=== PATIENT | male | born 1930 | race Hispanic/Latino ===

== ENCOUNTER 2017-12-25 04:22 | Inpatient (IN) | payer MEDICARE, BC ==
[2017-12-25] MEDS ORDERED: Nitroglycerin 50mg in D5W 50 MG/250 ML BOTTLE IV ONE (04:48)
[2017-12-25] MEDS ORDERED: Aspirin 325 mg EC Tablets PO STA (04:52)
[2017-12-25] MEDS ORDERED: Nitroglycerin 50mg in D5W 50 MG/250 ML BOTTLE IV STA (04:52)
--- NOTE | 2017-12-25 04:54 | C.PDOC ---
History Of Present Illness 87 y/o male with PMHx significant for COPD, CAD s/p CABG and stents, presents to the ED for evaluation of persistent chest pain. Patient complains of substernal chest pain that began at 2pm while at rest. Patient has taken at least 10 nitroglycerin at home, which relieves pain briefly for 20-30 min. Pain was initially rated 10/10 but is now 3/10. Of note, patient is on home oxygen. He denies SOB, palpitations, dizziness, nausea, vomiting, or diaphoresis. Time Seen by Provider: 12/25/17 04:33 Chief Complaint (Nursing): Chest Pain History Per: Patient History/Exam Limitations: no limitations Onset/Duration Of Symptoms: Hrs Current Symptoms Are (Timing): Still Present Nitro Therapy Administered: Per Own Supply (x10), Partial Relief Past Medical History Reviewed: Historical Data, Nursing Documentation, Vital Signs Vital Signs: Last Vital Signs Temp Pulse 64 12/25/17 05:57 Resp 14 12/25/17 05:57 BP 138/72 12/25/17 05:57 Pulse Ox 100 12/25/17 05:57 - Medical History PMH: Atrial Fibrillation, CAD, COPD, HTN, Peripheral Edema Denies: Chronic Kidney Disease Surgical History: CABG, Coronary Stent Other Surgeries: Vascular bypass to right leg Family History: States: No Known Family Hx - Social History Hx Alcohol Use: No Hx Substance Use: No - Immunization History Hx Tetanus Toxoid Vaccination: No Hx Influenza Vaccination: No Hx Pneumococcal Vaccination: No Review Of Systems Except As Marked, All Systems Reviewed And Found Negative. Constitutional: Negative for: Sweats Cardiovascular: Positive for: Chest Pain. Negative for: Palpitations Respiratory: Negative for: Shortness of Breath Gastrointestinal: Negative for: Nausea, Vomiting Neurological: Negative for: Dizziness Physical Exam - Physical Exam Appears: Non-toxic, No Acute Distress, Other (Speaking in full sentences, with good humor) Skin: Normal Color, Warm, Dry, No Diaphoretic Head: Atraumatic, Normacephalic Eye(s): bilateral: Normal Inspection, PERRL, EOMI Nose: Normal Oral Mucosa: Moist Neck: Normal ROM, Supple Chest: Symmetrical, Other (Median sternotomy scar, well healed) Cardiovascular: Rhythm Regular, No Friction Rub, No Murmur, No JVD, No Other ( Thrill) Respiratory: Decreased Breath Sounds, No Rales, No Rhonchi, No Wheezing Gastrointestinal/Abdominal: Soft, No Tenderness, No Guarding, No Rebound, Other (Obese habitus) Extremity: Normal ROM, No Deformity, Swelling (Chronic stasis edema to bilateral lower extremities, non-pitting), Other (Erythematous macular exanthum to right lower extremity, suggestive of cellulitis) Pulses: Left Dorsalis Pedis: Normal, Right Dorsalis Pedis: Normal Neurological/Psych: Oriented x3, Normal Speech, Normal Cranial Nerves (2-12 intact), Normal Motor, Normal Sensation, No Other (focal deficits) ED Course And Treatment - Laboratory Results Result Diagrams: 12/25/17 05:07 12/25/17 05:07 ECG: Interpreted By Me, Viewed By Me ECG Rhythm: Sinus Rhythm (at 76 bpm with L BBB, with no acute ST changes) Interpretation Of ECG: No prior EKG for comparison O2 Sat by Pulse Oximetry: 99 (RA) Pulse Ox Interpretation: Normal - Radiology CXR: Interpreted by Me, Viewed By Me CXR Interpretation: Yes: Cardiomegaly, Other (Median sternotomy wires) Medical Decision Making Medical Decision Making: Impression: Crescendo angina Time: 4:52 Initial Plan: * Nitro IV drip * Aspirin 325 mg PO * EKG * Chest x-ray * Routine labs * 3L O2 via nasal cannula * Likely admission for unstable angina Labs reviewed: Troponin 0.198, BNP 1999 5:[address] Stringer, hospitalist on-call, who accepts patient for admission Disposition Discussed With : Freedom Stringer Doctor Will See Patient In The: Hospital Counseled Patient/Family Regarding: Studies Performed, Diagnosis - Disposition Disposition: HOSPITALIZED Disposition Time: 05:45 Condition: IMPROVED Forms: [employer] (French) - POA Core Measure Indicators: Chest Pain - Clinical Impression Clinical Impression: Crescendo angina - Scribe Statement The provider has reviewed the documentation as recorded by the Scribe (Tati Eric) Provider Attestation: All medical record entries made by the Scribe were at my direction and personally dictated by me. I have reviewed the chart and agree that the record accurately reflects my personal performance of the history, physical exam, medical decision making, and the department course for this patient. I have also personally directed, reviewed, and agree with the discharge instructions and disposition.
[2017-12-25] MEDS ORDERED: Aspirin 325 mg EC Tablets PO ONE (05:02)
[2017-12-25 05:10] LABS: BASO # 0.1 K/uL (0.0-0.2); BASO % 0.5 % (0.0-2.0); EOS # 0.2 K/uL (0.0-0.7); EOS % 1.7 % (0.0-4.0); HEMOGLOBIN 12.4 g/dL (12.0-18.0); LYMPH # 1.9 K/uL (1.0-4.3); LYMPH % 17.1 % (20.0-40.0); MEAN CELL VOLUME 93.3 fL (80.0-94.0); MEAN CORPUSCULAR HEMOGLOBIN 30.9 pg (27.0-31.0); MEAN CORPUSCULAR HGB CONC 33.1 g/dL (33.0-37.0); MEAN PLATELET VOLUME 9.2 fL (7.2-11.7); MONO # 1.1 K/uL (0.0-0.8); MONO % 9.5 % (0.0-10.0); NEUT % 71.2 % (50.0-75.0); RED CELL DISTRIBUTION WIDTH 14.7 % (11.5-14.5); WHITE BLOOD COUNT 11.2 K/uL (4.8-10.8)
[2017-12-25 05:23] LABS: ALB/GLOB RATIO 1.3 (1.0-2.1); ALBUMIN 4.2 g/dL (3.5-5.0); CALCIUM 9.4 mg/dl (8.6-10.4)
[2017-12-25 05:46] LABS: TROPONIN I 0.197 ng/mL (0.00-0.120)
[2017-12-25] MEDS ORDERED: Nitroglycerin 2% Ointment Foilpak UD TOP STA (05:48)
[2017-12-25] MEDS ORDERED: Nitroglycerin 2% Ointment Foilpak UD TOP ONE ×3 (06:02→21:32)
[2017-12-25] MEDS ORDERED: Dextrose 50% SYRINGE Inj (50 ml) IV PRN (07:51)
[2017-12-25] MEDS ORDERED: Glucagon Recombinant 1 mg Inj IM PRN (07:51)
[2017-12-25] MEDS: Budesonide 0.5 mg/2 ml Inhal Susp UD INH SCH (08:05)
--- NOTE | 2017-12-25 08:33 | RAD ---
PROCEDURE: CHEST RADIOGRAPH, 1 VIEW HISTORY: chest pain COMPARISON: None available. FINDINGS: LUNGS: Clear. PLEURA: No pneumothorax or pleural fluid seen. CARDIOVASCULAR: Left subclavian access AICD/ pacemaker. Prior sternotomy with sternal wires and surgical clips. Atherosclerotic aortic calcifications. Cardiomediastinal silhouette enlarged. OSSEOUS STRUCTURES: Degenerative changes. VISUALIZED UPPER ABDOMEN: Normal. OTHER FINDINGS: None. IMPRESSION: No active disease.
[2017-12-25] MEDS ORDERED: Heparin25000 units/250ml 1/2NS 25,000 UNITS/250 ML BAG IV PRN (09:08)
--- NOTE | 2017-12-25 09:55 | CP.PCM.HP ---
<Bonita LeeMarshall - Last Filed: 12/25/17 16:25> History of Present Illness - History of Present Illness History of Present Illness: CC: Chest pain HPI: 87 year old male with past medical history of CAD with stents and CABG in 2001, DM, enlarged prostate, and kidney stones presents to the ED with 1 day of chest pain. Patient describes pain as "a deep pain" which began yesterday at 2 pm. The patient stated he experience pain bilaterally across his chest, in his left shoulder and arm and with moderate shortness of breath associated with the pain. The pain was decreased by sitting up. Patient states he was sitting down when pain originally started and denies doing any activities of exertion in quite some time due to general deconditioning. Originally the pain was a 10/10 however after taking nitroglycerin tablets the pain reduced to a 3/10 until it eventually completely dissipated. According to patient, this was the first time he had ever taken nitroglycerin and over the course of the day took about 10 tablets. The patient also took aspirin as well as an OTC pain killer that he did not know the name of which his son provided him. The patient states he had very similar yet more severe symptoms on December 14 this month. At that time he did not come to the hospital. He stated he knew he was having a heart attack and wanted "to let this one take me." However, after that pain subsided he stated he realized he still had his son to live for. Patient states that is why he presented to the hospital today during this bout of chest pain. Patient states he took all of his medications today EXCEPT for metformin. He states he is very regimented with his medications, taking all as prescribed daily. Patient denies any fevers, chills, headache, dizziness, vision changes, sore throat, palpitations, abdominal pain, nausea, vomiting, constipation, diarrhea, dysuria, leg pain/swelling, weight changes. PMD: Dr. Santamaria (urologist), insurance plan specialist- Dr. Ramirez, Side Seam Machine Operator- Dr. Zaldivar PMHx: HTN, COPD, CAD- stent (unknown number and date) CABG ( unknown vessel number, 2001) pacemaker/defibrillator (2001 interrogated [id number] as per patient ), DM, Prostate enlargement, Kidney stones (1951) Allergies: denies Surgical History: CABG 2001, stents unknown date, Prostate surgery- 2010, pacemaker/defibrillator- 2001 (patient states he is on his third one) Family history: father and mother both of "heart issues" in their 50's, grandfather of throat cancer, has 1 son who is alive and well, denies history of strokes Social History: >60 pack year history smoking quit in 2004 but "smokes 2 puffs of 's cigarettes every 6 months to remember", quit drinking alcohol in , denies recreational drug use. Retired, currently lives with his son. Home medications: Lipitor 10mg PO daily, ASA 81 mg PO daily, Eliquis 2.5 mg PO daily, Cozaar 50mg PO BID, glimepiride 1mg PO daily, Budesonide .5gm MC BID, Norvasc 10mg PO daily, Torsemide 20mg PO daily, Metoprolol 100mg PO daily, Metolazone 2.5 mg PO QOD6, Metformin 500mg PO daily, Clonidine .1mg PO BID, Arformoterol 15mcg IH daily. Present on Admission - Present on Admission Any Indicators Present on Admission: No History of DVT/PE: No History of Uncontrolled Diabetes: No Urinary Catheter: No Decubitus Ulcer Present: No Review of Systems - Constitutional Constitutional: absent: Chills, Fever - EENT Eyes: absent: Blurred Vision, Change in Vision Nose/Mouth/Throat: absent: Nasal Congestion, Sore Throat - Cardiovascular Cardiovascular: Chest Pain, Chest Pain at Rest, Dyspnea, Edema. absent: Irregular Heart Rhythm, Palpitations, Syncope - Respiratory Respiratory: Dyspnea, Dyspnea on Exertion. absent: Cough - Gastrointestinal Gastrointestinal: absent: Abdominal Pain, Constipation, Diarrhea, Nausea, Vomiting - Genitourinary Genitourinary: Nocturia, Urinary Hesitance. absent: Dysuria, Hematuria - Musculoskeletal Musculoskeletal: Radiating Pain into Limb (chest pain radiating into left arm ) . absent: Numbness, Tingling - Integumentary Integumentary: Erythema, Swelling Additional comments: right leg erythema and edema - Neurological Neurological: absent: Syncope Past Patient History - Past Social History Smoking Status: Unknown If Ever Smoked - CARDIAC Hx Atrial Fibrillation: Yes Hx Hypertension: Yes Hx Peripheral Edema: Yes - PULMONARY Hx Chronic Obstructive Pulmonary Disease (COPD): Yes - NEUROLOGICAL Hx Neurological Disorder: No - HEENT Hx HEENT Problems: No - RENAL Hx Chronic Kidney Disease: No - ENDOCRINE/METABOLIC Hx Diabetes Mellitus Type 2: Yes - HEMATOLOGICAL/ONCOLOGICAL Hx Blood Disorders: No - INTEGUMENTARY Hx Dermatological Problems: No - MUSCULOSKELETAL/RHEUMATOLOGICAL Hx Musculoskeletal Disorders: No - PSYCHIATRIC Hx Substance Use: No - SURGICAL HISTORY Hx Coronary Artery Bypass Graft: Yes Hx Coronary Stent: Yes - ANESTHESIA Hx Anesthesia: Yes Hx Anesthesia Reactions: No Meds Allergies/Adverse Reactions: Allergies Allergy/AdvReac Type Severity Reaction Status Date / Time No Known Allergies Allergy Verified 12/25/17 04:27 Physical Exam - Constitutional Appears: Non-toxic, No Acute Distress - Head Exam Head Exam: ATRAUMATIC, NORMAL INSPECTION, NORMOCEPHALIC - Eye Exam Eye Exam: EOMI, Normal appearance Pupil Exam: NORMAL ACCOMODATION, PERRL - ENT Exam ENT Exam: Mucous Membranes Moist - Neck Exam Neck exam: Positive for: Normal Inspection. Negative for: Lymphadenopathy, Tenderness - Respiratory Exam Respiratory Exam: Rales, Rhonchi. absent: Respiratory Distress - Cardiovascular Exam Cardiovascular Exam: REGULAR RHYTHM, RRR, +S1, +S2 - GI/Abdominal Exam GI & Abdominal Exam: Normal Bowel Sounds, Soft. absent: Distended, Guarding, Tenderness - Extremities Exam Extremities exam: Positive for: pedal edema. Negative for: tenderness Additional comments: right LE edematous and erythematous - Back Exam Back exam: NORMAL INSPECTION - Neurological Exam Neurological exam: Alert, Oriented x3 - Psychiatric Exam Psychiatric exam: Normal Affect, Normal Mood - Skin Skin Exam: Warm Additional comments: Right lower extremity erythematous and edematous, no tenderness to touch Results - Vital Signs Recent Vital Signs: Last Vital Signs Temp 97.4 F L 12/25/17 07:32 Pulse 70 12/25/17 07:32 Resp 20 12/25/17 07:32 BP 150/72 12/25/17 08:14 Pulse Ox 99 12/25/17 07:32 - Labs Result Diagrams: 12/25/17 05:07 12/25/17 05:07 Labs: Laboratory Results - last 24 hr 12/25/17 12/25/17 12/25/17 04:27 05:07 05:07 WBC 11.2 H RBC 4.00 L Hgb 12.4 Hct 37.3 MCV 93.3 MCH 30.9 MCHC 33.1 RDW 14.7 H Plt Count 217 MPV 9.2 Neut % (Auto) 71.2 Lymph % (Auto) 17.1 L [place] % (Auto) 9.5 Eos % (Auto) 1.7 Baso % (Auto) 0.5 Neut # (Auto) 8.0 H Lymph # (Auto) 1.9 [place] # (Auto) 1.1 H Eos # (Auto) 0.2 Baso # (Auto) 0.1 Sodium 140 Potassium 3.7 Chloride 100 Carbon Dioxide 23 Anion Gap 22 H BUN 85 H Creatinine 2.4 H Est GFR ( Amer) 31 Est GFR (Non-Af Amer) 26 POC Glucose (mg/dL) 160 H Random Glucose 164 H Calcium 9.4 Total Bilirubin 0.5 AST 27 ALT 26 Alkaline Phosphatase 60 Troponin I 0.1970 H* NT-Pro-B Natriuret Pep 2000 H Total Protein 7.4 Albumin 4.2 Globulin 3.3 Albumin/Globulin Ratio 1.3 Assessment & Plan - Assessment and Plan (Free Text) Assessment: Unstable angina patient on nitro drip in ED which decreased his pain ASA 325mg given in ED also given nitropaste in ED which will be continued Heparin drip started continue ASA 81mg daily Cardiology consulted, Dr. Garay, help appreciated Troponin I: .1970 f/u Troponin I: .4470 f/u JASPAL x 2 SOB due to patient's renal function VQ scan ordered to r/o PE: low probability ventilation perfusion scan for PE Nasal Cannula as needed continue to monitor acute on Chronic CHF proBNP: 1999 patient has pacemaker with defibrillator Lasix 40mg iv one dose given continue home medications: Metaolazone 2.5mg po q0d6 Torsemide held as per nephro due to Lasix f/u Chest CT RLE Edema dopplers: Right- no evidence of deep or superficial vein thrombosis of the right lower extremity. Normal valve function noted Left- no evidence of deep or superficial vein thrombosis of the right lower extremity. valvular incompetence of the left greater saphenous vein CKD of unknown chronicity BUN: 85 Cr: 2.4 Nephrology consulted, Dr. Grossman, help appreciated f/u recommendations as per nephro CAD Atorvastatin NF, start Crestor 20mg po HS hold Losartan 50mg po BID due to kidney function changed home Toprol XL to Lopressor 25mg po BID continue ASA 81mg po daily HTN continue home medication: Norvasc 10mg po daily Clonidine .1mg po BID changed Toprol XL to Lopressor 25mg po BID f/u lipid panel DM hold home medications accuchecks q6h insulin sliding scale-low f/u HgA1C COPD home meds NF start Budesonide .5mg inh q12h Prophylaxis Patient on heparin drip, scds contraindicated due to RLE edema/erythema <Aryan Moses H - Last Filed: 12/25/17 17:12> Results - Vital Signs Recent Vital Signs: Last Vital Signs Temp 97.9 F 12/25/17 15:13 Pulse 73 12/25/17 15:13 Resp 20 12/25/17 15:13 BP 128/63 12/25/17 15:13 Pulse Ox 95 12/25/17 15:13 - Labs Result Diagrams: 12/25/17 05:07 12/25/17 05:07 Labs: Laboratory Results - last 24 hr 12/25/17 12/25/17 12/25/17 04:27 05:07 05:07 WBC 11.2 H RBC 4.00 L Hgb 12.4 Hct 37.3 MCV 93.3 MCH 30.9 MCHC 33.1 RDW 14.7 H Plt Count 217 MPV 9.2 Neut % (Auto) 71.2 Lymph % (Auto) 17.1 L [place] % (Auto) 9.5 Eos % (Auto) 1.7 Baso % (Auto) 0.5 Neut # (Auto) 8.0 H Lymph # (Auto) 1.9 [place] # (Auto) 1.1 H Eos # (Auto) 0.2 Baso # (Auto) 0.1 Sodium 140 Potassium 3.7 Chloride 100 Carbon Dioxide 23 Anion Gap 22 H BUN 85 H Creatinine 2.4 H Est GFR ( Amer) 31 Est GFR (Non-Af Amer) 26 POC Glucose (mg/dL) 160 H Random Glucose 164 H Calcium 9.4 Total Bilirubin 0.5 AST 27 ALT 26 Alkaline Phosphatase 60 Total Creatine Kinase CK-MB (Mass) Troponin I 0.1970 H* NT-Pro-B Natriuret Pep 2000 H Total Protein 7.4 Albumin 4.2 Globulin 3.3 Albumin/Globulin Ratio 1.3 12/25/17 12/25/17 12/25/17 09:44 11:00 16:09 WBC RBC Hgb Hct MCV MCH MCHC RDW Plt Count MPV Neut % (Auto) Lymph % (Auto) [place] % (Auto) Eos % (Auto) Baso % (Auto) Neut # (Auto) Lymph # (Auto) [place] # (Auto) Eos # (Auto) Baso # (Auto) Sodium Potassium Chloride Carbon Dioxide Anion Gap BUN Creatinine Est GFR ( Amer) Est GFR (Non-Af Amer) POC Glucose (mg/dL) 141 H 185 H Random Glucose Calcium Total Bilirubin AST ALT Alkaline Phosphatase Total Creatine Kinase 80 CK-MB (Mass) 4.51 H Troponin I 0.4470 H* NT-Pro-B Natriuret Pep Total Protein Albumin Globulin Albumin/Globulin Ratio Attending/Attestation - Attestation I have personally seen and examined this patient.: Yes I have fully participated in the care of the patient.: Yes I have reviewed all pertinent clinical information: Yes Notes (Text): 12/25/17 16:58 Medical attending: Patient was seen and examined by me as well. Agree with the above note by the resident We saw the patient on 5T early in the morning. He was no longer having chest pain when we saw him. He was not in acute distress at this time. As mentioned above in the resident note, the patient thinks he had a heart attack earlier in the month with severe pain - however he did not want to go to the hospital since he was depressed and wanted to peacefully at that time. However later in the month he felt better and felt that he had a reason to live again so when the chest pain occured this night he immediately took nitroglycerin as well as ASA and came to the hospital. He had a borderline elevated troponin, the EKG shows a LBBB. As mentioned above, there is an extensive history of heart disease that has required him to be on CHF medication, atrial fibrillation, he has a ICD/pacer, and a history of stenting as well as CABG surgery. He was already on Xarelto, however given his renal function and the possible need of procedure, cardiology advised heparin ggt instead. He does on exam have a right lower extremity that is swollen and edema - it is the side he had vein removal for CABG surgery. Because of this we ordered a V/Q scan and it was low probability for PE. A chest CT was also done since we were worried about pleural effusion and this was negative. He is pending an echo at this moment. He will need to be on topical nitropaste, Lopressor, cozzarr, as well as crestor and on the heparin ggt. Additional cardiac enzymes will be ordered as well. He does have CKD, and there is an evaluation by nephrology as well. Because of his CKD as well as possible procedures requiring contrast - we are holding off on glipizde and metformin. For now insulin will be used to control his blood sugars. thank you Aryan Moses
--- NOTE | 2017-12-25 09:55 | NM ---
COMPARISON: December 25, 2017. TECHNIQUE: 10.6 mCi technetium 99-m Xe-133 Gas. 4.1 mCI technetium 99-m MAA administered intravenously. FINDINGS: VENTILATION COMPONENT: Normal. PERFUSION COMPONENT: Heterogeneous distribution of radionuclide. No geographic, segmental, lobar abnormalities apparent on the present examination. Incidental finding(s): Photon deficient regions corresponding to the pacemaker battery pack. IMPRESSION: Low probability ventilation perfusion scan for pulmonary embolism.
[2017-12-25 10:18] LABS: CK-MB 4.51 ng/mL (0.0-3.38); TROPONIN I 0.447 ng/mL (0.00-0.120)
[2017-12-25] MEDS: (Novolin R) Insulin Human Regular 100 units/ml vial SC SCH ×3 (11:34→21:55)
--- NOTE | 2017-12-25 13:25 | CT ---
PROCEDURE: CT Chest without contrast HISTORY: SOB COMPARISON: None. TECHNIQUE: Contiguous axial images were obtained through the chest without intravenous contrast enhancement. Sagittal and coronal reconstructions were performed. Radiation dose (DLP): 897.5 MGy-cm. This CT exam was performed using one or more of the following dose reduction techniques: Automated exposure control, adjustment of the mA and/or kV according to patient size, and/or use of iterative reconstruction technique. FINDINGS: LUNGS: Bibasilar atelectasis /scarring. Clear lungs. Visualized airway clear. MEDIASTINUM: Unremarkable thoracic aorta. No aneurysm. Heavy calcific atherosclerosis. Cardiomegaly. Implanted cardiac device. Prior sternotomy with sternal wires and surgical clips in place. Main pulmonary artery unremarkable. No vascular congestion. No lymphadenopathy. PLEURA: No pleural fluid. No pneumothorax. BONES: No fracture. No destructive lesion. UPPER ABDOMEN: Calcified cholelithiasis without gallbladder wall thickening/ edema. Left adrenal 1.7 cm x 1.7 adenoma. 1.8 x 0.6 cm right adrenal adenoma. OTHER FINDINGS: Enlarged heterogeneous thyroid. IMPRESSION: Enlarged heterogeneous thyroid. Dedicated thyroid ultrasound can be obtained for further evaluation. No focal consolidation or pleural effusion. Incidental cholelithiasis without CT evidence for acute cholecystitis. Additional findings as above.
--- NOTE | 2017-12-25 13:59 | VASCLAB ---
PROCEDURE: Lower Extremity Venous Duplex Exam. HISTORY: erythematous, swollen right lower extremity, sob PRIORS: None. TECHNIQUE: Bilateral common femoral, femoral, popliteal and posterior tibial, peroneal and great saphenous veins were evaluated. Flow was assessed with color Doppler, compressibility, assessment of phasic flow and augmentation response. Report prepared by Dhaval Mandujano, DARYL, RVT FINDINGS: RIGHT: 1. Common Femoral Vein: 1.1. Compressibility - Fully compressible: Thrombus - None : Flow - Phasic: Augmentation -Normal: Reflux - None. 2. Femoral Vein: 2.1. Compressibility - Fully compressible: Thrombus - None : Flow - Phasic: Augmentation -Normal: Reflux - None. 3. Popliteal Vein: 3.1. Compressibility - Fully compressible: Thrombus - None : Flow - Phasic: Augmentation -Normal: Reflux - None. 4. Posterior Tibial Vein: 4.1. Compressibility - Fully compressible: Thrombus - None: Flow - Phasic: Augmentation -Normal: Reflux - None. 5. Peroneal Vein: 5.1. Compressibility - Fully compressible: Thrombus - None: Flow - Phasic: Augmentation -Normal: Reflux - None. 6. Great Saphenous Vein: 6.1. Compressibility - Fully compressible: Thrombus - None: Flow - Phasic: Augmentation - Normal: Reflux - None. LEFT: 1. Common Femoral Vein: 1.1. Compressibility - Fully compressible: Thrombus - None: Flow - Phasic: Augmentation -Normal: Reflux - None. 2. Femoral Vein: 2.1. Compressibility - Fully compressible: Thrombus - None: Flow - Phasic: Augmentation -Normal: Reflux - None. 3. Popliteal Vein: 3.1. Compressibility - Fully compressible: Thrombus - None : Flow - Phasic: Augmentation -Normal: Reflux - Severe. 4. Posterior Tibial Vein: 4.1. Compressibility - Fully compressible: Thrombus - None: Flow - Phasic: Augmentation -Normal: Reflux - None. 5. Peroneal Vein: 5.1. Compressibility - Fully compressible: Thrombus - None: Flow - Phasic: Augmentation -Normal: Reflux - None. 6. Great Saphenous Vein: 6.1. Compressibility - Fully compressible: Thrombus - None: Flow - Phasic: Augmentation - Normal: Reflux - None. OTHER FINDINGS: Right: None significant. Left: None significant. IMPRESSION: Right: No evidence of deep or superficial vein thrombosis of the right lower extremity. Normal valve function noted of the right side. Left: No evidence of deep or superficial vein thrombosis of the left lower extremity. Valvular incompetence of the left greater saphenous vein.
--- NOTE | 2017-12-25 15:59 | US ---
PROCEDURE: Ultrasound of the Kidneys HISTORY: tami COMPARISON: None available. TECHNIQUE: Sonogram of the kidneys. FINDINGS: RIGHT KIDNEY: Measures: 9.9 cm. Unremarkable in echogenicity. Cortical thinning noted. No shadowing renal stone, cyst, or hydronephrosis is identified. LEFT KIDNEY: Measures: 12.1 cm. Unremarkable in echogenicity. Cortical thinning noted. No shadowing renal stone, cyst, or hydronephrosis is identified. OTHER FINDINGS: Visualized portions of the aorta are normal in caliber. Visualized portions of the urinary bladder are unremarkable IMPRESSION: Bilateral renal cortical thinning which can be seen in medical renal disease. Asymmetric kidneys, left kidney larger than the right.
--- NOTE | 2017-12-25 16:11 | CP.PCM.CON ---
History of Present Illness - History of Present Illness History of Present Illness: 87 yo male with history of CABG, AICD, COPD, presents with chest pain. Patient is on home oxygen. Needs help with transferring, bathing. Lives with son. Being seen by cardiology for acute coronary syndrome. Renal consult for elevated creatinine. Has a remote history of kidney stones. History of BPH, frequent urination. No family history of renal disease. Denies NSAID use. No recent contrast procedure. Normal u/o. Review of Systems - Constitutional Constitutional: absent: Chills, Fever - EENT Eyes: absent: Blind Spots, Blurred Vision Nose/Mouth/Throat: absent: Nasal Congestion, Nasal Discharge - Cardiovascular Cardiovascular: Chest Pain. absent: Pedal Edema - Respiratory Respiratory: absent: Cough, Dyspnea - Gastrointestinal Gastrointestinal: absent: Abdominal Pain, Belching - Genitourinary Genitourinary: Change in Urinary Stream, Voiding Freq/Small Amts - Musculoskeletal Musculoskeletal: Abnormal Gait, Muscle Weakness Past Patient History - Past Social History Smoking Status: Unknown If Ever Smoked - CARDIAC Hx Atrial Fibrillation: Yes Hx Hypertension: Yes Hx Peripheral Edema: Yes - PULMONARY Hx Chronic Obstructive Pulmonary Disease (COPD): Yes - NEUROLOGICAL Hx Neurological Disorder: No - HEENT Hx HEENT Problems: No - RENAL Hx Chronic Kidney Disease: No - ENDOCRINE/METABOLIC Hx Diabetes Mellitus Type 2: Yes - HEMATOLOGICAL/ONCOLOGICAL Hx Blood Disorders: No - INTEGUMENTARY Hx Dermatological Problems: No - MUSCULOSKELETAL/RHEUMATOLOGICAL Hx Musculoskeletal Disorders: No - PSYCHIATRIC Hx Substance Use: No - SURGICAL HISTORY Hx Coronary Artery Bypass Graft: Yes Hx Coronary Stent: Yes - ANESTHESIA Hx Anesthesia: Yes Hx Anesthesia Reactions: No Meds Allergies/Adverse Reactions: Allergies Allergy/AdvReac Type Severity Reaction Status Date / Time No Known Allergies Allergy Verified 12/25/17 04:27 - Medications Medications: Current Medications Amlodipine Besylate (Norvasc) 10 mg PO DAILY [facility] Last Admin: 12/25/17 11:27 Dose: Not Given Aspirin (Aspirin Chewable) 81 mg PO DAILY [facility] Last Admin: 12/25/17 11:06 Dose: 81 mg Budesonide (Pulmicort Respules) 0.5 mg INH RQ12 [facility] Last Admin: 12/25/17 08:05 Dose: Not Given Clonidine HCl (Catapres) 0.1 mg PO BID [facility] Last Admin: 12/25/17 11:27 Dose: Not Given Dextrose (Dextrose 50% Inj) 0 ml IV STAT PRN; Protocol PRN Reason: Hypoglycemia Protocol Dextrose (Glutose 15) 15 gm PO ONCE PRN; Protocol PRN Reason: Hypoglycemia Protocol Glucagon (Glucagen Diagnostic Kit) 1 mg IM STAT PRN; Protocol PRN Reason: Hypoglycemia Protocol Nitroglycerin/Dextrose (Nitroglycerin 50 Mg/250 Ml D5w) 50 mg in 250 mls @ 1.5 mls/hr IV .Q24H STA PRN Reason: 5 MCG/MIN Stop: 12/26/17 04:51 Last Admin: 12/25/17 04:51 Dose: 1.5 mls/hr Dextrose (Dextrose 5% In Water 1000 Ml) 1,000 mls @ 0 mls/hr IV .Q0M PRN; Protocol; Per Protocol PRN Reason: Hypoglycemia Protocol Heparin Sodium/Sodium Chloride (Heparin 93892 Units/250ml 1/2 Normal Saline) 25 ,000 units in 250 mls @ 11.594 mls/hr IV .[id number] PRN; Protocol; 12 UNITS/KG/HR PRN Reason: PROTOCOL Insulin Human Regular (Novolin R) 0 unit SC ACHS FUAD PRN Reason: Protocol Last Admin: 12/25/17 11:34 Dose: Not Given Metolazone (Zaroxolyn) 2.5 mg PO QOD6 [facility] Metoprolol Tartrate (Lopressor) 25 mg PO BID [facility] Last Admin: 12/25/17 11:26 Dose: 25 mg Rosuvastatin Calcium (Crestor) 10 mg PO HS [facility] Physical Exam - Constitutional Appears: No Acute Distress, Chronically Ill - Head Exam Head Exam: ATRAUMATIC, NORMAL INSPECTION - Eye Exam Eye Exam: EOMI, Normal appearance - ENT Exam ENT Exam: Mucous Membranes Moist - Neck Exam Neck exam: Positive for: Full Rom. Negative for: Lymphadenopathy - Respiratory Exam Respiratory Exam: Decreased Breath Sounds, Rales - Cardiovascular Exam Cardiovascular Exam: Irregular Rhythm Additional comments: pacemaker/AICD - Extremities Exam Extremities exam: Negative for: pedal edema Results - Vital Signs Recent Vital Signs: Last Vital Signs Temp 97.9 F 12/25/17 15:13 Pulse 73 12/25/17 15:13 Resp 20 12/25/17 15:13 BP 128/63 12/25/17 15:13 Pulse Ox 95 12/25/17 15:13 - Labs Result Diagrams: 12/25/17 05:07 12/25/17 05:07 Labs: Laboratory Results - last 24 hr 12/25/17 12/25/17 12/25/17 04:27 05:07 05:07 WBC 11.2 H RBC 4.00 L Hgb 12.4 Hct 37.3 MCV 93.3 MCH 30.9 MCHC 33.1 RDW 14.7 H Plt Count 217 MPV 9.2 Neut % (Auto) 71.2 Lymph % (Auto) 17.1 L [place] % (Auto) 9.5 Eos % (Auto) 1.7 Baso % (Auto) 0.5 Neut # (Auto) 8.0 H Lymph # (Auto) 1.9 [place] # (Auto) 1.1 H Eos # (Auto) 0.2 Baso # (Auto) 0.1 Sodium 140 Potassium 3.7 Chloride 100 Carbon Dioxide 23 Anion Gap 22 H BUN 85 H Creatinine 2.4 H Est GFR ( Amer) 31 Est GFR (Non-Af Amer) 26 POC Glucose (mg/dL) 160 H Random Glucose 164 H Calcium 9.4 Total Bilirubin 0.5 AST 27 ALT 26 Alkaline Phosphatase 60 Total Creatine Kinase CK-MB (Mass) Troponin I 0.1970 H* NT-Pro-B Natriuret Pep 2000 H Total Protein 7.4 Albumin 4.2 Globulin 3.3 Albumin/Globulin Ratio 1.3 12/25/17 12/25/17 09:44 11:00 WBC RBC Hgb Hct MCV MCH MCHC RDW Plt Count MPV Neut % (Auto) Lymph % (Auto) [place] % (Auto) Eos % (Auto) Baso % (Auto) Neut # (Auto) Lymph # (Auto) [place] # (Auto) Eos # (Auto) Baso # (Auto) Sodium Potassium Chloride Carbon Dioxide Anion Gap BUN Creatinine Est GFR ( Amer) Est GFR (Non-Af Amer) POC Glucose (mg/dL) 141 H Random Glucose Calcium Total Bilirubin AST ALT Alkaline Phosphatase Total Creatine Kinase 80 CK-MB (Mass) 4.51 H Troponin I 0.4470 H* NT-Pro-B Natriuret Pep Total Protein Albumin Globulin Albumin/Globulin Ratio Assessment & Plan - Assessment and Plan (Free Text) Assessment: ckd of unknown chronicity US ordered, as well as urine analysis check spep losamyen put on hold at present torsemide d/riya, as on furosemide cardiology w/u pending will follow
[2017-12-25 17:42] LABS: CK-MB 6.27 ng/mL (0.0-3.38); TROPONIN I 0.949 ng/mL (0.00-0.120)
[2017-12-25 17:47] LABS: PROTHROMBIN TIME 11.5 SECONDS (9.7-12.2)
[2017-12-25] MEDS ORDERED: metOLazone 2.5 MG TAB PO SCH (18:00)
[2017-12-25 20:43] LABS: URINE BILIRUBIN NEGATIVE (NEGATIVE); URINE BLOOD NEGATIVE (NEGATIVE); URINE CLARITY Clear (Clear); URINE COLOR Straw (YELLOW); URINE GLUCOSE (UA) NORMAL (Normal); URINE LEUKOCYTE ESTERASE NEG Leu/uL (Negative); URINE PROTEIN NEGATIVE (NEGATIVE); URINE UROBILINOGEN NORMAL mg/dL (0.2-1.0)
--- NOTE | 2017-12-25 21:54 | CP.PCM.CON ---
History of Present Illness - History of Present Illness History of Present Illness: 87 M with extensive cardiac history admitted for chest pain Troponin leak Will follow Check ECHO Past Patient History - Past Social History Smoking Status: Unknown If Ever Smoked - CARDIAC Hx Atrial Fibrillation: Yes Hx Hypertension: Yes Hx Peripheral Edema: Yes - PULMONARY Hx Chronic Obstructive Pulmonary Disease (COPD): Yes - NEUROLOGICAL Hx Neurological Disorder: No - HEENT Hx HEENT Problems: No - RENAL Hx Chronic Kidney Disease: No - ENDOCRINE/METABOLIC Hx Diabetes Mellitus Type 2: Yes - HEMATOLOGICAL/ONCOLOGICAL Hx Blood Disorders: No - INTEGUMENTARY Hx Dermatological Problems: No - MUSCULOSKELETAL/RHEUMATOLOGICAL Hx Musculoskeletal Disorders: No - PSYCHIATRIC Hx Substance Use: No - SURGICAL HISTORY Hx Coronary Artery Bypass Graft: Yes Hx Coronary Stent: Yes - ANESTHESIA Hx Anesthesia: Yes Hx Anesthesia Reactions: No Meds Allergies/Adverse Reactions: Allergies Allergy/AdvReac Type Severity Reaction Status Date / Time No Known Allergies Allergy Verified 12/25/17 04:27 - Medications Medications: Current Medications Amlodipine Besylate (Norvasc) 10 mg PO DAILY [facility] Last Admin: 12/25/17 11:27 Dose: Not Given Aspirin (Aspirin Chewable) 81 mg PO DAILY [facility] Last Admin: 12/25/17 11:06 Dose: 81 mg Budesonide (Pulmicort Respules) 0.5 mg INH RQ12 [facility] Last Admin: 12/25/17 08:05 Dose: Not Given Clonidine HCl (Catapres) 0.1 mg PO BID [facility] Last Admin: 12/25/17 11:27 Dose: Not Given Dextrose (Dextrose 50% Inj) 0 ml IV STAT PRN; Protocol PRN Reason: Hypoglycemia Protocol Dextrose (Glutose 15) 15 gm PO ONCE PRN; Protocol PRN Reason: Hypoglycemia Protocol Glucagon (Glucagen Diagnostic Kit) 1 mg IM STAT PRN; Protocol PRN Reason: Hypoglycemia Protocol Nitroglycerin/Dextrose (Nitroglycerin 50 Mg/250 Ml D5w) 50 mg in 250 mls @ 1.5 mls/hr IV .Q24H STA PRN Reason: 5 MCG/MIN Stop: 12/26/17 04:51 Last Admin: 12/25/17 04:51 Dose: 1.5 mls/hr Dextrose (Dextrose 5% In Water 1000 Ml) 1,000 mls @ 0 mls/hr IV .Q0M PRN; Protocol; Per Protocol PRN Reason: Hypoglycemia Protocol Heparin Sodium/Sodium Chloride (Heparin 27731 Units/250ml 1/2 Normal Saline) 25 ,000 units in 250 mls @ 11.594 mls/hr IV .[id number] PRN; Protocol; 12 UNITS/KG/HR PRN Reason: PROTOCOL Last Admin: 12/25/17 17:32 Dose: 12 units/kg/hr, 11.594 mls/hr Insulin Human Regular (Novolin R) 0 unit SC ACHS FUAD PRN Reason: Protocol Last Admin: 12/25/17 17:25 Dose: 1 unit Metolazone (Zaroxolyn) 2.5 mg PO QOD6 [facility] Last Admin: 12/25/17 20:26 Dose: 2.5 mg Metoprolol Tartrate (Lopressor) 25 mg PO BID [facility] Last Admin: 12/25/17 18:42 Dose: 25 mg Rosuvastatin Calcium (Crestor) 10 mg PO HS [facility] Results - Vital Signs Recent Vital Signs: Last Vital Signs Temp 97.9 F 12/25/17 15:13 Pulse 73 12/25/17 15:13 Resp 20 12/25/17 15:13 BP 110/62 12/25/17 20:26 Pulse Ox 95 12/25/17 15:13 - Labs Result Diagrams: 12/25/17 05:07 12/25/17 05:07 Labs: Laboratory Results - last 24 hr 12/25/17 12/25/17 12/25/17 04:27 05:07 05:07 WBC 11.2 H RBC 4.00 L Hgb 12.4 Hct 37.3 MCV 93.3 MCH 30.9 MCHC 33.1 RDW 14.7 H Plt Count 217 MPV 9.2 Neut % (Auto) 71.2 Lymph % (Auto) 17.1 L [place] % (Auto) 9.5 Eos % (Auto) 1.7 Baso % (Auto) 0.5 Neut # (Auto) 8.0 H Lymph # (Auto) 1.9 [place] # (Auto) 1.1 H Eos # (Auto) 0.2 Baso # (Auto) 0.1 PT INR APTT Sodium 140 Potassium 3.7 Chloride 100 Carbon Dioxide 23 Anion Gap 22 H BUN 85 H Creatinine 2.4 H Est GFR ( Amer) 31 Est GFR (Non-Af Amer) 26 POC Glucose (mg/dL) 160 H Random Glucose 164 H Calcium 9.4 Total Bilirubin 0.5 AST 27 ALT 26 Alkaline Phosphatase 60 Total Creatine Kinase CK-MB (Mass) Troponin I 0.1970 H* NT-Pro-B Natriuret Pep 2000 H Total Protein 7.4 Albumin 4.2 Globulin 3.3 Albumin/Globulin Ratio 1.3 Urine Color Urine Clarity Urine pH Ur Specific [place] Urine Protein Urine Glucose (UA) Urine Ketones Urine Blood Urine Nitrate Urine Bilirubin Urine Urobilinogen Ur Leukocyte Esterase Hyaline Casts Ur Random Sodium 12/25/17 12/25/17 12/25/17 09:44 11:00 16:09 WBC RBC Hgb Hct MCV MCH MCHC RDW Plt Count MPV Neut % (Auto) Lymph % (Auto) [place] % (Auto) Eos % (Auto) Baso % (Auto) Neut # (Auto) Lymph # (Auto) [place] # (Auto) Eos # (Auto) Baso # (Auto) PT INR APTT Sodium Potassium Chloride Carbon Dioxide Anion Gap BUN Creatinine Est GFR ( Amer) Est GFR (Non-Af Amer) POC Glucose (mg/dL) 141 H 185 H Random Glucose Calcium Total Bilirubin AST ALT Alkaline Phosphatase Total Creatine Kinase 80 CK-MB (Mass) 4.51 H Troponin I 0.4470 H* NT-Pro-B Natriuret Pep Total Protein Albumin Globulin Albumin/Globulin Ratio Urine Color Urine Clarity Urine pH Ur Specific [place] Urine Protein Urine Glucose (UA) Urine Ketones Urine Blood Urine Nitrate Urine Bilirubin Urine Urobilinogen Ur Leukocyte Esterase Hyaline Casts Ur Random Sodium 12/25/17 12/25/17 12/25/17 16:52 17:30 20:21 WBC RBC Hgb Hct MCV MCH MCHC RDW Plt Count MPV Neut % (Auto) Lymph % (Auto) [place] % (Auto) Eos % (Auto) Baso % (Auto) Neut # (Auto) Lymph # (Auto) [place] # (Auto) Eos # (Auto) Baso # (Auto) PT 11.5 INR 1.0 APTT 29 Sodium Potassium Chloride Carbon Dioxide Anion Gap BUN Creatinine Est GFR ( Amer) Est GFR (Non-Af Amer) POC Glucose (mg/dL) Random Glucose Calcium Total Bilirubin AST ALT Alkaline Phosphatase Total Creatine Kinase 94 CK-MB (Mass) 6.27 H Troponin I 0.9490 H* NT-Pro-B Natriuret Pep Total Protein Albumin Globulin Albumin/Globulin Ratio Urine Color Urine Clarity Urine pH Ur Specific [place] Urine Protein Urine Glucose (UA) Urine Ketones Urine Blood Urine Nitrate Urine Bilirubin Urine Urobilinogen Ur Leukocyte Esterase Hyaline Casts Ur Random Sodium 93 12/25/17 12/25/17 20:22 21:07 WBC RBC Hgb Hct MCV MCH MCHC RDW Plt Count MPV Neut % (Auto) Lymph % (Auto) [place] % (Auto) Eos % (Auto) Baso % (Auto) Neut # (Auto) Lymph # (Auto) [place] # (Auto) Eos # (Auto) Baso # (Auto) PT INR APTT Sodium Potassium Chloride Carbon Dioxide Anion Gap BUN Creatinine Est GFR ( Amer) Est GFR (Non-Af Amer) POC Glucose (mg/dL) 178 H Random Glucose Calcium Total Bilirubin AST ALT Alkaline Phosphatase Total Creatine Kinase CK-MB (Mass) Troponin I NT-Pro-B Natriuret Pep Total Protein Albumin Globulin Albumin/Globulin Ratio Urine Color Straw Urine Clarity Clear Urine pH 5.0 Ur Specific [place] 1.009 Urine Protein Negative Urine Glucose (UA) Normal Urine Ketones Negative Urine Blood Negative Urine Nitrate Negative Urine Bilirubin Negative Urine Urobilinogen Normal Ur Leukocyte Esterase Neg Hyaline Casts 6-10 H Ur Random Sodium
[2017-12-26 04:32] LABS: BASO # 0.2 K/uL (0.0-0.2); BASO % 2.1 % (0.0-2.0); EOS # 0.2 K/uL (0.0-0.7); EOS % 2.5 % (0.0-4.0); HEMOGLOBIN 11.4 g/dL (12.0-18.0); LYMPH # 1.4 K/uL (1.0-4.3); LYMPH % 14.3 % (20.0-40.0); MEAN CELL VOLUME 92.5 fL (80.0-94.0); MEAN CORPUSCULAR HGB CONC 33.5 g/dL (33.0-37.0); MEAN PLATELET VOLUME 8.9 fL (7.2-11.7); MONO # 0.8 K/uL (0.0-0.8); MONO % 8.2 % (0.0-10.0); NEUT % 72.9 % (50.0-75.0); RBC 3.68 Mil/uL (4.40-5.90); RED CELL DISTRIBUTION WIDTH 14.7 % (11.5-14.5); WHITE BLOOD COUNT 9.6 K/uL (4.8-10.8)
[2017-12-26 05:14] LABS: CK-MB 3.72 ng/mL (0.0-3.38); TROPONIN I 1.27 ng/mL (0.00-0.120)
[2017-12-26 05:15] LABS: ALB/GLOB RATIO 1.3 (1.0-2.1); ALBUMIN 3.6 g/dL (3.5-5.0); CALCIUM 8.7 mg/dl (8.6-10.4)
[2017-12-26] MEDS: (Novolin R) Insulin Human Regular 100 units/ml vial SC SCH ×2 (07:53→12:36)
[2017-12-26] MEDS: Potassium Chloride 20 mEq ER Tab PO SCH ×2 (08:23→09:44)
[2017-12-26] MEDS ORDERED: Heparin25000 units/250ml 1/2NS 25,000 UNITS/250 ML BAG IV PRN (08:51)
[2017-12-26] MEDS: Heparin25000 units/250ml 1/2NS 25,000 UNITS/250 ML BAG IV PRN ×2 (09:33→17:57)
--- NOTE | 2017-12-26 10:02 | CP.PCM.PN ---
Subjective - Date & Time of Evaluation Date of Evaluation: 12/26/17 Time of Evaluation: 07:00 - Subjective Subjective: PGY1- Progress note for Dr. Rodriguez Patient seen and examined at bedside and in no acute distress. Patient says he is not having chest pain currently. Patient is on nasal canulla for breathing, but does not feel short of breath at rest. Patient denies any headache, abdominal pain, nausea, vomiting, constipation, or diarrhea. At about 10:30am patient started having severe 10/10 chest pain radiating to both shoulders. He was short of breath. Nitro paste was placed which helped relieve the pain some. Dr. 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 Objective - Vital Signs/Intake and Output Vital Signs (last 24 hours): Temp Pulse Resp BP Pulse Ox 98.1 F 70 20 115/66 97 12/26/17 07:00 12/26/17 07:00 12/26/17 07:00 12/26/17 09:29 12/26/17 07:00 Intake and Output: 12/26/17 12/26/17 06:59 18:59 Intake Total 507.5 Balance 507.5 - Medications Medications: Current Medications Amlodipine Besylate (Norvasc) 10 mg PO DAILY [facility] Last Admin: 12/25/17 11:27 Dose: Not Given Aspirin (Aspirin Chewable) 81 mg PO DAILY [facility] Last Admin: 12/26/17 09:28 Dose: 81 mg Budesonide (Pulmicort Respules) 0.5 mg INH RQ12 [facility] Last Admin: 12/25/17 08:05 Dose: Not Given Clonidine HCl (Catapres) 0.1 mg PO BID [facility] Last Admin: 12/25/17 11:27 Dose: Not Given Dextrose (Dextrose 50% Inj) 0 ml IV STAT PRN; Protocol PRN Reason: Hypoglycemia Protocol Dextrose (Glutose 15) 15 gm PO ONCE PRN; Protocol PRN Reason: Hypoglycemia Protocol Glucagon (Glucagen Diagnostic Kit) 1 mg IM STAT PRN; Protocol PRN Reason: Hypoglycemia Protocol Dextrose (Dextrose 5% In Water 1000 Ml) 1,000 mls @ 0 mls/hr IV .Q0M PRN; Protocol; Per Protocol PRN Reason: Hypoglycemia Protocol Heparin Sodium/Sodium Chloride (Heparin 13660 Units/250ml 1/2 Normal Saline) 25 ,000 units in 250 mls @ 9.016 mls/hr IV .Q24H PRN; Protocol; 10.45 UNITS/KG/HR PRN Reason: ADJUST RATE PER PROTOCOL Last Admin: 12/26/17 09:33 Dose: 10.45 units/kg/hr, 9.016 mls/hr Insulin Human Regular (Novolin R) 0 unit SC ACHS FUAD PRN Reason: Protocol Last Admin: 12/26/17 07:53 Dose: Not Given Metolazone (Zaroxolyn) 2.5 mg PO QOD6 [facility] Last Admin: 12/25/17 20:26 Dose: 2.5 mg Metoprolol Tartrate (Lopressor) 25 mg PO BID [facility] Last Admin: 12/26/17 09:29 Dose: 25 mg Potassium Chloride (K-Dur 20 Meq Er Tab) 40 meq PO Q3H [facility] Stop: 12/26/17 10:31 Last Admin: 12/26/17 09:44 Dose: 40 meq Rosuvastatin Calcium (Crestor) 10 mg PO HS [facility] Last Admin: 12/25/17 21:55 Dose: 10 mg - Labs Labs: 12/26/17 04:27 12/26/17 04:27 PT 11.5 SECONDS (9.7-12.2) 12/25/17 17:30 INR 1.0 12/25/17 17:30 APTT 108 SECONDS (21-34) H* D 12/26/17 06:00 - Additional Findings Additional findings: - Constitutional Appears: Non-toxic, No Acute Distress - Head Exam Head Exam: ATRAUMATIC, NORMAL INSPECTION, NORMOCEPHALIC - Eye Exam Eye Exam: EOMI, Normal appearance Pupil Exam: NORMAL ACCOMODATION, PERRL - ENT Exam ENT Exam: Mucous Membranes Moist - Neck Exam Neck exam: Positive for: Normal Inspection. Negative for: Lymphadenopathy, Tenderness - Respiratory Exam Respiratory Exam: Rales, Rhonchi. absent: Respiratory Distress - Cardiovascular Exam Cardiovascular Exam: REGULAR RHYTHM, RRR, +S1, +S2 - GI/Abdominal Exam GI & Abdominal Exam: Normal Bowel Sounds, Soft. absent: Distended, Guarding, Tenderness - Extremities Exam Extremities exam: Negative for: tenderness, pedal edema. Additional comments: right LE edematous and erythematous - Back Exam Back exam: NORMAL INSPECTION - Neurological Exam Neurological exam: Alert, Oriented x3 - Psychiatric Exam Psychiatric exam: Normal Affect, Normal Mood - Skin Skin Exam: Warm. Absent: edema Additional comments: Right lower extremity erythematous, no tenderness to touch Assessment and Plan - Assessment and Plan (Free Text) Assessment: Unstable angina Patient transferred to ICU patient on nitro drip in ED which decreased his pain ASA 325mg given in ED also given nitropaste in ED which will be continued Heparin drip started continue ASA 81mg daily nitropaste continued Cardiology consulted, Dr. Garay, help appreciated Troponins: .1970, .4470, .9490, 1.2700 patient to be transferred to [place] for cardiac cath SOB due to patient's renal function VQ scan ordered to r/o PE: low probability ventilation perfusion scan for PE Nasal Cannula as needed continue to monitor acute on Chronic CHF proBNP: 1999 patient has pacemaker with defibrillator Lasix 40mg iv one dose given continue home medications: Metaolazone 2.5mg po q0d6 Torsemide held as per nephro due to Lasix Chest CT: enlarged heterogeneous thyroid. Dedicated thyroid ultrasound can be obtained for further evaluation. No focal consolidation or pleural effusion. Incidental cholelithiasis without CT evidence for acute cholecystitis. RLE Edema dopplers: Right- no evidence of deep or superficial vein thrombosis of the right lower extremity. Normal valve function noted Left- no evidence of deep or superficial vein thrombosis of the right lower extremity. valvular incompetence of the left greater saphenous vein CKD of unknown chronicity Creatinine trending down: 2.0, BUN: 83 on 12/25: BUN: 85 Cr: 2.4 hold nephrotoxic drugs -Losartan Nephrology consulted, Dr. Grossman, help appreciated renal u/s: b/l renal cortical thinning which can be seen in medical renal disease. Assymetric kidneys, left kidney larger than right. urine sodium: 93 Hypokalemia 2.8 KDUR 40meq x2 doses given CAD Atorvastatin NF, start Crestor 20mg po HS hold Losartan 50mg po BID due to kidney function changed home Toprol XL to Lopressor 25mg po BID continue ASA 81mg po daily HTN continue home medication: Norvasc 10mg po daily Clonidine .1mg po BID changed Toprol XL to Lopressor 25mg po BID lipid panel: triglycerides: 184, cholesterol: 133, LDL: 77, HDL: 31 TSH and free T4 WNL DM hold home medications accuchecks q6h insulin sliding scale-low HgA1C: 7.2 COPD home meds NF start Budesonide .5mg inh q12h Prophylaxis Patient on heparin drip, scds contraindicated due to RLE edema/erythema DISPO: Patient to be transferred to [place] under the service of Dr. Edvin Cuba for cardiac cath. Discussed with Dr. Rodriguez.
[2017-12-26] MEDS ORDERED: Nitroglycerin 2% Ointment Foilpak UD TOP STA (10:45)
[2017-12-26] MEDS: Budesonide 0.5 mg/2 ml Inhal Susp UD INH SCH ×2 (10:48→20:07)
--- NOTE | 2017-12-26 11:05 | CP.PCM.PN ---
Subjective - Date & Time of Evaluation Date of Evaluation: 12/26/17 Time of Evaluation: 11:03 - Subjective Subjective: seen and examined c/o chest pain midsternal and left side no sob/palpitations/dizziness/headache/fevers chills n/v/d/dysuria hematuria labs and imaging noted Objective - Vital Signs/Intake and Output Vital Signs (last 24 hours): Temp Pulse Resp BP Pulse Ox 97.5 F L 79 20 175/81 H 99 12/26/17 10:55 12/26/17 10:55 12/26/17 07:00 12/26/17 10:55 12/26/17 10:55 Intake and Output: 12/26/17 12/26/17 06:59 18:59 Intake Total 507.5 Balance 507.5 - Medications Medications: Current Medications Amlodipine Besylate (Norvasc) 10 mg PO DAILY [facility] Last Admin: 12/25/17 11:27 Dose: Not Given Aspirin (Aspirin Chewable) 81 mg PO DAILY [facility] Last Admin: 12/26/17 09:28 Dose: 81 mg Budesonide (Pulmicort Respules) 0.5 mg INH RQ12 [facility] Last Admin: 12/26/17 10:48 Dose: Not Given Clonidine HCl (Catapres) 0.1 mg PO BID [facility] Last Admin: 12/25/17 11:27 Dose: Not Given Dextrose (Dextrose 50% Inj) 0 ml IV STAT PRN; Protocol PRN Reason: Hypoglycemia Protocol Dextrose (Glutose 15) 15 gm PO ONCE PRN; Protocol PRN Reason: Hypoglycemia Protocol Glucagon (Glucagen Diagnostic Kit) 1 mg IM STAT PRN; Protocol PRN Reason: Hypoglycemia Protocol Dextrose (Dextrose 5% In Water 1000 Ml) 1,000 mls @ 0 mls/hr IV .Q0M PRN; Protocol; Per Protocol PRN Reason: Hypoglycemia Protocol Heparin Sodium/Sodium Chloride (Heparin 24377 Units/250ml 1/2 Normal Saline) 25 ,000 units in 250 mls @ 9.016 mls/hr IV .Q24H PRN; Protocol; 10.45 UNITS/KG/HR PRN Reason: ADJUST RATE PER PROTOCOL Last Admin: 12/26/17 09:33 Dose: 10.45 units/kg/hr, 9.016 mls/hr Potassium Chloride (Potassium Chloride 20 Meq/100 Ml) 20 meq in 100 mls @ 50 mls/hr IVPB ONCE ONE Stop: 12/26/17 12:57 Insulin Human Regular (Novolin R) 0 unit SC ACHS [facility] PRN Reason: Protocol Last Admin: 12/26/17 07:53 Dose: Not Given Metoprolol Tartrate (Lopressor) 25 mg PO BID [facility] Last Admin: 12/26/17 09:29 Dose: 25 mg Rosuvastatin Calcium (Crestor) 10 mg PO HS [facility] Last Admin: 12/25/17 21:55 Dose: 10 mg - Labs Labs: 12/26/17 04:27 12/26/17 04:27 PT 11.5 SECONDS (9.7-12.2) 12/25/17 17:30 INR 1.0 12/25/17 17:30 APTT 108 SECONDS (21-34) H* D 12/26/17 06:00 - Constitutional Appears: Non-toxic, No Acute Distress, Chronically Ill - Head Exam Head Exam: NORMAL INSPECTION - Eye Exam Eye Exam: Normal appearance, PERRL Pupil Exam: NORMAL ACCOMODATION, PERRL - ENT Exam ENT Exam: Mucous Membranes Moist, Normal Exam - Neck Exam Neck Exam: Full ROM, Normal Inspection - Respiratory Exam Respiratory Exam: Clear to Ausculation Bilateral, NORMAL BREATHING PATTERN - Cardiovascular Exam Cardiovascular Exam: REGULAR RHYTHM, RRR - GI/Abdominal Exam GI & Abdominal Exam: Distended, Soft - Extremities Exam Extremities Exam: Full ROM, Normal Inspection - Neurological Exam Neurological Exam: Alert, Awake, Oriented x3 - Skin Skin Exam: Dry, Normal Color, Warm Assessment and Plan (1) Acute renal failure Status: Acute (2) Chronic kidney disease Status: Acute (3) Hypokalemia Status: Acute (4) Hypertension Status: Acute (5) Crescendo angina Status: Acute - Assessment and Plan (Free Text) Assessment: supplement potassium iv and po telemetry, follow troponins, cardiac management dc metolazone
[2017-12-26] MEDS ORDERED: Morphine 4 MG/ML VIAL IV ONE (11:17)
[2017-12-26] MEDS ORDERED: Nitroglycerin 50mg in D5W 50 MG/250 ML BOTTLE IV SCH (11:30)
[2017-12-26] MEDS: Potassium Chloride 20 mEq/15 ml LIQ UD PO SCH ×2 (12:36→18:05)
--- NOTE | 2017-12-26 12:50 | CARD ---
APPROVED REPORT EKG Measurement Heart [id number] <Conclusion> Sinus rhythm with 1st degree AV block with occasional premature ventricular complexes Left bundle branch block Abnormal ECG
--- NOTE | 2017-12-26 12:50 | CARD ---
APPROVED REPORT EKG Measurement Heart [id number] <Conclusion> nsr,occasional premature ventricular complexes Left bundle branch block Abnormal ECG
--- NOTE | 2017-12-26 12:50 | CARD ---
APPROVED REPORT EKG Measurement Heart [id number] <Conclusion> Normal sinus rhythm Left bundle branch block Abnormal ECG
--- NOTE | 2017-12-26 16:09 | CP.PCM.DIS ---
<Bonita Lee - Last Filed: 12/26/17 17:14> Provider - Provider Date of Admission: 12/25/17 05:50 Attending physician: Freedom Stringer MD Primary care physician: Dr. Santamaria Consults: Dr. Garay (cardio) Dr. Grossman (nephro) Time Spent in preparation of Discharge (in minutes): 40 Diagnosis - Discharge Diagnosis (1) Crescendo angina Status: Acute (2) CAD (coronary artery disease) Status: Chronic (3) Diabetes mellitus Status: Chronic (4) Chronic kidney disease Status: Chronic (5) Hypertension Status: Chronic (6) COPD (chronic obstructive pulmonary disease) Status: Chronic Hospital Course - Lab Results Lab Results: Most Recent Lab Values WBC 9.6 K/uL (4.8-10.8) 12/26/17 04:27 RBC 3.68 Mil/uL (4.40-5.90) L 12/26/17 04:27 Hgb 11.4 g/dL (12.0-18.0) L 12/26/17 04:27 Hct 34.0 % (35.0-51.0) L 12/26/17 04:27 MCV 92.5 fL (80.0-94.0) 12/26/17 04:27 MCH 31.0 pg (27.0-31.0) 12/26/17 04:27 MCHC 33.5 g/dL (33.0-37.0) 12/26/17 04:27 RDW 14.7 % (11.5-14.5) H 12/26/17 04:27 Plt Count 195 K/uL (130-400) 12/26/17 04:27 MPV 8.9 fL (7.2-11.7) 12/26/17 04:27 Neut % (Auto) 72.9 % (50.0-75.0) 12/26/17 04:27 Lymph % (Auto) 14.3 % (20.0-40.0) L 12/26/17 04:27 [place] % (Auto) 8.2 % (0.0-10.0) 12/26/17 04:27 Eos % (Auto) 2.5 % (0.0-4.0) 12/26/17 04:27 Baso % (Auto) 2.1 % (0.0-2.0) H 12/26/17 04:27 Neut # (Auto) 7.0 K/uL (1.8-7.0) 12/26/17 04:27 Lymph # (Auto) 1.4 K/uL (1.0-4.3) 12/26/17 04:27 [place] # (Auto) 0.8 K/uL (0.0-0.8) 12/26/17 04:27 Eos # (Auto) 0.2 K/uL (0.0-0.7) 12/26/17 04:27 Baso # (Auto) 0.2 K/uL (0.0-0.2) 12/26/17 04:27 PT 11.5 SECONDS (9.7-12.2) 12/25/17 17:30 INR 1.0 12/25/17 17:30 APTT 108 SECONDS (21-34) H* D 12/26/17 06:00 Sodium 138 mmol/L (132-148) 12/26/17 04:27 Potassium 2.8 mmol/L (3.6-5.2) L 12/26/17 04:27 Chloride 99 mmol/L (98-107) 12/26/17 04:27 Carbon Dioxide 26 mmol/L (22-30) 12/26/17 04:27 Anion Gap 16 (10-20) 12/26/17 04:27 BUN 83 mg/dL (9-20) H 12/26/17 04:27 Creatinine 2.0 mg/dL (0.8-1.5) H 12/26/17 04:27 Est GFR ( Amer) 38 12/26/17 04:27 Est GFR (Non-Af Amer) 32 12/26/17 04:27 POC Glucose (mg/dL) 304 mg/dL (65-110) H 12/26/17 12:25 Random Glucose 133 mg/dL (75-110) H 12/26/17 04:27 Hemoglobin A1c 7.2 % (4.2-6.5) H 12/26/17 04:27 Calcium 8.7 mg/dl (8.6-10.4) 12/26/17 04:27 Phosphorus 3.5 mg/dL (2.5-4.5) 12/26/17 04:27 Magnesium 1.9 mg/dL (1.6-2.3) 12/26/17 04:27 Total Bilirubin 0.3 mg/dL (0.2-1.3) 12/26/17 04:27 AST 28 U/L (17-59) 12/26/17 04:27 ALT 20 U/L (21-72) L D 12/26/17 04:27 Alkaline Phosphatase 57 U/L (38-126) 12/26/17 04:27 Total Creatine Kinase 99 U/L (55-170) 12/26/17 04:27 CK-MB (Mass) 3.72 ng/mL (0.0-3.38) H 12/26/17 04:27 Troponin I 1.2700 ng/mL (0.00-0.120) H* 12/26/17 04:27 NT-Pro-B Natriuret Pep 2000 pg/mL (0-900) H 12/25/17 05:07 Total Protein 6.3 g/dL (6.3-8.3) 12/26/17 04:27 Albumin 3.6 g/dL (3.5-5.0) 12/26/17 04:27 Globulin 2.7 gm/dL (2.2-3.9) 12/26/17 04:27 Albumin/Globulin Ratio 1.3 (1.0-2.1) 12/26/17 04:27 Triglycerides 184 mg/dL (0-149) H 12/26/17 04:27 Cholesterol 133 mg/dL (0-199) 12/26/17 04:27 LDL Cholesterol Direct 77 mg/dL (0-129) 12/26/17 04:27 HDL Cholesterol 31 mg/dL (30-70) 12/26/17 04:27 Free T4 1.47 ng/dL (0.78-2.19) 12/26/17 04:27 TSH 3rd Generation 0.86 mIU/L (0.46-4.68) 12/26/17 04:27 Urine Color Straw (YELLOW) 12/25/17 20:22 Urine Clarity Clear (Clear) 12/25/17 20:22 Urine pH 5.0 (5.0-8.0) 12/25/17 20:22 Ur Specific [place] 1.009 (1.003-1.030) 12/25/17 20:22 Urine Protein Negative mg/dL (NEGATIVE) 12/25/17 20:22 Urine Glucose (UA) Normal mg/dL (Normal) 12/25/17 20:22 Urine Ketones Negative mg/dL (NEGATIVE) 12/25/17 20:22 Urine Blood Negative (NEGATIVE) 12/25/17 20:22 Urine Nitrate Negative (NEGATIVE) 12/25/17 20:22 Urine Bilirubin Negative (NEGATIVE) 12/25/17 20:22 Urine Urobilinogen Normal mg/dL (0.2-1.0) 12/25/17 20:22 Ur Leukocyte Esterase Neg [place]/uL (Negative) 12/25/17 20: Hyaline Casts 6-10 /lpf (0-2) H 12/25/17 20: Ur Random Sodium 93 mmol/L 12/25/17 20:21 - Hospital Course Hospital Course: "HPI: 87 year old male with past medical history of CAD with stents and CABG in 2001, pacemaker and defibrillator, DM, enlarged prostate, and kidney stones presents to the ED with 1 day of chest pain. Patient describes pain as "a deep pain" which began yesterday at 2 pm. The patient stated he experience pain bilaterally across his chest, in his left shoulder and arm and with moderate shortness of breath associated with the pain. The pain was decreased by sitting up. Patient states he was sitting down when pain originally started and denies doing any activities of exertion in quite some time due to general deconditioning. Originally the pain was a 10/10 however after taking nitroglycerin tablets the pain reduced to a 3/10 until it eventually completely dissipated. According to patient, this was the first time he had ever taken nitroglycerin and over the course of the day took about 10 tablets. The patient also took aspirin as well as an OTC pain killer that he did not know the name of which his son provided him. The patient states he had very similar yet more severe symptoms on December 14 this month. At that time he did not come to the hospital. He stated he knew he was having a heart attack and wanted "to let this one take me." However, after that pain subsided he stated he realized he still had his son to live for. Patient states that is why he presented to the hospital today during this bout of chest pain. Patient states he took all of his medications today EXCEPT for metformin. He states he is very regimented with his medications, taking all as prescribed daily. Patient denies any fevers, chills, headache, dizziness, vision changes, sore throat, palpitations, abdominal pain, nausea, vomiting, constipation, diarrhea, dysuria, leg pain/swelling, weight changes." Patient was admitted on 12/25/17 for unstable angina. Patient was given Nitroglycerin in the ED with persistent chest pain and had to be placed on a nitroglycerin drip which relieved the pain. EKG showed a LBBB with no prior EKGs available for comparison. Dr. Garay was consulted who recommended starting a Heparin drip. Serial troponins were checked which were steadily rising. Serial EKGs and echo was ordered. Patient had a swollen right lower extremity for which venous dopplers were negative b/l. V/Q scan was ordered to rule out PE and showed low probability for PE. Additionally patient's proBNP was elevated. One dose of Lasix 40mg iv was given. Chest CT was ordered which showed enlarged heterogeneous thyroid. Dedicated thyroid ultrasound can be obtained for further evaluation. No focal consolidation or pleural effusion. Incidental cholelithiasis without CT evidence for acute cholecystitis. Patient's 02 sat was maintained at 95% and above on 3L nasal cannula. Patient was found to have en elevated BUN/Cr of 85/2.4. Dr. Da Silva (nephro) saw patient who ordered a renal u/s which showed bilateral renal cortical thinning which can be seen in medical renal disease. Assymetric kidneys, left kidney larger than right. Nephrotoxic drugs such as Losartan were held. SPEP and protein electrophoresis were ordered. Patient's potassium dropped to 2.8 and was repleted with oral KDur. Patient's chronic co-morbidities were managed during hospital stay. Patient's hypertension was managed with Lopressor 25mg po BID and Norvasc 10mg po daily and Clonidine .1mg po BID were held due to patient's pressure being stable. Lipid panel was checked which showed triglycerides: 184, cholesterol: 133, LDL: 77, HDL: 31. TSH and free T4 were within normal limits. Patient's diabetic medications were held due to possible use of contrast. Patient was placed on insulin sliding scale with accuchecks every 6 hours. On 12/26, patient had 10/10 chest pain and troponin elevated to 1.2700. EKG was ordered which continued to show LBBB. Dr. Garay was called and wanted patient transferred to ICU. After transfer to ICU patient's chest pain resolved with nitro paste. Patient to be transferred to [facility] under Dr. 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 This is a summary of the patient's hospital course, please see chart for full details. Discharge Exam - Additional Findings Additional findings: - Constitutional Appears: Non-toxic, No Acute Distress - Head Exam Head Exam: ATRAUMATIC, NORMAL INSPECTION, NORMOCEPHALIC - Eye Exam Eye Exam: EOMI, Normal appearance Pupil Exam: NORMAL ACCOMODATION, PERRL - ENT Exam ENT Exam: Mucous Membranes Moist - Neck Exam Neck exam: Positive for: Normal Inspection. Negative for: Lymphadenopathy, Tenderness - Respiratory Exam Respiratory Exam: Rales, Rhonchi. absent: Respiratory Distress - Cardiovascular Exam Cardiovascular Exam: REGULAR RHYTHM, RRR, +S1, +S2 - GI/Abdominal Exam GI & Abdominal Exam: Normal Bowel Sounds, Soft. absent: Distended, Guarding, Tenderness - Extremities Exam Extremities exam: Negative for: tenderness, pedal edema. Additional comments: right LE edematous and erythematous - Back Exam Back exam: NORMAL INSPECTION - Neurological Exam Neurological exam: Alert, Oriented x3 - Psychiatric Exam Psychiatric exam: Normal Affect, Normal Mood - Skin Skin Exam: Warm. Absent: edema Additional comments: Right lower extremity erythematous, no tenderness to touch Discharge Plan - Follow Up Plan Condition: SERIOUS Disposition: Trans to Other Acute Care Hosp <Choco Rodriguez - Last Filed: 12/26/17 20:19> Provider - Provider Date of Admission: 12/25/17 05:50 Attending physician: Freedom Stringer MD Hospital Course - Lab Results Lab Results: Most Recent Lab Values WBC 9.6 K/uL (4.8-10.8) 12/26/17 04:27 RBC 3.68 Mil/uL (4.40-5.90) L 12/26/17 04:27 Hgb 11.4 g/dL (12.0-18.0) L 12/26/17 04:27 Hct 34.0 % (35.0-51.0) L 12/26/17 04:27 MCV 92.5 fL (80.0-94.0) 12/26/17 04:27 MCH 31.0 pg (27.0-31.0) 12/26/17 04:27 MCHC 33.5 g/dL (33.0-37.0) 12/26/17 04:27 RDW 14.7 % (11.5-14.5) H 12/26/17 04:27 Plt Count 195 K/uL (130-400) 12/26/17 04:27 MPV 8.9 fL (7.2-11.7) 12/26/17 04:27 Neut % (Auto) 72.9 % (50.0-75.0) 12/26/17 04:27 Lymph % (Auto) 14.3 % (20.0-40.0) L 12/26/17 04:27 [place] % (Auto) 8.2 % (0.0-10.0) 12/26/17 04:27 Eos % (Auto) 2.5 % (0.0-4.0) 12/26/17 04:27 Baso % (Auto) 2.1 % (0.0-2.0) H 12/26/17 04:27 Neut # (Auto) 7.0 K/uL (1.8-7.0) 12/26/17 04:27 Lymph # (Auto) 1.4 K/uL (1.0-4.3) 12/26/17 04:27 [place] # (Auto) 0.8 K/uL (0.0-0.8) 12/26/17 04:27 Eos # (Auto) 0.2 K/uL (0.0-0.7) 12/26/17 04:27 Baso # (Auto) 0.2 K/uL (0.0-0.2) 12/26/17 04:27 PT 11.5 SECONDS (9.7-12.2) 12/25/17 17:30 INR 1.0 12/25/17 17:30 APTT 53 SECONDS (21-34) H D 12/26/17 16:11 Sodium 138 mmol/L (132-148) 12/26/17 04:27 Potassium 2.8 mmol/L (3.6-5.2) L 12/26/17 04:27 Chloride 99 mmol/L (98-107) 12/26/17 04:27 Carbon Dioxide 26 mmol/L (22-30) 12/26/17 04:27 Anion Gap 16 (10-20) 12/26/17 04:27 BUN 83 mg/dL (9-20) H 12/26/17 04:27 Creatinine 2.0 mg/dL (0.8-1.5) H 12/26/17 04:27 Est GFR ( Amer) 38 12/26/17 04:27 Est GFR (Non-Af Amer) 32 12/26/17 04:27 POC Glucose (mg/dL) 144 mg/dL (65-110) H 12/26/17 16:11 Random Glucose 133 mg/dL (75-110) H 12/26/17 04:27 Hemoglobin A1c 7.2 % (4.2-6.5) H 12/26/17 04:27 Calcium 8.7 mg/dl (8.6-10.4) 12/26/17 04:27 Phosphorus 3.5 mg/dL (2.5-4.5) 12/26/17 04:27 Magnesium 1.9 mg/dL (1.6-2.3) 12/26/17 04:27 Total Bilirubin 0.3 mg/dL (0.2-1.3) 12/26/17 04:27 AST 28 U/L (17-59) 12/26/17 04:27 ALT 20 U/L (21-72) L D 12/26/17 04:27 Alkaline Phosphatase 57 U/L (38-126) 12/26/17 04:27 Total Creatine Kinase 112 U/L (55-170) 12/26/17 18:40 CK-MB (Mass) 2.81 ng/mL (0.0-3.38) 12/26/17 18:40 Troponin I 0.6300 ng/mL (0.00-0.120) H* 12/26/17 18:40 NT-Pro-B Natriuret Pep 2000 pg/mL (0-900) H 12/25/17 05:07 Total Protein 6.3 g/dL (6.3-8.3) 12/26/17 04:27 Albumin 3.6 g/dL (3.5-5.0) 12/26/17 04:27 Globulin 2.7 gm/dL (2.2-3.9) 12/26/17 04:27 Albumin/Globulin Ratio 1.3 (1.0-2.1) 12/26/17 04:27 Triglycerides 184 mg/dL (0-149) H 12/26/17 04:27 Cholesterol 133 mg/dL (0-199) 12/26/17 04:27 LDL Cholesterol Direct 77 mg/dL (0-129) 12/26/17 04:27 HDL Cholesterol 31 mg/dL (30-70) 12/26/17 04:27 Free T4 1.47 ng/dL (0.78-2.19) 12/26/17 04:27 TSH 3rd Generation 0.86 mIU/L (0.46-4.68) 12/26/17 04:27 Urine Color Straw (YELLOW) 12/25/17 20:22 Urine Clarity Clear (Clear) 12/25/17 20: Urine pH 5.0 (5.0-8.0) 12/25/17 20:22 Ur Specific [place] 1.009 (1.003-1.030) 12/25/17 20:22 Urine Protein Negative mg/dL (NEGATIVE) 12/25/17 20:22 Urine Glucose (UA) Normal mg/dL (Normal) 12/25/17 20: Urine Ketones Negative mg/dL (NEGATIVE) 12/25/17 20:22 Urine Blood Negative (NEGATIVE) 12/25/17 20:22 Urine Nitrate Negative (NEGATIVE) 12/25/17 20:22 Urine Bilirubin Negative (NEGATIVE) 12/25/17 20:22 Urine Urobilinogen Normal mg/dL (0.2-1.0) 12/25/17 20:22 Ur Leukocyte Esterase Neg [place]/uL (Negative) 12/25/17 20:22 Hyaline Casts 6-10 /lpf (0-2) H 12/25/17 20:22 Ur Random Sodium 93 mmol/L 12/25/17 20:21 Attending/Attestation - Attestation I have personally seen and examined this patient.: Yes I have fully participated in the care of the patient.: Yes I have reviewed all pertinent clinical information, including history, physical exam and plan: Yes Notes (Text): 12/26/17 20:15 Patient was seen and examined together with the resident. Exam, assessment and plan were gone over with the resident. Spoke with [facility] Dr. Garay who will speak with [facility] at [facility] and arrange for transfer. EMTALA form completed and placed in chart. Choco Rodriguez D.O.
--- NOTE | 2017-12-26 17:21 | CP.PCM.CON ---
<Elder Freeman - Last Filed: 12/26/17 17:09> History of Present Illness - History of Present Illness History of Present Illness: Critical Care Consult note for Dr. Moscoso This is an 87 year old male with PMHx CAD s/p stents and CABG, DM, BPH, nephrolithiasis who presented to the hospital with chest pain. Patient with continually rising troponins. 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 This morning the patient had chest pain and shortness of breath. Nitro paste was started, and the patient was transferred to ICU until he is able to be transferred to [place]. By the time the patient was transferred to the ICU, he was no longer in any acute distress and was witnessed comfortably eating lunch. Chest pain and dyspnea had markedly improved per patient. PMHx: HTN, COPD, CAD s/p stent, CABG (2001), ICD (interrogated every 6 months per patient), DM, Prostate enlargement, Nephrolithiasis PSHx: CABG 2001, stents unknown date, Prostate surgery- 2010, pacemaker/ defibrillator- 2001 (patient states he is on his third one) Allergies: denies Family history: father and mother both of "heart issues" in their 50's, grandfather of throat cancer. Social History: >60 pack year history smoking quit in 2004. Former alcoholic quit in the , denies recreational drug use. Retired, currently lives with his son. Review of Systems - Constitutional Constitutional: absent: Chills, Fever - EENT Eyes: absent: Change in Vision Ears: absent: Decreased Hearing Nose/Mouth/Throat: absent: Nasal Congestion - Cardiovascular Cardiovascular: Chest Pain (resolved) - Respiratory Respiratory: Dyspnea (resolved) - Gastrointestinal Gastrointestinal: absent: Abdominal Pain, Nausea, Vomiting - Genitourinary Genitourinary: absent: Dysuria - Musculoskeletal Musculoskeletal: absent: Back Pain - Integumentary Integumentary: absent: Rash - Neurological Neurological: absent: Dizziness, Headaches - Psychiatric Psychiatric: absent: Anxiety - Endocrine Endocrine: absent: Palpitations Past Patient History - Past Social History Smoking Status: Unknown If Ever Smoked - CARDIAC Hx Atrial Fibrillation: Yes Hx Hypertension: Yes Hx Peripheral Edema: Yes - PULMONARY Hx Chronic Obstructive Pulmonary Disease (COPD): Yes - NEUROLOGICAL Hx Neurological Disorder: No - HEENT Hx HEENT Problems: No - RENAL Hx Chronic Kidney Disease: No - ENDOCRINE/METABOLIC Hx Diabetes Mellitus Type 2: Yes - HEMATOLOGICAL/ONCOLOGICAL Hx Blood Disorders: No - INTEGUMENTARY Hx Dermatological Problems: No - MUSCULOSKELETAL/RHEUMATOLOGICAL Hx Musculoskeletal Disorders: No - PSYCHIATRIC Hx Substance Use: No - SURGICAL HISTORY Hx Coronary Artery Bypass Graft: Yes Hx Coronary Stent: Yes - ANESTHESIA Hx Anesthesia: Yes Hx Anesthesia Reactions: No Meds Allergies/Adverse Reactions: Allergies Allergy/AdvReac Type Severity Reaction Status Date / Time No Known Allergies Allergy Verified 12/25/17 04:27 - Medications Medications: Current Medications Amlodipine Besylate (Norvasc) 10 mg PO DAILY [facility] Last Admin: 12/25/17 11:27 Dose: Not Given Aspirin (Aspirin Chewable) 81 mg PO DAILY [facility] Last Admin: 12/26/17 09:28 Dose: 81 mg Budesonide (Pulmicort Respules) 0.5 mg INH RQ12 [facility] Last Admin: 12/26/17 10:48 Dose: Not Given Clonidine HCl (Catapres) 0.1 mg PO BID [facility] Last Admin: 12/25/17 11:27 Dose: Not Given Dextrose (Dextrose 50% Inj) 0 ml IV STAT PRN; Protocol PRN Reason: Hypoglycemia Protocol Dextrose (Glutose 15) 15 gm PO ONCE PRN; Protocol PRN Reason: Hypoglycemia Protocol Glucagon (Glucagen Diagnostic Kit) 1 mg IM STAT PRN; Protocol PRN Reason: Hypoglycemia Protocol Dextrose (Dextrose 5% In Water 1000 Ml) 1,000 mls @ 0 mls/hr IV .Q0M PRN; Protocol; Per Protocol PRN Reason: Hypoglycemia Protocol Heparin Sodium/Sodium Chloride (Heparin 89301 Units/250ml 1/2 Normal Saline) 25 ,000 units in 250 mls @ 9.016 mls/hr IV .Q24H PRN; Protocol; 10.45 UNITS/KG/HR PRN Reason: ADJUST RATE PER PROTOCOL Last Admin: 12/26/17 09:33 Dose: 10.45 units/kg/hr, 9.016 mls/hr Nitroglycerin/Dextrose (Nitroglycerin 50 Mg/250 Ml D5w) 50 mg in 250 mls @ 1.5 mls/hr IV .Q24H FUAD; 5 MCG/MIN PRN Reason: Protocol Insulin Human Regular (Novolin R) 0 unit SC ACHS [facility] PRN Reason: Protocol Last Admin: 12/26/17 12:36 Dose: 4 unit Metoprolol Tartrate (Lopressor) 25 mg PO BID [facility] Last Admin: 12/26/17 09:29 Dose: 25 mg Potassium Chloride (Potassium Chloride Oral Soln) 20 meq PO BID [facility] Last Admin: 12/26/17 12:36 Dose: 20 meq Rosuvastatin Calcium (Crestor) 10 mg PO HS [facility] Last Admin: 12/25/17 21:55 Dose: 10 mg Physical Exam - Constitutional Appears: No Acute Distress - Head Exam Head Exam: ATRAUMATIC, NORMOCEPHALIC - Eye Exam Eye Exam: EOMI, Normal appearance - ENT Exam ENT Exam: Mucous Membranes Moist - Respiratory Exam Respiratory Exam: Rhonchi Additional comments: Coarse breath sounds - Cardiovascular Exam Cardiovascular Exam: REGULAR RHYTHM, +S1, +S2 - GI/Abdominal Exam GI & Abdominal Exam: Distended, Normal Bowel Sounds, Soft. absent: Tenderness - Extremities Exam Extremities exam: Negative for: pedal edema, tenderness Additional comments: Right leg erythematous - Neurological Exam Neurological exam: Alert, CN II-XII Intact, Oriented x3 - Psychiatric Exam Psychiatric exam: Normal Affect, Normal Mood - Skin Skin Exam: Dry, Warm Results - Vital Signs Recent Vital Signs: Last Vital Signs Temp 97.5 F L 12/26/17 10:55 Pulse 79 12/26/17 10:55 Resp 20 12/26/17 07:00 BP 122/55 L 12/26/17 12:49 Pulse Ox 99 12/26/17 10:55 - Labs Result Diagrams: 12/26/17 04:27 12/26/17 04:27 Labs: Laboratory Results - last 24 hr 12/25/17 12/25/17 12/25/17 16:52 17:30 20:21 WBC RBC Hgb Hct MCV MCH MCHC RDW Plt Count MPV Neut % (Auto) Lymph % (Auto) [place] % (Auto) Eos % (Auto) Baso % (Auto) Neut # (Auto) Lymph # (Auto) [place]son # (Auto) Eos # (Auto) Baso # (Auto) PT 11.5 INR 1.0 APTT 29 Sodium Potassium Chloride Carbon Dioxide Anion Gap BUN Creatinine Est GFR ( Amer) Est GFR (Non-Af Amer) POC Glucose (mg/dL) Random Glucose Hemoglobin A1c Calcium Phosphorus Magnesium Total Bilirubin AST ALT Alkaline Phosphatase Total Creatine Kinase 94 CK-MB (Mass) 6.27 H Troponin I 0.9490 H* Total Protein Albumin Globulin Albumin/Globulin Ratio Triglycerides Cholesterol LDL Cholesterol Direct HDL Cholesterol Free T4 TSH 3rd Generation Urine Color Urine Clarity Urine pH Ur Specific [place] Urine Protein Urine Glucose (UA) Urine Ketones Urine Blood Urine Nitrate Urine Bilirubin Urine Urobilinogen Ur Leukocyte Esterase Hyaline Casts Ur Random Sodium 93 12/25/17 12/25/17 12/26/17 20:22 21:07 00:25 WBC RBC Hgb Hct MCV MCH MCHC RDW Plt Count MPV Neut % (Auto) Lymph % (Auto) Woodson % (Auto) Eos % (Auto) Baso % (Auto) Neut # (Auto) Lymph # (Auto) [place]son # (Auto) Eos # (Auto) Baso # (Auto) PT INR APTT 90 H D Sodium Potassium Chloride Carbon Dioxide Anion Gap BUN Creatinine Est GFR ( Amer) Est GFR (Non-Af Amer) POC Glucose (mg/dL) 178 H Random Glucose Hemoglobin A1c Calcium Phosphorus Magnesium Total Bilirubin AST ALT Alkaline Phosphatase Total Creatine Kinase CK-MB (Mass) Troponin I Total Protein Albumin Globulin Albumin/Globulin Ratio Triglycerides Cholesterol LDL Cholesterol Direct HDL Cholesterol Free T4 TSH 3rd Generation Urine Color Straw Urine Clarity Clear Urine pH 5.0 Ur Specific [place] 1.009 Urine Protein Negative Urine Glucose (UA) Normal Urine Ketones Negative Urine Blood Negative Urine Nitrate Negative Urine Bilirubin Negative Urine Urobilinogen Normal Ur Leukocyte Esterase Neg Hyaline Casts 6-10 H Ur Random Sodium 12/26/17 12/26/17 12/26/17 04:27 04:27 04:27 WBC RBC Hgb Hct MCV MCH MCHC RDW Plt Count MPV Neut % (Auto) Lymph % (Auto) Woodson % (Auto) Eos % (Auto) Baso % (Auto) Neut # (Auto) Lymph # (Auto) Woodson # (Auto) Eos # (Auto) Baso # (Auto) PT INR APTT Sodium 138 Potassium 2.8 L Chloride 99 Carbon Dioxide 26 Anion Gap 16 BUN 83 H Creatinine 2.0 H Est GFR ( Amer) 38 Est GFR (Non-Af Amer) 32 POC Glucose (mg/dL) Random Glucose 133 H Hemoglobin A1c 7.2 H Calcium 8.7 Phosphorus 3.5 Magnesium 1.9 Total Bilirubin 0.3 AST 28 ALT 20 L D Alkaline Phosphatase 57 Total Creatine Kinase CK-MB (Mass) Troponin I Total Protein 6.3 Albumin 3.6 Globulin 2.7 Albumin/Globulin Ratio 1.3 Triglycerides 184 H Cholesterol 133 LDL Cholesterol Direct 77 HDL Cholesterol 31 Free T4 1.47 TSH 3rd Generation 0.86 Urine Color Urine Clarity Urine pH Ur Specific [place] Urine Protein Urine Glucose (UA) Urine Ketones Urine Blood Urine Nitrate Urine Bilirubin Urine Urobilinogen Ur Leukocyte Esterase Hyaline Casts Ur Random Sodium 12/26/17 12/26/17 12/26/17 04:27 04:27 06:00 WBC 9.6 RBC 3.68 L Hgb 11.4 L Hct 34.0 L MCV 92.5 MCH 31.0 MCHC 33.5 RDW 14.7 H Plt Count 195 MPV 8.9 Neut % (Auto) 72.9 Lymph % (Auto) 14.3 L Woodson % (Auto) 8.2 Eos % (Auto) 2.5 Baso % (Auto) 2.1 H Neut # (Auto) 7.0 Lymph # (Auto) 1.4 Woodson # (Auto) 0.8 Eos # (Auto) 0.2 Baso # (Auto) 0.2 PT INR APTT 108 H* D Sodium Potassium Chloride Carbon Dioxide Anion Gap BUN Creatinine Est GFR ( Amer) Est GFR (Non-Af Amer) POC Glucose (mg/dL) Random Glucose Hemoglobin A1c Calcium Phosphorus Magnesium Total Bilirubin AST ALT Alkaline Phosphatase Total Creatine Kinase 99 CK-MB (Mass) 3.72 H Troponin I 1.2700 H* Total Protein Albumin Globulin Albumin/Globulin Ratio Triglycerides Cholesterol LDL Cholesterol Direct HDL Cholesterol Free T4 TSH 3rd Generation Urine Color Urine Clarity Urine pH Ur Specific [place] Urine Protein Urine Glucose (UA) Urine Ketones Urine Blood Urine Nitrate Urine Bilirubin Urine Urobilinogen Ur Leukocyte Esterase Hyaline Casts Ur Random Sodium 12/26/17 12/26/17 12/26/17 06:22 12:25 16:11 WBC RBC Hgb Hct MCV MCH MCHC RDW Plt Count MPV Neut % (Auto) Lymph % (Auto) Woodson % (Auto) Eos % (Auto) Baso % (Auto) Neut # (Auto) Lymph # (Auto) [place]son # (Auto) Eos # (Auto) Baso # (Auto) PT INR APTT 53 H D Sodium Potassium Chloride Carbon Dioxide Anion Gap BUN Creatinine Est GFR ( Amer) Est GFR (Non-Af Amer) POC Glucose (mg/dL) 139 H 304 H Random Glucose Hemoglobin A1c Calcium Phosphorus Magnesium Total Bilirubin AST ALT Alkaline Phosphatase Total Creatine Kinase CK-MB (Mass) Troponin I Total Protein Albumin Globulin Albumin/Globulin Ratio Triglycerides Cholesterol LDL Cholesterol Direct HDL Cholesterol Free T4 TSH 3rd Generation Urine Color Urine Clarity Urine pH Ur Specific [place] Urine Protein Urine Glucose (UA) Urine Ketones Urine Blood Urine Nitrate Urine Bilirubin Urine Urobilinogen Ur Leukocyte Esterase Hyaline Casts Ur Random Sodium 12/26/17 16:11 WBC RBC Hgb Hct MCV MCH MCHC RDW Plt Count MPV Neut % (Auto) Lymph % (Auto) Woodson % (Auto) Eos % (Auto) Baso % (Auto) Neut # (Auto) Lymph # (Auto) [place]son # (Auto) Eos # (Auto) Baso # (Auto) PT INR APTT Sodium Potassium Chloride Carbon Dioxide Anion Gap BUN Creatinine Est GFR ( Amer) Est GFR (Non-Af Amer) POC Glucose (mg/dL) 144 H Random Glucose Hemoglobin A1c Calcium Phosphorus Magnesium Total Bilirubin AST ALT Alkaline Phosphatase Total Creatine Kinase CK-MB (Mass) Troponin I Total Protein Albumin Globulin Albumin/Globulin Ratio Triglycerides Cholesterol LDL Cholesterol Direct HDL Cholesterol Free T4 TSH 3rd Generation Urine Color Urine Clarity Urine pH Ur Specific [place] Urine Protein Urine Glucose (UA) Urine Ketones Urine Blood Urine Nitrate Urine Bilirubin Urine Urobilinogen Ur Leukocyte Esterase Hyaline Casts Ur Random Sodium Assessment & Plan - Assessment and Plan (Free Text) Assessment: This is an 87 year old male with PMHx CAD s/p stents and CABG, HTN, DM, BPH, nephrolithiasis who presented to the hospital with chest pain. Patient with continually rising troponins. He was brought down to the ICU after an episode of chest pain this morning. He improved after nitro paste was given and is now without chest pain. Continue to trend troponins. Neuro Awake, alert, verbal Cardio Assessment: NSTEMI, CAD ASA 81 mg PO daily Heparin drip Crestor 10 mg PO HS Lopressor 25 mg PO BID Nitro drip was ordered but held since the patient was not in active chest pain on arrival to the ICU. f/u serial troponins Pulm saturating well on nasal cannula GI Heart Healthy Diet carb consistent Endocrine Assessment: DM 2 Regular ISS-medium dose Accuchecks ACHS Renal Assessment: Likely chronic kidney disease in the setting of chronic hypertension and diabetes elevated BUN/cr continue to monitor Prophylaxis Heparin drip GI ppx contraindicated Discussed with Dr. Moscoso <Rolf Moscoso - Last Filed: 12/26/17 18:25> Meds - Medications Medications: Current Medications Amlodipine Besylate (Norvasc) 10 mg PO DAILY [facility] Last Admin: 12/25/17 11:27 Dose: Not Given Aspirin (Aspirin Chewable) 81 mg PO DAILY [facility] Last Admin: 12/26/17 09:28 Dose: 81 mg Budesonide (Pulmicort Respules) 0.5 mg INH RQ12 [facility] Last Admin: 12/26/17 10:48 Dose: Not Given Clonidine HCl (Catapres) 0.1 mg PO BID [facility] Last Admin: 12/25/17 11:27 Dose: Not Given Dextrose (Dextrose 50% Inj) 0 ml IV STAT PRN; Protocol PRN Reason: Hypoglycemia Protocol Dextrose (Glutose 15) 15 gm PO ONCE PRN; Protocol PRN Reason: Hypoglycemia Protocol Glucagon (Glucagen Diagnostic Kit) 1 mg IM STAT PRN; Protocol PRN Reason: Hypoglycemia Protocol Dextrose (Dextrose 5% In Water 1000 Ml) 1,000 mls @ 0 mls/hr IV .Q0M PRN; Protocol; Per Protocol PRN Reason: Hypoglycemia Protocol Heparin Sodium/Sodium Chloride (Heparin 92423 Units/250ml 1/2 Normal Saline) 25 ,000 units in 250 mls @ 9.016 mls/hr IV .Q24H PRN; Protocol; 10.45 UNITS/KG/HR PRN Reason: ADJUST RATE PER PROTOCOL Last Admin: 12/26/17 17:57 Dose: 10 units/kg/hr, 8.627 mls/hr Nitroglycerin/Dextrose (Nitroglycerin 50 Mg/250 Ml D5w) 50 mg in 250 mls @ 1.5 mls/hr IV .Q24H FUAD; 5 MCG/MIN PRN Reason: Protocol Insulin Human Regular (Novolin R) 0 unit SC ACHS [facility] PRN Reason: Protocol Metoprolol Tartrate (Lopressor) 25 mg PO BID [facility] Last Admin: 12/26/17 18:05 Dose: 25 mg Potassium Chloride (Potassium Chloride Oral Soln) 20 meq PO BID [facility] Last Admin: 12/26/17 18:05 Dose: 20 meq Rosuvastatin Calcium (Crestor) 10 mg PO HS [facility] Last Admin: 12/25/17 21:55 Dose: 10 mg Results - Vital Signs Recent Vital Signs: Last Vital Signs Temp 97.5 F L 12/26/17 10:55 Pulse 79 12/26/17 10:55 Resp 20 12/26/17 07:00 BP 157/69 H 12/26/17 18:05 Pulse Ox 99 12/26/17 10:55 - Labs Result Diagrams: 12/26/17 04:27 12/26/17 04:27 Labs: Laboratory Results - last 24 hr 12/25/17 12/25/17 12/25/17 20:21 20:22 21:07 WBC RBC Hgb Hct MCV MCH MCHC RDW Plt Count MPV Neut % (Auto) Lymph % (Auto) [place] % (Auto) Eos % (Auto) Baso % (Auto) Neut # (Auto) Lymph # (Auto) [place] # (Auto) Eos # (Auto) Baso # (Auto) APTT Sodium Potassium Chloride Carbon Dioxide Anion Gap BUN Creatinine Est GFR ( Amer) Est GFR (Non-Af Amer) POC Glucose (mg/dL) 178 H Random Glucose Hemoglobin A1c Calcium Phosphorus Magnesium Total Bilirubin AST ALT Alkaline Phosphatase Total Creatine Kinase CK-MB (Mass) Troponin I Total Protein Albumin Globulin Albumin/Globulin Ratio Triglycerides Cholesterol LDL Cholesterol Direct HDL Cholesterol Free T4 TSH 3rd Generation Urine Color Straw Urine Clarity Clear Urine pH 5.0 Ur Specific [place] 1.009 Urine Protein Negative Urine Glucose (UA) Normal Urine Ketones Negative Urine Blood Negative Urine Nitrate Negative Urine Bilirubin Negative Urine Urobilinogen Normal Ur Leukocyte Esterase Neg Hyaline Casts 6-10 H Ur Random Sodium 93 12/26/17 12/26/17 12/26/17 00:25 04:27 04:27 WBC RBC Hgb Hct MCV MCH MCHC RDW Plt Count MPV Neut % (Auto) Lymph % (Auto) [place] % (Auto) Eos % (Auto) Baso % (Auto) Neut # (Auto) Lymph # (Auto) [place] # (Auto) Eos # (Auto) Baso # (Auto) APTT 90 H D Sodium 138 Potassium 2.8 L Chloride 99 Carbon Dioxide 26 Anion Gap 16 BUN 83 H Creatinine 2.0 H Est GFR ( Amer) 38 Est GFR (Non-Af Amer) 32 POC Glucose (mg/dL) Random Glucose 133 H Hemoglobin A1c 7.2 H Calcium 8.7 Phosphorus 3.5 Magnesium 1.9 Total Bilirubin 0.3 AST 28 ALT 20 L D Alkaline Phosphatase 57 Total Creatine Kinase CK-MB (Mass) Troponin I Total Protein 6.3 Albumin 3.6 Globulin 2.7 Albumin/Globulin Ratio 1.3 Triglycerides 184 H Cholesterol 133 LDL Cholesterol Direct 77 HDL Cholesterol 31 Free T4 TSH 3rd Generation 0.86 Urine Color Urine Clarity Urine pH Ur Specific [place] Urine Protein Urine Glucose (UA) Urine Ketones Urine Blood Urine Nitrate Urine Bilirubin Urine Urobilinogen Ur Leukocyte Esterase Hyaline Casts Ur Random Sodium 12/26/17 12/26/17 12/26/17 04:27 04:27 04:27 WBC 9.6 RBC 3.68 L Hgb 11.4 L Hct 34.0 L MCV 92.5 MCH 31.0 MCHC 33.5 RDW 14.7 H Plt Count 195 MPV 8.9 Neut % (Auto) 72.9 Lymph % (Auto) 14.3 L Woodson % (Auto) 8.2 Eos % (Auto) 2.5 Baso % (Auto) 2.1 H Neut # (Auto) 7.0 Lymph # (Auto) 1.4 [place] # (Auto) 0.8 Eos # (Auto) 0.2 Baso # (Auto) 0.2 APTT Sodium Potassium Chloride Carbon Dioxide Anion Gap BUN Creatinine Est GFR ( Amer) Est GFR (Non-Af Amer) POC Glucose (mg/dL) Random Glucose Hemoglobin A1c Calcium Phosphorus Magnesium Total Bilirubin AST ALT Alkaline Phosphatase Total Creatine Kinase 99 CK-MB (Mass) 3.72 H Troponin I 1.2700 H* Total Protein Albumin Globulin Albumin/Globulin Ratio Triglycerides Cholesterol LDL Cholesterol Direct HDL Cholesterol Free T4 1.47 TSH 3rd Generation Urine Color Urine Clarity Urine pH Ur Specific [place] Urine Protein Urine Glucose (UA) Urine Ketones Urine Blood Urine Nitrate Urine Bilirubin Urine Urobilinogen Ur Leukocyte Esterase Hyaline Casts Ur Random Sodium 12/26/17 12/26/17 12/26/17 06:00 06:22 12:25 WBC RBC Hgb Hct MCV MCH MCHC RDW Plt Count MPV Neut % (Auto) Lymph % (Auto) [place] % (Auto) Eos % (Auto) Baso % (Auto) Neut # (Auto) Lymph # (Auto) [place] # (Auto) Eos # (Auto) Baso # (Auto) APTT 108 H* D Sodium Potassium Chloride Carbon Dioxide Anion Gap BUN Creatinine Est GFR ( Amer) Est GFR (Non-Af Amer) POC Glucose (mg/dL) 139 H 304 H Random Glucose Hemoglobin A1c Calcium Phosphorus Magnesium Total Bilirubin AST ALT Alkaline Phosphatase Total Creatine Kinase CK-MB (Mass) Troponin I Total Protein Albumin Globulin Albumin/Globulin Ratio Triglycerides Cholesterol LDL Cholesterol Direct HDL Cholesterol Free T4 TSH 3rd Generation Urine Color Urine Clarity Urine pH Ur Specific [place] Urine Protein Urine Glucose (UA) Urine Ketones Urine Blood Urine Nitrate Urine Bilirubin Urine Urobilinogen Ur Leukocyte Esterase Hyaline Casts Ur Random Sodium 12/26/17 12/26/17 16:11 16:11 WBC RBC Hgb Hct MCV MCH MCHC RDW Plt Count MPV Neut % (Auto) Lymph % (Auto) [place] % (Auto) Eos % (Auto) Baso % (Auto) Neut # (Auto) Lymph # (Auto) [place] # (Auto) Eos # (Auto) Baso # (Auto) APTT 53 H D Sodium Potassium Chloride Carbon Dioxide Anion Gap BUN Creatinine Est GFR ( Amer) Est GFR (Non-Af Amer) POC Glucose (mg/dL) 144 H Random Glucose Hemoglobin A1c Calcium Phosphorus Magnesium Total Bilirubin AST ALT Alkaline Phosphatase Total Creatine Kinase CK-MB (Mass) Troponin I Total Protein Albumin Globulin Albumin/Globulin Ratio Triglycerides Cholesterol LDL Cholesterol Direct HDL Cholesterol Free T4 TSH 3rd Generation Urine Color Urine Clarity Urine pH Ur Specific [place] Urine Protein Urine Glucose (UA) Urine Ketones Urine Blood Urine Nitrate Urine Bilirubin Urine Urobilinogen Ur Leukocyte Esterase Hyaline Casts Ur Random Sodium Attending/Attestation - Attestation I have personally seen and examined this patient.: Yes I have fully participated in the care of the patient.: Yes I have reviewed all pertinent clinical information: Yes Notes (Text): 12/26/17 18:24 I have seen and examined the patient. Medical records, lab studies, and imaging were reviewed by me and a management plan was formulated on multidisciplinary rounds with resident Dr. Freeman. I agree with their documented assessment and plan. Patient had new onset chest pain with NSTEMI. transferred to ICU for monitoring. Patient awaiting transfer to [facility] for cath, by his broadcast operations engineer who originally did his first cardiac cath. Critical Care Time 35 minutes. Multi-disciplinary rounds were performed with house staff, nursing, speech therapy, respiratory therapy, pharmacy and nutrition with integrated input from the primary team/attending and other consulting services. The documented time is cumulative and includes review of patient data/exams/labs/chart review and examination of the patient on rounds and throughout the day; time is exclusive of any procedures or teaching time.
--- NOTE | 2017-12-26 17:28 | CP.PCM.CON ---
History of Present Illness - History of Present Illness History of Present Illness: Reason for consult: Shortness of breath 87 yo male PMhx of CAD, stents and CABG (2001), DM, COPD, pacemaker (2001), presented to the ED yesterday with Chest pain x 1 day,relieved partially with nitroglycerin tablets. Admitted to the floor on the hospitalist service Patient was seen in the ICU, in no acute distress. He reports that he usually feels short of breath but that today his shortness of breath is worse. He was noted to be breathing rapidly, pursing his lips and not speaking full sentences. He has no chest pain at this time and no complaints other than his shortness of breath. He is awaiting transfer to [facility]. PMHx: CAD, CABG, HTN, COPD, DM, Prostate enlargement, Kidney stones PSH: Pacemaker, stent (2001), prostate surgery (2010) Allergies: NKDA FMHX: Mother, father from heart issues. SH: smoking: greater than 60 pack history, quit in 2004, smokes ocasionally. alcohol use: Quit drinking alcohol in . Illicit drug: Denies drug use. Home Meds: Budosenide, Arformoterol Assessment and Plan: 1. Acute COPD Exacerbation - O2 sat%: 99% on 2L NC - RR 22 CXR 12/25: Bibasilar atelectasis/scaring, clear lung - V/Q scan negative for PE - CBC 12/26: WBC: 9.6 - Nebulizer Tx, - Budosenide 2. Acute on chronic CHF -BP: 122/55 -Lasix -metolazone 3. Acute Myocardial Infarction - ST changes in the inferior and lateral leads - nitroglycerin, aspirin, lopressor - patient awaiting transfer to [facility] Past Patient History - Past Social History Smoking Status: Unknown If Ever Smoked - CARDIAC Hx Atrial Fibrillation: Yes Hx Hypertension: Yes Hx Peripheral Edema: Yes - PULMONARY Hx Chronic Obstructive Pulmonary Disease (COPD): Yes - NEUROLOGICAL Hx Neurological Disorder: No - HEENT Hx HEENT Problems: No - RENAL Hx Chronic Kidney Disease: No - ENDOCRINE/METABOLIC Hx Diabetes Mellitus Type 2: Yes - HEMATOLOGICAL/ONCOLOGICAL Hx Blood Disorders: No - INTEGUMENTARY Hx Dermatological Problems: No - MUSCULOSKELETAL/RHEUMATOLOGICAL Hx Musculoskeletal Disorders: No - PSYCHIATRIC Hx Substance Use: No - SURGICAL HISTORY Hx Coronary Artery Bypass Graft: Yes Hx Coronary Stent: Yes - ANESTHESIA Hx Anesthesia: Yes Hx Anesthesia Reactions: No Meds Allergies/Adverse Reactions: Allergies Allergy/AdvReac Type Severity Reaction Status Date / Time No Known Allergies Allergy Verified 12/25/17 04:27 - Medications Medications: Current Medications Amlodipine Besylate (Norvasc) 10 mg PO DAILY [facility] Last Admin: 12/25/17 11:27 Dose: Not Given Aspirin (Aspirin Chewable) 81 mg PO DAILY [facility] Last Admin: 12/26/17 09:28 Dose: 81 mg Budesonide (Pulmicort Respules) 0.5 mg INH RQ12 [facility] Last Admin: 12/26/17 10:48 Dose: Not Given Clonidine HCl (Catapres) 0.1 mg PO BID [facility] Last Admin: 12/25/17 11:27 Dose: Not Given Dextrose (Dextrose 50% Inj) 0 ml IV STAT PRN; Protocol PRN Reason: Hypoglycemia Protocol Dextrose (Glutose 15) 15 gm PO ONCE PRN; Protocol PRN Reason: Hypoglycemia Protocol Glucagon (Glucagen Diagnostic Kit) 1 mg IM STAT PRN; Protocol PRN Reason: Hypoglycemia Protocol Dextrose (Dextrose 5% In Water 1000 Ml) 1,000 mls @ 0 mls/hr IV .Q0M PRN; Protocol; Per Protocol PRN Reason: Hypoglycemia Protocol Heparin Sodium/Sodium Chloride (Heparin 84333 Units/250ml 1/2 Normal Saline) 25 ,000 units in 250 mls @ 9.016 mls/hr IV .Q24H PRN; Protocol; 10.45 UNITS/KG/HR PRN Reason: ADJUST RATE PER PROTOCOL Last Admin: 12/26/17 09:33 Dose: 10.45 units/kg/hr, 9.016 mls/hr Nitroglycerin/Dextrose (Nitroglycerin 50 Mg/250 Ml D5w) 50 mg in 250 mls @ 1.5 mls/hr IV .Q24H FUAD; 5 MCG/MIN PRN Reason: Protocol Insulin Human Regular (Novolin R) 0 unit SC ACHS [facility] PRN Reason: Protocol Last Admin: 12/26/17 12:36 Dose: 4 unit Metoprolol Tartrate (Lopressor) 25 mg PO BID [facility] Last Admin: 12/26/17 09:29 Dose: 25 mg Potassium Chloride (Potassium Chloride Oral Soln) 20 meq PO BID [facility] Last Admin: 12/26/17 12:36 Dose: 20 meq Rosuvastatin Calcium (Crestor) 10 mg PO HS FUAD Last Admin: 12/25/17 21:55 Dose: 10 mg Results - Vital Signs Recent Vital Signs: Last Vital Signs Temp 97.5 F L 12/26/17 10:55 Pulse 79 12/26/17 10:55 Resp 20 12/26/17 07:00 BP 122/55 L 12/26/17 12:49 Pulse Ox 99 12/26/17 10:55 - Labs Result Diagrams: 12/26/17 04:27 12/26/17 04:27 Labs: Laboratory Results - last 24 hr 12/25/17 12/25/17 12/25/17 16:52 17:30 20:21 WBC RBC Hgb Hct MCV MCH MCHC RDW Plt Count MPV Neut % (Auto) Lymph % (Auto) Petroleum % (Auto) Eos % (Auto) Baso % (Auto) Neut # (Auto) Lymph # (Auto) Petroleum # (Auto) Eos # (Auto) Baso # (Auto) PT 11.5 INR 1.0 APTT 29 Sodium Potassium Chloride Carbon Dioxide Anion Gap BUN Creatinine Est GFR ( Amer) Est GFR (Non-Af Amer) POC Glucose (mg/dL) Random Glucose Hemoglobin A1c Calcium Phosphorus Magnesium Total Bilirubin AST ALT Alkaline Phosphatase Total Creatine Kinase CK-MB (Mass) 6.27 H Troponin I 0.9490 H* Total Protein Albumin Globulin Albumin/Globulin Ratio Triglycerides Cholesterol LDL Cholesterol Direct HDL Cholesterol Free T4 TSH 3rd Generation Urine Color Urine Clarity Urine pH Ur Specific [place] Urine Protein Urine Glucose (UA) Urine Ketones Urine Blood Urine Nitrate Urine Bilirubin Urine Urobilinogen Ur Leukocyte Esterase Hyaline Casts Ur Random Sodium 93 12/25/17 12/25/17 12/26/17 20:22 21:07 00:25 WBC RBC Hgb Hct MCV MCH MCHC RDW Plt Count MPV Neut % (Auto) Lymph % (Auto) Petroleum % (Auto) Eos % (Auto) Baso % (Auto) Neut # (Auto) Lymph # (Auto) Petroleum # (Auto) Eos # (Auto) Baso # (Auto) PT INR APTT 90 H D Sodium Potassium Chloride Carbon Dioxide Anion Gap BUN Creatinine Est GFR ( Amer) Est GFR (Non-Af Amer) POC Glucose (mg/dL) 178 H Random Glucose Hemoglobin A1c Calcium Phosphorus Magnesium Total Bilirubin AST ALT Alkaline Phosphatase Total Creatine Kinase CK-MB (Mass) Troponin I Total Protein Albumin Globulin Albumin/Globulin Ratio Triglycerides Cholesterol LDL Cholesterol Direct HDL Cholesterol Free T4 TSH 3rd Generation Urine Color Straw Urine Clarity Clear Urine pH 5.0 Ur Specific [place] 1.009 Urine Protein Negative Urine Glucose (UA) Normal Urine Ketones Negative Urine Blood Negative Urine Nitrate Negative Urine Bilirubin Negative Urine Urobilinogen Normal Ur Leukocyte Esterase Neg Hyaline Casts 6-10 H Ur Random Sodium 12/26/17 12/26/17 12/26/17 04:27 04:27 04:27 WBC RBC Hgb Hct MCV MCH MCHC RDW Plt Count MPV Neut % (Auto) Lymph % (Auto) Petroleum % (Auto) Eos % (Auto) Baso % (Auto) Neut # (Auto) Lymph # (Auto) Petroleum # (Auto) Eos # (Auto) Baso # (Auto) PT INR APTT Sodium 138 Potassium 2.8 L Chloride 99 Carbon Dioxide 26 Anion Gap 16 BUN 83 H Creatinine 2.0 H Est GFR ( Amer) 38 Est GFR (Non-Af Amer) 32 POC Glucose (mg/dL) Random Glucose 133 H Hemoglobin A1c 7.2 H Calcium 8.7 Phosphorus 3.5 Magnesium 1.9 Total Bilirubin 0.3 AST 28 ALT 20 L D Alkaline Phosphatase 57 Total Creatine Kinase CK-MB (Mass) Troponin I Total Protein 6.3 Albumin 3.6 Globulin 2.7 Albumin/Globulin Ratio 1.3 Triglycerides 184 H Cholesterol 133 LDL Cholesterol Direct 77 HDL Cholesterol 31 Free T4 1.47 TSH 3rd Generation 0.86 Urine Color Urine Clarity Urine pH Ur Specific [place] Urine Protein Urine Glucose (UA) Urine Ketones Urine Blood Urine Nitrate Urine Bilirubin Urine Urobilinogen Ur Leukocyte Esterase Hyaline Casts Ur Random Sodium 12/26/17 12/26/17 12/26/17 04:27 04:27 06:00 WBC 9.6 RBC 3.68 L Hgb 11.4 L Hct 34.0 L MCV 92.5 MCH 31.0 MCHC 33.5 RDW 14.7 H Plt Count 195 MPV 8.9 Neut % (Auto) 72.9 Lymph % (Auto) 14.3 L Petroleum % (Auto) 8.2 Eos % (Auto) 2.5 Baso % (Auto) 2.1 H Neut # (Auto) 7.0 Lymph # (Auto) 1.4 Petroleum # (Auto) 0.8 Eos # (Auto) 0.2 Baso # (Auto) 0.2 PT INR APTT 108 H* D Sodium Potassium Chloride Carbon Dioxide Anion Gap BUN Creatinine Est GFR ( Amer) Est GFR (Non-Af Amer) POC Glucose (mg/dL) Random Glucose Hemoglobin A1c Calcium Phosphorus Magnesium Total Bilirubin AST ALT Alkaline Phosphatase Total Creatine Kinase 99 CK-MB (Mass) 3.72 H Troponin I 1.2700 H* Total Protein Albumin Globulin Albumin/Globulin Ratio Triglycerides Cholesterol LDL Cholesterol Direct HDL Cholesterol Free T4 TSH 3rd Generation Urine Color Urine Clarity Urine pH Ur Specific [place] Urine Protein Urine Glucose (UA) Urine Ketones Urine Blood Urine Nitrate Urine Bilirubin Urine Urobilinogen Ur Leukocyte Esterase Hyaline Casts Ur Random Sodium 12/26/17 12/26/17 12/26/17 06:22 12:25 16:11 WBC RBC Hgb Hct MCV MCH MCHC RDW Plt Count MPV Neut % (Auto) Lymph % (Auto) Petroleum % (Auto) Eos % (Auto) Baso % (Auto) Neut # (Auto) Lymph # (Auto) Petroleum # (Auto) Eos # (Auto) Baso # (Auto) PT INR APTT 53 H D Sodium Potassium Chloride Carbon Dioxide Anion Gap BUN Creatinine Est GFR ( Amer) Est GFR (Non-Af Amer) POC Glucose (mg/dL) 139 H 304 H Random Glucose Hemoglobin A1c Calcium Phosphorus Magnesium Total Bilirubin AST ALT Alkaline Phosphatase Total Creatine Kinase CK-MB (Mass) Troponin I Total Protein Albumin Globulin Albumin/Globulin Ratio Triglycerides Cholesterol LDL Cholesterol Direct HDL Cholesterol Free T4 TSH 3rd Generation Urine Color Urine Clarity Urine pH Ur Specific [place] Urine Protein Urine Glucose (UA) Urine Ketones Urine Blood Urine Nitrate Urine Bilirubin Urine Urobilinogen Ur Leukocyte Esterase Hyaline Casts Ur Random Sodium 12/26/17 16:11 WBC RBC Hgb Hct MCV MCH MCHC RDW Plt Count MPV Neut % (Auto) Lymph % (Auto) Petroleum % (Auto) Eos % (Auto) Baso % (Auto) Neut # (Auto) Lymph # (Auto) Petroleum # (Auto) Eos # (Auto) Baso # (Auto) PT INR APTT Sodium Potassium Chloride Carbon Dioxide Anion Gap BUN Creatinine Est GFR ( Amer) Est GFR (Non-Af Amer) POC Glucose (mg/dL) 144 H Random Glucose Hemoglobin A1c Calcium Phosphorus Magnesium Total Bilirubin AST ALT Alkaline Phosphatase Total Creatine Kinase CK-MB (Mass) Troponin I Total Protein Albumin Globulin Albumin/Globulin Ratio Triglycerides Cholesterol LDL Cholesterol Direct HDL Cholesterol Free T4 TSH 3rd Generation Urine Color Urine Clarity Urine pH Ur Specific [place] Urine Protein Urine Glucose (UA) Urine Ketones Urine Blood Urine Nitrate Urine Bilirubin Urine Urobilinogen Ur Leukocyte Esterase Hyaline Casts Ur Random Sodium
[2017-12-26] MEDS ORDERED: (Novolin R) Insulin Human Regular 100 units/ml vial SC SCH (17:38)
[2017-12-26] MEDS ORDERED: Potassium Chloride 20 mEq/15 ml LIQ UD PO ONE (17:49)
[2017-12-26 19:11] LABS: CK-MB 2.81 ng/mL (0.0-3.38); TROPONIN I 0.63 ng/mL (0.00-0.120)
[2017-12-26 21:46] VITALS: TEMP 98.1
--- NOTE | 2017-12-26 21:59 | CP.PCM.PN ---
Subjective - Date & Time of Evaluation Date of Evaluation: 12/26/17 Time of Evaluation: 11:20 - Subjective Subjective: This is an 87 year old male with PMHx CAD s/p stents and CABG, DM, BPH, nephrolithiasis who presented to the hospital with chest pain. Patient with continually rising troponins. 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 This morning the patient had chest pain and shortness of breath. Nitro paste was started, and the patient was transferred to ICU until he is able to be transferred to [place]. By the time the patient was transferred to the ICU, he was no longer in any acute distress and was witnessed comfortably eating lunch. Chest pain and dyspnea had markedly improved per patient. PMHx: HTN, COPD, CAD s/p stent, CABG (2001), ICD (interrogated every 6 months per patient), DM, Prostate enlargement, Nephrolithiasis PSHx: CABG 2001, stents unknown date, Prostate surgery- 2010, pacemaker/ defibrillator- 2001 (patient states he is on his third one) Allergies: denies Family history: father and mother both of "heart issues" in their 50's, grandfather of throat cancer. Social History: >60 pack year history smoking quit in 2004. Former alcoholic quit in the , denies recreational drug use. Retired, currently lives with his son. Review of Systems - Constitutional Constitutional: absent: Chills, Fever - EENT Eyes: absent: Change in Vision Ears: absent: Decreased Hearing Nose/Mouth/Throat: absent: Nasal Congestion - Cardiovascular Cardiovascular: Chest Pain (resolved) - Respiratory Respiratory: Dyspnea (resolved) - Gastrointestinal Gastrointestinal: absent: Abdominal Pain, Nausea, Vomiting - Genitourinary Genitourinary: absent: Dysuria - Musculoskeletal Musculoskeletal: absent: Back Pain - Integumentary Integumentary: absent: Rash - Neurological Neurological: absent: Dizziness, Headaches - Psychiatric Psychiatric: absent: Anxiety - Endocrine Endocrine: absent: Palpitations Physical Exam - Constitutional Appears: No Acute Distress - Head Exam Head Exam: ATRAUMATIC, NORMOCEPHALIC - Eye Exam Eye Exam: EOMI, Normal appearance - ENT Exam ENT Exam: Mucous Membranes Moist - Respiratory Exam Respiratory Exam: Rhonchi Additional comments: Coarse breath sounds - Cardiovascular Exam Cardiovascular Exam: REGULAR RHYTHM, +S1, +S2 - GI/Abdominal Exam GI & Abdominal Exam: Distended, Normal Bowel Sounds, Soft. absent: Tenderness - Extremities Exam Extremities exam: Negative for: pedal edema, tenderness Additional comments: Right leg erythematous - Neurological Exam Neurological exam: Alert, CN II-XII Intact, Oriented x3 - Psychiatric Exam Psychiatric exam: Normal Affect, Normal Mood - Skin Skin Exam: Dry, Warm Objective - Vital Signs/Intake and Output Vital Signs (last 24 hours): Temp Pulse Resp BP Pulse Ox 98.1 F 70 20 129/60 98 12/26/17 20:00 12/26/17 21:00 12/26/17 21:00 12/26/17 20:34 12/26/17 21:00 Intake and Output: 12/26/17 12/27/17 18:59 06:59 Intake Total 813 45.2 Output Total 875 250 Balance -62 -204.8 - Medications Medications: Current Medications Amlodipine Besylate (Norvasc) 10 mg PO DAILY [facility] Last Admin: 12/25/17 11:27 Dose: Not Given Aspirin (Aspirin Chewable) 81 mg PO DAILY [facility] Last Admin: 12/26/17 09:28 Dose: 81 mg Budesonide (Pulmicort Respules) 0.5 mg INH RQ12 [facility] Last Admin: 12/26/17 20:07 Dose: 0.5 mg Clonidine HCl (Catapres) 0.1 mg PO BID [facility] Last Admin: 12/25/17 11:27 Dose: Not Given Dextrose (Dextrose 50% Inj) 0 ml IV STAT PRN; Protocol PRN Reason: Hypoglycemia Protocol Dextrose (Glutose 15) 15 gm PO ONCE PRN; Protocol PRN Reason: Hypoglycemia Protocol Glucagon (Glucagen Diagnostic Kit) 1 mg IM STAT PRN; Protocol PRN Reason: Hypoglycemia Protocol Dextrose (Dextrose 5% In Water 1000 Ml) 1,000 mls @ 0 mls/hr IV .Q0M PRN; Protocol; Per Protocol PRN Reason: Hypoglycemia Protocol Heparin Sodium/Sodium Chloride (Heparin 07514 Units/250ml 1/2 Normal Saline) 25 ,000 units in 250 mls @ 9.016 mls/hr IV .Q24H PRN; Protocol; 10.45 UNITS/KG/HR PRN Reason: ADJUST RATE PER PROTOCOL Last Admin: 12/26/17 17:57 Dose: 10 units/kg/hr, 8.627 mls/hr Nitroglycerin/Dextrose (Nitroglycerin 50 Mg/250 Ml D5w) 50 mg in 250 mls @ 1.5 mls/hr IV .Q24H FUAD; 5 MCG/MIN PRN Reason: Protocol Last Titration: 12/26/17 18:30 Dose: 30 mcg/min, 9 mls/hr Insulin Human Regular (Novolin R) 0 unit SC ACHS FUAD PRN Reason: Protocol Last Admin: 12/26/17 21:25 Dose: Not Given Metoprolol Tartrate (Lopressor) 25 mg PO BID [facility] Last Admin: 12/26/17 18:05 Dose: 25 mg Potassium Chloride (Potassium Chloride Oral Soln) 20 meq PO BID FUAD Last Admin: 12/26/17 18:05 Dose: 20 meq Rosuvastatin Calcium (Crestor) 10 mg PO HS [facility] Last Admin: 12/26/17 21:31 Dose: 10 mg - Labs Labs: 12/26/17 04:27 12/26/17 04:27 PT 11.5 SECONDS (9.7-12.2) 12/25/17 17:30 INR 1.0 12/25/17 17:30 APTT 53 SECONDS (21-34) H D 12/26/17 16:11 Assessment and Plan - Assessment and Plan (Free Text) Assessment: This is an 87 year old male with PMHx CAD s/p stents and CABG, HTN, DM, BPH, nephrolithiasis who presented to the hospital with chest pain. Patient with continually rising troponins. He was brought down to the ICU after an episode of chest pain this morning. He improved after nitro paste was given and is now without chest pain. Continue to trend troponins. Neuro Awake, alert, verbal Cardio Assessment: NSTEMI, CAD ASA 81 mg PO daily Heparin drip Crestor 10 mg PO HS Lopressor 25 mg PO BID Nitro drip was ordered but held since the patient was not in active chest pain on arrival to the ICU. f/u serial troponins Pulm saturating well on nasal cannula GI Heart Healthy Diet carb consistent Endocrine Assessment: DM 2 Regular ISS-medium dose Accuchecks ACHS Renal Assessment: Likely chronic kidney disease in the setting of chronic hypertension and diabetes elevated BUN/cr continue to monitor Prophylaxis Heparin drip GI ppx contraindicated Patient to be transferred to [place]
[2017-12-26 22:29] LABS: ALB/GLOB RATIO 1.4 (1.0-2.1); ALBUMIN 3.7 g/dL (3.5-5.0); CALCIUM 8.4 mg/dl (8.6-10.4)
[2017-12-26 22:47] LABS: CK-MB 2.7 ng/mL (0.0-3.38); TROPONIN I 0.789 ng/mL (0.00-0.120)
[2017-12-27 04:18] LABS: BASO % 0.4 % (0.0-2.0); EOS # 0.3 K/uL (0.0-0.7); EOS % 2.4 % (0.0-4.0); HEMOGLOBIN 11.7 g/dL (12.0-18.0); LYMPH # 1.8 K/uL (1.0-4.3); LYMPH % 14.8 % (20.0-40.0); MEAN CELL VOLUME 92.3 fL (80.0-94.0); MEAN CORPUSCULAR HEMOGLOBIN 31.2 pg (27.0-31.0); MEAN CORPUSCULAR HGB CONC 33.9 g/dL (33.0-37.0); MEAN PLATELET VOLUME 8.9 fL (7.2-11.7); MONO # 1.2 K/uL (0.0-0.8); MONO % 9.8 % (0.0-10.0); NEUT # 8.7 K/uL (1.8-7.0); NEUT % 72.6 % (50.0-75.0); NRBC % 0.1 % (0.0-2.0); RBC 3.75 Mil/uL (4.40-5.90); RED CELL DISTRIBUTION WIDTH 14.3 % (11.5-14.5)
[2017-12-27 05:05] LABS: ALB/GLOB RATIO 1.3 (1.0-2.1); ALBUMIN 3.7 g/dL (3.5-5.0); CALCIUM 8.9 mg/dl (8.6-10.4); CK-MB 2.61 ng/mL (0.0-3.38); TROPONIN I 0.94 ng/mL (0.00-0.120)
[2017-12-27 05:11] VITALS: BP 146/72; PULSE 85; RESP 20; O2SAT 97
--- NOTE | 2017-12-27 12:33 | CARD ---
APPROVED REPORT EXAM: Two-dimensional and M-mode echocardiogram with Doppler and color Doppler. Other Information Quality : GoodRhythm : INDICATION Cardiac Disease: CAD COPD STENT Surgery/Intervention Pacemaker: CABG: Date: 2001 RISK FACTORS Hypertension Diabetes 2D DIMENSIONS IVSd1.4 (0.7-1.1cm)LVDd5.2 (3.9-5.9cm) PWd1.3 (0.7-1.1cm)LVDs4.2 (2.5-4.0cm) FS (%) 19.3 %LVEF (%)39.5 (>50%) M-Mode DIMENSIONS Left Atrium (MM)4.11 (2.5-4.0cm)Aortic Root3.84 (2.2-3.7cm) Aortic Cusp Exc.1.94 (1.5-2.0cm) Mitral Valve MV E Nvngzzce98.3cm/sMV A Yxfsqlwe179.1cm/sE/A ratio0.6 TDI E/Lateral E'0.0E/Medial E'0.0 Tricuspid Valve TR Peak [id number]/sTR Peak Gr.19mmHg LEFT VENTRICLE The left ventricle is normal size. There is mild to moderate concentric left ventricular hypertrophy. The Ejection Fraction is 35-40%. Transmitral Doppler flow pattern is Grade I-abnormal relaxation pattern. The left atrial pressure is mildly elevated. RIGHT VENTRICLE The right ventricle is normal size. rv Systolic function is mildly reduced. There is a pacemaker lead in the right ventricle. ATRIA The left atrium is mildly dilated. The right atrium size is normal. The interatrial septum is intact with no evidence for an atrial septal defect. AORTIC VALVE The aortic valve is trileaflet. The aortic valve is mildly sclerotic. There is mild aortic regurgitation. MITRAL VALVE The mitral valve is thickened but opens well. Mitral annular calcification is mild. Mitral regurgitation is trace. TRICUSPID VALVE The tricuspid valve is normal in structure. There is mild tricuspid regurgitation. Right ventricular systolic pressure is estimated at 30 mmHg. There is no pulmonary hypertension. PULMONIC VALVE The pulmonary valve is normal in structure. GREAT VESSELS The aortic root is normal size. The aortic root displays mild sclerocalcific changes of the aortic root. ivc is mildly dilated,2.2 cm. PERICARDIAL EFFUSION There is no pericardial effusion. <Conclusion> The left ventricle is normal size. There is mild to moderate concentric left ventricular hypertrophy. The Ejection Fraction is 35-40%. Transmitral Doppler flow pattern is Grade I-abnormal relaxation pattern. The left atrial pressure is mildly elevated. rv Systolic function is mildly reduced. There is a pacemaker lead in the right ventricle. The left atrium is mildly dilated. Mitral regurgitation is trace. There is mild tricuspid regurgitation. Right ventricular systolic pressure is estimated at 30 mmHg. There is no pulmonary hypertension. The aortic root is normal size. The aortic root displays mild sclerocalcific changes of the aortic root. ivc is mildly dilated,2.2 cm. There is no pericardial effusion.
[2017-12-29 08:55] LABS: CREATININE, 24 HOUR URINE 1.09 g/24 h (0.63-2.50)
--- NOTE | 2017-12-30 10:11 | PQF CHF ---
This form is a permanent part of the medical record To Dr. Choco Rodriguez, Patient was presented to ER with chest pain. History of CKD/HTN/CHF, Diabetis, CAD, CABG, Angioplasty with Stent, Enlarged prostate. Diagnosed with NSTEMI ; CHF, treated with IV 40 mg, Lasix Please specify the Type of CHF -- SYSTOLIC/DIASTOLIC/COMBINED SYSTOLIC/ DIASTOLIC Thank you, Clarification of your documentation is requested to better reflect the severity of illness and intensity of treatment of your patient. Indicators present [x] Diagnosis of CHF and/or history of CHF [] BNP > 200 [] Imaging Finding of Pulmonary Edema /Pleural Effusions [] Fluid/Volume Overload [x] Pitting edema [] Ejection Fraction < 40% (Indicative of Systolic Heart Failure) [] Ejection Fraction > 40% (Indicative of Diastolic Heart Failure) [] Dyspnea / Orthopenea / Paroxysmal Nocturnal Dyspnea [] Other: Location in the medical record that reflects the above clinical findings: [] Consult 12/26 Jasiel Garay Treatment Provided: [] PHYSICIAN'S RESPONSE Based on your medical judgment of the clinical indicators outlined above, are you treating this patient for a known or suspected: [] Acute CHF [] Systolic [] Diastolic [] Combined [] Chronic CHF [] Systolic [] Diastolic [] Combined [] Acute on Chronic CHF []Systolic [] Diastolic [] Combined [] CHF due hypertension [] Acute systolic []Chronic systolic [] Acute/ chronic systolic [] Other, please indicate: [] [] If Unable to Determine, please check the box, sign and date. Present On Admission (POA) Indicator: [] Present at the time of admission [] Not present at the time of admission [] Clinically Undetermined In responding to this query, please exercise your independent professional judgment. The fact that a question is asked does not imply that any particular answer is desired or expected. Thank you for your clarification on this documentation. If you have any questions please call:[ ] * Thank you, [Loretta Mckeon, [facility] ] [employer]
[2017-12-30 11:58] LABS: ALBUMIN (PEP) 3.4 g/dL (3.8-4.8); ALPHA-1-GLOBULIN (PEP) 0.3 g/dL (0.2-0.3)
== END 2017-12-27 06:15 | disposition short-term general hospital (02) | DRG 280 ==
LOC: C.ER 04:22 → C.5S 05:50 → C.9I 12-26 11:31
PROVIDERS: ADMIT Internal Medicine; ATTEND Internal Medicine
DX: I21.4 Non-ST elevation (NSTEMI) myocardial infarction (principal); I50.43 Acute on chronic combined systolic (congestive) and diastolic (congestive) heart failure; I13.0 Hypertensive heart and chronic kidney disease with heart failure and stage 1 through stage 4 chronic kidney disease, or unspecified chronic kidney disease; J44.1 Chronic obstructive pulmonary disease with (acute) exacerbation; J98.11 Atelectasis; E11.22 Type 2 diabetes mellitus with diabetic chronic kidney disease; E87.6 Hypokalemia; I25.10 Atherosclerotic heart disease of native coronary artery without angina pectoris; I48.91 Unspecified atrial fibrillation; Z95.1 Presence of aortocoronary bypass graft; Z95.0 Presence of cardiac pacemaker; Z87.891 Personal history of nicotine dependence; Z79.4 Long term (current) use of insulin; I44.7 Left bundle-branch block, unspecified

== ENCOUNTER 2018-12-19 21:07 | Inpatient (IN) | payer MEDICARE, BC ==
--- NOTE | 2018-12-19 21:23 | C.PDOC ---
History Of Present Illness Patient presents to the ED for evaluation of a fall at home that was witnessed by his son. Patient trip and fell injuring his left hip. Patient remembers the event. Patient denies visual changes, LOC, neck pain, rash, CP, SOB, nausea, vomit, weakness, numbness. Time Seen by Provider: 12/19/18 21:23 Chief Complaint (Nursing): Lower Extremity Problem/Injury History Per: Patient, Family History/Exam Limitations: no limitations Onset/Duration Of Symptoms: Hrs Current Symptoms Are (Timing): Still Present Recent travel outside of the [place]: No Additional History Per: Patient - Hip Description Of Injury: Tripped Past Medical History Reviewed: Historical Data, Nursing Documentation, Vital Signs Vital Signs: Last Vital Signs Temp 98.1 F 12/19/18 21:15 Pulse 77 12/19/18 21:15 Resp 18 12/19/18 21:15 BP 140/57 L 12/19/18 21:15 Pulse Ox 95 12/19/18 21:15 - Medical History PMH: Atrial Fibrillation, CAD, COPD, HTN, Peripheral Edema Denies: Chronic Kidney Disease Surgical History: CABG, Coronary Stent Family History: States: Unknown Family Hx - Social History Hx Alcohol Use: No Hx Substance Use: No - Immunization History Hx Tetanus Toxoid Vaccination: No Hx Influenza Vaccination: No Hx Pneumococcal Vaccination: No Review Of Systems Constitutional: Negative for: Fever, Chills Cardiovascular: Negative for: Chest Pain Respiratory: Negative for: Shortness of Breath Gastrointestinal: Negative for: Nausea, Vomiting, Abdominal Pain Musculoskeletal: Positive for: Leg Pain Skin: Negative for: Rash Neurological: Negative for: Weakness, Numbness Physical Exam - Physical Exam Appears: Non-toxic, No Acute Distress Skin: Warm, Dry Head: Normacephalic Eye(s): bilateral: Normal Inspection Oral Mucosa: Moist Neck: Supple Chest: No Tenderness, Other (cabg, pacer left) Cardiovascular: Rhythm Regular Respiratory: No Rales, No Rhonchi, No Wheezing Gastrointestinal/Abdominal: Soft, No Tenderness, No Guarding, No Rebound Back: No Vertebral Tenderness Extremity: Tenderness (left hip), Capillary Refill (< 2 seconds) Extremity: Left: Limited ROM To Joint, Unable To Bear Weight, Bilateral: Normal Color And Temperature, Pelvis-Stable Pulses: Left Dorsalis Pedis: Normal, Right Dorsalis Pedis: Normal Neurological/Psych: Oriented x3, Normal Speech, Normal Cognition, Other (hard of hearing) Gait: Unable To Assess ED Course And Treatment - Laboratory Results Result Diagrams: 12/19/18 21:51 12/19/18 21:51 ECG: Interpreted By Me, Viewed By Me ECG Rhythm: Sinus Rhythm (73), Nonspecific Changes (ivcd) O2 Sat by Pulse Oximetry: 95 (ON RA) Pulse Ox Interpretation: Normal Progress Note: Plan: - EKG. - Labs. - Toradol 15 mg IVP. - Hip X-Ray. - UA Disposition Discussed With Dr.: Marii Rodriguez Comment: accepted the pt [facility] is service and took over the care and took over the care at 10:45 PM Doctor Will See Patient In The: Hospital Counseled Patient/Family Regarding: Studies Performed, Diagnosis - Disposition Disposition: HOSPITALIZED Disposition Time: 21:23 Condition: FAIR Forms: [facility] (Welsh) - Clinical Impression Clinical Impression: Fall, Fracture of left hip, Dehydration, Renal insufficiency - Scribe Statement The provider has reviewed the documentation as recorded by the Scribe Maninder White All medical record entries made by the Scribe were at my direction and personally dictated by me. I have reviewed the chart and agree that the record accurately reflects my personal performance of the history, physical exam, medical decision making, and the department course for this patient. I have also personally directed, reviewed, and agree with the discharge instructions and disposition. Decision To Admit - Pt Status Changed To: Hospital Disposition Of: Inpatient - Admit Certification Admit to Inpatient:: After my assessment, the patient will require hospitalization for at least two midnights. This is because of the severity of symptoms shown, intensity of services needed, and/or the medical risk in this patient being treated as an outpatient. - InPatient: Physician Admission Certification: I certify that this patient requires 2 or more midnights of care for the following reason:: After my assessment, the patient will require hospitalization for at least two midnights. This is because of the severity of symptoms shown, intensity of services needed, and/or the medical risk in this patient being treated as an outpatient. - . Bed Request Type: Regular Admitting Physician: Marii Rodriguez Patient Diagnosis: Fall, Fracture of left hip, Dehydration, Renal insufficiency
[2018-12-19] MEDS ORDERED: Sodium Chloride 0.9% 1,000 ML ONE (21:53)
[2018-12-19 22:01] LABS: BASO # 0.1 K/uL (0.0-0.2); BASO % 0.5 % (0.0-2.0); EOS # 0.2 K/uL (0.0-0.7); EOS % 1.4 % (0.0-4.0); HEMOGLOBIN 10.4 g/dL (12.0-18.0); LYMPH # 0.8 K/uL (1.0-4.3); LYMPH % 6.2 % (20.0-40.0); MEAN CORPUSCULAR HEMOGLOBIN 31.3 pg (27.0-31.0); MEAN CORPUSCULAR HGB CONC 32.9 g/dL (33.0-37.0); MEAN PLATELET VOLUME 8.3 fL (7.2-11.7); MONO # 0.9 K/uL (0.0-0.8); MONO % 7.5 % (0.0-10.0); NEUT # 10.5 K/uL (1.8-7.0); NEUT % 84.4 % (50.0-75.0); PLATELET COUNT 268 K/uL (130-400); RED CELL DISTRIBUTION WIDTH 14.7 % (11.5-14.5); WHITE BLOOD COUNT 12.4 K/uL (4.8-10.8)
[2018-12-19 22:05] LABS: MEAN CELL VOLUME 95.2 fL (80.0-94.0)
[2018-12-19 22:10] LABS: INR 1.2; PROTHROMBIN TIME 12.6 SECONDS (9.7-12.2)
[2018-12-19 22:14] LABS: ALB/GLOB RATIO 1.5 (1.0-2.1); ALBUMIN 4.1 g/dL (3.5-5.0); CALCIUM 10.3 mg/dl (8.6-10.4)
[2018-12-19 22:25] LABS: EOSINOPHIL 2 % (0-4); LYMPHOCYTE 3 % (20-40); MONOCYTE 4 % (0-10); NEUTROPHIL 91 % (50-75); TOTAL CELLS COUNTED 100
[2018-12-19 22:26] LABS: PLATELET ESTIMATE NORMAL (NORMAL)
[2018-12-19] MEDS ORDERED: Sodium Chloride 0.9% 1,000 ML IV ONE (22:46)
--- NOTE | 2018-12-20 08:18 | RAD ---
Chest x-ray single frontal view History: Shortness of breath. Comparison: 12/25/2017 Findings: Biapical pleural thickening with upper lobe granulomatous changes. Bilateral hilar prominence. Patchy increased markings at the lung bases. Atherosclerotic calcification at the aortic knob. Status post median sternotomy. Left-sided pacemaker. Degenerative changes in the spine and shoulders. Impression: Biapical pleural thickening with upper lobe granulomatous changes. Bilateral hilar prominence. Patchy increased markings at the lung bases. Atherosclerotic calcification at the aortic knob. Status post median sternotomy. Left-sided pacemaker.
--- NOTE | 2018-12-20 08:20 | RAD ---
Pelvis and left hip two views History: Fracture. Comparison: None available. Findings: Fracture deformity through the left femoral neck with superior distraction of the distal fracture fragment. Vascular calcifications and stents. Calcified phleboliths in the pelvis. Degenerative changes in the lower lumbar spine. Sclerosis at the pubic symphysis and right hip joint space. Calcified phleboliths in the pelvis. Impression: Comminuted and distracted fracture deformity of the left femoral neck.
[2018-12-20] MEDS: Metoprolol Succinate 100 mg XL Tab PO SCH (10:07)
--- NOTE | 2018-12-20 10:54 | CT ---
CT left hip HISTORY: Fracture. COMPARISON: None available. TECHNIQUE: Multiple contiguous axial images were through the left hip without the use of intravenous contrast. Subsequently, sagittal coronal reformatted images were obtained. This CT exam was performed using one or more of the following dose reduction techniques: Automated exposure control, adjustment of the mA and/or kV according to patient size, and/or use of iterative reconstruction technique. Findings: Transverse oblique fracture deformity through the left femoral neck with superior distraction of the distal fracture fragment measuring approximately 2.7 centimeters. Moderate narrowing of the left hip joint space. Prominent reticulation and edema seen within the musculature at the posterior aspect of the left hip joint. Productive change at the pubic symphysis. Productive change at the left posterior superior and inferior pubic bones, nonspecific. Clinical correlation. Productive change at the lateral aspect of the left iliac crest Compression deformity of the anterior superior L5 vertebral body, moderate, indeterminate chronicity. Clinical correlation. Correlation with MRI may be helpful if clinically indicated. Prominent degenerative changes in the lower lumbar spine. Prominent vascular calcifications and stenting noted within the visualized vasculature. Prominent prostate with calcifications. Impression: 1. Transverse oblique fracture deformity through the left femoral neck with superior distraction of the distal fracture fragment measuring approximately 2.7 centimeters. 2. Prominent reticulation and edema seen within the musculature at the posterior aspect of the left hip joint. 3. Compression deformity of the anterior superior L5 vertebral body, moderate, indeterminate chronicity. Clinical correlation. Correlation with MRI may be helpful if clinically indicated. Additional findings as above. A preliminary report was generated at 12:54 a.m. on 12/20/[address] Mayur Arriaga from [facility]. This case was placed in the PA review folder.
[2018-12-20 11:45] LABS: BASO # 0.1 K/uL (0.0-0.2); BASO % 0.8 % (0.0-2.0); EOS # 0.3 K/uL (0.0-0.7); HEMOGLOBIN 9.6 g/dL (12.0-18.0); LYMPH # 0.7 K/uL (1.0-4.3); LYMPH % 8.1 % (20.0-40.0); MEAN CORPUSCULAR HEMOGLOBIN 32.2 pg (27.0-31.0); MEAN CORPUSCULAR HGB CONC 33.1 g/dL (33.0-37.0); MEAN PLATELET VOLUME 8.6 fL (7.2-11.7); MONO % 12.4 % (0.0-10.0); NEUT # 6.2 K/uL (1.8-7.0); NEUT % 74.7 % (50.0-75.0); PLATELET COUNT 246 K/uL (130-400); RBC 2.99 Mil/uL (4.40-5.90); RED CELL DISTRIBUTION WIDTH 14.8 % (11.5-14.5); WHITE BLOOD COUNT 8.3 K/uL (4.8-10.8)
[2018-12-20 11:49] LABS: MEAN CELL VOLUME 97.2 fL (80.0-94.0)
[2018-12-20 11:51] LABS: CALCIUM 9.6 mg/dl (8.6-10.4)
--- NOTE | 2018-12-20 12:25 | CP.PCM.CON ---
History of Present Illness - History of Present Illness History of Present Illness: Patient presents to the ED for evaluation of a fall at home that was witnessed by his son. Patient trip and fell injuring his left hip. Patient remembers the event. Patient denies visual changes, LOC, neck pain, rash, CP, SOB, nausea, vomit, weakness, numbness. dx'D WITH l. FEMORAL NECK/HIP FRACTURE cardiac hX; echo 12/2017: ef 35-40% WITH LVH ppm l. CHEST ivcd/lbbb MORPHOLOGY ON ekg PMHx: HTN, AFIB, COPD, CAD s/p stent, CABG (2001), ICD (interrogated every 6 months per patient), DM, Prostate enlargement, Nephrolithiasis, CKD creat 1.9 12/2017 now 3.8 this admission. PSHx: CABG 2001, stents unknown date, Prostate surgery- 2010, pacemaker/defibrillator- 2001 (patient states he is on his third one) Allergies: denies Family history: father and mother both of "heart issues" in their 50's, grandfather of throat cancer. Social History: >60 pack year history smoking quit in 2004. Former alcoholic quit in the , denies recreational drug use. Retired, currently lives with his son. Review of Systems - Review of Systems All systems: reviewed and no additional remarkable complaints except Past Patient History - Past Social History Smoking Status: Never Smoked - CARDIAC Hx Atrial Fibrillation: Yes Hx Hypertension: Yes Hx Peripheral Edema: Yes - PULMONARY Hx Chronic Obstructive Pulmonary Disease (COPD): Yes - NEUROLOGICAL Hx Neurological Disorder: No - HEENT Hx HEENT Problems: No - RENAL Hx Chronic Kidney Disease: No - ENDOCRINE/METABOLIC Hx Diabetes Mellitus Type 2: Yes - HEMATOLOGICAL/ONCOLOGICAL Hx Blood Disorders: No - INTEGUMENTARY Hx Dermatological Problems: No - MUSCULOSKELETAL/RHEUMATOLOGICAL Hx Musculoskeletal Disorders: No Hx Falls: Yes - PSYCHIATRIC Hx Substance Use: No - SURGICAL HISTORY Hx Coronary Artery Bypass Graft: Yes Hx Coronary Stent: Yes - ANESTHESIA Hx Anesthesia: Yes Hx Anesthesia Reactions: No Meds Allergies/Adverse Reactions: Allergies Allergy/AdvReac Type Severity Reaction Status Date / Time No Known Allergies Allergy Verified 12/25/17 04:27 - Medications Medications: Current Medications Amiodarone HCl (Cordarone) 200 mg PO DAILY [facility] Last Admin: 12/20/18 10:07 Dose: 200 mg Amlodipine Besylate (Norvasc) 10 mg PO DAILY [facility] Last Admin: 12/20/18 10:07 Dose: Not Given Apixaban (Eliquis) 2.5 mg PO DAILY [facility] Arformoterol Tartrate (Brovana) 15 mcg IH RQ24 [facility] Aspirin (Aspirin Chewable) 81 mg PO DAILY [facility] Last Admin: 12/20/18 10:06 Dose: 81 mg Budesonide (Pulmicort Respules) 0.5 mg INH RQ12 [facility] Clonidine HCl (Catapres) 0.1 mg PO BID [facility] Last Admin: 12/20/18 10:06 Dose: Not Given Clopidogrel Bisulfate (Plavix) 75 mg PO DAILY [facility] Glimepiride (Amaryl) 1 mg PO DAILY [facility] Last Admin: 12/20/18 10:06 Dose: 1 mg Losartan Potassium (Cozaar) 50 mg PO BID [facility] Metolazone (Zaroxolyn) 2.5 mg PO QOD6 [facility] Metoprolol Succinate (Toprol Xl) 100 mg PO DAILY [facility] Last Admin: 12/20/18 10:07 Dose: Not Given Morphine Sulfate (Morphine) 2 mg IVP Q6 PRN PRN Reason: Pain, moderate (4-7) Last Admin: 12/20/18 07:42 Dose: 2 mg Rosuvastatin Calcium (Crestor) 5 mg PO HS [facility] Torsemide (Demadex) 20 mg PO DAILY [facility] Physical Exam - Constitutional Appears: Chronically Ill, Other (elderly frail man) - Eye Exam Eye Exam: Normal appearance. absent: Scleral icterus - ENT Exam ENT Exam: Mucous Membranes Moist, Normal Oropharynx - Neck Exam Neck exam: Positive for: Normal Inspection - Respiratory Exam Respiratory Exam: NORMAL BREATHING PATTERN. absent: Rhonchi, Wheezes - Cardiovascular Exam Cardiovascular Exam: REGULAR RHYTHM, +S1, +S2. absent: Systolic Murmur - GI/Abdominal Exam GI & Abdominal Exam: Normal Bowel Sounds, Soft. absent: Tenderness - Extremities Exam Extremities exam: Positive for: pedal pulses present. Negative for: calf tenderness, pedal edema - Neurological Exam Neurological exam: Alert, Normal Gait, Oriented x3 - Skin Skin Exam: Normal Color, Warm Results - Vital Signs Recent Vital Signs: Last Vital Signs Temp 98.1 F 12/20/18 07:00 Pulse 66 12/20/18 07:00 Resp 18 12/20/18 07:00 BP 131/62 12/20/18 07:00 Pulse Ox 95 12/20/18 07:00 - Labs Result Diagrams: 12/21/18 08:15 12/21/18 08:15 Labs: Laboratory Results - last 24 hr 12/19/18 12/19/18 12/19/18 21:35 21:51 21:51 WBC 12.4 H RBC 3.30 L Hgb 10.4 L Hct 31.5 L MCV 95.2 H D MCH 31.3 H MCHC 32.9 L RDW 14.7 H Plt Count 268 MPV 8.3 Neut % (Auto) 84.4 H Lymph % (Auto) 6.2 L Wright % (Auto) 7.5 Eos % (Auto) 1.4 Baso % (Auto) 0.5 Neut # (Auto) 10.5 H Lymph # (Auto) 0.8 L Wright # (Auto) 0.9 H Eos # (Auto) 0.2 Baso # (Auto) 0.1 Neutrophils % (Manual) 91 H Lymphocytes % (Manual) 3 L Monocytes % (Manual) 4 Eosinophils % (Manual) 2 Platelet Estimate Normal RBC Morphology Normal PT 12.6 H INR 1.2 APTT 33 Sodium Potassium Chloride Carbon Dioxide Anion Gap BUN Creatinine Est GFR ( Amer) Est GFR (Non-Af Amer) POC Glucose (mg/dL) 161 H Random Glucose Calcium Total Bilirubin AST ALT Alkaline Phosphatase Total Protein Albumin Globulin Albumin/Globulin Ratio Blood Type Antibody Screen 12/19/18 12/19/18 12/20/18 21:51 22:45 06:29 WBC RBC Hgb Hct MCV MCH MCHC RDW Plt Count MPV Neut % (Auto) Lymph % (Auto) Wright % (Auto) Eos % (Auto) Baso % (Auto) Neut # (Auto) Lymph # (Auto) Wright # (Auto) Eos # (Auto) Baso # (Auto) Neutrophils % (Manual) Lymphocytes % (Manual) Monocytes % (Manual) Eosinophils % (Manual) Platelet Estimate RBC Morphology PT INR APTT Sodium 138 Potassium 5.2 Chloride 105 Carbon Dioxide 21 L Anion Gap 17 BUN 68 H Creatinine 3.8 H Est GFR ( Amer) 18 Est GFR (Non-Af Amer) 15 POC Glucose (mg/dL) 122 H Random Glucose 139 H D Calcium 10.3 Total Bilirubin 0.6 AST 40 ALT 34 Alkaline Phosphatase 104 Total Protein 6.8 Albumin 4.1 Globulin 2.7 Albumin/Globulin Ratio 1.5 Blood Type O POSITIVE Antibody Screen Negative 12/20/18 12/20/18 12/20/18 11:15 11:15 11:27 WBC 8.3 RBC 2.99 L Hgb 9.6 L Hct 29.1 L MCV 97.2 H D MCH 32.2 H MCHC 33.1 RDW 14.8 H Plt Count 246 MPV 8.6 Neut % (Auto) 74.7 Lymph % (Auto) 8.1 L Wright % (Auto) 12.4 H Eos % (Auto) 4.0 Baso % (Auto) 0.8 Neut # (Auto) 6.2 Lymph # (Auto) 0.7 L Wright # (Auto) 1.0 H Eos # (Auto) 0.3 Baso # (Auto) 0.1 Neutrophils % (Manual) Lymphocytes % (Manual) Monocytes % (Manual) Eosinophils % (Manual) Platelet Estimate RBC Morphology PT INR APTT Sodium 138 Potassium 4.5 Chloride 109 H Carbon Dioxide 23 Anion Gap 11 BUN 64 H Creatinine 3.8 H Est GFR ( Amer) 18 Est GFR (Non-Af Amer) 15 POC Glucose (mg/dL) 191 H Random Glucose 165 H Calcium 9.6 Total Bilirubin AST ALT Alkaline Phosphatase Total Protein Albumin Globulin Albumin/Globulin Ratio Blood Type Antibody Screen - EKG Data EKG Interpreted by: Myself - Imaging and Cardiology Chest x-ray Status: Image reviewed by me Assessment & Plan - Assessment and Plan (Free Text) Assessment: 88 y/o CAD/CABG/stents (? 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 hip/femur Plan: obtain repeat echo interrogate AICD Continue RX for Chronic CHF - Losartan 50 - toprol xl 100 - torsemide/metolazone to maintain euvolemia Cont Rx for chronic CAD/CABG/PCI - dapt and statin Cont Rx for AFIB stroke prevention and rhythm control - eliquis - amiodarone Additional BP Rx - clonidie and amlodipine Please obtain last PCI report from kristine patient is on triple therapy with DAPT and NOAC: monitor closely for GI bleeding. Alternate: if PCI >6 months ago then suggest ASA and eliquis as his chronic Rx. Patient, given extensive cardiac history remains intermediate risk for any procedures, may proceed with adequate BP and HR monitoring. And diuretics and pulmonary supportive care to maintain volume status. Also timing of antiplatelets and NOAC hold will need to be discussed with the surgeon based on timing of surgery and urgency.
[2018-12-20 12:30] LABS: TOTAL CELLS COUNTED 100
[2018-12-20 12:31] LABS: EOSINOPHIL 4 % (0-4); LYMPHOCYTE 8 % (20-40); MONOCYTE 12 % (0-10); NEUTROPHIL 76 % (50-75)
[2018-12-20 12:32] LABS: ANISOCYTOSIS SLIGHT; PLATELET ESTIMATE NORMAL (NORMAL)
[2018-12-20 12:33] LABS: LARGE PLATELETS PRESENT
--- NOTE | 2018-12-20 15:37 | CP.PCM.HP ---
Past Patient History - Past Social History Smoking Status: Never Smoked - CARDIAC Hx Atrial Fibrillation: Yes Hx Hypertension: Yes Hx Peripheral Edema: Yes - PULMONARY Hx Chronic Obstructive Pulmonary Disease (COPD): Yes - NEUROLOGICAL Hx Neurological Disorder: No - HEENT Hx HEENT Problems: No - RENAL Hx Chronic Kidney Disease: No - ENDOCRINE/METABOLIC Hx Diabetes Mellitus Type 2: Yes - HEMATOLOGICAL/ONCOLOGICAL Hx Blood Disorders: No - INTEGUMENTARY Hx Dermatological Problems: No - MUSCULOSKELETAL/RHEUMATOLOGICAL Hx Musculoskeletal Disorders: No Hx Falls: Yes - PSYCHIATRIC Hx Substance Use: No - SURGICAL HISTORY Hx Coronary Artery Bypass Graft: Yes Hx Coronary Stent: Yes - ANESTHESIA Hx Anesthesia: Yes Hx Anesthesia Reactions: No Meds Allergies/Adverse Reactions: Allergies Allergy/AdvReac Type Severity Reaction Status Date / Time No Known Allergies Allergy Verified 12/25/17 04:27 Physical Exam - Constitutional Appears: Well - Head Exam Head Exam: ATRAUMATIC, NORMAL INSPECTION, NORMOCEPHALIC - Eye Exam Eye Exam: EOMI, Normal appearance, PERRL Pupil Exam: NORMAL ACCOMODATION, PERRL - ENT Exam ENT Exam: Mucous Membranes Moist, Normal Exam - Neck Exam Neck exam: Positive for: Normal Inspection - Respiratory Exam Respiratory Exam: Decreased Breath Sounds - Cardiovascular Exam Cardiovascular Exam: REGULAR RHYTHM, +S1, +S2 - GI/Abdominal Exam GI & Abdominal Exam: Diminished Bowel Sounds, Soft - Rectal Exam Rectal Exam: Deferred - Neurological Exam Neurological exam: Oriented x3 Results - Vital Signs Recent Vital Signs: Last Vital Signs Temp 98.1 F 12/20/18 07:00 Pulse 66 12/20/18 07:00 Resp 18 12/20/18 07:00 BP 131/62 12/20/18 07:00 Pulse Ox 95 12/20/18 07:00 - Labs Result Diagrams: 12/20/18 11:15 12/20/18 11:15 Labs: Laboratory Results - last 24 hr 12/19/18 12/19/18 12/19/18 21:35 21:51 21:51 WBC 12.4 H RBC 3.30 L Hgb 10.4 L Hct 31.5 L MCV 95.2 H D MCH 31.3 H MCHC 32.9 L RDW 14.7 H Plt Count 268 MPV 8.3 Neut % (Auto) 84.4 H Lymph % (Auto) 6.2 L Sutton % (Auto) 7.5 Eos % (Auto) 1.4 Baso % (Auto) 0.5 Neut # (Auto) 10.5 H Lymph # (Auto) 0.8 L Sutton # (Auto) 0.9 H Eos # (Auto) 0.2 Baso # (Auto) 0.1 Neutrophils % (Manual) 91 H Lymphocytes % (Manual) 3 L Monocytes % (Manual) 4 Eosinophils % (Manual) 2 Metamyelocytes % Platelet Estimate Normal Large Platelets RBC Morphology Normal Anisocytosis (manual) PT 12.6 H INR 1.2 APTT 33 Sodium Potassium Chloride Carbon Dioxide Anion Gap BUN Creatinine Est GFR ( Amer) Est GFR (Non-Af Amer) POC Glucose (mg/dL) 161 H Random Glucose Calcium Total Bilirubin AST ALT Alkaline Phosphatase NT-Pro-B Natriuret Pep Total Protein Albumin Globulin Albumin/Globulin Ratio Blood Type Antibody Screen 12/19/18 12/19/18 12/20/18 21:51 22:45 06:29 WBC RBC Hgb Hct MCV MCH MCHC RDW Plt Count MPV Neut % (Auto) Lymph % (Auto) Sutton % (Auto) Eos % (Auto) Baso % (Auto) Neut # (Auto) Lymph # (Auto) Sutton # (Auto) Eos # (Auto) Baso # (Auto) Neutrophils % (Manual) Lymphocytes % (Manual) Monocytes % (Manual) Eosinophils % (Manual) Metamyelocytes % Platelet Estimate Large Platelets RBC Morphology Anisocytosis (manual) PT INR APTT Sodium 138 Potassium 5.2 Chloride 105 Carbon Dioxide 21 L Anion Gap 17 BUN 68 H Creatinine 3.8 H Est GFR ( Amer) 18 Est GFR (Non-Af Amer) 15 POC Glucose (mg/dL) 122 H Random Glucose 139 H D Calcium 10.3 Total Bilirubin 0.6 AST 40 ALT 34 Alkaline Phosphatase 104 NT-Pro-B Natriuret Pep Total Protein 6.8 Albumin 4.1 Globulin 2.7 Albumin/Globulin Ratio 1.5 Blood Type O POSITIVE Antibody Screen Negative 12/20/18 12/20/18 12/20/18 11:15 11:15 11:27 WBC 8.3 RBC 2.99 L Hgb 9.6 L Hct 29.1 L MCV 97.2 H D MCH 32.2 H MCHC 33.1 RDW 14.8 H Plt Count 246 MPV 8.6 Neut % (Auto) 74.7 Lymph % (Auto) 8.1 L Sutton % (Auto) 12.4 H Eos % (Auto) 4.0 Baso % (Auto) 0.8 Neut # (Auto) 6.2 Lymph # (Auto) 0.7 L Sutton # (Auto) 1.0 H Eos # (Auto) 0.3 Baso # (Auto) 0.1 Neutrophils % (Manual) 76 H Lymphocytes % (Manual) 8 L Monocytes % (Manual) 12 H Eosinophils % (Manual) 4 Metamyelocytes % TEST NOT PERFORMED Platelet Estimate Normal Large Platelets Present RBC Morphology Anisocytosis (manual) Slight PT INR APTT Sodium 138 Potassium 4.5 Chloride 109 H Carbon Dioxide 23 Anion Gap 11 BUN 64 H Creatinine 3.8 H Est GFR ( Amer) 18 Est GFR (Non-Af Amer) 15 POC Glucose (mg/dL) 191 H Random Glucose 165 H Calcium 9.6 Total Bilirubin AST ALT Alkaline Phosphatase NT-Pro-B Natriuret Pep 50179 H Total Protein Albumin Globulin Albumin/Globulin Ratio Blood Type Antibody Screen
[2018-12-20] MEDS: Sodium Chloride 0.9% 1,000 ML IV SCH (16:56)
[2018-12-20] MEDS: Budesonide 0.5 mg/2 ml Inhal Susp UD INH SCH (19:36)
[2018-12-21] MEDS: Budesonide 0.5 mg/2 ml Inhal Susp UD INH SCH ×2 (08:01→19:47)
[2018-12-21] MEDS: Arformoterol 15 mcg/2 ml Inh Sol IH SCH (08:02)
[2018-12-21 08:21] LABS: BASO % 0.4 % (0.0-2.0); EOS # 0.1 K/uL (0.0-0.7); EOS % 1.1 % (0.0-4.0); HEMOGLOBIN 9.8 g/dL (12.0-18.0); LYMPH # 0.5 K/uL (1.0-4.3); LYMPH % 5.5 % (20.0-40.0); MEAN CELL VOLUME 96.7 fL (80.0-94.0); MEAN CORPUSCULAR HEMOGLOBIN 32.7 pg (27.0-31.0); MEAN CORPUSCULAR HGB CONC 33.8 g/dL (33.0-37.0); MEAN PLATELET VOLUME 8.2 fL (7.2-11.7); MONO # 0.9 K/uL (0.0-0.8); MONO % 9.4 % (0.0-10.0); NEUT # 7.9 K/uL (1.8-7.0); NEUT % 83.6 % (50.0-75.0); NRBC % 0.1 % (0.0-2.0); PLATELET COUNT 230 K/uL (130-400); RED CELL DISTRIBUTION WIDTH 14.9 % (11.5-14.5); WHITE BLOOD COUNT 9.5 K/uL (4.8-10.8)
[2018-12-21 08:32] LABS: CALCIUM 9.5 mg/dl (8.6-10.4)
[2018-12-21 10:01] LABS: BANDS 1 % (0-2); LYMPHOCYTE 5 % (20-40); MONOCYTE 9 % (0-10); NEUTROPHIL 85 % (50-75); TOTAL CELLS COUNTED 100
[2018-12-21 10:02] LABS: ANISOCYTOSIS SLIGHT; OVALOCYTES SLIGHT; PLATELET ESTIMATE NORMAL (NORMAL)
[2018-12-21] MEDS: Metoprolol Succinate 100 mg XL Tab PO SCH (10:03)
[2018-12-21] MEDS: Sodium Chloride 0.9% 1,000 ML IV SCH (12:22)
[2018-12-21] MEDS: metOLazone 2.5 MG TAB PO SCH (18:15)
--- NOTE | 2018-12-21 20:38 | CP.PCM.CON ---
History of Present Illness - History of Present Illness History of Present Illness: 88 year old male with a history of HTN, DM, CAD s/p CABG and stent with ICD, presenting s/p fall, found to have left hip fracture requiring surgical fixation. I have been asked to clear the patient in the setting of antiplatelet/anticoagulation therapy. He is taking aspirin, plavix and Eliquis. He denies abnormal bleeding and bruising. Patient reports he took all his medication the morning of his admission 12/19 and his last dose of aspirin was 12/21. Past medical history: HTN, DM, CAD s/p CABG and stent, ICD Past surgical history: ICD, kidney stone Family history: Grandfather had head and neck cancer Social history: Former tobacco Allergies: NKA Review of systems: All remaining review of systems including HEENT, cardiovascular, respiratory, gastrointestinal, genitourinary, musculoskeletal, dermatologic, neurologic, and psychiatric are negative unless mentioned in the HPI. Past Patient History - Past Social History Smoking Status: Never Smoked - CARDIAC Hx Atrial Fibrillation: Yes Hx Hypertension: Yes Hx Peripheral Edema: Yes - PULMONARY Hx Chronic Obstructive Pulmonary Disease (COPD): Yes - NEUROLOGICAL Hx Neurological Disorder: No - HEENT Hx HEENT Problems: No - RENAL Hx Chronic Kidney Disease: No - ENDOCRINE/METABOLIC Hx Diabetes Mellitus Type 2: Yes - HEMATOLOGICAL/ONCOLOGICAL Hx Blood Disorders: No - INTEGUMENTARY Hx Dermatological Problems: No - MUSCULOSKELETAL/RHEUMATOLOGICAL Hx Musculoskeletal Disorders: No Hx Falls: Yes - PSYCHIATRIC Hx Substance Use: No - SURGICAL HISTORY Hx Coronary Artery Bypass Graft: Yes Hx Coronary Stent: Yes - ANESTHESIA Hx Anesthesia: Yes Hx Anesthesia Reactions: No Meds Allergies/Adverse Reactions: Allergies Allergy/AdvReac Type Severity Reaction Status Date / Time No Known Allergies Allergy Verified 12/25/17 04:27 - Medications Medications: Current Medications Amiodarone HCl (Cordarone) 200 mg PO DAILY [facility] Last Admin: 12/21/18 10:03 Dose: 200 mg Amlodipine Besylate (Norvasc) 10 mg PO DAILY [facility] Last Admin: 12/21/18 10:03 Dose: 10 mg Apixaban (Eliquis) 2.5 mg PO DAILY [facility] Arformoterol Tartrate (Brovana) 15 mcg IH RQ24 [facility] Last Admin: 12/21/18 08:02 Dose: Not Given Aspirin (Aspirin Chewable) 81 mg PO DAILY [facility] Last Admin: 12/21/18 10:03 Dose: 81 mg Budesonide (Pulmicort Respules) 0.5 mg INH RQ12 [facility] Last Admin: 12/21/18 19:47 Dose: 0.5 mg Clonidine HCl (Catapres) 0.1 mg PO BID [facility] Last Admin: 12/21/18 18:15 Dose: 0.1 mg Clopidogrel Bisulfate (Plavix) 75 mg PO DAILY [facility] Docusate Sodium (Colace) 100 mg PO BID [facility] Last Admin: 12/21/18 18:15 Dose: 100 mg Glimepiride (Amaryl) 1 mg PO DAILY [facility] Last Admin: 12/21/18 10:04 Dose: Not Given Sodium Chloride (Sodium Chloride 0.9%) 1,000 mls @ 50 mls/hr IV .Q20H [facility] Last Admin: 12/21/18 12:22 Dose: Not Given Metolazone (Zaroxolyn) 2.5 mg PO QOD6 [facility] Last Admin: 12/21/18 18:15 Dose: 2.5 mg Metoprolol Succinate (Toprol Xl) 100 mg PO DAILY [facility] Last Admin: 12/21/18 10:03 Dose: 100 mg Morphine Sulfate (Morphine) 2 mg IVP Q6 PRN PRN Reason: Pain, moderate (4-7) Last Admin: 12/20/18 16:50 Dose: 2 mg Rosuvastatin Calcium (Crestor) 5 mg PO HS [facility] Last Admin: 12/20/18 22:18 Dose: 5 mg Physical Exam - Head Exam Head Exam: ATRAUMATIC - Eye Exam Eye Exam: Normal appearance - ENT Exam ENT Exam: Mucous Membranes Dry - Respiratory Exam Respiratory Exam: NORMAL BREATHING PATTERN - Cardiovascular Exam Cardiovascular Exam: +S1, +S2 - GI/Abdominal Exam GI & Abdominal Exam: Normal Bowel Sounds - Extremities Exam Extremities exam: Positive for: pedal edema - Neurological Exam Neurological exam: Oriented x3 - Psychiatric Exam Psychiatric exam: Normal Affect, Normal Mood - Skin Skin Exam: Warm Results - Vital Signs Recent Vital Signs: Last Vital Signs Temp 98.2 F 12/21/18 15:00 Pulse 68 12/21/18 15:00 Resp 18 12/21/18 15:00 BP 121/67 12/21/18 15:00 Pulse Ox 100 12/21/18 15:00 - Labs Result Diagrams: 12/21/18 08:15 12/21/18 08:15 Labs: Laboratory Results - last 24 hr 12/20/18 12/21/18 12/21/18 21:40 08:15 08:15 WBC 9.5 RBC 3.00 L Hgb 9.8 L Hct 29.0 L MCV 96.7 H MCH 32.7 H MCHC 33.8 RDW 14.9 H Plt Count 230 MPV 8.2 Neut % (Auto) 83.6 H Lymph % (Auto) 5.5 L [place] % (Auto) 9.4 Eos % (Auto) 1.1 Baso % (Auto) 0.4 Neut # (Auto) 7.9 H Lymph # (Auto) 0.5 L [place] # (Auto) 0.9 H Eos # (Auto) 0.1 Baso # (Auto) 0.0 Neutrophils % (Manual) 85 H Band Neutrophils % 1 Lymphocytes % (Manual) 5 L Monocytes % (Manual) 9 Platelet Estimate Normal Anisocytosis (manual) Slight Ovalocytes Slight Sodium 139 Potassium 4.3 Chloride 110 H Carbon Dioxide 24 Anion Gap 9 L BUN 57 H Creatinine 3.3 H Est GFR ( Amer) 21 Est GFR (Non-Af Amer) 18 POC Glucose (mg/dL) 185 H Random Glucose 82 D Calcium 9.5 12/21/18 12:20 WBC RBC Hgb Hct MCV MCH MCHC RDW Plt Count MPV Neut % (Auto) Lymph % (Auto) [place] % (Auto) Eos % (Auto) Baso % (Auto) Neut # (Auto) Lymph # (Auto) [place] # (Auto) Eos # (Auto) Baso # (Auto) Neutrophils % (Manual) Band Neutrophils % Lymphocytes % (Manual) Monocytes % (Manual) Platelet Estimate Anisocytosis (manual) Ovalocytes Sodium Potassium Chloride Carbon Dioxide Anion Gap BUN Creatinine Est GFR ( Amer) Est GFR (Non-Af Amer) POC Glucose (mg/dL) 149 H Random Glucose Calcium Assessment & Plan (1) Preoperative clearance Assessment and Plan: Eliquis would need to be on hold for 3 days and aspirin/plavix for 7 days prior to OR noted to still be on aspirin; will hold planned orthopedic surgery for Saturday as discussed with Dr. Calhoun will send platelet function test Saturday the patient is cleared from a hematology standpoint for orthopedic surgery if functional platelet count minimum 100,000 should his functional plt < 100,000, he will need platelet transfusion prior to OR. if perioperative heparin drip is required for afib, I would recommend holding heparin 12 hours prior to orthopedic surgery Status: Acute (2) Anemia Assessment and Plan: retic count, b12, folate, ferritin, FOBT to further characterize likely anemia of CKD will give Procrit in an attempt to minimize transfusion dependence given upcoming surgery Thank you for this interesting consult. Status: Acute
--- NOTE | 2018-12-21 21:14 | CP.PCM.PN ---
Subjective - Date & Time of Evaluation Date of Evaluation: 12/21/18 - Subjective Subjective: patient examined today no nausea, no vomiting, no dizziness, no fever, no diarrhea, no shortness of breath Objective - Vital Signs/Intake and Output Vital Signs (last 24 hours): Temp Pulse Resp BP Pulse Ox 98.2 F 68 18 121/67 100 12/21/18 15:00 12/21/18 15:00 12/21/18 15:00 12/21/18 15:00 12/21/18 15:00 - Medications Medications: Current Medications Amiodarone HCl (Cordarone) 200 mg PO DAILY [facility] Last Admin: 12/21/18 10:03 Dose: 200 mg Amlodipine Besylate (Norvasc) 10 mg PO DAILY [facility] Last Admin: 12/21/18 10:03 Dose: 10 mg Apixaban (Eliquis) 2.5 mg PO DAILY [facility] Arformoterol Tartrate (Brovana) 15 mcg IH RQ24 [facility] Last Admin: 12/21/18 08:02 Dose: Not Given Aspirin (Aspirin Chewable) 81 mg PO DAILY [facility] Last Admin: 12/21/18 10:03 Dose: 81 mg Budesonide (Pulmicort Respules) 0.5 mg INH RQ12 [facility] Last Admin: 12/21/18 19:47 Dose: 0.5 mg Clonidine HCl (Catapres) 0.1 mg PO BID [facility] Last Admin: 12/21/18 18:15 Dose: 0.1 mg Clopidogrel Bisulfate (Plavix) 75 mg PO DAILY [facility] Docusate Sodium (Colace) 100 mg PO BID [facility] Last Admin: 12/21/18 18:15 Dose: 100 mg Epoetin Abdiaziz (Procrit) 20,000 unit SC ONCE ONE Stop: 12/22/18 10:01 Glimepiride (Amaryl) 1 mg PO DAILY [facility] Last Admin: 12/21/18 10:04 Dose: Not Given Sodium Chloride (Sodium Chloride 0.9%) 1,000 mls @ 50 mls/hr IV .Q20H [facility] Last Admin: 12/21/18 12:22 Dose: Not Given Metolazone (Zaroxolyn) 2.5 mg PO QOD6 [facility] Last Admin: 12/21/18 18:15 Dose: 2.5 mg Metoprolol Succinate (Toprol Xl) 100 mg PO DAILY [facility] Last Admin: 12/21/18 10:03 Dose: 100 mg Morphine Sulfate (Morphine) 2 mg IVP Q6 PRN PRN Reason: Pain, moderate (4-7) Last Admin: 12/20/18 16:50 Dose: 2 mg Rosuvastatin Calcium (Crestor) 5 mg PO HS [facility] Last Admin: 12/20/18 22:18 Dose: 5 mg - Labs Labs: 12/21/18 08:15 12/21/18 08:15 PT 12.6 SECONDS (9.7-12.2) H 12/19/18 21:51 INR 1.2 12/19/18 21:51 APTT 33 SECONDS (21-34) 12/19/18 21:51 - Constitutional Appears: Well - Head Exam Head Exam: ATRAUMATIC, NORMAL INSPECTION, NORMOCEPHALIC - Eye Exam Eye Exam: EOMI, Normal appearance, PERRL Pupil Exam: NORMAL ACCOMODATION, PERRL - ENT Exam ENT Exam: Mucous Membranes Moist, Normal Exam - Neck Exam Neck Exam: Full ROM, Normal Inspection. absent: Lymphadenopathy - Respiratory Exam Respiratory Exam: Decreased Breath Sounds - Cardiovascular Exam Cardiovascular Exam: REGULAR RHYTHM, +S1, +S2 - GI/Abdominal Exam GI & Abdominal Exam: Soft, Diminished Bowel Sounds - Rectal Exam Rectal Exam: Deferred - Neurological Exam Neurological Exam: Oriented x3 Assessment and Plan - Assessment and Plan (Free Text) Plan: patient is going for surgery most likely on saturday for left hip fracture spoke to orthopedic doctor spoke to processor inspector spoke to staff patient conerned with given age eliquis on the hold processor inspector made aware follow up with consultants medications reviewed labs reviewed vitals reviewed amaryl aspirin chewable brovana catapress colace cordarone crestor eliquis morphine norvasc plavix procrit respules sodium chloride toprol xl zaroxolyn
[2018-12-22] MEDS: Sodium Chloride 0.9% 1,000 ML IV SCH ×2 (04:00→12:24)
--- NOTE | 2018-12-22 04:54 | CP.PCM.CON ---
History of Present Illness - History of Present Illness History of Present Illness: 88 year old male with a history of HTN, DM, Afib (on Eliquis, Plavix, ASA), CAD (h/o [place] x5), s/p CABG and multiple cardiac stents with ICD presented s/p fall 12/19/18 to the ER at [facility] with L hip pain and inability to ambulate or WB on LLE. He had a mechanical fall at home same day, lives with son. Recalls the fall, denies syncope or head trauma. After evaluation by ER staff and review of imaging, diagnosed with left hip femoral neck fx. Admitted to the medical service under Dr. Lakesha Rodriguez. Orthopedic consultation placed and I evaluated the pt as an inpt at on 12/20/18. Ambulates w/o assist devices, mostly stays at home but goes for small walks less than a few blocks weekly. His son takes care of meals, shopping, and cleaning, pt is independent with toiletry and some ADL's. Patient reports he took all his medication the morning of his admission 12/19 and his last dose of aspirin was 12/21. X-rays L hip and pelvis done at 12/19/18: +++ displaced subcapital femoral neck fx CT L hip done at 12/19/18: +++ displaced subcapital femoral neck fx Denies head trauma, other MSK trauma, SOB, CP, AMADO, N&V, fevers, chills, calf pain, numbness or tingling. PMH = CAD, DM, HTN, A. fib, COPD, arrhythmia, BPH, nephrolithiasis (resulting in altered renal function) PSH = CABG 2001, multiple cardiac stents (unsure of date), pacemaker /defibrillator placement 2001, prostate surgery 2010 Allergies = NKDA medications = metformin, clonidine, amlodipine, torsemide, losartan, glimepiride, budesonide, Eliquis, Plavix, aspirin, amiodarone, Brovana, Lipitor, metoprolol, Zaroxolyn Social history = long-standing history of smoking, over 50 years, quit 2004, former alcoholic, quit 1994 Denies drug use Retired, currently lives with his son who is his caregiver. Independently functioning with some ADLs such as toiletry, depends on his son for cooking and cleaning Does not leave the house much, can ambulate a few blocks without assist devices. review of systems = pertinent 15 system review carried out, with the exception of respiratory (home O2 use and subjective shortness of breath with exertion without O2 supplement) and musculoskeletal/ left hip pain, all described as normal Past Patient History - Past Social History Smoking Status: Never Smoked - CARDIAC Hx Atrial Fibrillation: Yes Hx Hypertension: Yes Hx Peripheral Edema: Yes - PULMONARY Hx Chronic Obstructive Pulmonary Disease (COPD): Yes - NEUROLOGICAL Hx Neurological Disorder: No - HEENT Hx HEENT Problems: No - RENAL Hx Chronic Kidney Disease: No - ENDOCRINE/METABOLIC Hx Diabetes Mellitus Type 2: Yes - HEMATOLOGICAL/ONCOLOGICAL Hx Blood Disorders: No - INTEGUMENTARY Hx Dermatological Problems: No - MUSCULOSKELETAL/RHEUMATOLOGICAL Hx Musculoskeletal Disorders: No Hx Falls: Yes - PSYCHIATRIC Hx Substance Use: No - SURGICAL HISTORY Hx Coronary Artery Bypass Graft: Yes Hx Coronary Stent: Yes - ANESTHESIA Hx Anesthesia: Yes Hx Anesthesia Reactions: No Meds Allergies/Adverse Reactions: Allergies Allergy/AdvReac Type Severity Reaction Status Date / Time No Known Allergies Allergy Verified 12/25/17 04:27 - Medications Medications: Current Medications Amiodarone HCl (Cordarone) 200 mg PO DAILY [facility] Last Admin: 12/21/18 10:03 Dose: 200 mg Amlodipine Besylate (Norvasc) 10 mg PO DAILY [facility] Last Admin: 12/21/18 10:03 Dose: 10 mg Apixaban (Eliquis) 2.5 mg PO DAILY [facility] Arformoterol Tartrate (Brovana) 15 mcg IH RQ24 [facility] Last Admin: 12/21/18 08:02 Dose: Not Given Aspirin (Aspirin Chewable) 81 mg PO DAILY [facility] Last Admin: 12/21/18 10:03 Dose: 81 mg Budesonide (Pulmicort Respules) 0.5 mg INH RQ12 [facility] Last Admin: 12/21/18 19:47 Dose: 0.5 mg Clonidine HCl (Catapres) 0.1 mg PO BID [facility] Last Admin: 12/21/18 18:15 Dose: 0.1 mg Clopidogrel Bisulfate (Plavix) 75 mg PO DAILY [facility] Docusate Sodium (Colace) 100 mg PO BID [facility] Last Admin: 12/21/18 18:15 Dose: 100 mg Epoetin Abdiaziz (Procrit) 20,000 unit SC ONCE ONE Stop: 12/22/18 10:01 Glimepiride (Amaryl) 1 mg PO DAILY [facility] Last Admin: 12/21/18 10:04 Dose: Not Given Sodium Chloride (Sodium Chloride 0.9%) 1,000 mls @ 50 mls/hr IV .Q20H [facility] Last Admin: 12/21/18 12:22 Dose: Not Given Metolazone (Zaroxolyn) 2.5 mg PO QOD6 [facility] Last Admin: 12/21/18 18:15 Dose: 2.5 mg Metoprolol Succinate (Toprol Xl) 100 mg PO DAILY [facility] Last Admin: 12/21/18 10:03 Dose: 100 mg Morphine Sulfate (Morphine) 2 mg IVP Q6 PRN PRN Reason: Pain, moderate (4-7) Last Admin: 12/20/18 16:50 Dose: 2 mg Rosuvastatin Calcium (Crestor) 5 mg PO HS [facility] Last Admin: 12/21/18 22:45 Dose: 5 mg Physical Exam - Extremities Exam Additional comments: Right Lower Extremity: -TTP, - swelling/warmth/errythema, skin intact, - instability ROM at all joints w/o pain, - log roll +5/5 motor strength hip flexion/extension/ knee flexion/extension, ankle DF/PF, toes up & down sensory intact L2-S1, DPN/TN/SPN/SN 2+ DP/PT, BCR all toes 2+ DTR, - clonus/babinski calves soft/nt bl Left Lower Extremity: Hip: ++++TTP at groin, +++ log roll, unable to tolerate any ROM at hip, rest of LLE: skin intact, - swelling/warmth/errythema full ROM at ankle w/o pain +5/5 motor strength ankle DF/PF, toes up & down sensory intact L2-S1, DPN/TN/SPN/SN 2+ DP/PT, BCR all toes 2+ DTR, - clonus/babinski Results - Vital Signs Recent Vital Signs: Last Vital Signs Temp 97.9 F 12/22/18 01:37 Pulse 68 12/22/18 01:37 Resp 18 12/22/18 01:37 BP 124/61 12/22/18 01:37 Pulse Ox 95 12/22/18 01:37 - Labs Result Diagrams: 12/21/18 08:15 12/21/18 08:15 Labs: Laboratory Results - last 24 hr 12/21/18 12/21/18 12/21/18 08:15 08:15 12:20 WBC 9.5 RBC 3.00 L Hgb 9.8 L Hct 29.0 L MCV 96.7 H MCH 32.7 H MCHC 33.8 RDW 14.9 H Plt Count 230 MPV 8.2 Neut % (Auto) 83.6 H Lymph % (Auto) 5.5 L [place] % (Auto) 9.4 Eos % (Auto) 1.1 Baso % (Auto) 0.4 Neut # (Auto) 7.9 H Lymph # (Auto) 0.5 L [place] # (Auto) 0.9 H Eos # (Auto) 0.1 Baso # (Auto) 0.0 Neutrophils % (Manual) 85 H Band Neutrophils % 1 Lymphocytes % (Manual) 5 L Monocytes % (Manual) 9 Platelet Estimate Normal Anisocytosis (manual) Slight Ovalocytes Slight Sodium 139 Potassium 4.3 Chloride 110 H Carbon Dioxide 24 Anion Gap 9 L BUN 57 H Creatinine 3.3 H Est GFR ( Amer) 21 Est GFR (Non-Af Amer) 18 POC Glucose (mg/dL) 149 H Random Glucose 82 D Calcium 9.5 Assessment & Plan (1) Fracture of left hip Assessment and Plan: 88 yo Male w/ L hip pain after mechanical fall at home from standing on 12/19/18 Denies syncope or head trauma Dx= L hip displaced femoral neck fracture PLAN: L hip: -indicated for left hip hemiarthroplasty -had a long d/w pt today reviewing the r/b/a to the surgery and the details of the surgery, all questions answered we also reviewed his x-rays and fracture pattern at length. -he has accepted the risks and would like to proceed with surgery as soon as possible and safe -he understands that he has many medical and cardiac comorbidities and that the identification and records commander already told him that there is significant risk to undergoing the surgery and he is accepting of this -Eliquis and plavix last dose 12/19/18, ASA last dose today, after speaking with Heme specialist, will need to wait till Saturday to undergo open orthopedic surgery safely. Will send platelet function tests to confirm in the interim. We have requested consultation, tester waste disposal leakage, Dr. Chano Diehl. -in the interim, the cardiology consult is requesting interrogation of the PM / defib and records from recent procedures at [facility] to further evaluate the pt and clarify cardiac history for now deemed intermediate risk for surgery once coagulation not a concern. -hold blood thinners (aspirin, Eliquis, Plavix) -If hematology deems that formal DVT prophylaxis should be administered in the interim prior to surgery, please ensure that DVT prophylaxis is held appropriately planing for surgery 12/24/18 a.m. -we will need medical, cardiac, and hematology optimization/clearance for surgery planned for Saturday12/24/18 a.m. -plan for OR, L hip hemiarthroplasty Sat12/24/18 -will place on elective OR schedule -NPO after 10 PM 12/23/18 -overhead trapeze -bucks traction w/ 5lbs LLE -consider saravia catheter placement, otherwise were placed in the OR preop -urine cultures, U/A -repeat labs -bedrest -SCD -Incentive ty, on home O2 -pain control, consider standing Tylenol 1000 mg every 8 hour and Valium as needed for pain. Minimize narcotic exposure. -Anesthesia evaluation preop will be requested as well -will follow -please contact me with any questions, updates, or concerns at [phone], [email or web address] Thank you for allowing me to contribute to the care of your patient. Hamlet Russo MD Orthopedic surgery Status: Acute
[2018-12-22] MEDS: Budesonide 0.5 mg/2 ml Inhal Susp UD INH SCH ×2 (07:55→19:22)
[2018-12-22] MEDS: Arformoterol 15 mcg/2 ml Inh Sol IH SCH (08:03)
[2018-12-22 08:14] LABS: BASO % 0.4 % (0.0-2.0); EOS # 0.3 K/uL (0.0-0.7); EOS % 2.5 % (0.0-4.0); HEMOGLOBIN 9.5 g/dL (12.0-18.0); LYMPH # 0.8 K/uL (1.0-4.3); LYMPH % 7.3 % (20.0-40.0); MEAN CELL VOLUME 97.2 fL (80.0-94.0); MEAN CORPUSCULAR HEMOGLOBIN 32.3 pg (27.0-31.0); MEAN CORPUSCULAR HGB CONC 33.3 g/dL (33.0-37.0); MEAN PLATELET VOLUME 8.6 fL (7.2-11.7); MONO # 1.2 K/uL (0.0-0.8); MONO % 10.9 % (0.0-10.0); NEUT # 8.4 K/uL (1.8-7.0); NEUT % 78.9 % (50.0-75.0); NRBC % 0.1 % (0.0-2.0); PLATELET COUNT 254 K/uL (130-400); RBC 2.92 Mil/uL (4.40-5.90); RED CELL DISTRIBUTION WIDTH 14.4 % (11.5-14.5); WHITE BLOOD COUNT 10.6 K/uL (4.8-10.8)
[2018-12-22 08:21] LABS: CALCIUM 9.5 mg/dl (8.6-10.4)
[2018-12-22] MEDS ORDERED: Epoetin Alfa 20000 UNIT/ML Inj SC ONE (10:00)
[2018-12-22 10:27] LABS: EOSINOPHIL 1 % (0-4); LYMPHOCYTE 6 % (20-40); MONOCYTE 9 % (0-10); NEUTROPHIL 84 % (50-75); PLATELET ESTIMATE NORMAL (NORMAL); TOTAL CELLS COUNTED 100
[2018-12-22] MEDS: Metoprolol Succinate 100 mg XL Tab PO SCH (10:34)
--- NOTE | 2018-12-22 10:45 | CP.PCM.PN ---
Subjective - Date & Time of Evaluation Date of Evaluation: 12/22/18 Time of Evaluation: 10:40 - Subjective Subjective: No cardiac complaints AICD still not interrogated yet Objective - Vital Signs/Intake and Output Vital Signs (last 24 hours): Temp Pulse Resp BP Pulse Ox 98.2 F 77 20 132/67 92 L 12/22/18 07:00 12/22/18 07:00 12/22/18 07:00 12/22/18 07:00 12/22/18 07:00 Intake and Output: 12/22/18 12/22/18 06:59 18:59 Intake Total 600 Output Total 250 Balance 350 - Medications Medications: Current Medications Amiodarone HCl (Cordarone) 200 mg PO DAILY [facility] Last Admin: 12/22/18 10:33 Dose: 200 mg Amlodipine Besylate (Norvasc) 10 mg PO DAILY [facility] Last Admin: 12/22/18 10:34 Dose: 10 mg Apixaban (Eliquis) 2.5 mg PO DAILY [facility] Arformoterol Tartrate (Brovana) 15 mcg IH RQ24 [facility] Last Admin: 12/22/18 08:03 Dose: Not Given Aspirin (Aspirin Chewable) 81 mg PO DAILY [facility] Last Admin: 12/21/18 10:03 Dose: 81 mg Budesonide (Pulmicort Respules) 0.5 mg INH RQ12 [facility] Last Admin: 12/22/18 07:55 Dose: 0.5 mg Clonidine HCl (Catapres) 0.1 mg PO BID [facility] Last Admin: 12/22/18 10:34 Dose: 0.1 mg Clopidogrel Bisulfate (Plavix) 75 mg PO DAILY [facility] Docusate Sodium (Colace) 100 mg PO BID [facility] Last Admin: 12/22/18 10:34 Dose: 100 mg Glimepiride (Amaryl) 1 mg PO ACB [facility] Sodium Chloride (Sodium Chloride 0.9%) 1,000 mls @ 50 mls/hr IV .Q20H [facility] Last Admin: 12/22/18 04:00 Dose: 50 mls/hr Metolazone (Zaroxolyn) 2.5 mg PO QOD6 [facility] Last Admin: 12/21/18 18:15 Dose: 2.5 mg Metoprolol Succinate (Toprol Xl) 100 mg PO DAILY [facility] Last Admin: 12/22/18 10:34 Dose: 100 mg Morphine Sulfate (Morphine) 2 mg IVP Q6 PRN PRN Reason: Pain, moderate (4-7) Last Admin: 12/20/18 16:50 Dose: 2 mg Rosuvastatin Calcium (Crestor) 5 mg PO HS [facility] Last Admin: 12/21/18 22:45 Dose: 5 mg - Labs Labs: 12/22/18 07:53 12/22/18 07:53 PT 12.6 SECONDS (9.7-12.2) H 12/19/18 21:51 INR 1.2 12/19/18 21:51 APTT 33 SECONDS (21-34) 12/19/18 21:51 - Constitutional Appears: No Acute Distress - Eye Exam Eye Exam: Normal appearance. absent: Scleral icterus - Neck Exam Neck Exam: Full ROM, Normal Inspection. absent: Tenderness - Cardiovascular Exam Cardiovascular Exam: REGULAR RHYTHM, +S1, +S2. absent: JVD, Murmur - GI/Abdominal Exam GI & Abdominal Exam: Soft. absent: Tenderness - Extremities Exam Extremities Exam: Normal Inspection. absent: Calf Tenderness, Pedal Edema - Neurological Exam Neurological Exam: Alert, Awake, Oriented x3 - Skin Skin Exam: Normal Color, Warm Assessment and Plan - Assessment and Plan (Free Text) Assessment: 88 y/o CAD/CABG/stents (? last was ~1 year ago details not known) AFIB on AC AICD-PPM Moderate to severe systolic HF chronic by prior eco 2018 Presents for mechanical fall and fracture L. hip/femur * Repeat echo done this admission: EF ~35% visually, calculated 41% BIPLANE, mild LVH, mild-mod LAE, mild-mod MR/TR, PASP 50mmHg, compliant IVC, Grade 1 DD with inc LAP. Which represents no change from prior baseline. Plan: interrogate AICD Continue RX for Chronic CHF - Losartan 50 - toprol xl 100 - torsemide/metolazone to maintain euvolemia Cont Rx for chronic CAD/CABG/PCI - dapt and statin Cont Rx for AFIB stroke prevention and rhythm control - eliquis - amiodarone Additional BP Rx - clonidine and amlodipine as needed Please obtain last PCI report from kristine patient is on triple therapy with DAPT and NOAC: - monitor closely for GI bleeding. Alternate: if PCI >6 months ago then suggest ASA and eliquis as his chronic Rx. Patient, given extensive cardiac history remains intermediate risk for any procedures, may proceed with adequate BP and HR monitoring. And diuretics and pulmonary supportive care to maintain volume status. Agree with Antiplatelet function analaysis and NOAC d/c as per HEME. Clinically patient is optimized and on optimal RX.
[2018-12-22] MEDS ORDERED: Albuterol 0.083% Inhal Sol (2.5 mg/3 mL) UD INH PRN (12:33)
[2018-12-22] MEDS ORDERED: guaiFENesin 200 mg/10 ml Syrup UD PO PRN (12:33)
--- NOTE | 2018-12-22 14:05 | CP.PCM.PN ---
Subjective - Date & Time of Evaluation Date of Evaluation: 12/22/18 Time of Evaluation: 14:01 - Subjective Subjective: Patient with family at bedside. No new complaints. Hip pain is controlled. Objective - Vital Signs/Intake and Output Vital Signs (last 24 hours): Temp Pulse Resp BP Pulse Ox 98.2 F 77 20 132/67 92 L 12/22/18 07:00 12/22/18 07:00 12/22/18 07:00 12/22/18 07:00 12/22/18 07:00 Intake and Output: 12/22/18 12/22/18 06:59 18:59 Intake Total 600 Output Total 250 Balance 350 - Medications Medications: Current Medications Acetaminophen (Tylenol 325mg Tab) 650 mg PO Q6 PRN PRN Reason: MILD PAIN 1-3 Acetylcysteine (Acetylcysteine 20%) 4 ml INH RQ6 [facility] Albuterol/Ipratropium (Duoneb 3 Mg/0.5 Mg (3 Ml) Ud) 3 ml INH RQ6 [facility] Amiodarone HCl (Cordarone) 200 mg PO DAILY [facility] Last Admin: 12/22/18 10:33 Dose: 200 mg Amlodipine Besylate (Norvasc) 10 mg PO DAILY [facility] Last Admin: 12/22/18 10:34 Dose: 10 mg Apixaban (Eliquis) 2.5 mg PO DAILY [facility] Arformoterol Tartrate (Brovana) 15 mcg IH RQ24 [facility] Last Admin: 12/22/18 08:03 Dose: Not Given Aspirin (Aspirin Chewable) 81 mg PO DAILY [facility] Last Admin: 12/21/18 10:03 Dose: 81 mg Budesonide (Pulmicort Respules) 0.5 mg INH RQ12 [facility] Last Admin: 12/22/18 07:55 Dose: 0.5 mg Clonidine HCl (Catapres) 0.1 mg PO BID [facility] Last Admin: 12/22/18 10:34 Dose: 0.1 mg Clopidogrel Bisulfate (Plavix) 75 mg PO DAILY [facility] Docusate Sodium (Colace) 100 mg PO BID [facility] Last Admin: 12/22/18 10:34 Dose: 100 mg Glimepiride (Amaryl) 1 mg PO ACB [facility] Guaifenesin (Robitussin) 200 mg PO Q4H PRN PRN Reason: Cough and congestion Last Admin: 12/22/18 13:44 Dose: 200 mg Sodium Chloride (Sodium Chloride 0.9%) 1,000 mls @ 50 mls/hr IV .Q20H [facility] Last Admin: 12/22/18 12:24 Dose: Not Given Metolazone (Zaroxolyn) 2.5 mg PO QOD6 [facility] Last Admin: 12/21/18 18:15 Dose: 2.5 mg Metoprolol Succinate (Toprol Xl) 100 mg PO DAILY [facility] Last Admin: 12/22/18 10:34 Dose: 100 mg Morphine Sulfate (Morphine) 2 mg IVP Q6 PRN PRN Reason: Pain, moderate (4-7) Last Admin: 12/20/18 16:50 Dose: 2 mg Rosuvastatin Calcium (Crestor) 5 mg PO HS [facility] Last Admin: 12/21/18 22:45 Dose: 5 mg - Labs Labs: 12/22/18 07:53 12/22/18 07:53 PT 12.6 SECONDS (9.7-12.2) H 12/19/18 21:51 INR 1.2 12/19/18 21:51 APTT 33 SECONDS (21-34) 12/19/18 21:51 - Extremities Exam Additional comments: +ROM ankle/toes DF/PF, sensation intact +DP/PT pulses, short ER tient Name / ID : HERMAN Little / [id number] Exam Date : 12/19/2018 21:50:27 ( Approved ) Study Comment : Sex / Age : M / 88Y Creator : Jassi Alvares Dictator : Maurice Fischer MD Hotel Guest Service Agent : Organ Builder : Maurice Fischer MD Approver2 : Report Date : 12/19/2018 23:11:52 My Comment : Pelvis and left hip two views History: Fracture. Comparison: None available. Findings: Fracture deformity through the left femoral neck with superior distraction of the distal fracture fragment. Vascular calcifications and stents. Calcified phleboliths in the pelvis. Degenerative changes in the lower lumbar spine. Sclerosis at the pubic symphysis and right hip joint space. Calcified phleboliths in the pelvis. Impression: Comminuted and distracted fracture deformity of the left femoral neck. Assessment and Plan (1) Closed displaced fracture of left femoral neck Assessment & Plan: for hemiarthroplasty Weds cardiology optimized intermed risk awaiting PM interrogation Hematology appreciated f/u labs d/w Dr. Pham, agrees with above Status: Acute (2) Anemia Assessment & Plan: T&C Status: Acute
--- NOTE | 2018-12-22 14:26 | CARD ---
APPROVED REPORT Date of service: 12/22/2018 EXAM: Two-dimensional and M-mode echocardiogram with Doppler and color Doppler. Other Information Quality : GoodRhythm : INDICATION Peripheral Edema Atrial Fibrillation Cardiac Disease: CAD COPD Surgery/Intervention CABG: stents RISK FACTORS Hypertension Diabetes 2D DIMENSIONS IVSd1.1 (0.7-1.1cm)LVDd5.1 (3.9-5.9cm) PWd1.1 (0.7-1.1cm)LA Bontne98 (18-58mL) LVDs4.4 (2.5-4.0cm)FS (%) 13.4 % LVEF (%)35.0 (>50%)LVEF (Ball's)40.63 % M-Mode DIMENSIONS Left Atrium (MM)4.55 (2.5-4.0cm)IVSd0.97 (0.7-1.1cm) Aortic Root3.58 (2.2-3.7cm)LVDd5.73 (4.0-5.6cm) Aortic Cusp Exc.2.10 (1.5-2.0cm)PWd1.14 (0.7-1.1cm) FS (%) 20 %LVDs4.60 (2.0-3.8cm) LVEF (%)37 (>50%) Mitral Valve MV E Bfuikdyi723.9cm/sMV A Xidokrzt183.8cm/sE/A ratio0.9 IVBE613.49 cm/s TDI Lateral E' Peak V7.45cm/sMedial E' Peak V3.45cm/sE/Lateral E'14.5 E/Medial E'31.3 Tricuspid Valve TR Peak Gvhdyitz176tk/sTR Peak Gr.[id number] LEFT VENTRICLE The Left Ventricle is borderline dilated. There is normal left ventricular wall thickness. The Ejection Fraction is 35-40%. Apical motion consistent with pacemaker activation.apical septum & apex appears akinetic.cad. Transmitral Doppler flow pattern is Grade II-pseudonormal filling dynamics. The left atrial pressure is mildly elevated. RIGHT VENTRICLE The right ventricle is normal size.icd noted in ra,rv cavity. RV Systolic function is mildly reduced. ATRIA The left atrium is moderately dilated. The right atrium size is normal. The interatrial septum is intact with no evidence for an atrial septal defect. AORTIC VALVE The aortic valve is mildly sclerotic. The aortic valve is trileaflet. There is trace aortic regurgitation. MITRAL VALVE sclerotic mitral leaflets. Mitral regurgitation is moderate. TRICUSPID VALVE The tricuspid valve is normal in structure. There is mild to moderate tricuspid regurgitation. Right ventricular systolic pressure is estimated at 50 mmHg. There is moderate pulmonary hypertension. PULMONIC VALVE The pulmonary valve is normal in structure. GREAT VESSELS The aortic root is normal in size & mildly sclerotic. The IVC is normal in size and collapses >50% with inspiration. PERICARDIAL EFFUSION There is no pericardial effusion. <Conclusion> The Left Ventricle is borderline dilated. The Ejection Fraction is 35-40%. Septal motion consistent with pacemaker activation.apical septum & apex appears akinetic.cad. Transmitral Doppler flow pattern is Grade II-pseudonormal filling dynamics. The left atrial pressure is mildly elevated. RV Systolic function is mildly reduced. The left atrium is moderately dilated. Mitral regurgitation is moderate. There is mild to moderate tricuspid regurgitation. Right ventricular systolic pressure is estimated at 50 mmHg. There is moderate pulmonary hypertension. The aortic root is normal in size & mildly sclerotic. There is no pericardial effusion. The right ventricle is normal size.icd noted in ra,rv cavity.
[2018-12-22] MEDS ORDERED: Albuterol-Ipratrop 3 mg / 0.5 (3 ml) UD INH SCH (16:00)
[2018-12-22 16:56] LABS: URINE BACTERIA RARE (<OCC)
[2018-12-22 17:05] LABS: PH,URINE 5.5 (5.0-8.0); URINE BILIRUBIN NEGATIVE (NEGATIVE); URINE BLOOD NEGATIVE (NEGATIVE); URINE CLARITY Clear (Clear); URINE COLOR YELLOW (YELLOW); URINE GLUCOSE (UA) NEGATIVE (Normal)
[2018-12-22 17:06] LABS: URINE LEUKOCYTE ESTERASE NEGATIVE Leu/uL (Negative); URINE PROTEIN NEGATIVE (NEGATIVE); URINE UROBILINOGEN 0.2 mg/dL (0.2-1.0)
--- NOTE | 2018-12-22 19:00 | CP.PCM.PN ---
Subjective - Date & Time of Evaluation Date of Evaluation: 12/22/18 - Subjective Subjective: patient seen and examined at bedside today no nausea, no vomiting, no diarrhea, no fever, no shortness of breath. Objective - Vital Signs/Intake and Output Vital Signs (last 24 hours): Temp Pulse Resp BP Pulse Ox 98.2 F 67 20 116/62 95 12/22/18 15:20 12/22/18 15:20 12/22/18 15:20 12/22/18 15:20 12/22/18 15:20 Intake and Output: 12/22/18 12/22/18 06:59 18:59 Intake Total 600 940 Output Total 250 Balance 350 940 - Medications Medications: Current Medications Acetaminophen (Tylenol 325mg Tab) 650 mg PO Q6 PRN PRN Reason: MILD PAIN 1-3 Acetylcysteine (Acetylcysteine 20%) 4 ml INH RQ6 [facility] Albuterol/Ipratropium (Duoneb 3 Mg/0.5 Mg (3 Ml) Ud) 3 ml INH RQ6 [facility] Amiodarone HCl (Cordarone) 200 mg PO DAILY [facility] Last Admin: 12/22/18 10:33 Dose: 200 mg Amlodipine Besylate (Norvasc) 10 mg PO DAILY [facility] Last Admin: 12/22/18 10:34 Dose: 10 mg Apixaban (Eliquis) 2.5 mg PO DAILY [facility] Arformoterol Tartrate (Brovana) 15 mcg IH RQ24 [facility] Last Admin: 12/22/18 08:03 Dose: Not Given Aspirin (Aspirin Chewable) 81 mg PO DAILY [facility] Last Admin: 12/21/18 10:03 Dose: 81 mg Budesonide (Pulmicort Respules) 0.5 mg INH RQ12 [facility] Last Admin: 12/22/18 07:55 Dose: 0.5 mg Clonidine HCl (Catapres) 0.1 mg PO BID [facility] Last Admin: 12/22/18 17:36 Dose: 0.1 mg Clopidogrel Bisulfate (Plavix) 75 mg PO DAILY [facility] Docusate Sodium (Colace) 100 mg PO BID [facility] Last Admin: 12/22/18 17:36 Dose: 100 mg Glimepiride (Amaryl) 1 mg PO ACB [facility] Guaifenesin (Robitussin) 200 mg PO Q4H PRN PRN Reason: Cough and congestion Last Admin: 12/22/18 13:44 Dose: 200 mg Sodium Chloride (Sodium Chloride 0.9%) 1,000 mls @ 50 mls/hr IV .Q20H [facility] Last Admin: 12/22/18 12:24 Dose: Not Given Metolazone (Zaroxolyn) 2.5 mg PO QOD6 [facility] Last Admin: 12/21/18 18:15 Dose: 2.5 mg Metoprolol Succinate (Toprol Xl) 100 mg PO DAILY [facility] Last Admin: 12/22/18 10:34 Dose: 100 mg Morphine Sulfate (Morphine) 2 mg IVP Q6 PRN PRN Reason: Pain, moderate (4-7) Last Admin: 12/20/18 16:50 Dose: 2 mg Rosuvastatin Calcium (Crestor) 5 mg PO HS [facility] Last Admin: 12/21/18 22:45 Dose: 5 mg - Labs Labs: 12/22/18 07:53 12/22/18 07:53 PT 12.6 SECONDS (9.7-12.2) H 12/19/18 21:51 INR 1.2 12/19/18 21:51 APTT 33 SECONDS (21-34) 12/19/18 21:51 - Constitutional Appears: Well - Head Exam Head Exam: ATRAUMATIC, NORMAL INSPECTION, NORMOCEPHALIC - Eye Exam Eye Exam: EOMI, Normal appearance, PERRL Pupil Exam: NORMAL ACCOMODATION, PERRL - ENT Exam ENT Exam: Mucous Membranes Moist, Normal Exam - Neck Exam Neck Exam: Full ROM, Normal Inspection. absent: Lymphadenopathy - Respiratory Exam Respiratory Exam: Decreased Breath Sounds - Cardiovascular Exam Cardiovascular Exam: REGULAR RHYTHM, +S1, +S2 - GI/Abdominal Exam GI & Abdominal Exam: Soft, Diminished Bowel Sounds - Rectal Exam Rectal Exam: Deferred - Neurological Exam Neurological Exam: Oriented x3 Assessment and Plan - Assessment and Plan (Free Text) Plan: medications reviewed labs reviewed vitals reviewed amaryl aspirin chewable hold brovana catapress colace cordarone crestor eliquis hold morphine norvasc plavix hold procrit respules sodium chloride toprol xl zaroxolyn For surgery tomorrow Blood pressure is 116/62 Hemoglobin hematocrit is 9.5 and 28.4 A status post pacemaker cart was brought by the family Family was at the bedside Orthopedic not appreciated Discussed with Dr. doshi yesterday and today Cardiology not seen AICD still not interrogated plan to integrate AICD Repeat echo done on this admission which revealed EF of 35% with a calculated 4 1% biplane with mild LVH and mild/moderate LAD with mild to moderate MR TR Continue losartan and Toprol torsemide and metolazone Continue to hold NT platelet and anticoagulations Patient is at high risk
[2018-12-22] MEDS: Acetylcysteine 20% Inhal Soln (4ml) INH SCH (19:21)
[2018-12-22] MEDS: Albuterol-Ipratrop 3 mg / 0.5 (3 ml) UD INH SCH (19:21)
[2018-12-23] MEDS: Albuterol-Ipratrop 3 mg / 0.5 (3 ml) UD INH SCH ×4 (01:16→19:18)
[2018-12-23] MEDS: Acetylcysteine 20% Inhal Soln (4ml) INH SCH ×4 (01:16→19:17)
[2018-12-23] MEDS: Sodium Chloride 0.9% 1,000 ML IV SCH (03:20)
[2018-12-23 07:57] LABS: PLT(ADP) 47 K/uL
[2018-12-23 08:03] LABS: FUNCTIONING PLTS 176 K/uL; PLT BASE COUNT 223 K/uL
[2018-12-23 08:05] LABS: INR 1.1; PROTHROMBIN TIME 12.3 SECONDS (9.7-12.2)
[2018-12-23] MEDS: Budesonide 0.5 mg/2 ml Inhal Susp UD INH SCH ×2 (08:26→19:18)
[2018-12-23] MEDS: Arformoterol 15 mcg/2 ml Inh Sol IH SCH (08:27)
[2018-12-23] MEDS: Metoprolol Succinate 100 mg XL Tab PO SCH (09:18)
--- NOTE | 2018-12-23 09:41 | CP.PCM.PN ---
Subjective - Date & Time of Evaluation Date of Evaluation: 12/23/18 Time of Evaluation: 09:15 - Subjective Subjective: patient seen and examined today at bedside no nauea, no vomiting, no dizziness, no fever, no shortness of breath Objective - Vital Signs/Intake and Output Vital Signs (last 24 hours): Temp Pulse Resp BP Pulse Ox 98.1 F 71 20 133/68 94 L 12/23/18 07:15 12/23/18 07:15 12/23/18 07:15 12/23/18 07:15 12/23/18 07:15 Intake and Output: 12/23/18 12/23/18 06:59 18:59 Intake Total 400 Output Total 300 Balance 100 - Medications Medications: Current Medications Acetaminophen (Tylenol 325mg Tab) 650 mg PO Q6 PRN PRN Reason: MILD PAIN 1-3 Acetylcysteine (Acetylcysteine 20%) 4 ml INH RQ6 [facility] Last Admin: 12/23/18 08:26 Dose: 4 ml Albuterol/Ipratropium (Duoneb 3 Mg/0.5 Mg (3 Ml) Ud) 3 ml INH RQ6 [facility] Last Admin: 12/23/18 08:26 Dose: 3 ml Amiodarone HCl (Cordarone) 200 mg PO DAILY [facility] Last Admin: 12/23/18 09:18 Dose: 200 mg Amlodipine Besylate (Norvasc) 10 mg PO DAILY [facility] Last Admin: 12/23/18 09:19 Dose: 10 mg Apixaban (Eliquis) 2.5 mg PO DAILY [facility] Arformoterol Tartrate (Brovana) 15 mcg IH RQ24 [facility] Last Admin: 12/23/18 08:27 Dose: Not Given Aspirin (Aspirin Chewable) 81 mg PO DAILY [facility] Last Admin: 12/21/18 10:03 Dose: 81 mg Budesonide (Pulmicort Respules) 0.5 mg INH RQ12 [facility] Last Admin: 12/23/18 08:26 Dose: 0.5 mg Clonidine HCl (Catapres) 0.1 mg PO BID [facility] Last Admin: 12/23/18 09:19 Dose: 0.1 mg Clopidogrel Bisulfate (Plavix) 75 mg PO DAILY [facility] Docusate Sodium (Colace) 100 mg PO BID [facility] Last Admin: 12/23/18 09:19 Dose: 100 mg Glimepiride (Amaryl) 1 mg PO ACB [facility] Last Admin: 12/23/18 08:30 Dose: 1 mg Guaifenesin (Robitussin) 200 mg PO Q4H PRN PRN Reason: Cough and congestion Last Admin: 12/22/18 13:44 Dose: 200 mg Sodium Chloride (Sodium Chloride 0.9%) 1,000 mls @ 50 mls/hr IV .Q20H [facility] Last Admin: 12/23/18 03:20 Dose: 50 mls/hr Metolazone (Zaroxolyn) 2.5 mg PO QOD6 [facility] Last Admin: 12/21/18 18:15 Dose: 2.5 mg Metoprolol Succinate (Toprol Xl) 100 mg PO DAILY [facility] Last Admin: 12/23/18 09:18 Dose: 100 mg Morphine Sulfate (Morphine) 2 mg IVP Q6 PRN PRN Reason: Pain, moderate (4-7) Last Admin: 12/20/18 16:50 Dose: 2 mg Rosuvastatin Calcium (Crestor) 5 mg PO HS [facility] Last Admin: 12/22/18 22:35 Dose: 5 mg - Labs Labs: 12/22/18 07:53 12/22/18 07:53 PT 12.3 SECONDS (9.7-12.2) H 12/23/18 07:52 INR 1.1 12/23/18 07:52 APTT 28 SECONDS (21-34) 12/23/18 07:52 - Constitutional Appears: Well - Head Exam Head Exam: ATRAUMATIC, NORMAL INSPECTION, NORMOCEPHALIC - Eye Exam Eye Exam: EOMI, Normal appearance, PERRL Pupil Exam: NORMAL ACCOMODATION, PERRL - ENT Exam ENT Exam: Mucous Membranes Moist, Normal Exam - Neck Exam Neck Exam: Full ROM, Normal Inspection. absent: Lymphadenopathy - Respiratory Exam Respiratory Exam: Decreased Breath Sounds - Cardiovascular Exam Cardiovascular Exam: REGULAR RHYTHM, +S1, +S2 - GI/Abdominal Exam GI & Abdominal Exam: Soft, Diminished Bowel Sounds - Rectal Exam Rectal Exam: Deferred - Neurological Exam Neurological Exam: Oriented x3 Assessment and Plan - Assessment and Plan (Free Text) Plan: ME activity is [address] doshi at length INR 1.1 All the anticoagulation on the hold For possible surgery tomorrow morning Clearance from the cardiology It is not interrogated the pacemaker medications reviewed labs reviewed vitals reviewed amaryl aspirin chewable hold brovana catapress colace cordarone crestor eliquis hold morphine norvasc plavix hold procrit respules sodium chloride toprol xl zaroxolyn
--- NOTE | 2018-12-23 12:30 | CP.PCM.PN ---
Subjective - Date & Time of Evaluation Date of Evaluation: 12/23/18 Time of Evaluation: 12:30 - Subjective Subjective: No cardiac complaints No fevers or chills Objective - Vital Signs/Intake and Output Vital Signs (last 24 hours): Temp Pulse Resp BP Pulse Ox 98.1 F 71 20 133/68 94 L 12/23/18 07:15 12/23/18 07:15 12/23/18 07:15 12/23/18 07:15 12/23/18 07:15 Intake and Output: 12/23/18 12/23/18 06:59 18:59 Intake Total 400 Output Total 300 Balance 100 - Medications Medications: Current Medications Acetaminophen (Tylenol 325mg Tab) 650 mg PO Q6 PRN PRN Reason: MILD PAIN 1-3 Acetylcysteine (Acetylcysteine 20%) 4 ml INH RQ6 [facility] Last Admin: 12/23/18 08:26 Dose: 4 ml Albuterol/Ipratropium (Duoneb 3 Mg/0.5 Mg (3 Ml) Ud) 3 ml INH RQ6 [facility] Last Admin: 12/23/18 08:26 Dose: 3 ml Amiodarone HCl (Cordarone) 200 mg PO DAILY [facility] Last Admin: 12/23/18 09:18 Dose: 200 mg Amlodipine Besylate (Norvasc) 10 mg PO DAILY [facility] Last Admin: 12/23/18 09:19 Dose: 10 mg Apixaban (Eliquis) 2.5 mg PO DAILY [facility] Arformoterol Tartrate (Brovana) 15 mcg IH RQ24 [facility] Last Admin: 12/23/18 08:27 Dose: Not Given Aspirin (Aspirin Chewable) 81 mg PO DAILY [facility] Last Admin: 12/21/18 10:03 Dose: 81 mg Budesonide (Pulmicort Respules) 0.5 mg INH RQ12 [facility] Last Admin: 12/23/18 08:26 Dose: 0.5 mg Clonidine HCl (Catapres) 0.1 mg PO BID [facility] Last Admin: 12/23/18 09:19 Dose: 0.1 mg Clopidogrel Bisulfate (Plavix) 75 mg PO DAILY [facility] Docusate Sodium (Colace) 100 mg PO BID [facility] Last Admin: 12/23/18 09:19 Dose: 100 mg Glimepiride (Amaryl) 1 mg PO ACB [facility] Last Admin: 12/23/18 08:30 Dose: 1 mg Guaifenesin (Robitussin) 200 mg PO Q4H PRN PRN Reason: Cough and congestion Last Admin: 12/22/18 13:44 Dose: 200 mg Sodium Chloride (Sodium Chloride 0.9%) 1,000 mls @ 50 mls/hr IV .Q20H [facility] Last Admin: 12/23/18 03:20 Dose: 50 mls/hr Metolazone (Zaroxolyn) 2.5 mg PO QOD6 [facility] Last Admin: 12/21/18 18:15 Dose: 2.5 mg Metoprolol Succinate (Toprol Xl) 100 mg PO DAILY [facility] Last Admin: 12/23/18 09:18 Dose: 100 mg Morphine Sulfate (Morphine) 2 mg IVP Q6 PRN PRN Reason: Pain, moderate (4-7) Last Admin: 12/23/18 10:27 Dose: 2 mg Rosuvastatin Calcium (Crestor) 5 mg PO HS [facility] Last Admin: 12/22/18 22:35 Dose: 5 mg - Labs Labs: 12/22/18 07:53 12/22/18 07:53 PT 12.3 SECONDS (9.7-12.2) H 12/23/18 07:52 INR 1.1 12/23/18 07:52 APTT 28 SECONDS (21-34) 12/23/18 07:52 - Constitutional Appears: No Acute Distress - Head Exam Head Exam: ATRAUMATIC, NORMAL INSPECTION, NORMOCEPHALIC - Eye Exam Eye Exam: EOMI, Normal appearance - ENT Exam ENT Exam: Mucous Membranes Moist, Normal Oropharynx - Neck Exam Neck Exam: Full ROM, Normal Inspection. absent: Tenderness - Respiratory Exam Respiratory Exam: Clear to Ausculation Bilateral. absent: Rhonchi, Wheezes - Cardiovascular Exam Cardiovascular Exam: REGULAR RHYTHM, +S1, +S2. absent: JVD, Murmur Additional comments: L. chest wall AICD - GI/Abdominal Exam GI & Abdominal Exam: Soft. absent: Tenderness - Extremities Exam Extremities Exam: Normal Inspection. absent: Calf Tenderness, Pedal Edema - Neurological Exam Neurological Exam: Alert, Awake - Skin Skin Exam: Normal Color, Warm Assessment and Plan - Assessment and Plan (Free Text) Assessment: 88 y/o CAD/CABG/stents (? last was ~1 year ago details not known) AFIB on AC AICD-PPM Moderate to severe systolic HF chronic by prior eco 2018 Presents for mechanical fall and fracture L. hip/femur * Repeat echo done this admission: EF ~35% visually, calculated 41% BIPLANE, mild LVH, mild-mod LAE, mild-mod MR/TR, PASP 50mmHg, compliant IVC, Grade 1 DD with inc LAP. Which represents no change from prior baseline. 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 Continue RX for Chronic CHF - Losartan 50 - toprol xl 100 - torsemide/metolazone to maintain euvolemia Cont Rx for chronic CAD/CABG/PCI - dapt and statin Cont Rx for AFIB stroke prevention and rhythm control - eliquis - amiodarone Additional BP Rx - clonidine and amlodipine as needed I have reviewed most recent cath 12/2017: suggesting MANDY to SVG-DIAG graft: > Severe [place] 3 vessel CAD was also present > There was no comment on patency of other grafts > Given >12 months of DAPT: Ok to temp hold for surgery > Currently there is no active angina or worsening of CHF sx's and recent echo showed no interval worsening from prior > Volume status is appropraite patient is on triple therapy with DAPT and NOAC: - monitor closely for GI bleeding. Alternate: if PCI >6 months ago then suggest ASA and eliquis as his chronic Rx. Patient, given extensive cardiac history remains intermediate risk for any procedures, may proceed with adequate BP and HR monitoring. And diuretics and pulmonary supportive care to maintain volume status. Agree with Antiplatelet function analaysis and NOAC d/c as per HEME. Clinically patient is optimized and on optimal RX. All cardiac issues have been addressed and stable. Awaiting surgery.
--- NOTE | 2018-12-23 15:31 | CARD ---
APPROVED REPORT Date of service: 12/19/2018 EKG Measurement Heart [id number] <Conclusion> Normal sinus rhythm Nonspecific intraventricular block T wave abnormality, consider inferolateral ischemia Abnormal ECG
[2018-12-23] MEDS: metOLazone 2.5 MG TAB PO SCH (17:38)
--- NOTE | 2018-12-23 23:22 | CP.PCM.PN ---
Subjective - Date & Time of Evaluation Date of Evaluation: 12/22/18 Time of Evaluation: 19:00 - Subjective Subjective: Has hip pain Objective - Vital Signs/Intake and Output Vital Signs (last 24 hours): Temp Pulse Resp BP Pulse Ox 97.8 F 70 20 121/70 93 L 12/23/18 21:32 12/23/18 21:32 12/23/18 21:32 12/23/18 21:32 12/23/18 15:53 Intake and Output: 12/23/18 12/24/18 18:59 06:59 Intake Total 880 750 Output Total 400 400 Balance 480 350 - Medications Medications: Current Medications Acetaminophen (Tylenol 325mg Tab) 650 mg PO Q6 PRN PRN Reason: MILD PAIN 1-3 Acetylcysteine (Acetylcysteine 20%) 4 ml INH RQ6 [facility] Last Admin: 12/23/18 19:17 Dose: 4 ml Albuterol/Ipratropium (Duoneb 3 Mg/0.5 Mg (3 Ml) Ud) 3 ml INH RQ6 [facility] Last Admin: 12/23/18 19:18 Dose: 3 ml Amiodarone HCl (Cordarone) 200 mg PO DAILY [facility] Last Admin: 12/23/18 09:18 Dose: 200 mg Amlodipine Besylate (Norvasc) 10 mg PO DAILY [facility] Last Admin: 12/23/18 09:19 Dose: 10 mg Apixaban (Eliquis) 2.5 mg PO DAILY [facility] Arformoterol Tartrate (Brovana) 15 mcg IH RQ24 [facility] Last Admin: 12/23/18 08:27 Dose: Not Given Aspirin (Aspirin Chewable) 81 mg PO DAILY [facility] Last Admin: 12/21/18 10:03 Dose: 81 mg Budesonide (Pulmicort Respules) 0.5 mg INH RQ12 [facility] Last Admin: 12/23/18 19:18 Dose: 0.5 mg Clonidine HCl (Catapres) 0.1 mg PO BID [facility] Last Admin: 12/23/18 17:38 Dose: 0.1 mg Clopidogrel Bisulfate (Plavix) 75 mg PO DAILY [facility] Docusate Sodium (Colace) 100 mg PO BID [facility] Last Admin: 12/23/18 17:38 Dose: 100 mg Glimepiride (Amaryl) 1 mg PO ACB [facility] Last Admin: 12/23/18 08:30 Dose: 1 mg Guaifenesin (Robitussin) 200 mg PO Q4H PRN PRN Reason: Cough and congestion Last Admin: 12/22/18 13:44 Dose: 200 mg Metolazone (Zaroxolyn) 2.5 mg PO QOD6 [facility] Last Admin: 12/23/18 17:38 Dose: 2.5 mg Metoprolol Succinate (Toprol Xl) 100 mg PO DAILY [facility] Last Admin: 12/23/18 09:18 Dose: 100 mg Morphine Sulfate (Morphine) 2 mg IVP Q6 PRN PRN Reason: Pain, moderate (4-7) Last Admin: 12/23/18 10:27 Dose: 2 mg Rosuvastatin Calcium (Crestor) 5 mg PO HS [facility] Last Admin: 12/23/18 21:04 Dose: 5 mg - Labs Labs: 12/22/18 07:53 12/22/18 07:53 PT 12.3 SECONDS (9.7-12.2) H 12/23/18 07:52 INR 1.1 12/23/18 07:52 APTT 28 SECONDS (21-34) 12/23/18 07:52 - Head Exam Head Exam: ATRAUMATIC - Eye Exam Eye Exam: Normal appearance - ENT Exam ENT Exam: Mucous Membranes Dry - Respiratory Exam Respiratory Exam: NORMAL BREATHING PATTERN - Cardiovascular Exam Cardiovascular Exam: +S1, +S2 - GI/Abdominal Exam GI & Abdominal Exam: Normal Bowel Sounds Assessment and Plan (1) Preoperative clearance Assessment & Plan: cleared for orthopedic surgery from hematologic standpoint if functional plt > 100,000 Status: Acute (2) Anemia Assessment & Plan: anemia of CKD Status: Acute
--- NOTE | 2018-12-23 23:23 | CP.PCM.PN ---
Subjective - Date & Time of Evaluation Date of Evaluation: 12/23/18 Time of Evaluation: 17:00 - Subjective Subjective: Has hip pain. Objective - Vital Signs/Intake and Output Vital Signs (last 24 hours): Temp Pulse Resp BP Pulse Ox 97.8 F 70 20 121/70 93 L 12/23/18 21:32 12/23/18 21:32 12/23/18 21:32 12/23/18 21:32 12/23/18 15:53 Intake and Output: 12/23/18 12/24/18 18:59 06:59 Intake Total 880 750 Output Total 400 400 Balance 480 350 - Medications Medications: Current Medications Acetaminophen (Tylenol 325mg Tab) 650 mg PO Q6 PRN PRN Reason: MILD PAIN 1-3 Acetylcysteine (Acetylcysteine 20%) 4 ml INH RQ6 [facility] Last Admin: 12/23/18 19:17 Dose: 4 ml Albuterol/Ipratropium (Duoneb 3 Mg/0.5 Mg (3 Ml) Ud) 3 ml INH RQ6 [facility] Last Admin: 12/23/18 19:18 Dose: 3 ml Amiodarone HCl (Cordarone) 200 mg PO DAILY [facility] Last Admin: 12/23/18 09:18 Dose: 200 mg Amlodipine Besylate (Norvasc) 10 mg PO DAILY [facility] Last Admin: 12/23/18 09:19 Dose: 10 mg Apixaban (Eliquis) 2.5 mg PO DAILY [facility] Arformoterol Tartrate (Brovana) 15 mcg IH RQ24 [facility] Last Admin: 12/23/18 08:27 Dose: Not Given Aspirin (Aspirin Chewable) 81 mg PO DAILY [facility] Last Admin: 12/21/18 10:03 Dose: 81 mg Budesonide (Pulmicort Respules) 0.5 mg INH RQ12 [facility] Last Admin: 12/23/18 19:18 Dose: 0.5 mg Clonidine HCl (Catapres) 0.1 mg PO BID [facility] Last Admin: 12/23/18 17:38 Dose: 0.1 mg Clopidogrel Bisulfate (Plavix) 75 mg PO DAILY [facility] Docusate Sodium (Colace) 100 mg PO BID [facility] Last Admin: 12/23/18 17:38 Dose: 100 mg Glimepiride (Amaryl) 1 mg PO ACB [facility] Last Admin: 12/23/18 08:30 Dose: 1 mg Guaifenesin (Robitussin) 200 mg PO Q4H PRN PRN Reason: Cough and congestion Last Admin: 12/22/18 13:44 Dose: 200 mg Metolazone (Zaroxolyn) 2.5 mg PO QOD6 [facility] Last Admin: 12/23/18 17:38 Dose: 2.5 mg Metoprolol Succinate (Toprol Xl) 100 mg PO DAILY [facility] Last Admin: 12/23/18 09:18 Dose: 100 mg Morphine Sulfate (Morphine) 2 mg IVP Q6 PRN PRN Reason: Pain, moderate (4-7) Last Admin: 12/23/18 10:27 Dose: 2 mg Rosuvastatin Calcium (Crestor) 5 mg PO HS [facility] Last Admin: 12/23/18 21:04 Dose: 5 mg - Labs Labs: 12/22/18 07:53 12/22/18 07:53 PT 12.3 SECONDS (9.7-12.2) H 12/23/18 07:52 INR 1.1 12/23/18 07:52 APTT 28 SECONDS (21-34) 12/23/18 07:52 - Head Exam Head Exam: ATRAUMATIC - Eye Exam Eye Exam: Normal appearance - ENT Exam ENT Exam: Mucous Membranes Dry - Respiratory Exam Respiratory Exam: NORMAL BREATHING PATTERN - Cardiovascular Exam Cardiovascular Exam: +S1, +S2 - GI/Abdominal Exam GI & Abdominal Exam: Normal Bowel Sounds Assessment and Plan (1) Preoperative clearance Assessment & Plan: cleared for orthopedic surgery from hematologic standpoint if functional plt > 100,000 Status: Acute (2) Anemia Assessment & Plan: anemia of CKD f/u iron/b12/folate Status: Acute
[2018-12-24] MEDS: Acetylcysteine 20% Inhal Soln (4ml) INH SCH ×4 (01:23→21:46)
[2018-12-24] MEDS: Albuterol-Ipratrop 3 mg / 0.5 (3 ml) UD INH SCH ×4 (01:24→21:46)
[2018-12-24] MEDS: Arformoterol 15 mcg/2 ml Inh Sol IH SCH (08:10)
[2018-12-24] MEDS: Budesonide 0.5 mg/2 ml Inhal Susp UD INH SCH ×2 (08:11→21:47)
[2018-12-24] MEDS ORDERED: Etomidate 20 mg/10ml Inj IV ONE (08:42)
[2018-12-24] MEDS ORDERED: Lidocaine Hydrochloride 5 ML INJ ONE (09:32)
[2018-12-24] MEDS ORDERED: ceFAZolin 1 gm in NS 2 GM/200 ML BAG IVPB ONE (09:36)
--- NOTE | 2018-12-24 09:38 | RAD ---
Date of service: 12/24/2018 HISTORY: preop COMPARISON: 12/19/2018. FINDINGS: LUNGS: The lungs are well inflated. There is interval development of diffuse haziness in the right lung. There is worsening pulmonary venous congestion, worse in the right lung. PLEURA: No pleural effusions or pneumothorax. CARDIOVASCULAR: Persistent severe cardiomegaly. Status post CABG. There is stable position of left-sided permanent pacing device. There are aortic atherosclerotic calcifications present. OSSEOUS STRUCTURES: Within normal limits for the patient's age. VISUALIZED UPPER ABDOMEN: Normal. OTHER FINDINGS: None. IMPRESSION: Interval worsening pulmonary venous congestion and presumable development of pulmonary edema in the right lung.
--- NOTE | 2018-12-24 09:57 | RAD ---
Date of service: 12/24/2018 PROCEDURE: Left Femur Radiographs. HISTORY: DR. CRUZ COMPARISON: CT pelvis without contrast from 12/20/2018 TECHNIQUE: AP and Lateral Radiographs of the left femur. 4 views obtained. FINDINGS: FEMUR: There is redemonstration of an acute impacted transcervical left femoral fracture with approximately 1.4 cm lateral and superior displacement. There is diffuse bone demineralization. Bone alignment is normal. The left hip joint space is preserved. SOFT TISSUES: Periarticular soft tissue swelling. OTHER FINDINGS: There are advanced atherosclerotic vascular calcifications an endovascular stent graft in mid superficial femoral artery. There are multiple phleboliths in the pelvis IMPRESSION: Little interval change in acute impacted transcervical left femoral fracture with approximately 1.4 cm lateral and superior displacement.
[2018-12-24 10:12] LABS: ARTERIAL BLOOD GAS HCO3 21.6 mmol/L (21-28); ARTERIAL BLOOD GAS O2 SAT 97.5 % (95-98); ARTERIAL BLOOD GAS PCO2 39 mm/Hg (35-45); ARTERIAL BLOOD GAS PH 7.34 (7.35-7.45); ARTERIAL BLOOD GAS PO2 213 mm/Hg (80-100); ARTERIAL BLOOD GAS TCO2 22.2 mmol/L (22-28)
[2018-12-24 10:13] LABS: HEMOGLOBIN 9.6 g/dL (12.0-18.0); MEAN CORPUSCULAR HEMOGLOBIN 31.3 pg (27.0-31.0); MEAN CORPUSCULAR HGB CONC 33.4 g/dL (33.0-37.0); MEAN PLATELET VOLUME 8.1 fL (7.2-11.7); RBC 3.06 Mil/uL (4.40-5.90); RED CELL DISTRIBUTION WIDTH 16.1 % (11.5-14.5); WHITE BLOOD COUNT 10.1 K/uL (4.8-10.8)
[2018-12-24 10:14] LABS: MEAN CELL VOLUME 93.6 fL (80.0-94.0)
[2018-12-24] MEDS: Bacitracin 150,000 UNIT in Sodium Chloride 0.9% Irrig 3,000 ML IR SCH ×2 (11:12→11:15)
[2018-12-24] MEDS ORDERED: ePHEDrine 50 mg/ml Inj ONE (11:58)
--- NOTE | 2018-12-24 12:58 | CP.PCM.PN ---
Subjective - Date & Time of Evaluation Date of Evaluation: 12/24/18 Time of Evaluation: 08:03 - Subjective Subjective: Events reviewed. Objective - Vital Signs/Intake and Output Vital Signs (last 24 hours): Temp Pulse Resp BP Pulse Ox 99.3 F 78 20 153/68 H 94 L 12/24/18 07:00 12/24/18 07:00 12/24/18 07:00 12/24/18 07:00 12/24/18 07:00 Intake and Output: 12/24/18 12/24/18 06:59 18:59 Intake Total 1150 200 Output Total 760 Balance 390 200 - Medications Medications: Current Medications Acetaminophen (Tylenol 325mg Tab) 650 mg PO Q6 PRN PRN Reason: MILD PAIN 1-3 Acetylcysteine (Acetylcysteine 20%) 4 ml INH RQ6 [facility] Last Admin: 12/24/18 08:10 Dose: Not Given Albuterol/Ipratropium (Duoneb 3 Mg/0.5 Mg (3 Ml) Ud) 3 ml INH RQ6 [facility] Last Admin: 12/24/18 08:10 Dose: Not Given Amiodarone HCl (Cordarone) 200 mg PO DAILY [facility] Last Admin: 12/23/18 09:18 Dose: 200 mg Amlodipine Besylate (Norvasc) 10 mg PO DAILY [facility] Last Admin: 12/23/18 09:19 Dose: 10 mg Apixaban (Eliquis) 2.5 mg PO DAILY [facility] Arformoterol Tartrate (Brovana) 15 mcg IH RQ24 [facility] Last Admin: 12/24/18 08:10 Dose: Not Given Aspirin (Aspirin Chewable) 81 mg PO DAILY [facility] Last Admin: 12/21/18 10:03 Dose: 81 mg Budesonide (Pulmicort Respules) 0.5 mg INH RQ12 [facility] Last Admin: 12/24/18 08:11 Dose: Not Given Clonidine HCl (Catapres) 0.1 mg PO BID [facility] Last Admin: 12/23/18 17:38 Dose: 0.1 mg Clopidogrel Bisulfate (Plavix) 75 mg PO DAILY [facility] Docusate Sodium (Colace) 100 mg PO BID [facility] Last Admin: 12/23/18 17:38 Dose: 100 mg Glimepiride (Amaryl) 1 mg PO ACB [facility] Last Admin: 04/16/19 08:30 Dose: 1 mg Guaifenesin (Robitussin) 200 mg PO Q4H PRN PRN Reason: Cough and congestion Last Admin: 12/22/18 13:44 Dose: 200 mg Metolazone (Zaroxolyn) 2.5 mg PO QOD6 [facility] Last Admin: 12/23/18 17:38 Dose: 2.5 mg Metoprolol Succinate (Toprol Xl) 100 mg PO DAILY [facility] Last Admin: 12/23/18 09:18 Dose: 100 mg Rosuvastatin Calcium (Crestor) 5 mg PO HS [facility] Last Admin: 12/23/18 21:04 Dose: 5 mg - Labs Labs: 12/24/18 10:08 12/22/18 07:53 PT 12.3 SECONDS (9.7-12.2) H 12/23/18 07:52 INR 1.1 12/23/18 07:52 APTT 28 SECONDS (21-34) 12/23/18 07:52 Assessment and Plan - Assessment and Plan (Free Text) Assessment: - Constitutional Appears: No Acute Distress - Head Exam Head Exam: ATRAUMATIC, NORMAL INSPECTION, NORMOCEPHALIC - Eye Exam Eye Exam: EOMI, Normal appearance - ENT Exam ENT Exam: Mucous Membranes Moist, Normal Oropharynx - Neck Exam Neck Exam: Full ROM, Normal Inspection. absent: Tenderness - Respiratory Exam Respiratory Exam: Clear to Ausculation Bilateral. absent: Rhonchi, Wheezes - Cardiovascular Exam Cardiovascular Exam: REGULAR RHYTHM, +S1, +S2. absent: JVD, Murmur Additional comments: L. chest wall AICD - GI/Abdominal Exam GI & Abdominal Exam: Soft. absent: Tenderness - Extremities Exam Extremities Exam: Normal Inspection. absent: Calf Tenderness, Pedal Edema - Neurological Exam Neurological Exam: Alert, Awake - Skin Skin Exam: Normal Color, Warm Assessment and Plan - Assessment and Plan (Free Text) Assessment: 88 y/o CAD/CABG/stents (? last was ~1 year ago details not known) AFIB on AC AICD-PPM Moderate to severe systolic HF chronic by prior eco 2018 Presents for mechanical fall and fracture L. hip/femur * Repeat echo done this admission: EF ~35% visually, calculated 41% BIPLANE, mild LVH, mild-mod LAE, mild-mod MR/TR, PASP 50mmHg, compliant IVC, Grade 1 DD with inc LAP. Which represents no change from prior baseline. 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 Continue RX for Chronic CHF - Losartan 50 - toprol xl 100 - torsemide/metolazone to maintain euvolemia Cont Rx for chronic CAD/CABG/PCI - dapt and statin Cont Rx for AFIB stroke prevention and rhythm control - eliquis - amiodarone Additional BP Rx - clonidine and amlodipine as needed I have reviewed most recent cath 12/2017: suggesting MANDY to SVG-DIAG graft: > Severe [place] 3 vessel CAD was also present > There was no comment on patency of other grafts > Given >12 months of DAPT: Ok to temp hold for surgery > Currently there is no active angina or worsening of CHF sx's and recent echo showed no interval worsening from prior > Volume status is appropraite patient is on triple therapy with DAPT and NOAC: - monitor closely for GI bleeding. Alternate: if PCI >6 months ago then suggest ASA and eliquis as his chronic Rx. Patient, given extensive cardiac history remains intermediate risk for any procedures, may proceed with adequate BP and HR monitoring. And diuretics and pulmonary supportive care to maintain volume status. Agree with Antiplatelet function analaysis and NOAC d/c as per HEME. OR TODAY ACCEPTABLE RISK FOR URGENT PROCEDURE
--- NOTE | 2018-12-24 13:32 | PCM.SURG1 ---
Surgeon's Initial Post Op Note - Surgeon's Notes Surgeon: Collin Russo MD Jewelry Estimator: Elsa Pedraza PA-C Type of Anesthesia: General Endo Anesthesia Administered By: Dr. Mckeon Pre-Operative Diagnosis: Left displaced femoral neck fracture Operative Findings: ?callus Post-Operative Diagnosis: same Operation Performed: Left hip hemiarthroplasty Specimen/Specimens Removed: femoral head. femoral neck Estimated Blood Loss: EBL {In ML}: 100 Blood Products Given: N/A Drains Used: No Drains Post-Op Condition: Fair Date of Surgery/Procedure: 12/24/18 Time of Surgery/Procedure: 13:32 (restart plavix and ASA tomorrow, lovenox instead of eliquis per Dr. Russo)
[2018-12-24] MEDS: HYDROmorphone 0.5 mg/0.5 ml ISec IVP PRN ×2 (13:34→13:48)
[2018-12-24] MEDS ORDERED: HYDROmorphone 0.5 mg/0.5 ml ISec ONE (13:48)
--- NOTE | 2018-12-24 15:42 | RAD ---
Date of service: 12/24/2018 PROCEDURE: Left Foot Radiographs. HISTORY: pt in pacu s/p hemiarthroplsaty COMPARISON: 12/19/2018. TECHNIQUE: 3 views obtained. FINDINGS: BONES: There is diffuse bone demineralization. No acute displaced fracture or bone destruction. Bone alignment is normal. JOINTS: The right hip joint space is preserved. The sacroiliac joints are normal. Status post total left hip arthroplasty. SOFT TISSUES: Expected postoperative changes in the left periarticular soft tissues. OTHER FINDINGS: There are advanced atherosclerotic vascular calcifications.. IMPRESSION: Status post total left hip arthroplasty. No acute findings.
--- NOTE | 2018-12-24 15:45 | CP.PCM.CON ---
<Jonnie Ya - Last Filed: 12/24/18 16:08> History of Present Illness - History of Present Illness History of Present Illness: PCY-1 Critical Care Progress Note for Dr. Mon Patient is an 88 year old male with extensive cardiac history (CAD s/p CABG and stents, CHF, AFIB, s/p pacemaker/defibrillator placement), HTN, COPD, DM, enlarged prostate, CKD, nephrolithiasis who presents for post-op monitoring status post left CASEY. Patient initially was admitted to hospital following a witnessed fall in his home and patient found to have femoral neck fracture on imaging Patient denied hitting head or LOC during fall. CASEY carried out without any documented complications and with minimal blood loss. Patient currently recovering from anesthesia coming from PACU, speaking words but unable to follow commands or answer questions. Further history will be obtained once patient is more awake and alert. Review of Systems - Review of Systems Systems not reviewed;Unavailable: Altered Mental Status (recovering from general anesthesia) Past Patient History - Past Social History Smoking Status: Never Smoked - CARDIAC Hx Atrial Fibrillation: Yes Hx Hypertension: Yes Hx Peripheral Edema: Yes - PULMONARY Hx Chronic Obstructive Pulmonary Disease (COPD): Yes - NEUROLOGICAL Hx Neurological Disorder: No - HEENT Hx HEENT Problems: No - RENAL Hx Chronic Kidney Disease: No - ENDOCRINE/METABOLIC Hx Diabetes Mellitus Type 2: Yes - HEMATOLOGICAL/ONCOLOGICAL Hx Blood Disorders: No - INTEGUMENTARY Hx Dermatological Problems: No - MUSCULOSKELETAL/RHEUMATOLOGICAL Hx Musculoskeletal Disorders: No Hx Falls: Yes - PSYCHIATRIC Hx Substance Use: No - SURGICAL HISTORY Hx Coronary Artery Bypass Graft: Yes Hx Coronary Stent: Yes - ANESTHESIA Hx Anesthesia: Yes Hx Anesthesia Reactions: No Meds Allergies/Adverse Reactions: Allergies Allergy/AdvReac Type Severity Reaction Status Date / Time No Known Allergies Allergy Verified 12/25/17 04:27 - Medications Medications: Current Medications Acetaminophen (Tylenol 325mg Tab) 650 mg PO Q6 PRN PRN Reason: MILD PAIN 1-3 Acetylcysteine (Acetylcysteine 20%) 4 ml INH RQ6 [facility]S [facility]CLUDE 234 BEDS AT THE [facility] Last Admin: 12/24/18 13:03 Dose: Not Given Albuterol/Ipratropium (Duoneb 3 Mg/0.5 Mg (3 Ml) Ud) 3 ml INH RQ6 COUNTS INCLUDE 234 BEDS AT THE [facility] Last Admin: 12/24/18 13:03 Dose: Not Given Amiodarone HCl (Cordarone) 200 mg PO DAILY COUNTS INCLUDE 234 BEDS AT THE [facility] Last Admin: 12/23/18 09:18 Dose: 200 mg Amlodipine Besylate (Norvasc) 10 mg PO DAILY [facility]S INCLUDE 234 BEDS AT [facility] Last Admin: 12/23/18 09:19 Dose: 10 mg Apixaban (Eliquis) 2.5 mg PO DAILY COUNTS INCLUDE 234 BEDS AT THE [facility] Arformoterol Tartrate (Brovana) 15 mcg IH RQ24 COUNTS INCLUDE 234 BEDS AT THE [facility] Last Admin: 12/24/18 08:10 Dose: Not Given Aspirin (Aspirin Chewable) 81 mg PO DAILY COUNTS INCLUDE 234 BEDS AT [facility] Last Admin: 12/21/18 10:03 Dose: 81 mg Budesonide (Pulmicort Respules) 0.5 mg INH RQ12 COUNTS INCLUDE 234 BEDS AT [facility] Last Admin: 12/24/18 08:11 Dose: Not Given Clonidine HCl (Catapres) 0.1 mg PO BID COUNTS INCLUDE 234 BEDS AT [facility] Last Admin: 12/23/18 17:38 Dose: 0.1 mg Clopidogrel Bisulfate (Plavix) 75 mg PO DAILY COUNTS INCLUDE 234 BEDS AT [facility] Docusate Sodium (Colace) 100 mg PO BID COUNTS INCLUDE 234 BEDS AT THE [facility] Last Admin: 12/23/18 17:38 Dose: 100 mg Enoxaparin Sodium (Lovenox) 30 mg SC Q24H COUNTS INCLUDE 234 BEDS AT THE [facility] Glimepiride (Amaryl) 1 mg PO ACB COUNTS INCLUDE 234 BEDS AT THE [facility] Last Admin: 12/23/18 08:30 Dose: 1 mg Guaifenesin (Robitussin) 200 mg PO Q4H PRN PRN Reason: Cough and congestion Last Admin: 12/22/18 13:44 Dose: 200 mg Cefazolin Sodium/Dextrose (Ancef Iv 2 Gm Duplex) 2 gm in 50 mls @ 100 mls/hr IVPB Q8H COUNTS INCLUDE 234 BEDS AT THE [facility]; Protocol Stop: 12/25/18 17:01 Lactated Ringer's (Lactated Ringer's) 1,000 mls @ 75 mls/hr IV .[id number] COUNTS INCLUDE 234 BEDS AT THE [facility] Metolazone (Zaroxolyn) 2.5 mg PO QOD6 COUNTS INCLUDE 234 BEDS AT THE [facility] Last Admin: 12/23/18 17:38 Dose: 2.5 mg Metoprolol Succinate (Toprol Xl) 100 mg PO DAILY COUNTS INCLUDE 234 BEDS AT [facility] Last Admin: 12/23/18 09:18 Dose: 100 mg Rosuvastatin Calcium (Crestor) 5 mg PO HS COUNTS INCLUDE 234 BEDS AT [facility] Last Admin: 12/23/18 21:04 Dose: 5 mg Physical Exam - Constitutional Appears: No Acute Distress - Head Exam Head Exam: ATRAUMATIC, NORMOCEPHALIC - Eye Exam Eye Exam: EOMI - ENT Exam ENT Exam: Mucous Membranes Moist - Respiratory Exam Respiratory Exam: Clear to Auscultation Bilateral, NORMAL BREATHING PATTERN. absent: Rhonchi, Wheezes - Cardiovascular Exam Cardiovascular Exam: REGULAR RHYTHM, +S1, +S2 - GI/Abdominal Exam GI & Abdominal Exam: Normal Bowel Sounds, Soft - Extremities Exam Extremities exam: Positive for: pedal pulses present. Negative for: pedal edema Additional comments: Status/post L total hip arthroplasty. Dressings c/d/i. Both lower extremities neurovascularly intact with tibial and pedal pulses present and patient moving toes - Neurological Exam Additional comments: Recovering from general anesthesia - Skin Skin Exam: Dry, Intact Results - Vital Signs Recent Vital Signs: Last Vital Signs Temp 97 F L 12/24/18 14:30 Pulse 69 12/24/18 14:30 Resp 10 L 12/24/18 14:30 BP 127/50 L 12/24/18 14:30 Pulse Ox 98 12/24/18 14:30 - Labs Result Diagrams: 12/24/18 10:08 12/22/18 07:53 Labs: Laboratory Results - last 24 hr 12/23/18 12/23/18 12/23/18 07:52 11:12 16:19 WBC RBC Hgb Hct MCV MCH MCHC RDW Plt Count MPV Puncture Site pCO2 pO2 HCO3 ABG pH ABG Total CO2 ABG O2 Saturation ABG Base Excess Ruperto Test ABG Potassium Sodium Chloride Glucose Lactate POC Glucose (mg/dL) 168 H 117 H Arterial Blood Potassium Blood Type O NEGATIVE Antibody Screen Negative 12/23/18 12/24/18 12/24/18 21:36 10:08 10:09 WBC 10.1 RBC 3.06 L Hgb 9.6 L Hct 28.7 L MCV 93.6 D MCH 31.3 H MCHC 33.4 RDW 16.1 H Plt Count 236 MPV 8.1 Puncture Site Or pCO2 39 pO2 213 H HCO3 21.6 ABG pH 7.34 L ABG Total CO2 22.2 ABG O2 Saturation 97.5 ABG Base Excess -4.4 L Ruperto Test Na ABG Potassium 3.6 Sodium 137.0 Chloride 107.0 Glucose 94 Lactate 1.0 POC Glucose (mg/dL) 118 H Arterial Blood Potassium 3.6 Blood Type Antibody Screen Assessment & Plan - Assessment and Plan (Free Text) Assessment: 88 year old male with extensive cardiac history (CAD s/p CABG/stents, CHF, AFIB, AICD/Pacemaker placement) presents for ICU monitoring post-op status-post left CASEY for femoral neck fracture 2/2 trauma. Cardio CAD s/p CABG/stents -Currently on DAPT + NOAC as per cardiology, also statin --ASA 81 mg PO daily --Plavix 75 mg PO daily --Eliquis 2.5 PO daily --Crestor 5mg PO HS Afib -Continue meds for rhythm control/AC --ASA 81 mg PO daily --Plavix 75 mg PO daily --Eliquis 2.5 PO daily --Amiodarone 200 mg PO daily AICD/Pacemaker -Per cardiology, ACID interrogated on this hospital visit with no documented episodes of VT/no shocks delivered CHF -C/w CHF meds per cardiology --Losartan 50 mg PO daily --Metoprolol XL 100 mg PO daily --Diuresis - torsemide/metolazone/lasix as per cardio HTN -Toprol XL 100 mg PO daily -Clonidine 0.1mg PO BID -Cardiac and BP monitoring -C/w fluid management per ortho Pulm COPD -C/w COPD meds --Actylcysteine, Duoneb Q6 FUAD, Brovana, Pulmicort -Breathing spontaneously and saturating well with O2 simple face mask in place post-op -Maintain spO2>92% GI -Post-op bowel management per ortho --Colace 100 mg PO BID -Garvey draining concentrated urine Nephro -Monitor urine output Neuro -Patient currently sedated s/p TKA under general anesthesia -Assess neuro status once patient awake and alert Endo DM -Continue home Glimeperide -Accuchecks ACHS ID/Heme -Afebrile -Monitor WBC -Abx per ortho --Cefazolin PPx -DVT: AC held for operation today. To resume tomorrow per ortho/cardio -GI: Protonix 40 mg PO daily -HHD Assessment and plan d/w Dr. Elieser Ya, PGY-1 <Sebastian Mon - Last Filed: 12/24/18 16:41> Meds - Medications Medications: Current Medications Acetaminophen (Tylenol 325mg Tab) 650 mg PO Q6 PRN PRN Reason: MILD PAIN 1-3 Acetylcysteine (Acetylcysteine 20%) 4 ml INH RQ6 COUNTS INCLUDE 234 BEDS AT THE [facility] Last Admin: 12/24/18 13:03 Dose: Not Given Albuterol/Ipratropium (Duoneb 3 Mg/0.5 Mg (3 Ml) Ud) 3 ml INH RQ6 COUNTS INCLUDE 234 BEDS AT [facility] Last Admin: 12/24/18 13:03 Dose: Not Given Amiodarone HCl (Cordarone) 200 mg PO DAILY COUNTS INCLUDE 234 BEDS AT [facility] Last Admin: 12/23/18 09:18 Dose: 200 mg Amlodipine Besylate (Norvasc) 10 mg PO DAILY COUNTS INCLUDE 234 BEDS AT [facility] Last Admin: 12/23/18 09:19 Dose: 10 mg Apixaban (Eliquis) 2.5 mg PO DAILY COUNTS INCLUDE 234 BEDS AT [facility] Arformoterol Tartrate (Brovana) 15 mcg IH RQ24 COUNTS INCLUDE 234 BEDS AT [facility] Last Admin: 12/24/18 08:10 Dose: Not Given Aspirin (Aspirin Chewable) 81 mg PO DAILY COUNTS INCLUDE 234 BEDS AT [facility] Last Admin: 12/21/18 10:03 Dose: 81 mg Budesonide (Pulmicort Respules) 0.5 mg INH RQ12 COUNTS INCLUDE 234 BEDS AT [facility] Last Admin: 12/24/18 08:11 Dose: Not Given Clonidine HCl (Catapres) 0.1 mg PO BID COUNTS INCLUDE 234 BEDS AT [facility] Last Admin: 12/23/18 17:38 Dose: 0.1 mg Clopidogrel Bisulfate (Plavix) 75 mg PO DAILY COUNTS INCLUDE 234 BEDS AT [facility] Docusate Sodium (Colace) 100 mg PO BID COUNTS INCLUDE 234 BEDS AT [facility] Last Admin: 12/23/18 17:38 Dose: 100 mg Enoxaparin Sodium (Lovenox) 30 mg SC Q24H COUNTS INCLUDE 234 BEDS AT [facility] Famotidine (Pepcid) 20 mg PO DAILY COUNTS INCLUDE 234 BEDS AT THE [facility] Glimepiride (Amaryl) 1 mg PO ACB COUNTS INCLUDE 234 BEDS AT THE [facility] Last Admin: 12/23/18 08:30 Dose: 1 mg Guaifenesin (Robitussin) 200 mg PO Q4H PRN PRN Reason: Cough and congestion Last Admin: 12/22/18 13:44 Dose: 200 mg Cefazolin Sodium/Dextrose (Ancef Iv 2 Gm Duplex) 2 gm in 50 mls @ 100 mls/hr IVPB Q8H COUNTS INCLUDE 234 BEDS AT THE [facility]; Protocol Stop: 12/25/18 17:01 Lactated Ringer's (Lactated Ringer's) 1,000 mls @ 75 mls/hr IV .[id number] COUNTS INCLUDE 234 BEDS AT THE [facility] Metolazone (Zaroxolyn) 2.5 mg PO QOD6 COUNTS INCLUDE 234 BEDS AT [facility] Last Admin: 12/23/18 17:38 Dose: 2.5 mg Metoprolol Succinate (Toprol Xl) 100 mg PO DAILY COUNTS INCLUDE 234 BEDS AT [facility] Last Admin: 12/23/18 09:18 Dose: 100 mg Rosuvastatin Calcium (Crestor) 5 mg PO HS COUNTS INCLUDE 234 BEDS AT [facility] Last Admin: 12/23/18 21:04 Dose: 5 mg Results - Vital Signs Recent Vital Signs: Last Vital Signs Temp 97 F L 12/24/18 14:30 Pulse 69 12/24/18 16:20 Resp 11 L 12/24/18 16:20 BP 135/44 L 12/24/18 16:00 Pulse Ox 94 L 12/24/18 16:20 - Labs Result Diagrams: 12/24/18 10:08 12/22/18 07:53 Labs: Laboratory Results - last 24 hr 12/23/18 12/23/18 12/23/18 07:52 11:12 21:36 WBC RBC Hgb Hct MCV MCH MCHC RDW Plt Count MPV Puncture Site pCO2 pO2 HCO3 ABG pH ABG Total CO2 ABG O2 Saturation ABG Base Excess Ruperto Test ABG Potassium Sodium Chloride Glucose Lactate POC Glucose (mg/dL) 168 H 118 H Arterial Blood Potassium Blood Type O NEGATIVE Antibody Screen Negative 12/24/18 12/24/18 10:08 10:09 WBC 10.1 RBC 3.06 L Hgb 9.6 L Hct 28.7 L MCV 93.6 D MCH 31.3 H MCHC 33.4 RDW 16.1 H Plt Count 236 MPV 8.1 Puncture Site Or pCO2 39 pO2 213 H HCO3 21.6 ABG pH 7.34 L ABG Total CO2 22.2 ABG O2 Saturation 97.5 ABG Base Excess -4.4 L Ruperto Test Na ABG Potassium 3.6 Sodium 137.0 Chloride 107.0 Glucose 94 Lactate 1.0 POC Glucose (mg/dL) Arterial Blood Potassium 3.6 Blood Type Antibody Screen Attending/Attestation - Attestation I have personally seen and examined this patient.: Yes I have fully participated in the care of the patient.: Yes I have reviewed all pertinent clinical information: Yes
[2018-12-24] MEDS: Lactated Ringer's 1,000 ML IV SCH (16:47)
[2018-12-24] MEDS: ceFAZolin IV 2 gm in Dextrose 2 GM/50 ML BAG IVPB SCH (17:23)
--- NOTE | 2018-12-24 20:06 | CP.PCM.PN ---
Subjective - Date & Time of Evaluation Date of Evaluation: 12/24/18 - Subjective Subjective: patient seen and examined no nausea no vomiting no fever no dizziness no shortness of breath no chest pain no diarrhea Objective - Vital Signs/Intake and Output Vital Signs (last 24 hours): Temp Pulse Resp BP Pulse Ox 97.7 F 72 14 131/44 L 96 12/24/18 17:00 12/24/18 18:20 12/24/18 18:20 12/24/18 18:00 12/24/18 18:20 Intake and Output: 12/24/18 12/25/18 18:59 06:59 Intake Total 2200 75 Output Total 320 35 Balance 1880 40 - Medications Medications: Current Medications Acetaminophen (Tylenol 325mg Tab) 650 mg PO Q6 PRN PRN Reason: MILD PAIN 1-3 Acetylcysteine (Acetylcysteine 20%) 4 ml INH RQ6 [facility] Last Admin: 12/24/18 13:03 Dose: Not Given Albuterol/Ipratropium (Duoneb 3 Mg/0.5 Mg (3 Ml) Ud) 3 ml INH RQ6 [facility] Last Admin: 12/24/18 13:03 Dose: Not Given Amiodarone HCl (Cordarone) 200 mg PO DAILY [facility] Last Admin: 12/23/18 09:18 Dose: 200 mg Amlodipine Besylate (Norvasc) 10 mg PO DAILY [facility] Last Admin: 12/23/18 09:19 Dose: 10 mg Apixaban (Eliquis) 2.5 mg PO DAILY [facility] Arformoterol Tartrate (Brovana) 15 mcg IH RQ24 [facility] Last Admin: 12/24/18 08:10 Dose: Not Given Aspirin (Aspirin Chewable) 81 mg PO DAILY [facility] Last Admin: 12/21/18 10:03 Dose: 81 mg Budesonide (Pulmicort Respules) 0.5 mg INH RQ12 [facility] Last Admin: 12/24/18 08:11 Dose: Not Given Clonidine HCl (Catapres) 0.1 mg PO BID [facility] Last Admin: 12/24/18 17:24 Dose: 0.1 mg Clopidogrel Bisulfate (Plavix) 75 mg PO DAILY [facility] Docusate Sodium (Colace) 100 mg PO BID [facility] Last Admin: 12/24/18 17:24 Dose: 100 mg Enoxaparin Sodium (Lovenox) 30 mg SC Q24H [facility] Famotidine (Pepcid) 20 mg PO DAILY [facility] Glimepiride (Amaryl) 1 mg PO ACB [facility] Last Admin: 12/23/18 08:30 Dose: 1 mg Guaifenesin (Robitussin) 200 mg PO Q4H PRN PRN Reason: Cough and congestion Last Admin: 12/22/18 13:44 Dose: 200 mg Cefazolin Sodium/Dextrose (Ancef Iv 2 Gm Duplex) 2 gm in 50 mls @ 100 mls/hr IVPB Q8H [facility]; Protocol Stop: 12/25/18 17:01 Last Admin: 12/24/18 17:23 Dose: 100 mls/hr Lactated Ringer's (Lactated Ringer's) 1,000 mls @ 75 mls/hr IV .[id number] [facility] Last Admin: 12/24/18 16:47 Dose: 75 mls/hr Metolazone (Zaroxolyn) 2.5 mg PO QOD6 [facility] Last Admin: 12/23/18 17:38 Dose: 2.5 mg Metoprolol Succinate (Toprol Xl) 100 mg PO DAILY [facility] Last Admin: 12/23/18 09:18 Dose: 100 mg Rosuvastatin Calcium (Crestor) 5 mg PO HS [facility] Last Admin: 12/23/18 21:04 Dose: 5 mg - Labs Labs: 12/24/18 10:08 12/22/18 07:53 PT 12.3 SECONDS (9.7-12.2) H 12/23/18 07:52 INR 1.1 12/23/18 07:52 APTT 28 SECONDS (21-34) 12/23/18 07:52 - Constitutional Appears: Well - Head Exam Head Exam: ATRAUMATIC, NORMAL INSPECTION, NORMOCEPHALIC - Eye Exam Eye Exam: EOMI, Normal appearance, PERRL Pupil Exam: NORMAL ACCOMODATION, PERRL - ENT Exam ENT Exam: Mucous Membranes Moist, Normal Exam - Neck Exam Neck Exam: Full ROM, Normal Inspection. absent: Lymphadenopathy - Respiratory Exam Respiratory Exam: Decreased Breath Sounds - Cardiovascular Exam Cardiovascular Exam: REGULAR RHYTHM, +S1, +S2 - GI/Abdominal Exam GI & Abdominal Exam: Soft, Diminished Bowel Sounds - Rectal Exam Rectal Exam: Deferred - Neurological Exam Neurological Exam: Oriented x3 Assessment and Plan - Assessment and Plan (Free Text) Plan: amaryl aspirin chewable hold brovana catapress colace cordarone crestor eliquis hold morphine norvasc plavix hold procrit respules sodium chloride toprol xl zaroxolyn medications reviewed labs reviewed vitals reviewed
[2018-12-25] MEDS: ceFAZolin IV 2 gm in Dextrose 2 GM/50 ML BAG IVPB SCH ×3 (00:13→16:46)
[2018-12-25] MEDS: Albuterol-Ipratrop 3 mg / 0.5 (3 ml) UD INH SCH ×4 (02:17→19:38)
[2018-12-25] MEDS: Acetylcysteine 20% Inhal Soln (4ml) INH SCH ×4 (02:17→19:38)
[2018-12-25] MEDS: Lactated Ringer's 1,000 ML IV SCH ×2 (05:53→18:05)
[2018-12-25] MEDS ORDERED: Oxycodone/Acetaminophen 5/325 mg Tab PO STA (06:13)
[2018-12-25 06:17] LABS: NRBC % 0.1 % (0.0-2.0); RBC 2.78 Mil/uL (4.40-5.90)
[2018-12-25 06:20] LABS: HEMOGLOBIN 8.5 g/dL (12.0-18.0); LYMPH # 0.4 K/uL (1.0-4.3); LYMPH % 2.9 % (20.0-40.0); MEAN CELL VOLUME 94.4 fL (80.0-94.0); MEAN CORPUSCULAR HEMOGLOBIN 30.7 pg (27.0-31.0); MEAN CORPUSCULAR HGB CONC 32.5 g/dL (33.0-37.0); MEAN PLATELET VOLUME 8.6 fL (7.2-11.7); MONO # 1.2 K/uL (0.0-0.8); MONO % 9.7 % (0.0-10.0); NEUT # 10.7 K/uL (1.8-7.0); NEUT % 87.4 % (50.0-75.0); PLATELET COUNT 198 K/uL (130-400); RED CELL DISTRIBUTION WIDTH 16.1 % (11.5-14.5); WHITE BLOOD COUNT 12.2 K/uL (4.8-10.8)
[2018-12-25 06:29] LABS: ALB/GLOB RATIO 1.1 (1.0-2.1); ALBUMIN 2.4 g/dL (3.5-5.0); CALCIUM 8.7 mg/dl (8.6-10.4)
[2018-12-25] MEDS: Arformoterol 15 mcg/2 ml Inh Sol IH SCH (07:37)
[2018-12-25] MEDS: Budesonide 0.5 mg/2 ml Inhal Susp UD INH SCH ×2 (07:38→19:38)
[2018-12-25 08:42] LABS: BANDS 5 % (0-2); LYMPHOCYTE 2 % (20-40); MONOCYTE 11 % (0-10); NEUTROPHIL 82 % (50-75); TOTAL CELLS COUNTED 100
[2018-12-25 08:43] LABS: PLATELET ESTIMATE NORMAL (NORMAL)
[2018-12-25 08:45] LABS: ANISOCYTOSIS SLIGHT
--- NOTE | 2018-12-25 09:46 | CP.PCM.PN ---
Subjective - Date & Time of Evaluation Date of Evaluation: 12/25/18 Time of Evaluation: 09:42 - Subjective Subjective: Patient states he is feeling better today. Just received pain medication. When discussing starting PT today, patient becomes argumentative and says he refuses therapy and that they killed his , and says he wants to go home. Attempted multiple times to explain to patient that he needs PT today while in hospital to be able to walk prior to being safely discharged home, but patient again refusing. Objective - Vital Signs/Intake and Output Vital Signs (last 24 hours): Temp Pulse Resp BP Pulse Ox 97.8 F 84 25 H 94/53 L 100 12/25/18 04:00 12/25/18 08:00 12/25/18 08:00 12/25/18 08:00 12/25/18 08:00 Intake and Output: 12/25/18 12/25/18 06:59 18:59 Intake Total 1025 175 Output Total 735 0 Balance 290 175 - Medications Medications: Current Medications Acetaminophen (Tylenol 325mg Tab) 650 mg PO Q6 PRN PRN Reason: MILD PAIN 1-3 Last Admin: 12/25/18 01:41 Dose: 650 mg Acetylcysteine (Acetylcysteine 20%) 4 ml INH RQ6 [facility] Last Admin: 12/25/18 07:37 Dose: 4 ml Albuterol/Ipratropium (Duoneb 3 Mg/0.5 Mg (3 Ml) Ud) 3 ml INH RQ6 [facility] Last Admin: 12/25/18 07:38 Dose: 3 ml Amiodarone HCl (Cordarone) 200 mg PO DAILY [facility] Last Admin: 12/23/18 09:18 Dose: 200 mg Amlodipine Besylate (Norvasc) 10 mg PO DAILY [facility] Last Admin: 12/23/18 09:19 Dose: 10 mg Apixaban (Eliquis) 2.5 mg PO DAILY [facility] Arformoterol Tartrate (Brovana) 15 mcg IH RQ24 [facility] Last Admin: 12/25/18 07:37 Dose: Not Given Aspirin (Aspirin Chewable) 81 mg PO DAILY [facility] Last Admin: 12/21/18 10:03 Dose: 81 mg Budesonide (Pulmicort Respules) 0.5 mg INH RQ12 [facility] Last Admin: 12/25/18 07:38 Dose: 0.5 mg Clonidine HCl (Catapres) 0.1 mg PO BID [facility] Last Admin: 12/24/18 17:24 Dose: 0.1 mg Clopidogrel Bisulfate (Plavix) 75 mg PO DAILY [facility] Docusate Sodium (Colace) 100 mg PO BID [facility] Last Admin: 12/24/18 17:24 Dose: 100 mg Enoxaparin Sodium (Lovenox) 30 mg SC Q24H [facility] Famotidine (Pepcid) 20 mg PO DAILY [facility] Glimepiride (Amaryl) 1 mg PO ACB [facility] Last Admin: 12/25/18 07:42 Dose: 1 mg Guaifenesin (Robitussin) 200 mg PO Q4H PRN PRN Reason: Cough and congestion Last Admin: 12/22/18 13:44 Dose: 200 mg Cefazolin Sodium/Dextrose (Ancef Iv 2 Gm Duplex) 2 gm in 50 mls @ 100 mls/hr IVPB Q8H [facility]; Protocol Stop: 12/25/18 17:01 Last Admin: 12/25/18 08:09 Dose: 100 mls/hr Lactated Ringer's (Lactated Ringer's) 1,000 mls @ 75 mls/hr IV .[id number] [facility] Last Admin: 12/25/18 05:53 Dose: 75 mls/hr Metolazone (Zaroxolyn) 2.5 mg PO QOD6 [facility] Last Admin: 12/23/18 17:38 Dose: 2.5 mg Metoprolol Succinate (Toprol Xl) 100 mg PO DAILY [facility] Last Admin: 12/23/18 09:18 Dose: 100 mg Rosuvastatin Calcium (Crestor) 5 mg PO HS [facility] Last Admin: 12/24/18 20:59 Dose: 5 mg - Labs Labs: 12/25/18 06:06 12/25/18 06:06 PT 12.3 SECONDS (9.7-12.2) H 12/23/18 07:52 INR 1.1 12/23/18 07:52 APTT 28 SECONDS (21-34) 12/23/18 07:52 - Extremities Exam Additional comments: LLE: +ROM ankle DF/PF, toes flexion/ext, thigh soft, no visible drainage, +DP/PT pulses calves soft NT neg homans Assessment and Plan (1) Closed displaced fracture of left femoral neck Assessment & Plan: POD#1 s/p left hemiarthroplasty -PT/OT VTE proph, per Dr. Russo resume plavix and aspirin, but wants lovenox instead of eliquis at this time -d/c planning, per Dr. Russo patient had agreed to TCU placement but refused SVETA due to prior experience with d/c saravia hgb 8.5, defer to medical team d/w Dr. Russo, agrees with above Status: Acute (2) Anemia Status: Acute
[2018-12-25] MEDS: Metoprolol Succinate 100 mg XL Tab PO SCH (09:54)
--- NOTE | 2018-12-25 10:46 | CP.PCM.PN ---
Subjective - Date & Time of Evaluation Date of Evaluation: 12/25/18 Time of Evaluation: 10:45 - Subjective Subjective: POD #1 L. hip surgery Awake, alert took few steps with PT VSS, no fevers NSR Objective - Vital Signs/Intake and Output Vital Signs (last 24 hours): Temp Pulse Resp BP Pulse Ox 97.8 F 80 25 H 110/50 L 97 12/25/18 04:00 12/25/18 10:00 12/25/18 10:00 12/25/18 09:44 12/25/18 10:00 Intake and Output: 12/25/18 12/25/18 06:59 18:59 Intake Total 1025 550 Output Total 735 0 Balance 290 550 - Medications Medications: Current Medications Acetaminophen (Tylenol 325mg Tab) 650 mg PO Q6 PRN PRN Reason: MILD PAIN 1-3 Last Admin: 12/25/18 01:41 Dose: 650 mg Acetylcysteine (Acetylcysteine 20%) 4 ml INH RQ6 [facility] Last Admin: 12/25/18 07:37 Dose: 4 ml Albuterol/Ipratropium (Duoneb 3 Mg/0.5 Mg (3 Ml) Ud) 3 ml INH RQ6 [facility] Last Admin: 12/25/18 07:38 Dose: 3 ml Amiodarone HCl (Cordarone) 200 mg PO DAILY [facility] Last Admin: 12/25/18 09:52 Dose: 200 mg Amlodipine Besylate (Norvasc) 10 mg PO DAILY [facility] Last Admin: 12/25/18 09:52 Dose: 10 mg Apixaban (Eliquis) 2.5 mg PO DAILY [facility] Arformoterol Tartrate (Brovana) 15 mcg IH RQ24 [facility] Last Admin: 12/25/18 07:37 Dose: Not Given Aspirin (Aspirin Chewable) 81 mg PO DAILY [facility] Last Admin: 12/21/18 10:03 Dose: 81 mg Budesonide (Pulmicort Respules) 0.5 mg INH RQ12 [facility] Last Admin: 12/25/18 07:38 Dose: 0.5 mg Clonidine HCl (Catapres) 0.1 mg PO BID [facility] Last Admin: 12/24/18 17:24 Dose: 0.1 mg Clopidogrel Bisulfate (Plavix) 75 mg PO DAILY [facility] Docusate Sodium (Colace) 100 mg PO BID [facility] Last Admin: 12/25/18 09:52 Dose: 100 mg Enoxaparin Sodium (Lovenox) 30 mg SC Q24H [facility] Famotidine (Pepcid) 20 mg PO DAILY [facility] Last Admin: 12/25/18 09:52 Dose: 20 mg Glimepiride (Amaryl) 1 mg PO ACB [facility] Last Admin: 12/25/18 07:42 Dose: 1 mg Guaifenesin (Robitussin) 200 mg PO Q4H PRN PRN Reason: Cough and congestion Last Admin: 12/22/18 13:44 Dose: 200 mg Cefazolin Sodium/Dextrose (Ancef Iv 2 Gm Duplex) 2 gm in 50 mls @ 100 mls/hr IVPB Q8H [facility]; Protocol Stop: 12/25/18 17:01 Last Admin: 12/25/18 08:09 Dose: 100 mls/hr Lactated Ringer's (Lactated Ringer's) 1,000 mls @ 75 mls/hr IV .[id number] [facility] Last Admin: 12/25/18 05:53 Dose: 75 mls/hr Metolazone (Zaroxolyn) 2.5 mg PO QOD6 [facility] Last Admin: 12/23/18 17:38 Dose: 2.5 mg Metoprolol Succinate (Toprol Xl) 100 mg PO DAILY [facility] Last Admin: 12/25/18 09:54 Dose: 100 mg Rosuvastatin Calcium (Crestor) 5 mg PO HS [facility] Last Admin: 12/24/18 20:59 Dose: 5 mg - Labs Labs: 12/25/18 06:06 12/25/18 06:06 PT 12.3 SECONDS (9.7-12.2) H 12/23/18 07:52 INR 1.1 12/23/18 07:52 APTT 28 SECONDS (21-34) 12/23/18 07:52 - Constitutional Appears: No Acute Distress - Head Exam Head Exam: ATRAUMATIC, NORMAL INSPECTION, NORMOCEPHALIC - Eye Exam Eye Exam: EOMI, Normal appearance - ENT Exam ENT Exam: Mucous Membranes Moist, Normal Oropharynx - Respiratory Exam Respiratory Exam: Clear to Ausculation Bilateral, NORMAL BREATHING PATTERN. absent: Rhonchi, Wheezes - Cardiovascular Exam Cardiovascular Exam: REGULAR RHYTHM, +S1, +S2. absent: JVD (L. AICD), Murmur - GI/Abdominal Exam GI & Abdominal Exam: Soft. absent: Tenderness - Extremities Exam Extremities Exam: Normal Inspection, Pedal Edema (trace). absent: Calf Tenderness - Neurological Exam Neurological Exam: Alert, Awake, Oriented x3 - Skin Skin Exam: Normal Color, Warm Assessment and Plan - Assessment and Plan (Free Text) Assessment: 88 y/o CAD/CABG/stents (? last was ~1 year ago details not known) AFIB on AC AICD-PPM Moderate to severe systolic HF chronic by prior eco 2018 Presents for mechanical fall and fracture L. hip/femur * Repeat echo done this admission: EF ~35% visually, calculated 41% BIPLANE, mild LVH, mild-mod LAE, mild-mod MR/TR, PASP 50mmHg, compliant IVC, Grade 1 DD with inc LAP. Which represents no change from prior baseline. 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 Continue RX for Chronic CHF - Losartan 50 - toprol xl 100 - torsemide/metolazone to maintain euvolemia Cont Rx for chronic CAD/CABG/PCI - dapt and statin Cont Rx for AFIB stroke prevention and rhythm control - eliquis - amiodarone Additional BP Rx - clonidine and amlodipine as needed I have reviewed most recent cath 12/2017: suggesting MANDY to SVG-DIAG graft: > Severe [place] 3 vessel CAD was also present > There was no comment on patency of other grafts > Given >12 months of DAPT: Ok to temp hold for surgery > Currently there is no active angina or worsening of CHF sx's and recent echo showed no interval worsening from prior > Volume status is appropraite patient is on triple therapy with DAPT and NOAC: - monitor closely for GI bleeding. Alternate: if PCI >6 months ago then suggest ASA and eliquis as his chronic Rx. Patient now POD#1 s/p left hemiarthroplasty No cardiac complication noted Hgb 8.5 noted monitor closely Creat 2.8: monitor lytes, Mg Agree with PT DVT prophylaxis Resume NOAC for P. AFIB and antiplatelets for CAD?CABG when appropriate: if age and fall r or GI risk and > 1 year post PCI consider 1 antiplatelet to reduce effects of triple therapy. 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
--- NOTE | 2018-12-25 13:20 | CP.PCM.PN ---
Subjective - Date & Time of Evaluation Date of Evaluation: 12/25/18 - Subjective Subjective: patient examined today no dizziness no nausea no fever no diarrhea no shortness of breath no dizziness Objective - Vital Signs/Intake and Output Vital Signs (last 24 hours): Temp Pulse Resp BP Pulse Ox 97.8 F 96 H 19 124/50 L 99 12/25/18 04:00 12/25/18 12:00 12/25/18 12:00 12/25/18 11:51 12/25/18 11:00 Intake and Output: 12/25/18 12/25/18 06:59 18:59 Intake Total 1025 625 Output Total 735 0 Balance 290 625 - Medications Medications: Current Medications Acetaminophen (Tylenol 325mg Tab) 650 mg PO Q6 PRN PRN Reason: MILD PAIN 1-3 Last Admin: 12/25/18 01:41 Dose: 650 mg Acetylcysteine (Acetylcysteine 20%) 4 ml INH RQ6 [facility] Last Admin: 12/25/18 13:04 Dose: 4 ml Albuterol/Ipratropium (Duoneb 3 Mg/0.5 Mg (3 Ml) Ud) 3 ml INH RQ6 [facility] Last Admin: 12/25/18 13:04 Dose: 3 ml Amiodarone HCl (Cordarone) 200 mg PO DAILY [facility] Last Admin: 12/25/18 09:52 Dose: 200 mg Amlodipine Besylate (Norvasc) 10 mg PO DAILY [facility] Last Admin: 12/25/18 09:52 Dose: 10 mg Apixaban (Eliquis) 2.5 mg PO DAILY [facility] Arformoterol Tartrate (Brovana) 15 mcg IH RQ24 [facility] Last Admin: 12/25/18 07:37 Dose: Not Given Aspirin (Aspirin Chewable) 81 mg PO DAILY [facility] Last Admin: 12/21/18 10:03 Dose: 81 mg Budesonide (Pulmicort Respules) 0.5 mg INH RQ12 [facility] Last Admin: 12/25/18 07:38 Dose: 0.5 mg Clonidine HCl (Catapres) 0.1 mg PO BID [facility] Last Admin: 12/25/18 10:57 Dose: 0.1 mg Clopidogrel Bisulfate (Plavix) 75 mg PO DAILY [facility] Docusate Sodium (Colace) 100 mg PO BID [facility] Last Admin: 12/25/18 09:52 Dose: 100 mg Enoxaparin Sodium (Lovenox) 30 mg SC Q24H [facility] Famotidine (Pepcid) 20 mg PO DAILY [facility] Last Admin: 12/25/18 09:52 Dose: 20 mg Glimepiride (Amaryl) 1 mg PO ACB [facility] Last Admin: 12/25/18 07:42 Dose: 1 mg Guaifenesin (Robitussin) 200 mg PO Q4H PRN PRN Reason: Cough and congestion Last Admin: 12/22/18 13:44 Dose: 200 mg Cefazolin Sodium/Dextrose (Ancef Iv 2 Gm Duplex) 2 gm in 50 mls @ 100 mls/hr I VPB Q8H [facility]; Protocol Stop: 12/25/18 17:01 Last Admin: 12/25/18 08:09 Dose: 100 mls/hr Lactated Ringer's (Lactated Ringer's) 1,000 mls @ 75 mls/hr IV .[id number] [facility] Last Admin: 12/25/18 05:53 Dose: 75 mls/hr Insulin Human Regular (Novolin R) 0 unit SC ACHS [facility]; Protocol Metolazone (Zaroxolyn) 2.5 mg PO QOD6 [facility] Last Admin: 12/23/18 17:38 Dose: 2.5 mg Metoprolol Succinate (Toprol Xl) 100 mg PO DAILY [facility] Last Admin: 12/25/18 09:54 Dose: 100 mg Rosuvastatin Calcium (Crestor) 5 mg PO HS [facility] Last Admin: 12/24/18 20:59 Dose: 5 mg - Labs Labs: 12/25/18 06:06 12/25/18 06:06 PT 12.3 SECONDS (9.7-12.2) H 12/23/18 07:52 INR 1.1 12/23/18 07:52 APTT 28 SECONDS (21-34) 12/23/18 07:52 - Constitutional Appears: Well - Head Exam Head Exam: ATRAUMATIC, NORMAL INSPECTION, NORMOCEPHALIC - Eye Exam Eye Exam: EOMI, Normal appearance, PERRL Pupil Exam: NORMAL ACCOMODATION, PERRL - ENT Exam ENT Exam: Mucous Membranes Moist, Normal Exam - Neck Exam Neck Exam: Full ROM, Normal Inspection. absent: Lymphadenopathy - Respiratory Exam Respiratory Exam: Decreased Breath Sounds - Cardiovascular Exam Cardiovascular Exam: REGULAR RHYTHM, +S1, +S2 - GI/Abdominal Exam GI & Abdominal Exam: Soft, Diminished Bowel Sounds - Rectal Exam Rectal Exam: Deferred - Neurological Exam Neurological Exam: Oriented x3 Assessment and Plan - Assessment and Plan (Free Text) Plan: amaryl aspirin chewable hold brovana catapress colace cordarone crestor eliquis hold morphine norvasc plavix hold procrit respules sodium chloride toprol xl zaroxolyn medications reviewed labs reviewed vitals reviewed
[2018-12-25] MEDS: (Novolin R) Insulin Human Regular 100 units/ml vial SC SCH ×3 (13:36→21:14)
[2018-12-25] MEDS: Enoxaparin 30 mg Syringe SC SCH (14:48)
[2018-12-25] MEDS: metOLazone 2.5 MG TAB PO SCH (17:08)
--- NOTE | 2018-12-25 22:59 | CP.PCM.PN ---
Subjective - Date & Time of Evaluation Date of Evaluation: 12/24/18 Time of Evaluation: 20:00 - Subjective Subjective: Tolerated surgery well with no hemostatic events Objective - Vital Signs/Intake and Output Vital Signs (last 24 hours): Temp Pulse Resp BP Pulse Ox 98.6 F 71 17 115/70 100 12/25/18 16:00 12/25/18 20:00 12/25/18 20:00 12/25/18 17:59 12/25/18 20:00 Intake and Output: 12/25/18 12/26/18 18:59 06:59 Intake Total 1600 275 Output Total 450 Balance 1150 275 - Medications Medications: Current Medications Acetaminophen (Tylenol 325mg Tab) 650 mg PO Q6 PRN PRN Reason: MILD PAIN 1-3 Last Admin: 12/25/18 01:41 Dose: 650 mg Acetylcysteine (Acetylcysteine 20%) 4 ml INH RQ6 [facility] Last Admin: 12/25/18 19:38 Dose: 4 ml Albuterol/Ipratropium (Duoneb 3 Mg/0.5 Mg (3 Ml) Ud) 3 ml INH RQ6 [facility] Last Admin: 12/25/18 19:38 Dose: 3 ml Amiodarone HCl (Cordarone) 200 mg PO DAILY [facility] Last Admin: 12/25/18 09:52 Dose: 200 mg Amlodipine Besylate (Norvasc) 10 mg PO DAILY [facility] Last Admin: 12/25/18 09:52 Dose: 10 mg Apixaban (Eliquis) 2.5 mg PO DAILY [facility] Arformoterol Tartrate (Brovana) 15 mcg IH RQ24 [facility] Last Admin: 12/25/18 07:37 Dose: Not Given Aspirin (Aspirin Chewable) 81 mg PO DAILY [facility] Last Admin: 12/21/18 10:03 Dose: 81 mg Budesonide (Pulmicort Respules) 0.5 mg INH RQ12 [facility] Last Admin: 12/25/18 19:38 Dose: 0.5 mg Clonidine HCl (Catapres) 0.1 mg PO BID [facility] Last Admin: 12/25/18 18:05 Dose: 0.1 mg Clopidogrel Bisulfate (Plavix) 75 mg PO DAILY [facility] Docusate Sodium (Colace) 100 mg PO BID [facility] Last Admin: 12/25/18 17:07 Dose: 100 mg Enoxaparin Sodium (Lovenox) 30 mg SC Q24H [facility] Last Admin: 12/25/18 14:48 Dose: 30 mg Famotidine (Pepcid) 20 mg PO DAILY [facility] Last Admin: 12/25/18 09:52 Dose: 20 mg Glimepiride (Amaryl) 1 mg PO ACB [facility] Last Admin: 12/25/18 07:42 Dose: 1 mg Guaifenesin (Robitussin) 200 mg PO Q4H PRN PRN Reason: Cough and congestion Last Admin: 12/22/18 13:44 Dose: 200 mg Lactated Ringer's (Lactated Ringer's) 1,000 mls @ 75 mls/hr IV .[id number] [facility] Last Admin: 12/25/18 18:05 Dose: Not Given Insulin Human Regular (Novolin R) 0 unit SC ACHS [facility]; Protocol Last Admin: 12/25/18 21:14 Dose: Not Given Metolazone (Zaroxolyn) 2.5 mg PO QOD6 [facility] Last Admin: 12/25/18 17:08 Dose: 2.5 mg Metoprolol Succinate (Toprol Xl) 100 mg PO DAILY [facility] Last Admin: 12/25/18 09:54 Dose: 100 mg Rosuvastatin Calcium (Crestor) 5 mg PO HS [facility] Last Admin: 12/25/18 21:09 Dose: 5 mg - Labs Labs: 12/25/18 06:06 12/25/18 06:06 PT 12.3 SECONDS (9.7-12.2) H 12/23/18 07:52 INR 1.1 12/23/18 07:52 APTT 28 SECONDS (21-34) 12/23/18 07:52 - Head Exam Head Exam: ATRAUMATIC - Eye Exam Eye Exam: Normal appearance - ENT Exam ENT Exam: Mucous Membranes Dry - Respiratory Exam Respiratory Exam: NORMAL BREATHING PATTERN - Cardiovascular Exam Cardiovascular Exam: +S1, +S2 - GI/Abdominal Exam GI & Abdominal Exam: Normal Bowel Sounds Assessment and Plan (1) Anemia Assessment & Plan: anemia w/u sent surgical blood loss transfusion support PRN Status: Acute
--- NOTE | 2018-12-25 23:00 | CP.PCM.PN ---
Subjective - Date & Time of Evaluation Date of Evaluation: 12/25/18 Time of Evaluation: 20:00 - Subjective Subjective: Feeling better, less pain. Objective - Vital Signs/Intake and Output Vital Signs (last 24 hours): Temp Pulse Resp BP Pulse Ox 98.6 F 71 17 115/70 100 12/25/18 16:00 12/25/18 20:00 12/25/18 20:00 12/25/18 17:59 12/25/18 20:00 Intake and Output: 12/25/18 12/26/18 18:59 06:59 Intake Total 1600 275 Output Total 450 Balance 1150 275 - Medications Medications: Current Medications Acetaminophen (Tylenol 325mg Tab) 650 mg PO Q6 PRN PRN Reason: MILD PAIN 1-3 Last Admin: 12/25/18 01:41 Dose: 650 mg Acetylcysteine (Acetylcysteine 20%) 4 ml INH RQ6 [facility] Last Admin: 12/25/18 19:38 Dose: 4 ml Albuterol/Ipratropium (Duoneb 3 Mg/0.5 Mg (3 Ml) Ud) 3 ml INH RQ6 [facility] Last Admin: 12/25/18 19:38 Dose: 3 ml Amiodarone HCl (Cordarone) 200 mg PO DAILY [facility] Last Admin: 12/25/18 09:52 Dose: 200 mg Amlodipine Besylate (Norvasc) 10 mg PO DAILY [facility] Last Admin: 12/25/18 09:52 Dose: 10 mg Apixaban (Eliquis) 2.5 mg PO DAILY [facility] Arformoterol Tartrate (Brovana) 15 mcg IH RQ24 [facility] Last Admin: 12/25/18 07:37 Dose: Not Given Aspirin (Aspirin Chewable) 81 mg PO DAILY [facility] Last Admin: 12/21/18 10:03 Dose: 81 mg Budesonide (Pulmicort Respules) 0.5 mg INH RQ12 [facility] Last Admin: 12/25/18 19:38 Dose: 0.5 mg Clonidine HCl (Catapres) 0.1 mg PO BID [facility] Last Admin: 12/25/18 18:05 Dose: 0.1 mg Clopidogrel Bisulfate (Plavix) 75 mg PO DAILY [facility] Docusate Sodium (Colace) 100 mg PO BID [facility] Last Admin: 12/25/18 17:07 Dose: 100 mg Enoxaparin Sodium (Lovenox) 30 mg SC Q24H [facility] Last Admin: 12/25/18 14:48 Dose: 30 mg Famotidine (Pepcid) 20 mg PO DAILY [facility] Last Admin: 12/25/18 09:52 Dose: 20 mg Glimepiride (Amaryl) 1 mg PO ACB [facility] Last Admin: 12/25/18 07:42 Dose: 1 mg Guaifenesin (Robitussin) 200 mg PO Q4H PRN PRN Reason: Cough and congestion Last Admin: 12/22/18 13:44 Dose: 200 mg Lactated Ringer's (Lactated Ringer's) 1,000 mls @ 75 mls/hr IV .[id number] [facility] Last Admin: 12/25/18 18:05 Dose: Not Given Insulin Human Regular (Novolin R) 0 unit SC ACHS [facility]; Protocol Last Admin: 12/25/18 21:14 Dose: Not Given Metolazone (Zaroxolyn) 2.5 mg PO QOD6 [facility] Last Admin: 12/25/18 17:08 Dose: 2.5 mg Metoprolol Succinate (Toprol Xl) 100 mg PO DAILY [facility] Last Admin: 12/25/18 09:54 Dose: 100 mg Rosuvastatin Calcium (Crestor) 5 mg PO HS [facility] Last Admin: 12/25/18 21:09 Dose: 5 mg - Labs Labs: 12/25/18 06:06 12/25/18 06:06 PT 12.3 SECONDS (9.7-12.2) H 12/23/18 07:52 INR 1.1 12/23/18 07:52 APTT 28 SECONDS (21-34) 12/23/18 07:52 - Head Exam Head Exam: ATRAUMATIC - Eye Exam Eye Exam: Normal appearance - ENT Exam ENT Exam: Mucous Membranes Dry - Respiratory Exam Respiratory Exam: NORMAL BREATHING PATTERN - Cardiovascular Exam Cardiovascular Exam: +S1, +S2 - GI/Abdominal Exam GI & Abdominal Exam: Normal Bowel Sounds Assessment and Plan (1) Anemia Assessment & Plan: f/u anemia work up surgical blood loss transfusion support PRN Status: Acute
[2018-12-26] MEDS: Lactated Ringer's 1,000 ML IV SCH ×3 (00:09→18:51)
[2018-12-26] MEDS: Albuterol-Ipratrop 3 mg / 0.5 (3 ml) UD INH SCH ×4 (03:06→20:40)
[2018-12-26] MEDS: Acetylcysteine 20% Inhal Soln (4ml) INH SCH ×4 (03:06→20:39)
[2018-12-26 06:27] LABS: BASO % 0.2 % (0.0-2.0); EOS # 0.1 K/uL (0.0-0.7); EOS % 0.9 % (0.0-4.0); HEMOGLOBIN 8.1 g/dL (12.0-18.0); LYMPH # 0.5 K/uL (1.0-4.3); LYMPH % 4.5 % (20.0-40.0); MEAN CELL VOLUME 94.7 fL (80.0-94.0); MEAN CORPUSCULAR HEMOGLOBIN 31.3 pg (27.0-31.0); MEAN CORPUSCULAR HGB CONC 33.1 g/dL (33.0-37.0); MEAN PLATELET VOLUME 8.6 fL (7.2-11.7); MONO # 1.1 K/uL (0.0-0.8); MONO % 9.4 % (0.0-10.0); PLATELET COUNT 186 K/uL (130-400); RBC 2.59 Mil/uL (4.40-5.90); RED CELL DISTRIBUTION WIDTH 15.9 % (11.5-14.5); WHITE BLOOD COUNT 11.7 K/uL (4.8-10.8)
[2018-12-26 06:39] LABS: ALB/GLOB RATIO 1.2 (1.0-2.1); ALBUMIN 2.5 g/dL (3.5-5.0); CALCIUM 8.4 mg/dl (8.6-10.4)
[2018-12-26] MEDS ORDERED: Glucagon Recombinant 1 mg Inj IM PRN (06:45)
[2018-12-26] MEDS ORDERED: Dextrose 50% SYRINGE Inj (50 ml) IV PRN (06:45)
[2018-12-26] MEDS: Budesonide 0.5 mg/2 ml Inhal Susp UD INH SCH ×2 (07:25→20:39)
[2018-12-26] MEDS: Arformoterol 15 mcg/2 ml Inh Sol IH SCH (07:26)
[2018-12-26 07:38] LABS: FOLATE 13.7 ng/mL
[2018-12-26] MEDS: (Novolin R) Insulin Human Regular 100 units/ml vial SC SCH ×4 (08:01→21:32)
[2018-12-26 08:40] LABS: BANDS 2 % (0-2); LYMPHOCYTE 3 % (20-40); MONOCYTE 10 % (0-10); NEUTROPHIL 85 % (50-75); TOTAL CELLS COUNTED 100
[2018-12-26 08:41] LABS: ANISOCYTOSIS SLIGHT; PLATELET ESTIMATE NORMAL (NORMAL)
[2018-12-26] MEDS: Metoprolol Succinate 100 mg XL Tab PO SCH ×2 (09:27→09:35)
--- NOTE | 2018-12-26 10:12 | CP.PCM.PN ---
Subjective - Date & Time of Evaluation Date of Evaluation: 12/26/18 Time of Evaluation: 10:10 - Subjective Subjective: Patient says pain in his hip is tolerable, and says he hasn't been doing much. Denies CP/SOB/dizziness/numbness/tingling. Objective - Vital Signs/Intake and Output Vital Signs (last 24 hours): Temp Pulse Resp BP Pulse Ox 98.1 F 75 20 129/52 L 97 12/26/18 08:00 12/26/18 08:30 12/26/18 08:30 12/26/18 08:30 12/26/18 08:00 Intake and Output: 12/26/18 12/26/18 06:59 18:59 Intake Total 950 555 Output Total 850 Balance 100 555 - Medications Medications: Current Medications Acetaminophen (Tylenol 325mg Tab) 650 mg PO Q6 PRN PRN Reason: MILD PAIN 1-3 Last Admin: 12/25/18 01:41 Dose: 650 mg Acetylcysteine (Acetylcysteine 20%) 4 ml INH RQ6 [facility] Last Admin: 12/26/18 07:22 Dose: 4 ml Albuterol/Ipratropium (Duoneb 3 Mg/0.5 Mg (3 Ml) Ud) 3 ml INH RQ6 [facility] Last Admin: 12/26/18 07:25 Dose: 3 ml Amiodarone HCl (Cordarone) 200 mg PO DAILY [facility] Last Admin: 12/26/18 09:39 Dose: 200 mg Amlodipine Besylate (Norvasc) 10 mg PO DAILY [facility] Last Admin: 12/26/18 09:32 Dose: 10 mg Apixaban (Eliquis) 2.5 mg PO DAILY [facility] Arformoterol Tartrate (Brovana) 15 mcg IH RQ24 [facility] Last Admin: 12/26/18 07:26 Dose: Not Given Aspirin (Aspirin Chewable) 81 mg PO DAILY [facility] Last Admin: 12/26/18 09:24 Dose: 81 mg Budesonide (Pulmicort Respules) 0.5 mg INH RQ12 [facility] Last Admin: 12/26/18 07:25 Dose: 0.5 mg Clonidine HCl (Catapres) 0.1 mg PO BID [facility] Last Admin: 12/26/18 09:36 Dose: 0.1 mg Clopidogrel Bisulfate (Plavix) 75 mg PO DAILY [facility] Last Admin: 12/26/18 09:22 Dose: 75 mg Dextrose (Dextrose 50% Inj) 0 ml IV STAT PRN; Protocol PRN Reason: Hypoglycemia Protocol Dextrose (Glutose 15) 0 gm PO ONCE PRN; Protocol PRN Reason: Hypoglycemia Protocol Docusate Sodium (Colace) 100 mg PO BID [facility] Last Admin: 12/26/18 09:38 Dose: 100 mg Enoxaparin Sodium (Lovenox) 30 mg SC Q24H [facility] Last Admin: 12/25/18 14:48 Dose: 30 mg Famotidine (Pepcid) 20 mg PO DAILY [facility] Last Admin: 12/26/18 09:23 Dose: 20 mg Glimepiride (Amaryl) 1 mg PO ACB [facility] Last Admin: 12/26/18 07:58 Dose: Not Given Glucagon (Glucagen Diagnostic Kit) 0 mg IM STAT PRN; Protocol PRN Reason: Hypoglycemia Protocol Guaifenesin (Robitussin) 200 mg PO Q4H PRN PRN Reason: Cough and congestion Last Admin: 12/22/18 13:44 Dose: 200 mg Lactated Ringer's (Lactated Ringer's) 1,000 mls @ 75 mls/hr IV .[id number] [facility] Last Admin: 12/26/18 05:30 Dose: Not Given Dextrose (Dextrose 5% In Water 1000 Ml) 1,000 mls @ 0 mls/hr IV .Q0M PRN; Protocol PRN Reason: Hypoglycemia Protocol Insulin Human Regular (Novolin R) 0 unit SC ACHS [facility]; Protocol Last Admin: 12/26/18 08:01 Dose: Not Given Metolazone (Zaroxolyn) 2.5 mg PO QOD6 [facility] Last Admin: 12/25/18 17:08 Dose: 2.5 mg Metoprolol Succinate (Toprol Xl) 100 mg PO DAILY [facility] Last Admin: 12/26/18 09:35 Dose: 100 mg Rosuvastatin Calcium (Crestor) 5 mg PO HS [facility] Last Admin: 12/25/18 21:09 Dose: 5 mg - Labs Labs: 12/26/18 06:14 12/26/18 06:14 PT 12.3 SECONDS (9.7-12.2) H 12/23/18 07:52 INR 1.1 12/23/18 07:52 APTT 28 SECONDS (21-34) 12/23/18 07:52 - Extremities Exam Additional comments: Left hip: thigh expected swelling, +ROM ankle/toes, sensation intact +DP/PT pulses calves soft Nt neg homans, dressing intact no visible drainage Assessment and Plan (1) Closed displaced fracture of left femoral neck Assessment & Plan: POD#2 s/p left hip hemiarthroplasty -ortho stable -SW note appreciated, son trying to convince patient for SVETA -per Dr. Russo, patient had previously agreed to TCU (this is likely why patient believed he was staying for 10 days) -cont PT/OT -VTE proph, lovenox per Dr. Russo instead of eliquis at this time, plavix and aspirin restarted -WBC downtrending -monitor h/h, VSS -d/w Dr. Russo, agrees with above Status: Acute (2) Anemia Status: Acute
--- NOTE | 2018-12-26 13:24 | CP.PCM.PN ---
Subjective - Date & Time of Evaluation Date of Evaluation: 12/26/18 - Subjective Subjective: patient seen and examined at bedside no nausea no vomiting no dizziness no shortness of breath no diarrhea no fever Objective - Vital Signs/Intake and Output Vital Signs (last 24 hours): Temp Pulse Resp BP Pulse Ox 98.1 F 84 24 128/60 94 L 12/26/18 12:00 12/26/18 12:00 12/26/18 12:00 12/26/18 12:00 12/26/18 12:00 Intake and Output: 12/26/18 12/26/18 06:59 18:59 Intake Total 950 1575 Output Total 850 Balance 100 1575 - Medications Medications: Current Medications Acetaminophen (Tylenol 325mg Tab) 650 mg PO Q6 PRN PRN Reason: MILD PAIN 1-3 Last Admin: 12/25/18 01:41 Dose: 650 mg Acetylcysteine (Acetylcysteine 20%) 4 ml INH RQ6 [facility] Last Admin: 12/26/18 07:22 Dose: 4 ml Albuterol/Ipratropium (Duoneb 3 Mg/0.5 Mg (3 Ml) Ud) 3 ml INH RQ6 [facility] Last Admin: 12/26/18 07:25 Dose: 3 ml Amiodarone HCl (Cordarone) 200 mg PO DAILY [facility] Last Admin: 12/26/18 09:39 Dose: 200 mg Amlodipine Besylate (Norvasc) 10 mg PO DAILY [facility] Last Admin: 12/26/18 09:32 Dose: 10 mg Apixaban (Eliquis) 2.5 mg PO DAILY [facility] Arformoterol Tartrate (Brovana) 15 mcg IH RQ24 [facility] Last Admin: 12/26/18 07:26 Dose: Not Given Aspirin (Aspirin Chewable) 81 mg PO DAILY [facility] Last Admin: 12/26/18 09:24 Dose: 81 mg Budesonide (Pulmicort Respules) 0.5 mg INH RQ12 [facility] Last Admin: 12/26/18 07:25 Dose: 0.5 mg Clonidine HCl (Catapres) 0.1 mg PO BID [facility] Last Admin: 12/26/18 09:36 Dose: 0.1 mg Clopidogrel Bisulfate (Plavix) 75 mg PO DAILY [facility] Last Admin: 12/26/18 09:22 Dose: 75 mg Dextrose (Dextrose 50% Inj) 0 ml IV STAT PRN; Protocol PRN Reason: Hypoglycemia Protocol Dextrose (Glutose 15) 0 gm PO ONCE PRN; Protocol PRN Reason: Hypoglycemia Protocol Docusate Sodium (Colace) 100 mg PO BID [facility] Last Admin: 12/26/18 09:38 Dose: 100 mg Enoxaparin Sodium (Lovenox) 30 mg SC Q24H [facility] Last Admin: 12/25/18 14:48 Dose: 30 mg Famotidine (Pepcid) 20 mg PO DAILY [facility] Last Admin: 12/26/18 09:23 Dose: 20 mg Glimepiride (Amaryl) 1 mg PO ACB [facility] Last Admin: 12/26/18 07:58 Dose: Not Given Glucagon (Glucagen Diagnostic Kit) 0 mg IM STAT PRN; Protocol PRN Reason: Hypoglycemia Protocol Guaifenesin (Robitussin) 200 mg PO Q4H PRN PRN Reason: Cough and congestion Last Admin: 12/22/18 13:44 Dose: 200 mg Lactated Ringer's (Lactated Ringer's) 1,000 mls @ 75 mls/hr IV .[id number] [facility] Last Admin: 12/26/18 05:30 Dose: Not Given Dextrose (Dextrose 5% In Water 1000 Ml) 1,000 mls @ 0 mls/hr IV .Q0M PRN; Protocol PRN Reason: Hypoglycemia Protocol Insulin Human Regular (Novolin R) 0 unit SC ACHS [facility]; Protocol Last Admin: 12/26/18 11:55 Dose: Not Given Metolazone (Zaroxolyn) 2.5 mg PO QOD6 [facility] Last Admin: 12/25/18 17:08 Dose: 2.5 mg Metoprolol Succinate (Toprol Xl) 100 mg PO DAILY [facility] Last Admin: 12/26/18 09:35 Dose: 100 mg Rosuvastatin Calcium (Crestor) 5 mg PO HS [facility] Last Admin: 12/25/18 21:09 Dose: 5 mg - Labs Labs: 12/26/18 06:14 12/26/18 06:14 PT 12.3 SECONDS (9.7-12.2) H 12/23/18 07:52 INR 1.1 12/23/18 07:52 APTT 28 SECONDS (21-34) 12/23/18 07:52 - Constitutional Appears: Well - Head Exam Head Exam: ATRAUMATIC, NORMAL INSPECTION, NORMOCEPHALIC - Eye Exam Eye Exam: EOMI, Normal appearance, PERRL Pupil Exam: NORMAL ACCOMODATION, PERRL - ENT Exam ENT Exam: Mucous Membranes Moist, Normal Exam - Neck Exam Neck Exam: Full ROM, Normal Inspection. absent: Lymphadenopathy - Respiratory Exam Respiratory Exam: Decreased Breath Sounds - Cardiovascular Exam Cardiovascular Exam: REGULAR RHYTHM, +S1, +S2 - GI/Abdominal Exam GI & Abdominal Exam: Soft, Diminished Bowel Sounds - Rectal Exam Rectal Exam: Deferred - Neurological Exam Neurological Exam: Oriented x3 Assessment and Plan - Assessment and Plan (Free Text) Assessment: medications reviewed labs reviewed vitals reviewed acetylcysteine 20% amaryl aspirin brovana catapress colace cordarone crestor dextrose 50% inj dextrose 5% in water duoneb eliquis glucagen diagnostic kit glutose 15 lactated ringers lovenox norvasc novolin R pepcid plavix pulmicort respules robitussin toprol xl tylenol zaroxolyn Plan: medications reviewed labs reviewed vitals reviewed acetylcysteine 20% amaryl aspirin chewable brovana catapress colace cordarone crestor dextrose 50% inj eliquis ferrlecit glucagen diagnostic kit glutose 15 lovenox norvasc novolin R pepcid plavix pulmicort respules robitussin toprol xl tylenol 325mg tab zaroxolyn
[2018-12-26] MEDS: Enoxaparin 30 mg Syringe SC SCH (14:38)
[2018-12-26] MEDS ORDERED: Potassium Chloride 20 mEq ER Tab PO ONE (16:45)
[2018-12-26] MEDS ORDERED: Potassium Chloride 20 mEq ER Tab PO STA (18:55)
--- NOTE | 2018-12-26 18:57 | PQF ---
PROVIDER RESPONSE TEXT: Acute Blood Loss Anemia in the setting Left Hip Fracture, s/p left Hip Arthroplasty requiring Blood T ransfusion and H/H Monitoring. REVIEWER QUERY TEXT: Clarification of Clinical Diagnostic Findings Physician?s Documentation Request This Form is Not a Permanent Document in the Medical Record Pt Name: RADHA SUTTON MR #: [id number] Payor: MEDICARE PART A Unit/Bed: [id number]-[id number] Adm Date: 12/19/2018 10:44:00 PM Reviewer: Marion De La Cruz Ext. Query Date: 12/25/2018 4:47:49 PM Clarification of Clinical Diagnostic Findings [id number] By submitting this query, we are merely seeking further clarification of documentation to accurately reflect all conditions that you are monitoring, evaluating, treating or that extend the hospitalizati on or utilize additional resources of care. Please utilize your independent clinical judgment when ad dressing the question(s) below. Dear Doctor Marii Rodriguez, The patient?s Clinical Indicators include: Clinical Findings s/p fall, Drop in H/H from 10.4/31.5 , 8.5 /26.3 , post operative s/p Left Hip Ar throplasty Treatment : Blood Transfusion w/ PRBC, H/H Monitoring Risk factors: Fracture, Post Operative Blood Loss Please clarify documentation or clinical relevance for the clinical / diagnostic findings or whether those are insignificant or unable to be further specified. Acute Blood Loss Anemia in the setting Left Hip Fracture, s/p left Hip Arthroplasty requiring Blood Transfusion and H/H Monitoring. -Other Explanation. -Unable to Determine. PLEASE DOCUMENT ANY ADDITIONAL DIAGNOSES AND/OR SPECIFICITY IN THE PROGRESS NOTES AND/OR DISCHARGE [facility]. Clinically unable to determine/unknown Disagree with the above request Need to discuss Query created by: Marion De La Cruz on 12/25/2018 4:47 PM Electronically signed by: Marii Rodriguez ST 12/26/2018 6:54 PM
[2018-12-27] MEDS: Acetylcysteine 20% Inhal Soln (4ml) INH SCH ×4 (01:21→19:54)
[2018-12-27] MEDS: Lactated Ringer's 1,000 ML IV SCH (04:17)
[2018-12-27] MEDS: (Novolin R) Insulin Human Regular 100 units/ml vial SC SCH ×4 (07:30→22:12)
[2018-12-27 08:28] LABS: BASO % 0.2 % (0.0-2.0); EOS # 0.2 K/uL (0.0-0.7); EOS % 1.6 % (0.0-4.0); HEMOGLOBIN 8.4 g/dL (12.0-18.0); LYMPH # 0.5 K/uL (1.0-4.3); LYMPH % 4.5 % (20.0-40.0); MEAN CELL VOLUME 95.3 fL (80.0-94.0); MEAN CORPUSCULAR HEMOGLOBIN 31.4 pg (27.0-31.0); MEAN PLATELET VOLUME 9.2 fL (7.2-11.7); MONO # 1.1 K/uL (0.0-0.8); MONO % 10.3 % (0.0-10.0); NEUT # 8.9 K/uL (1.8-7.0); NEUT % 83.4 % (50.0-75.0); NRBC % 0.1 % (0.0-2.0); PLATELET COUNT 187 K/uL (130-400); RBC 2.68 Mil/uL (4.40-5.90); RED CELL DISTRIBUTION WIDTH 15.7 % (11.5-14.5); WHITE BLOOD COUNT 10.6 K/uL (4.8-10.8)
[2018-12-27] MEDS: Arformoterol 15 mcg/2 ml Inh Sol IH SCH (08:33)
[2018-12-27] MEDS: Albuterol-Ipratrop 3 mg / 0.5 (3 ml) UD INH SCH ×2 (08:33→13:33)
[2018-12-27 08:57] LABS: ALB/GLOB RATIO 1.1 (1.0-2.1); ALBUMIN 2.5 g/dL (3.5-5.0); CALCIUM 8.5 mg/dl (8.6-10.4)
[2018-12-27 09:36] LABS: EOSINOPHIL 1 % (0-4); LYMPHOCYTE 4 % (20-40); MONOCYTE 10 % (0-10); NEUTROPHIL 85 % (50-75); PLATELET ESTIMATE NORMAL (NORMAL); TOTAL CELLS COUNTED 100
[2018-12-27 09:37] LABS: ANISOCYTOSIS SLIGHT; HYPOCHROMIC SLIGHT; LARGE PLATELETS PRESENT; POLYCHROMIC SLIGHT
[2018-12-27 09:39] LABS: GIANT PLATELETS PRESENT; PLATELET CLUMPS PRESENT
[2018-12-27 09:40] LABS: TOXIC GRANULATION PRESENT
[2018-12-27] MEDS: Metoprolol Succinate 100 mg XL Tab PO SCH (09:50)
[2018-12-27] MEDS: Budesonide 0.5 mg/2 ml Inhal Susp UD INH SCH ×2 (13:33→19:54)
[2018-12-27] MEDS: Enoxaparin 30 mg Syringe SC SCH (14:42)
[2018-12-27] MEDS: metOLazone 2.5 MG TAB PO SCH (19:00)
--- NOTE | 2018-12-27 19:21 | CP.PCM.PN ---
Subjective - Date & Time of Evaluation Date of Evaluation: 12/27/18 - Subjective Subjective: patient examined at bediside today no nausea no vomiting no fever no dizziness no shortness of breath no diarrhea Objective - Vital Signs/Intake and Output Vital Signs (last 24 hours): Temp Pulse Resp BP Pulse Ox 99.0 F 80 20 113/54 L 100 12/27/18 16:16 12/27/18 16:16 12/27/18 16:16 12/27/18 16:16 12/27/18 16:16 Intake and Output: 12/27/18 12/28/18 18:59 06:59 Output Total 500 Balance -500 - Medications Medications: Current Medications Acetaminophen (Tylenol 325mg Tab) 650 mg PO Q6 PRN PRN Reason: MILD PAIN 1-3 Last Admin: 12/25/18 01:41 Dose: 650 mg Acetylcysteine (Acetylcysteine 20%) 4 ml INH RQ6 [facility] Last Admin: 12/27/18 13:33 Dose: 4 ml Amiodarone HCl (Cordarone) 200 mg PO DAILY [facility] Last Admin: 12/27/18 09:49 Dose: 200 mg Amlodipine Besylate (Norvasc) 10 mg PO DAILY [facility] Last Admin: 12/27/18 09:49 Dose: 10 mg Apixaban (Eliquis) 2.5 mg PO DAILY [facility] Arformoterol Tartrate (Brovana) 15 mcg IH RQ24 [facility] Last Admin: 12/27/18 08:33 Dose: 15 mcg Aspirin (Aspirin Chewable) 81 mg PO DAILY [facility] Last Admin: 12/27/18 09:48 Dose: 81 mg Budesonide (Pulmicort Respules) 0.5 mg INH RQ12 [facility] Last Admin: 12/27/18 13:33 Dose: Not Given Clonidine HCl (Catapres) 0.1 mg PO BID [facility] Last Admin: 12/27/18 09:48 Dose: 0.1 mg Clopidogrel Bisulfate (Plavix) 75 mg PO DAILY [facility] Last Admin: 12/27/18 09:50 Dose: 75 mg Dextrose (Dextrose 50% Inj) 0 ml IV STAT PRN; Protocol PRN Reason: Hypoglycemia Protocol Last Admin: 12/26/18 17:05 Dose: 50 ml Dextrose (Glutose 15) 0 gm PO ONCE PRN; Protocol PRN Reason: Hypoglycemia Protocol Docusate Sodium (Colace) 100 mg PO BID [facility] Last Admin: 12/27/18 09:49 Dose: 100 mg Enoxaparin Sodium (Lovenox) 30 mg SC Q24H [facility] Last Admin: 12/27/18 14:42 Dose: 30 mg Famotidine (Pepcid) 20 mg PO DAILY [facility] Last Admin: 12/27/18 09:50 Dose: 20 mg Glimepiride (Amaryl) 1 mg PO ACB [facility] Last Admin: 12/27/18 09:48 Dose: Not Given Glucagon (Glucagen Diagnostic Kit) 0 mg IM STAT PRN; Protocol PRN Reason: Hypoglycemia Protocol Guaifenesin (Robitussin) 200 mg PO Q4H PRN PRN Reason: Cough and congestion Last Admin: 12/22/18 13:44 Dose: 200 mg Dextrose (Dextrose 5% In Water 1000 Ml) 1,000 mls @ 0 mls/hr IV .Q0M PRN; Protocol PRN Reason: Hypoglycemia Protocol Insulin Human Regular (Novolin R) 0 unit SC ACHS [facility]; Protocol Last Admin: 12/27/18 12:00 Dose: 3 units Metolazone (Zaroxolyn) 2.5 mg PO QOD6 [facility] Last Admin: 12/25/18 17:08 Dose: 2.5 mg Metoprolol Succinate (Toprol Xl) 100 mg PO DAILY [facility] Last Admin: 12/27/18 09:50 Dose: 100 mg Rosuvastatin Calcium (Crestor) 5 mg PO HS [facility] Last Admin: 12/26/18 21:32 Dose: 5 mg - Labs Labs: 12/27/18 08:21 12/27/18 08:21 PT 12.3 SECONDS (9.7-12.2) H 12/23/18 07:52 INR 1.1 12/23/18 07:52 APTT 28 SECONDS (21-34) 12/23/18 07:52 - Constitutional Appears: Well - Head Exam Head Exam: ATRAUMATIC, NORMAL INSPECTION, NORMOCEPHALIC - Eye Exam Eye Exam: EOMI, Normal appearance, PERRL Pupil Exam: NORMAL ACCOMODATION, PERRL - ENT Exam ENT Exam: Mucous Membranes Moist, Normal Exam - Neck Exam Neck Exam: Full ROM, Normal Inspection. absent: Lymphadenopathy - Respiratory Exam Respiratory Exam: Decreased Breath Sounds - Cardiovascular Exam Cardiovascular Exam: REGULAR RHYTHM, +S1, +S2 - GI/Abdominal Exam GI & Abdominal Exam: Soft, Diminished Bowel Sounds - Rectal Exam Rectal Exam: Deferred - Neurological Exam Neurological Exam: Oriented x3 Assessment and Plan - Assessment and Plan (Free Text) Plan: labs reviewed vitals reviewed medications reviewed acetylcysteine 20% amaryl aspirin chewable brovana catapress colace cordarone crestor dextrose 50% inj eliquis ferrlecit glucagen diagnostic kit glutose 15 lovenox norvasc novolin R pepcid plavix pulmicort respules robitussin toprol xl tylenol 325mg tab zaroxolyn
[2018-12-28] MEDS: Acetylcysteine 20% Inhal Soln (4ml) INH SCH ×3 (01:11→20:11)
[2018-12-28] MEDS: (Novolin R) Insulin Human Regular 100 units/ml vial SC SCH ×5 (07:20→22:12)
[2018-12-28 07:45] LABS: BASO % 0.3 % (0.0-2.0); EOS # 0.1 K/uL (0.0-0.7); EOS % 1.4 % (0.0-4.0); HEMOGLOBIN 7.8 g/dL (12.0-18.0); LYMPH # 0.4 K/uL (1.0-4.3); MEAN CELL VOLUME 94.6 fL (80.0-94.0); MEAN CORPUSCULAR HEMOGLOBIN 31.4 pg (27.0-31.0); MEAN CORPUSCULAR HGB CONC 33.2 g/dL (33.0-37.0); MEAN PLATELET VOLUME 8.6 fL (7.2-11.7); MONO # 0.9 K/uL (0.0-0.8); MONO % 10.9 % (0.0-10.0); NEUT % 82.4 % (50.0-75.0); NRBC % 0.1 % (0.0-2.0); PLATELET COUNT 217 K/uL (130-400); RBC 2.49 Mil/uL (4.40-5.90); RED CELL DISTRIBUTION WIDTH 15.6 % (11.5-14.5); WHITE BLOOD COUNT 8.5 K/uL (4.8-10.8)
[2018-12-28 07:54] LABS: ALB/GLOB RATIO 1.2 (1.0-2.1); ALBUMIN 2.4 g/dL (3.5-5.0); CALCIUM 8.6 mg/dl (8.6-10.4)
[2018-12-28] MEDS: Arformoterol 15 mcg/2 ml Inh Sol IH SCH (08:04)
[2018-12-28] MEDS: Budesonide 0.5 mg/2 ml Inhal Susp UD INH SCH ×2 (08:05→20:10)
[2018-12-28] MEDS: Metoprolol Succinate 100 mg XL Tab PO SCH (09:35)
[2018-12-28 09:39] LABS: BANDS 2 % (0-2); EOSINOPHIL 2 % (0-4); LYMPHOCYTE 3 % (20-40); MONOCYTE 7 % (0-10); NEUTROPHIL 86 % (50-75); NUCLEATED RED BLOOD CELL 1 % (0-0); PLATELET ESTIMATE NORMAL (NORMAL); TOTAL CELLS COUNTED 100
[2018-12-28 09:40] LABS: ANISOCYTOSIS SLIGHT
[2018-12-28] MEDS: Lactated Ringer's 1,000 ML IV SCH (10:24)
[2018-12-28] MEDS: Enoxaparin 30 mg Syringe SC SCH (13:21)
--- NOTE | 2018-12-28 15:59 | CP.PCM.PN ---
Subjective - Date & Time of Evaluation Date of Evaluation: 12/28/18 - Subjective Subjective: patient seen today no nausea no vomiting no fever no dizziness no shortness of breath no diarrhea Objective - Vital Signs/Intake and Output Vital Signs (last 24 hours): Temp Pulse Resp BP Pulse Ox 98.1 F 76 20 121/63 96 12/28/18 07:00 12/28/18 12:26 12/28/18 07:00 12/28/18 07:00 12/28/18 07:00 Intake and Output: 12/28/18 12/28/18 06:59 18:59 Output Total 1400 Balance -1400 - Medications Medications: Current Medications Acetaminophen (Tylenol 325mg Tab) 650 mg PO Q6 PRN PRN Reason: MILD PAIN 1-3 Last Admin: 12/25/18 01:41 Dose: 650 mg Acetylcysteine (Acetylcysteine 20%) 4 ml INH RQ6 [facility] Last Admin: 12/28/18 08:04 Dose: Not Given Amiodarone HCl (Cordarone) 200 mg PO DAILY [facility] Last Admin: 12/28/18 09:34 Dose: 200 mg Amlodipine Besylate (Norvasc) 10 mg PO DAILY [facility] Last Admin: 12/28/18 09:35 Dose: 10 mg Apixaban (Eliquis) 2.5 mg PO DAILY [facility] Arformoterol Tartrate (Brovana) 15 mcg IH RQ24 [facility] Last Admin: 12/28/18 08:04 Dose: 15 mcg Aspirin (Aspirin Chewable) 81 mg PO DAILY [facility] Last Admin: 12/28/18 09:35 Dose: 81 mg Budesonide (Pulmicort Respules) 0.5 mg INH RQ12 [facility] Last Admin: 12/28/18 08:05 Dose: 0.5 mg Clonidine HCl (Catapres) 0.1 mg PO BID [facility] Last Admin: 12/28/18 09:35 Dose: 0.1 mg Clopidogrel Bisulfate (Plavix) 75 mg PO DAILY [facility] Last Admin: 12/28/18 09:34 Dose: 75 mg Dextrose (Dextrose 50% Inj) 0 ml IV STAT PRN; Protocol PRN Reason: Hypoglycemia Protocol Last Admin: 12/26/18 17:05 Dose: 50 ml Dextrose (Glutose 15) 0 gm PO ONCE PRN; Protocol PRN Reason: Hypoglycemia Protocol Docusate Sodium (Colace) 100 mg PO BID [facility] Last Admin: 12/28/18 09:35 Dose: 100 mg Enoxaparin Sodium (Lovenox) 30 mg SC Q24H [facility] Last Admin: 12/28/18 13:21 Dose: 30 mg Famotidine (Pepcid) 20 mg PO DAILY [facility] Last Admin: 12/28/18 09:35 Dose: 20 mg Glimepiride (Amaryl) 1 mg PO ACB [facility] Last Admin: 12/28/18 07:50 Dose: 1 mg Glucagon (Glucagen Diagnostic Kit) 0 mg IM STAT PRN; Protocol PRN Reason: Hypoglycemia Protocol Guaifenesin (Robitussin) 200 mg PO Q4H PRN PRN Reason: Cough and congestion Last Admin: 12/22/18 13:44 Dose: 200 mg Dextrose (Dextrose 5% In Water 1000 Ml) 1,000 mls @ 0 mls/hr IV .Q0M PRN; Protocol PRN Reason: Hypoglycemia Protocol Insulin Human Regular (Novolin R) 0 unit SC ACHS [facility]; Protocol Last Admin: 12/28/18 12:21 Dose: Not Given Metolazone (Zaroxolyn) 2.5 mg PO QOD6 [facility] Last Admin: 12/27/18 19:00 Dose: Not Given Metoprolol Succinate (Toprol Xl) 100 mg PO DAILY [facility] Last Admin: 12/28/18 09:35 Dose: 100 mg Rosuvastatin Calcium (Crestor) 5 mg PO HS [facility] Last Admin: 12/27/18 22:12 Dose: Not Given - Labs Labs: 12/28/18 07:26 12/28/18 07:26 PT 12.3 SECONDS (9.7-12.2) H 12/23/18 07:52 INR 1.1 12/23/18 07:52 APTT 28 SECONDS (21-34) 12/23/18 07:52 - Constitutional Appears: Well - Head Exam Head Exam: ATRAUMATIC, NORMAL INSPECTION, NORMOCEPHALIC - Eye Exam Eye Exam: EOMI, Normal appearance, PERRL Pupil Exam: NORMAL ACCOMODATION, PERRL - ENT Exam ENT Exam: Mucous Membranes Moist, Normal Exam - Neck Exam Neck Exam: Full ROM, Normal Inspection. absent: Lymphadenopathy - Respiratory Exam Respiratory Exam: Decreased Breath Sounds - Cardiovascular Exam Cardiovascular Exam: REGULAR RHYTHM, +S1, +S2 - GI/Abdominal Exam GI & Abdominal Exam: Soft, Diminished Bowel Sounds - Rectal Exam Rectal Exam: Deferred - Neurological Exam Neurological Exam: Oriented x3 Assessment and Plan - Assessment and Plan (Free Text) Plan: medications reviewed labs reviewed vitals reviewed acetylcysteine 20% amaryl aspirin chewable brovana catapress colace cordarone crestor dextrose 50% inj eliquis ferrlecit glucagen diagnostic kit glutose 15 lovenox norvasc novolin R pepcid plavix pulmicort respules robitussin toprol xl tylenol 325mg tab zaroxolyn
[2018-12-29] MEDS: Lactated Ringer's 1,000 ML IV SCH (00:52)
[2018-12-29] MEDS: Acetylcysteine 20% Inhal Soln (4ml) INH SCH ×4 (01:27→19:33)
[2018-12-29 07:07] LABS: BASO % 0.3 % (0.0-2.0); EOS # 0.2 K/uL (0.0-0.7); EOS % 2.3 % (0.0-4.0); HEMOGLOBIN 7.5 g/dL (12.0-18.0); LYMPH # 0.5 K/uL (1.0-4.3); LYMPH % 5.9 % (20.0-40.0); MEAN CELL VOLUME 95.1 fL (80.0-94.0); MEAN CORPUSCULAR HEMOGLOBIN 30.9 pg (27.0-31.0); MEAN CORPUSCULAR HGB CONC 32.5 g/dL (33.0-37.0); MEAN PLATELET VOLUME 8.4 fL (7.2-11.7); MONO % 11.2 % (0.0-10.0); NEUT % 80.3 % (50.0-75.0); NRBC % 0.1 % (0.0-2.0); PLATELET COUNT 253 K/uL (130-400); RBC 2.43 Mil/uL (4.40-5.90); RED CELL DISTRIBUTION WIDTH 15.6 % (11.5-14.5); WHITE BLOOD COUNT 8.7 K/uL (4.8-10.8)
[2018-12-29] MEDS: Budesonide 0.5 mg/2 ml Inhal Susp UD INH SCH ×2 (07:32→19:33)
[2018-12-29] MEDS: Arformoterol 15 mcg/2 ml Inh Sol IH SCH (07:32)
[2018-12-29] MEDS: (Novolin R) Insulin Human Regular 100 units/ml vial SC SCH ×4 (07:34→21:38)
[2018-12-29 07:47] LABS: ALB/GLOB RATIO 1.2 (1.0-2.1); ALBUMIN 2.5 g/dL (3.5-5.0); CALCIUM 8.5 mg/dl (8.6-10.4)
--- NOTE | 2018-12-29 09:05 | CP.PCM.PN ---
Subjective - Date & Time of Evaluation Date of Evaluation: 12/29/18 Time of Evaluation: 09:01 - Subjective Subjective: Medicine Progress Note for Dr. Rodriguez 88 year old male with history of CAD s/p CABG and stents, CHF, AFIB, s/p pacemaker/defibrillator placement, HTN, COPD, DM, enlarged prostate, and CKD who presents for post-op mechanical fall at home. Patient was found to have femoral neck fracture on imaging Patient denied loss of consciousness or injuring his head during fall. Patient is s/p left hip hemiarthroplastys POD# 5. Patient complains of fatigue and no appetite. Per nursing staff, patient is found to be confused at times. Patient has been drinking but not eating as much. Otherwise he denies fever, chills, shortness of breath, chest pain, nausea, vomiting, or diarrhea. Objective - Vital Signs/Intake and Output Vital Signs (last 24 hours): Temp Pulse Resp BP Pulse Ox 98.6 F 80 20 120/68 94 L 12/29/18 07:00 12/29/18 07:00 12/29/18 07:00 12/29/18 07:00 12/29/18 07:00 Intake and Output: 12/29/18 12/29/18 06:59 18:59 Intake Total 700 Output Total 500 Balance 200 - Medications Medications: Current Medications Acetaminophen (Tylenol 325mg Tab) 650 mg PO Q6 PRN PRN Reason: MILD PAIN 1-3 Last Admin: 12/25/18 01:41 Dose: 650 mg Acetylcysteine (Acetylcysteine 20%) 4 ml INH RQ6 [facility] Last Admin: 12/29/18 07:32 Dose: 4 ml Amiodarone HCl (Cordarone) 200 mg PO DAILY [facility] Last Admin: 12/28/18 09:34 Dose: 200 mg Amlodipine Besylate (Norvasc) 10 mg PO DAILY [facility] Last Admin: 12/28/18 09:35 Dose: 10 mg Apixaban (Eliquis) 2.5 mg PO DAILY [facility] Arformoterol Tartrate (Brovana) 15 mcg IH RQ24 [facility] Last Admin: 12/29/18 07:32 Dose: 15 mcg Aspirin (Aspirin Chewable) 81 mg PO DAILY [facility] Last Admin: 12/28/18 09:35 Dose: 81 mg Budesonide (Pulmicort Respules) 0.5 mg INH RQ12 [facility] Last Admin: 12/29/18 07:32 Dose: 0.5 mg Clonidine HCl (Catapres) 0.1 mg PO BID [facility] Last Admin: 12/28/18 19:00 Dose: 0.1 mg Clopidogrel Bisulfate (Plavix) 75 mg PO DAILY [facility] Last Admin: 12/28/18 09:34 Dose: 75 mg Dextrose (Dextrose 50% Inj) 0 ml IV STAT PRN; Protocol PRN Reason: Hypoglycemia Protocol Last Admin: 12/26/18 17:05 Dose: 50 ml Dextrose (Glutose 15) 0 gm PO ONCE PRN; Protocol PRN Reason: Hypoglycemia Protocol Docusate Sodium (Colace) 100 mg PO BID [facility] Last Admin: 12/28/18 19:00 Dose: 100 mg Enoxaparin Sodium (Lovenox) 30 mg SC Q24H [facility] Last Admin: 12/28/18 13:21 Dose: 30 mg Famotidine (Pepcid) 20 mg PO DAILY [facility] Last Admin: 12/28/18 09:35 Dose: 20 mg Glimepiride (Amaryl) 1 mg PO ACB [facility] Last Admin: 12/29/18 07:52 Dose: 1 mg Glucagon (Glucagen Diagnostic Kit) 0 mg IM STAT PRN; Protocol PRN Reason: Hypoglycemia Protocol Guaifenesin (Robitussin) 200 mg PO Q4H PRN PRN Reason: Cough and congestion Last Admin: 12/22/18 13:44 Dose: 200 mg Insulin Human Regular (Novolin R) 0 unit SC ACHS [facility]; Protocol Last Admin: 12/29/18 07:34 Dose: Not Given Metolazone (Zaroxolyn) 2.5 mg PO QOD6 [facility] Last Admin: 12/27/18 19:00 Dose: Not Given Metoprolol Succinate (Toprol Xl) 100 mg PO DAILY [facility] Last Admin: 12/28/18 09:35 Dose: 100 mg Rosuvastatin Calcium (Crestor) 5 mg PO HS [facility] Last Admin: 12/28/18 22:07 Dose: 5 mg - Labs Labs: 12/29/18 06:54 12/29/18 06:54 PT 12.3 SECONDS (9.7-12.2) H 12/23/18 07:52 INR 1.1 12/23/18 07:52 APTT 28 SECONDS (21-34) 12/23/18 07:52 - Constitutional Appears: No Acute Distress - Head Exam Head Exam: ATRAUMATIC, NORMOCEPHALIC - Eye Exam Eye Exam: EOMI, Normal appearance - Neck Exam Neck Exam: Full ROM - Respiratory Exam Respiratory Exam: Clear to Ausculation Bilateral, NORMAL BREATHING PATTERN. absent: Wheezes, Respiratory Distress - Cardiovascular Exam Cardiovascular Exam: REGULAR RHYTHM, +S1, +S2. absent: Murmur - GI/Abdominal Exam GI & Abdominal Exam: Soft, Normal Bowel Sounds - Extremities Exam Additional comments: mild left hip swell, pulses and sensation intact - Neurological Exam Neurological Exam: Alert, Awake - Psychiatric Exam Psychiatric exam: Normal Affect, Normal Mood - Skin Skin Exam: Dry, Warm Assessment and Plan - Assessment and Plan (Free Text) Assessment: Left femur neck fracture -s/p left hip hemiarthroplastys POD# 5 -Follow ortho recommendations -Lovenox instead of Eliquis for VTE -Continue PT and OT Anemia -Heme/onc consulted, Dr. Diehl help appreciated -S/P 1 PRBC transfusion -Hgb 7.5 today, 1u PRBC ordered -Follow up anemia workup -Follow up CBC CAD -Crestor 5mg po HS -Toprol XL to Lopressor 25mg po BID -continue ASA 81mg and plavix 75mg po daily Afib -continue ASA 81mg and plavix 75mg po daily Systolic CHF -Echo from 12/22/18 shows EF of 35% -Metolazone 2.5mg po QOD6 HTN Norvasc 5mg po daily Clonidine .1mg po BID Toprol XL 100mg po DM accuchecks q6h insulin sliding scale Glimepiride 1mg po COPD -Budesonide .5mg inh q12h -Arformoterol 12mcg IH Prophylaxis -Pepcid -Lovenox -SCD Case discussed with Dr. Rodriguez All management per Dr. Rodriguez
[2018-12-29 09:16] LABS: ANISOCYTOSIS SLIGHT; EOSINOPHIL 2 % (0-4); LYMPHOCYTE 5 % (20-40); MONOCYTE 13 % (0-10); NEUTROPHIL 80 % (50-75); PLATELET ESTIMATE NORMAL (NORMAL); POIKILOCYTOSIS SLIGHT; TOTAL CELLS COUNTED 100
[2018-12-29 09:17] LABS: HYPOCHROMIC MODERATE; TARGET CELLS SLIGHT; TEARDROP CELLS SLIGHT
[2018-12-29] MEDS: Metoprolol Succinate 100 mg XL Tab PO SCH (09:24)
[2018-12-29] MEDS: Ferric Sodium Gluconat Complex 62.5 mg/5 ml Vial IVPB SCH (11:00)
--- NOTE | 2018-12-29 11:38 | CP.PCM.PN ---
Subjective - Date & Time of Evaluation Date of Evaluation: 12/29/18 Time of Evaluation: 11:00 - Subjective Subjective: Patient seen and examined at bedside. Patient alert but not answering cues appropriately. Nurse reports confusion for past 3 days. Anemic over weekend. Objective - Vital Signs/Intake and Output Vital Signs (last 24 hours): Temp Pulse Resp BP Pulse Ox 98.6 F 80 20 120/68 94 L 12/29/18 07:00 12/29/18 07:00 12/29/18 07:00 12/29/18 07:00 12/29/18 07:00 Intake and Output: 12/29/18 12/29/18 06:59 18:59 Intake Total 700 Output Total 500 Balance 200 - Medications Medications: Current Medications Acetaminophen (Tylenol 325mg Tab) 650 mg PO Q6 PRN PRN Reason: MILD PAIN 1-3 Last Admin: 12/25/18 01:41 Dose: 650 mg Acetylcysteine (Acetylcysteine 20%) 4 ml INH RQ6 [facility] Last Admin: 12/29/18 07:32 Dose: 4 ml Amiodarone HCl (Cordarone) 200 mg PO DAILY [facility] Last Admin: 12/29/18 09:23 Dose: 200 mg Amlodipine Besylate (Norvasc) 10 mg PO DAILY [facility] Last Admin: 12/29/18 09:24 Dose: 10 mg Apixaban (Eliquis) 2.5 mg PO DAILY [facility] Arformoterol Tartrate (Brovana) 15 mcg IH RQ24 [facility] Last Admin: 12/29/18 07:32 Dose: 15 mcg Aspirin (Aspirin Chewable) 81 mg PO DAILY [facility] Last Admin: 12/29/18 09:23 Dose: 81 mg Budesonide (Pulmicort Respules) 0.5 mg INH RQ12 [facility] Last Admin: 12/29/18 07:32 Dose: 0.5 mg Clonidine HCl (Catapres) 0.1 mg PO BID [facility] Last Admin: 12/29/18 09:24 Dose: 0.1 mg Clopidogrel Bisulfate (Plavix) 75 mg PO DAILY [facility] Last Admin: 12/29/18 09:23 Dose: 75 mg Dextrose (Dextrose 50% Inj) 0 ml IV STAT PRN; Protocol PRN Reason: Hypoglycemia Protocol Last Admin: 12/26/18 17:05 Dose: 50 ml Dextrose (Glutose 15) 0 gm PO ONCE PRN; Protocol PRN Reason: Hypoglycemia Protocol Docusate Sodium (Colace) 100 mg PO BID [facility] Last Admin: 12/29/18 09:23 Dose: 100 mg Enoxaparin Sodium (Lovenox) 30 mg SC Q24H [facility] Last Admin: 12/28/18 13:21 Dose: 30 mg Famotidine (Pepcid) 20 mg PO DAILY [facility] Last Admin: 12/29/18 09:23 Dose: 20 mg Ferric Sodium Gluconate Complex (Ferrlecit) 125 mg IVPB DAILY [facility] Stop: 01/06/19 10:01 Glimepiride (Amaryl) 1 mg PO ACB [facility] Last Admin: 12/29/18 07:52 Dose: 1 mg Glucagon (Glucagen Diagnostic Kit) 0 mg IM STAT PRN; Protocol PRN Reason: Hypoglycemia Protocol Guaifenesin (Robitussin) 200 mg PO Q4H PRN PRN Reason: Cough and congestion Last Admin: 12/22/18 13:44 Dose: 200 mg Insulin Human Regular (Novolin R) 0 unit SC ACHS [facility]; Protocol Last Admin: 12/29/18 07:34 Dose: Not Given Metolazone (Zaroxolyn) 2.5 mg PO QOD6 [facility] Last Admin: 12/27/18 19:00 Dose: Not Given Metoprolol Succinate (Toprol Xl) 100 mg PO DAILY [facility] Last Admin: 12/29/18 09:24 Dose: 100 mg Rosuvastatin Calcium (Crestor) 5 mg PO HS [facility] Last Admin: 12/28/18 22:07 Dose: 5 mg - Labs Labs: 12/29/18 06:54 12/29/18 06:54 PT 12.3 SECONDS (9.7-12.2) H 12/23/18 07:52 INR 1.1 12/23/18 07:52 APTT 28 SECONDS (21-34) 12/23/18 07:52 - Extremities Exam Additional comments: L Hip: Dressings CDI Incision CDI with bin mild swelling unable to assess sensation and motor due to confusion pedal pulse intact calves soft NT b/l Assessment and Plan (1) Closed displaced fracture of left femoral neck Assessment & Plan: POD#5 s/p L hip hemiarthroplasty -Blood transfusion as per medicine -Dressings changed -PT/OT -DVT ppx -d/c planning to [facility] once medically stable -d/w Dr. Terrell Calderón who agrees with above Status: Acute
[2018-12-29] MEDS: Enoxaparin 30 mg Syringe SC SCH (14:08)
[2018-12-29] MEDS: metOLazone 2.5 MG TAB PO SCH (18:33)
--- NOTE | 2018-12-29 20:17 | CP.PCM.PN ---
Subjective - Date & Time of Evaluation Date of Evaluation: 12/29/18 - Subjective Subjective: patient examined today, no nausea, no vomiting, no diarrhea, no dizziness, no shortness of dizziness, no fever. Objective - Vital Signs/Intake and Output Vital Signs (last 24 hours): Temp Pulse Resp BP Pulse Ox 97.2 F L 69 20 129/68 100 12/29/18 17:10 12/29/18 17:10 12/29/18 17:10 12/29/18 17:10 12/29/18 16:00 Intake and Output: 12/29/18 12/30/18 18:59 06:59 Intake Total 1000 Output Total 550 Balance 450 - Medications Medications: Current Medications Acetaminophen (Tylenol 325mg Tab) 650 mg PO Q6 PRN PRN Reason: MILD PAIN 1-3 Last Admin: 12/25/18 01:41 Dose: 650 mg Acetylcysteine (Acetylcysteine 20%) 4 ml INH RQ6 [facility] Last Admin: 12/29/18 19:33 Dose: 4 ml Amiodarone HCl (Cordarone) 200 mg PO DAILY [facility] Last Admin: 12/29/18 09:23 Dose: 200 mg Amlodipine Besylate (Norvasc) 10 mg PO DAILY [facility] Last Admin: 12/29/18 09:24 Dose: 10 mg Apixaban (Eliquis) 2.5 mg PO DAILY [facility] Arformoterol Tartrate (Brovana) 15 mcg IH RQ24 [facility] Last Admin: 12/29/18 07:32 Dose: 15 mcg Aspirin (Aspirin Chewable) 81 mg PO DAILY [facility] Last Admin: 12/29/18 09:23 Dose: 81 mg Budesonide (Pulmicort Respules) 0.5 mg INH RQ12 [facility] Last Admin: 12/29/18 19:33 Dose: 0.5 mg Clonidine HCl (Catapres) 0.1 mg PO BID [facility] Last Admin: 12/29/18 18:32 Dose: 0.1 mg Clopidogrel Bisulfate (Plavix) 75 mg PO DAILY [facility] Last Admin: 12/29/18 09:23 Dose: 75 mg Dextrose (Dextrose 50% Inj) 0 ml IV STAT PRN; Protocol PRN Reason: Hypoglycemia Protocol Last Admin: 12/26/18 17:05 Dose: 50 ml Dextrose (Glutose 15) 0 gm PO ONCE PRN; Protocol PRN Reason: Hypoglycemia Protocol Docusate Sodium (Colace) 100 mg PO BID [facility] Last Admin: 12/29/18 18:31 Dose: 100 mg Enoxaparin Sodium (Lovenox) 30 mg SC Q24H [facility] Last Admin: 12/29/18 14:08 Dose: 30 mg Famotidine (Pepcid) 20 mg PO DAILY [facility] Last Admin: 12/29/18 09:23 Dose: 20 mg Ferric Sodium Gluconate Complex (Ferrlecit) 125 mg IVPB DAILY [facility] Stop: 01/06/19 10:01 Last Admin: 12/29/18 11:00 Dose: Not Given Glimepiride (Amaryl) 1 mg PO ACB [facility] Last Admin: 12/29/18 07:52 Dose: 1 mg Glucagon (Glucagen Diagnostic Kit) 0 mg IM STAT PRN; Protocol PRN Reason: Hypoglycemia Protocol Guaifenesin (Robitussin) 200 mg PO Q4H PRN PRN Reason: Cough and congestion Last Admin: 12/22/18 13:44 Dose: 200 mg Insulin Human Regular (Novolin R) 0 unit SC [facility]; Protocol Last Admin: 12/29/18 17:12 Dose: Not Given Metolazone (Zaroxolyn) 2.5 mg PO QOD6 [facility] Last Admin: 12/29/18 18:33 Dose: 2.5 mg Metoprolol Succinate (Toprol Xl) 100 mg PO DAILY [facility] Last Admin: 12/29/18 09:24 Dose: 100 mg Rosuvastatin Calcium (Crestor) 5 mg PO HS [facility] Last Admin: 12/28/18 22:07 Dose: 5 mg - Labs Labs: 12/29/18 06:54 12/29/18 06:54 PT 12.3 SECONDS (9.7-12.2) H 12/23/18 07:52 INR 1.1 12/23/18 07:52 APTT 28 SECONDS (21-34) 12/23/18 07:52 - Constitutional Appears: Well - Head Exam Head Exam: ATRAUMATIC, NORMAL INSPECTION, NORMOCEPHALIC - Eye Exam Eye Exam: EOMI, Normal appearance, PERRL Pupil Exam: NORMAL ACCOMODATION, PERRL - ENT Exam ENT Exam: Mucous Membranes Moist, Normal Exam - Neck Exam Neck Exam: Full ROM, Normal Inspection. absent: Lymphadenopathy - Respiratory Exam Respiratory Exam: Decreased Breath Sounds - Cardiovascular Exam Cardiovascular Exam: REGULAR RHYTHM, +S1, +S2 - GI/Abdominal Exam GI & Abdominal Exam: Soft, Diminished Bowel Sounds - Rectal Exam Rectal Exam: Deferred - Neurological Exam Neurological Exam: Oriented x3 Assessment and Plan - Assessment and Plan (Free Text) Plan: medications reviewed labs reviewed vitals reviewed acetylcysteine 20% amaryl aspirin chewable brovana catapress colace cordarone crestor dextrose 50% inj eliquis ferrlecit glucagen diagnostic kit glutose 15 lovenox norvasc novolin R pepcid plavix pulmicort respules robitussin toprol xl tylenol 325mg tab zaroxolyn awaiting for transfer to rehab s/p surgery monitor CBC CMP
[2018-12-30] MEDS: Acetylcysteine 20% Inhal Soln (4ml) INH SCH ×3 (01:18→20:08)
[2018-12-30 07:55] LABS: BASO # 0.1 K/uL (0.0-0.2); BASO % 0.6 % (0.0-2.0); EOS # 0.3 K/uL (0.0-0.7); EOS % 3.9 % (0.0-4.0); LYMPH # 0.6 K/uL (1.0-4.3); LYMPH % 7.1 % (20.0-40.0); MEAN CORPUSCULAR HEMOGLOBIN 31.4 pg (27.0-31.0); MEAN CORPUSCULAR HGB CONC 33.8 g/dL (33.0-37.0); MEAN PLATELET VOLUME 8.8 fL (7.2-11.7); MONO # 0.8 K/uL (0.0-0.8); MONO % 9.5 % (0.0-10.0); NEUT # 6.7 K/uL (1.8-7.0); NEUT % 78.9 % (50.0-75.0); NRBC % 0.2 % (0.0-2.0); PLATELET COUNT 277 K/uL (130-400); RBC 2.89 Mil/uL (4.40-5.90); WHITE BLOOD COUNT 8.6 K/uL (4.8-10.8)
[2018-12-30 07:56] LABS: CALCIUM 8.7 mg/dl (8.6-10.4)
[2018-12-30] MEDS: (Novolin R) Insulin Human Regular 100 units/ml vial SC SCH ×4 (07:59→21:48)
[2018-12-30 08:05] LABS: HEMOGLOBIN 9.1 g/dL (12.0-18.0)
[2018-12-30 08:06] LABS: MEAN CELL VOLUME 92.9 fL (80.0-94.0)
[2018-12-30] MEDS: Budesonide 0.5 mg/2 ml Inhal Susp UD INH SCH ×2 (08:23→20:07)
[2018-12-30] MEDS: Arformoterol 15 mcg/2 ml Inh Sol IH SCH (08:23)
--- NOTE | 2018-12-30 09:07 | CP.PCM.PN ---
Subjective - Date & Time of Evaluation Date of Evaluation: 12/30/18 Time of Evaluation: 09:04 - Subjective Subjective: Patient confused, says he can walk and wants to go home today. Reminded patient he needed max assist to sit up. Denies hip pain currently. Objective - Vital Signs/Intake and Output Vital Signs (last 24 hours): Temp Pulse Resp BP Pulse Ox 99.3 F 64 18 111/61 96 12/30/18 07:00 12/30/18 07:00 12/30/18 07:00 12/30/18 07:00 12/30/18 07:00 Intake and Output: 12/30/18 12/30/18 06:59 18:59 Intake Total 120 Output Total 900 Balance -780 - Medications Medications: Current Medications Acetaminophen (Tylenol 325mg Tab) 650 mg PO Q6 PRN PRN Reason: MILD PAIN 1-3 Last Admin: 12/25/18 01:41 Dose: 650 mg Acetylcysteine (Acetylcysteine 20%) 4 ml INH RQ6 [facility] Last Admin: 12/30/18 08:23 Dose: 4 ml Amiodarone HCl (Cordarone) 200 mg PO DAILY [facility] Last Admin: 12/29/18 09:23 Dose: 200 mg Amlodipine Besylate (Norvasc) 10 mg PO DAILY [facility] Last Admin: 12/29/18 09:24 Dose: 10 mg Apixaban (Eliquis) 2.5 mg PO DAILY [facility] Arformoterol Tartrate (Brovana) 15 mcg IH RQ24 [facility] Last Admin: 12/30/18 08:23 Dose: 15 mcg Aspirin (Aspirin Chewable) 81 mg PO DAILY [facility] Last Admin: 12/29/18 09:23 Dose: 81 mg Budesonide (Pulmicort Respules) 0.5 mg INH RQ12 [facility] Last Admin: 12/30/18 08:23 Dose: 0.5 mg Clonidine HCl (Catapres) 0.1 mg PO BID [facility] Last Admin: 12/29/18 18:32 Dose: 0.1 mg Clopidogrel Bisulfate (Plavix) 75 mg PO DAILY [facility] Last Admin: 12/29/18 09:23 Dose: 75 mg Dextrose (Dextrose 50% Inj) 0 ml IV STAT PRN; Protocol PRN Reason: Hypoglycemia Protocol Last Admin: 12/26/18 17:05 Dose: 50 ml Dextrose (Glutose 15) 0 gm PO ONCE PRN; Protocol PRN Reason: Hypoglycemia Protocol Docusate Sodium (Colace) 100 mg PO BID [facility] Last Admin: 12/29/18 18:31 Dose: 100 mg Enoxaparin Sodium (Lovenox) 30 mg SC Q24H [facility] Last Admin: 12/29/18 14:08 Dose: 30 mg Famotidine (Pepcid) 20 mg PO DAILY [facility] Last Admin: 12/29/18 09:23 Dose: 20 mg Ferric Sodium Gluconate Complex (Ferrlecit) 125 mg IVPB DAILY [facility] Stop: 01/06/19 10:01 Last Admin: 12/29/18 11:00 Dose: Not Given Glimepiride (Amaryl) 1 mg PO ACB [facility] Last Admin: 12/30/18 08:26 Dose: 1 mg Glucagon (Glucagen Diagnostic Kit) 0 mg IM STAT PRN; Protocol PRN Reason: Hypoglycemia Protocol Guaifenesin (Robitussin) 200 mg PO Q4H PRN PRN Reason: Cough and congestion Last Admin: 12/22/18 13:44 Dose: 200 mg Insulin Human Regular (Novolin R) 0 unit SC ACHS [facility]; Protocol Last Admin: 12/30/18 07:59 Dose: Not Given Metolazone (Zaroxolyn) 2.5 mg PO QOD6 [facility] Last Admin: 12/29/18 18:33 Dose: 2.5 mg Metoprolol Succinate (Toprol Xl) 100 mg PO DAILY [facility] Last Admin: 12/29/18 09:24 Dose: 100 mg Rosuvastatin Calcium (Crestor) 5 mg PO HS [facility] Last Admin: 12/29/18 21:37 Dose: 5 mg - Labs Labs: 12/30/18 07:12 12/30/18 07:12 PT 12.3 SECONDS (9.7-12.2) H 12/23/18 07:52 INR 1.1 12/23/18 07:52 APTT 28 SECONDS (21-34) 12/23/18 07:52 - Extremities Exam Additional comments: Left Hip: dressing intact, dry, no visible erythema. +ARGUETA ankle/toes, sensation intact +Dp/PT pulses calves soft NT neg homans Assessment and Plan (1) Closed displaced fracture of left femoral neck Assessment & Plan: POD#6 s/p left hip hemiarthroplasty recommend SVETA, reinforced to patient VTE proph PT/OT, notes appreciated d/w Dr. Russo, agrees with above Status: Acute (2) Acute blood loss anemia Assessment & Plan: s/p 1uPRBC yesterday, hgb 9.1, monitor Status: Acute
[2018-12-30 09:52] LABS: ANISOCYTOSIS SLIGHT; BANDS 1 % (0-2); EOSINOPHIL 6 % (0-4); HYPOCHROMIC SLIGHT; LYMPHOCYTE 9 % (20-40); MONOCYTE 3 % (0-10); NEUTROPHIL 81 % (50-75); PLATELET ESTIMATE NORMAL (NORMAL); POIKILOCYTOSIS SLIGHT; TOTAL CELLS COUNTED 100
[2018-12-30 09:53] LABS: TARGET CELLS SLIGHT; TEARDROP CELLS SLIGHT
[2018-12-30] MEDS: Metoprolol Succinate 100 mg XL Tab PO SCH (11:03)
[2018-12-30] MEDS: Ferric Sodium Gluconat Complex 62.5 mg/5 ml Vial IVPB SCH (11:05)
[2018-12-30] MEDS: Enoxaparin 30 mg Syringe SC SCH (13:14)
--- NOTE | 2018-12-30 17:07 | CP.PCM.PN ---
Subjective - Date & Time of Evaluation Date of Evaluation: 12/30/18 Time of Evaluation: 17:07 Objective - Vital Signs/Intake and Output Vital Signs (last 24 hours): Temp Pulse Resp BP Pulse Ox 99.3 F 64 18 111/61 96 12/30/18 07:00 12/30/18 07:00 12/30/18 07:00 12/30/18 07:00 12/30/18 07:00 Intake and Output: 12/30/18 12/30/18 06:59 18:59 Intake Total 120 Output Total 900 300 Balance -780 -300 - Medications Medications: Current Medications Acetaminophen (Tylenol 325mg Tab) 650 mg PO Q6 PRN PRN Reason: MILD PAIN 1-3 Last Admin: 12/25/18 01:41 Dose: 650 mg Acetylcysteine (Acetylcysteine 20%) 4 ml INH RQ6 [facility] Last Admin: 12/30/18 08:23 Dose: 4 ml Amiodarone HCl (Cordarone) 200 mg PO DAILY [facility] Last Admin: 12/30/18 11:04 Dose: 200 mg Amlodipine Besylate (Norvasc) 10 mg PO DAILY [facility] Last Admin: 12/30/18 11:05 Dose: 10 mg Apixaban (Eliquis) 2.5 mg PO DAILY [facility] Arformoterol Tartrate (Brovana) 15 mcg IH RQ24 [facility] Last Admin: 12/30/18 08:23 Dose: 15 mcg Aspirin (Aspirin Chewable) 81 mg PO DAILY [facility] Last Admin: 12/30/18 11:04 Dose: 81 mg Budesonide (Pulmicort Respules) 0.5 mg INH RQ12 [facility] Last Admin: 12/30/18 08:23 Dose: 0.5 mg Clonidine HCl (Catapres) 0.1 mg PO BID [facility] Last Admin: 12/30/18 11:04 Dose: 0.1 mg Clopidogrel Bisulfate (Plavix) 75 mg PO DAILY [facility] Last Admin: 12/30/18 11:03 Dose: 75 mg Dextrose (Dextrose 50% Inj) 0 ml IV STAT PRN; Protocol PRN Reason: Hypoglycemia Protocol Last Admin: 12/26/18 17:05 Dose: 50 ml Dextrose (Glutose 15) 0 gm PO ONCE PRN; Protocol PRN Reason: Hypoglycemia Protocol Docusate Sodium (Colace) 100 mg PO BID [facility] Last Admin: 12/30/18 11:04 Dose: 100 mg Enoxaparin Sodium (Lovenox) 30 mg SC Q24H [facility] Last Admin: 12/30/18 13:14 Dose: 30 mg Famotidine (Pepcid) 20 mg PO DAILY [facility] Last Admin: 12/30/18 11:05 Dose: 20 mg Ferric Sodium Gluconate Complex (Ferrlecit) 125 mg IVPB DAILY [facility] Stop: 01/06/19 10:01 Last Admin: 12/30/18 11:05 Dose: 125 mg Glimepiride (Amaryl) 1 mg PO ACB [facility] Last Admin: 12/30/18 08:26 Dose: 1 mg Glucagon (Glucagen Diagnostic Kit) 0 mg IM STAT PRN; Protocol PRN Reason: Hypoglycemia Protocol Guaifenesin (Robitussin) 200 mg PO Q4H PRN PRN Reason: Cough and congestion Last Admin: 12/22/18 13:44 Dose: 200 mg Insulin Human Regular (Novolin R) 0 unit SC ACHS [facility]; Protocol Last Admin: 12/30/18 12:19 Dose: 3 units Metolazone (Zaroxolyn) 2.5 mg PO QOD6 [facility] Last Admin: 12/29/18 18:33 Dose: 2.5 mg Metoprolol Succinate (Toprol Xl) 100 mg PO DAILY [facility] Last Admin: 12/30/18 11:03 Dose: 100 mg Rosuvastatin Calcium (Crestor) 5 mg PO HS [facility] Last Admin: 12/29/18 21:37 Dose: 5 mg - Labs Labs: 12/30/18 07:12 12/30/18 07:12 PT 12.3 SECONDS (9.7-12.2) H 12/23/18 07:52 INR 1.1 12/23/18 07:52 APTT 28 SECONDS (21-34) 12/23/18 07:52
--- NOTE | 2018-12-30 23:41 | CP.PCM.PN ---
Subjective - Date & Time of Evaluation Date of Evaluation: 12/27/18 Time of Evaluation: 17:00 - Subjective Subjective: Intermittently confused Objective - Vital Signs/Intake and Output Vital Signs (last 24 hours): Temp Pulse Resp BP Pulse Ox 98.1 F 64 20 122/61 95 12/30/18 15:21 12/30/18 15:21 12/30/18 15:21 12/30/18 15:21 12/30/18 15:21 Intake and Output: 12/30/18 12/31/18 18:59 06:59 Output Total 300 Balance -300 - Medications Medications: Current Medications Acetaminophen (Tylenol 325mg Tab) 650 mg PO Q6 PRN PRN Reason: MILD PAIN 1-3 Last Admin: 12/25/18 01:41 Dose: 650 mg Acetylcysteine (Acetylcysteine 20%) 4 ml INH RQ6 [facility] Last Admin: 12/30/18 20:08 Dose: Not Given Amiodarone HCl (Cordarone) 200 mg PO DAILY [facility] Last Admin: 12/30/18 11:04 Dose: 200 mg Amlodipine Besylate (Norvasc) 10 mg PO DAILY [facility] Last Admin: 12/30/18 11:05 Dose: 10 mg Apixaban (Eliquis) 2.5 mg PO DAILY [facility] Arformoterol Tartrate (Brovana) 15 mcg IH RQ24 [facility] Last Admin: 12/30/18 08:23 Dose: 15 mcg Aspirin (Aspirin Chewable) 81 mg PO DAILY [facility] Last Admin: 12/30/18 11:04 Dose: 81 mg Budesonide (Pulmicort Respules) 0.5 mg INH RQ12 [facility] Last Admin: 12/30/18 20:07 Dose: 0.5 mg Clonidine HCl (Catapres) 0.1 mg PO BID [facility] Last Admin: 12/30/18 18:02 Dose: 0.1 mg Clopidogrel Bisulfate (Plavix) 75 mg PO DAILY [facility] Last Admin: 12/30/18 11:03 Dose: 75 mg Dextrose (Dextrose 50% Inj) 0 ml IV STAT PRN; Protocol PRN Reason: Hypoglycemia Protocol Last Admin: 12/26/18 17:05 Dose: 50 ml Dextrose (Glutose 15) 0 gm PO ONCE PRN; Protocol PRN Reason: Hypoglycemia Protocol Docusate Sodium (Colace) 100 mg PO BID [facility] Last Admin: 12/30/18 18:02 Dose: 100 mg Enoxaparin Sodium (Lovenox) 30 mg SC Q24H [facility] Last Admin: 12/30/18 13:14 Dose: 30 mg Epoetin Abdiaziz (Procrit) 20,000 unit SC ONCE [facility] Stop: 12/31/18 10:01 Famotidine (Pepcid) 20 mg PO DAILY [facility] Last Admin: 12/30/18 11:05 Dose: 20 mg Ferric Sodium Gluconate Complex (Ferrlecit) 125 mg IVPB DAILY [facility] Stop: 01/06/19 10:01 Last Admin: 12/30/18 11:05 Dose: 125 mg Glimepiride (Amaryl) 1 mg PO ACB [facility] Last Admin: 12/30/18 08:26 Dose: 1 mg Glucagon (Glucagen Diagnostic Kit) 0 mg IM STAT PRN; Protocol PRN Reason: Hypoglycemia Protocol Guaifenesin (Robitussin) 200 mg PO Q4H PRN PRN Reason: Cough and congestion Last Admin: 12/22/18 13:44 Dose: 200 mg Insulin Human Regular (Novolin R) 0 unit SC ACHS [facility]; Protocol Last Admin: 12/30/18 21:48 Dose: Not Given Metolazone (Zaroxolyn) 2.5 mg PO QOD6 [facility] Last Admin: 12/29/18 18:33 Dose: 2.5 mg Metoprolol Succinate (Toprol Xl) 100 mg PO DAILY [facility] Last Admin: 12/30/18 11:03 Dose: 100 mg Rosuvastatin Calcium (Crestor) 5 mg PO HS [facility] Last Admin: 12/30/18 21:48 Dose: 5 mg - Labs Labs: 12/30/18 07:12 12/30/18 07:12 PT 12.3 SECONDS (9.7-12.2) H 12/23/18 07:52 INR 1.1 12/23/18 07:52 APTT 28 SECONDS (21-34) 12/23/18 07:52 - Head Exam Head Exam: ATRAUMATIC - Eye Exam Eye Exam: Normal appearance - ENT Exam ENT Exam: Mucous Membranes Dry - Respiratory Exam Respiratory Exam: NORMAL BREATHING PATTERN - Cardiovascular Exam Cardiovascular Exam: +S1, +S2 - GI/Abdominal Exam GI & Abdominal Exam: Normal Bowel Sounds Assessment and Plan (1) Anemia Assessment & Plan: hypoproliferative erythroid response renal disease, surgical blood loss transfusion support PRN Status: Acute
--- NOTE | 2018-12-30 23:41 | CP.PCM.PN ---
Subjective - Date & Time of Evaluation Date of Evaluation: 12/26/18 Time of Evaluation: 12:00 - Subjective Subjective: Intermittent confusion Objective - Vital Signs/Intake and Output Vital Signs (last 24 hours): Temp Pulse Resp BP Pulse Ox 98.1 F 64 20 122/61 95 12/30/18 15:21 12/30/18 15:21 12/30/18 15:21 12/30/18 15:21 12/30/18 15:21 Intake and Output: 12/30/18 12/31/18 18:59 06:59 Output Total 300 Balance -300 - Medications Medications: Current Medications Acetaminophen (Tylenol 325mg Tab) 650 mg PO Q6 PRN PRN Reason: MILD PAIN 1-3 Last Admin: 12/25/18 01:41 Dose: 650 mg Acetylcysteine (Acetylcysteine 20%) 4 ml INH RQ6 [facility] Last Admin: 12/30/18 20:08 Dose: Not Given Amiodarone HCl (Cordarone) 200 mg PO DAILY [facility] Last Admin: 12/30/18 11:04 Dose: 200 mg Amlodipine Besylate (Norvasc) 10 mg PO DAILY [facility] Last Admin: 12/30/18 11:05 Dose: 10 mg Apixaban (Eliquis) 2.5 mg PO DAILY [facility] Arformoterol Tartrate (Brovana) 15 mcg IH RQ24 [facility] Last Admin: 12/30/18 08:23 Dose: 15 mcg Aspirin (Aspirin Chewable) 81 mg PO DAILY [facility] Last Admin: 12/30/18 11:04 Dose: 81 mg Budesonide (Pulmicort Respules) 0.5 mg INH RQ12 [facility] Last Admin: 12/30/18 20:07 Dose: 0.5 mg Clonidine HCl (Catapres) 0.1 mg PO BID [facility] Last Admin: 12/30/18 18:02 Dose: 0.1 mg Clopidogrel Bisulfate (Plavix) 75 mg PO DAILY [facility] Last Admin: 12/30/18 11:03 Dose: 75 mg Dextrose (Dextrose 50% Inj) 0 ml IV STAT PRN; Protocol PRN Reason: Hypoglycemia Protocol Last Admin: 12/26/18 17:05 Dose: 50 ml Dextrose (Glutose 15) 0 gm PO ONCE PRN; Protocol PRN Reason: Hypoglycemia Protocol Docusate Sodium (Colace) 100 mg PO BID [facility] Last Admin: 12/30/18 18:02 Dose: 100 mg Enoxaparin Sodium (Lovenox) 30 mg SC Q24H [facility] Last Admin: 12/30/18 13:14 Dose: 30 mg Famotidine (Pepcid) 20 mg PO DAILY [facility] Last Admin: 12/30/18 11:05 Dose: 20 mg Ferric Sodium Gluconate Complex (Ferrlecit) 125 mg IVPB DAILY [facility] Stop: 01/06/19 10:01 Last Admin: 12/30/18 11:05 Dose: 125 mg Glimepiride (Amaryl) 1 mg PO ACB [facility] Last Admin: 12/30/18 08:26 Dose: 1 mg Glucagon (Glucagen Diagnostic Kit) 0 mg IM STAT PRN; Protocol PRN Reason: Hypoglycemia Protocol Guaifenesin (Robitussin) 200 mg PO Q4H PRN PRN Reason: Cough and congestion Last Admin: 12/22/18 13:44 Dose: 200 mg Insulin Human Regular (Novolin R) 0 unit SC ACHS [facility]; Protocol Last Admin: 12/30/18 21:48 Dose: Not Given Metolazone (Zaroxolyn) 2.5 mg PO QOD6 [facility] Last Admin: 12/29/18 18:33 Dose: 2.5 mg Metoprolol Succinate (Toprol Xl) 100 mg PO DAILY [facility] Last Admin: 12/30/18 11:03 Dose: 100 mg Rosuvastatin Calcium (Crestor) 5 mg PO HS [facility] Last Admin: 12/30/18 21:48 Dose: 5 mg - Labs Labs: 12/30/18 07:12 12/30/18 07:12 PT 12.3 SECONDS (9.7-12.2) H 12/23/18 07:52 INR 1.1 12/23/18 07:52 APTT 28 SECONDS (21-34) 12/23/18 07:52 - Head Exam Head Exam: ATRAUMATIC - Eye Exam Eye Exam: Normal appearance - ENT Exam ENT Exam: Mucous Membranes Dry - Respiratory Exam Respiratory Exam: NORMAL BREATHING PATTERN - Cardiovascular Exam Cardiovascular Exam: +S1, +S2 - GI/Abdominal Exam GI & Abdominal Exam: Normal Bowel Sounds Assessment and Plan (1) Anemia Assessment & Plan: hypoproliferative erythroid response renal disease, surgical blood loss transfusion support PRN Status: Acute
--- NOTE | 2018-12-30 23:42 | CP.PCM.PN ---
Subjective - Date & Time of Evaluation Date of Evaluation: 12/29/18 Time of Evaluation: 20:00 - Subjective Subjective: Confused Objective - Vital Signs/Intake and Output Vital Signs (last 24 hours): Temp Pulse Resp BP Pulse Ox 98.1 F 64 20 122/61 95 12/30/18 15:21 12/30/18 15:21 12/30/18 15:21 12/30/18 15:21 12/30/18 15:21 Intake and Output: 12/30/18 12/31/18 18:59 06:59 Output Total 300 Balance -300 - Medications Medications: Current Medications Acetaminophen (Tylenol 325mg Tab) 650 mg PO Q6 PRN PRN Reason: MILD PAIN 1-3 Last Admin: 12/25/18 01:41 Dose: 650 mg Acetylcysteine (Acetylcysteine 20%) 4 ml INH RQ6 [facility] Last Admin: 12/30/18 20:08 Dose: Not Given Amiodarone HCl (Cordarone) 200 mg PO DAILY [facility] Last Admin: 12/30/18 11:04 Dose: 200 mg Amlodipine Besylate (Norvasc) 10 mg PO DAILY [facility] Last Admin: 12/30/18 11:05 Dose: 10 mg Apixaban (Eliquis) 2.5 mg PO DAILY [facility] Arformoterol Tartrate (Brovana) 15 mcg IH RQ24 [facility] Last Admin: 12/30/18 08:23 Dose: 15 mcg Aspirin (Aspirin Chewable) 81 mg PO DAILY [facility] Last Admin: 12/30/18 11:04 Dose: 81 mg Budesonide (Pulmicort Respules) 0.5 mg INH RQ12 [facility] Last Admin: 12/30/18 20:07 Dose: 0.5 mg Clonidine HCl (Catapres) 0.1 mg PO BID [facility] Last Admin: 12/30/18 18:02 Dose: 0.1 mg Clopidogrel Bisulfate (Plavix) 75 mg PO DAILY [facility] Last Admin: 12/30/18 11:03 Dose: 75 mg Dextrose (Dextrose 50% Inj) 0 ml IV STAT PRN; Protocol PRN Reason: Hypoglycemia Protocol Last Admin: 12/26/18 17:05 Dose: 50 ml Dextrose (Glutose 15) 0 gm PO ONCE PRN; Protocol PRN Reason: Hypoglycemia Protocol Docusate Sodium (Colace) 100 mg PO BID [facility] Last Admin: 12/30/18 18:02 Dose: 100 mg Enoxaparin Sodium (Lovenox) 30 mg SC Q24H [facility] Last Admin: 12/30/18 13:14 Dose: 30 mg Epoetin Abdiaziz (Procrit) 20,000 unit SC ONCE ONE Stop: 12/31/18 10:01 Famotidine (Pepcid) 20 mg PO DAILY [facility] Last Admin: 12/30/18 11:05 Dose: 20 mg Ferric Sodium Gluconate Complex (Ferrlecit) 125 mg IVPB DAILY [facility] Stop: 01/06/19 10:01 Last Admin: 12/30/18 11:05 Dose: 125 mg Glimepiride (Amaryl) 1 mg PO ACB [facility] Last Admin: 12/30/18 08:26 Dose: 1 mg Glucagon (Glucagen Diagnostic Kit) 0 mg IM STAT PRN; Protocol PRN Reason: Hypoglycemia Protocol Guaifenesin (Robitussin) 200 mg PO Q4H PRN PRN Reason: Cough and congestion Last Admin: 12/22/18 13:44 Dose: 200 mg Insulin Human Regular (Novolin R) 0 unit SC ACHS [facility]; Protocol Last Admin: 12/30/18 21:48 Dose: Not Given Metolazone (Zaroxolyn) 2.5 mg PO QOD6 [facility] Last Admin: 12/29/18 18:33 Dose: 2.5 mg Metoprolol Succinate (Toprol Xl) 100 mg PO DAILY [facility] Last Admin: 12/30/18 11:03 Dose: 100 mg Rosuvastatin Calcium (Crestor) 5 mg PO HS [facility] Last Admin: 12/30/18 21:48 Dose: 5 mg - Labs Labs: 12/30/18 07:12 12/30/18 07:12 PT 12.3 SECONDS (9.7-12.2) H 12/23/18 07:52 INR 1.1 12/23/18 07:52 APTT 28 SECONDS (21-34) 12/23/18 07:52 - Head Exam Head Exam: ATRAUMATIC - Eye Exam Eye Exam: Normal appearance - ENT Exam ENT Exam: Mucous Membranes Dry - Respiratory Exam Respiratory Exam: NORMAL BREATHING PATTERN - Cardiovascular Exam Cardiovascular Exam: +S1, +S2 - GI/Abdominal Exam GI & Abdominal Exam: Normal Bowel Sounds Assessment and Plan (1) Anemia Assessment & Plan: hypoproliferative erythroid response renal disease, surgical blood loss transfusion support PRN Status: Acute
--- NOTE | 2018-12-30 23:43 | CP.PCM.PN ---
Subjective - Date & Time of Evaluation Date of Evaluation: 12/30/18 Time of Evaluation: 21:00 - Subjective Subjective: Appears comfortable Objective - Vital Signs/Intake and Output Vital Signs (last 24 hours): Temp Pulse Resp BP Pulse Ox 98.1 F 64 20 122/61 95 12/30/18 15:21 12/30/18 15:21 12/30/18 15:21 12/30/18 15:21 12/30/18 15:21 Intake and Output: 12/30/18 12/31/18 18:59 06:59 Output Total 300 Balance -300 - Medications Medications: Current Medications Acetaminophen (Tylenol 325mg Tab) 650 mg PO Q6 PRN PRN Reason: MILD PAIN 1-3 Last Admin: 12/25/18 01:41 Dose: 650 mg Acetylcysteine (Acetylcysteine 20%) 4 ml INH RQ6 [facility] Last Admin: 12/30/18 20:08 Dose: Not Given Amiodarone HCl (Cordarone) 200 mg PO DAILY [facility] Last Admin: 12/30/18 11:04 Dose: 200 mg Amlodipine Besylate (Norvasc) 10 mg PO DAILY [facility] Last Admin: 12/30/18 11:05 Dose: 10 mg Apixaban (Eliquis) 2.5 mg PO DAILY [facility] Arformoterol Tartrate (Brovana) 15 mcg IH RQ24 [facility] Last Admin: 12/30/18 08:23 Dose: 15 mcg Aspirin (Aspirin Chewable) 81 mg PO DAILY [facility] Last Admin: 12/30/18 11:04 Dose: 81 mg Budesonide (Pulmicort Respules) 0.5 mg INH RQ12 [facility] Last Admin: 12/30/18 20:07 Dose: 0.5 mg Clonidine HCl (Catapres) 0.1 mg PO BID [facility] Last Admin: 12/30/18 18:02 Dose: 0.1 mg Clopidogrel Bisulfate (Plavix) 75 mg PO DAILY [facility] Last Admin: 12/30/18 11:03 Dose: 75 mg Dextrose (Dextrose 50% Inj) 0 ml IV STAT PRN; Protocol PRN Reason: Hypoglycemia Protocol Last Admin: 12/26/18 17:05 Dose: 50 ml Dextrose (Glutose 15) 0 gm PO ONCE PRN; Protocol PRN Reason: Hypoglycemia Protocol Docusate Sodium (Colace) 100 mg PO BID [facility] Last Admin: 12/30/18 18:02 Dose: 100 mg Enoxaparin Sodium (Lovenox) 30 mg SC Q24H [facility] Last Admin: 12/30/18 13:14 Dose: 30 mg Epoetin Abdiaziz (Procrit) 20,000 unit SC ONCE ONE Stop: 12/31/18 10:01 Famotidine (Pepcid) 20 mg PO DAILY [facility] Last Admin: 12/30/18 11:05 Dose: 20 mg Ferric Sodium Gluconate Complex (Ferrlecit) 125 mg IVPB DAILY [facility] Stop: 01/06/19 10:01 Last Admin: 12/30/18 11:05 Dose: 125 mg Glimepiride (Amaryl) 1 mg PO ACB [facility] Last Admin: 12/30/18 08:26 Dose: 1 mg Glucagon (Glucagen Diagnostic Kit) 0 mg IM STAT PRN; Protocol PRN Reason: Hypoglycemia Protocol Guaifenesin (Robitussin) 200 mg PO Q4H PRN PRN Reason: Cough and congestion Last Admin: 12/22/18 13:44 Dose: 200 mg Insulin Human Regular (Novolin R) 0 unit SC ACHS [facility]; Protocol Last Admin: 12/30/18 21:48 Dose: Not Given Metolazone (Zaroxolyn) 2.5 mg PO QOD6 [facility] Last Admin: 12/29/18 18:33 Dose: 2.5 mg Metoprolol Succinate (Toprol Xl) 100 mg PO DAILY [facility] Last Admin: 12/30/18 11:03 Dose: 100 mg Rosuvastatin Calcium (Crestor) 5 mg PO HS [facility] Last Admin: 12/30/18 21:48 Dose: 5 mg - Labs Labs: 12/30/18 07:12 12/30/18 07:12 PT 12.3 SECONDS (9.7-12.2) H 12/23/18 07:52 INR 1.1 12/23/18 07:52 APTT 28 SECONDS (21-34) 12/23/18 07:52 - Head Exam Head Exam: ATRAUMATIC - Eye Exam Eye Exam: Normal appearance - ENT Exam ENT Exam: Mucous Membranes Dry - Respiratory Exam Respiratory Exam: NORMAL BREATHING PATTERN - Cardiovascular Exam Cardiovascular Exam: +S1, +S2 - GI/Abdominal Exam GI & Abdominal Exam: Normal Bowel Sounds Assessment and Plan (1) Anemia Assessment & Plan: hypoproliferative erythroid response renal disease, surgical blood loss transfusion support PRN will give a dose of Procrit in AM Status: Acute
[2018-12-31] MEDS: Acetylcysteine 20% Inhal Soln (4ml) INH SCH ×3 (01:39→19:43)
[2018-12-31] MEDS: (Novolin R) Insulin Human Regular 100 units/ml vial SC SCH ×3 (08:12→18:05)
[2018-12-31] MEDS: Arformoterol 15 mcg/2 ml Inh Sol IH SCH (09:23)
[2018-12-31] MEDS: Budesonide 0.5 mg/2 ml Inhal Susp UD INH SCH ×2 (09:23→19:43)
[2018-12-31] MEDS: Metoprolol Succinate 100 mg XL Tab PO SCH (09:55)
[2018-12-31] MEDS: Ferric Sodium Gluconat Complex 62.5 mg/5 ml Vial IVPB SCH (09:56)
[2018-12-31] MEDS ORDERED: Epoetin Alfa 20000 UNIT/ML Inj SC ONE (10:00)
--- NOTE | 2018-12-31 11:58 | CP.PCM.PN ---
Subjective - Date & Time of Evaluation Date of Evaluation: 12/31/18 Time of Evaluation: 11:57 - Subjective Subjective: Patient cooperative today. Denies any complaints at this time Objective - Vital Signs/Intake and Output Vital Signs (last 24 hours): Temp Pulse Resp BP Pulse Ox 98.0 F 70 18 127/60 97 12/31/18 07:00 12/31/18 07:00 12/31/18 07:00 12/31/18 07:00 12/31/18 07:00 - Medications Medications: Current Medications Acetaminophen (Tylenol 325mg Tab) 650 mg PO Q6 PRN PRN Reason: MILD PAIN 1-3 Last Admin: 12/25/18 01:41 Dose: 650 mg Acetylcysteine (Acetylcysteine 20%) 4 ml INH RQ6 [facility] Last Admin: 12/31/18 09:22 Dose: 4 ml Amiodarone HCl (Cordarone) 200 mg PO DAILY [facility] Last Admin: 12/31/18 09:55 Dose: 200 mg Amlodipine Besylate (Norvasc) 10 mg PO DAILY [facility] Last Admin: 12/31/18 09:55 Dose: 10 mg Apixaban (Eliquis) 2.5 mg PO DAILY [facility] Arformoterol Tartrate (Brovana) 15 mcg IH RQ24 [facility] Last Admin: 12/31/18 09:23 Dose: 15 mcg Aspirin (Aspirin Chewable) 81 mg PO DAILY [facility] Last Admin: 12/31/18 09:55 Dose: 81 mg Budesonide (Pulmicort Respules) 0.5 mg INH RQ12 [facility] Last Admin: 12/31/18 09:23 Dose: 0.5 mg Clonidine HCl (Catapres) 0.1 mg PO BID [facility] Last Admin: 12/31/18 09:55 Dose: 0.1 mg Clopidogrel Bisulfate (Plavix) 75 mg PO DAILY [facility] Last Admin: 12/31/18 09:55 Dose: 75 mg Dextrose (Dextrose 50% Inj) 0 ml IV STAT PRN; Protocol PRN Reason: Hypoglycemia Protocol Last Admin: 12/26/18 17:05 Dose: 50 ml Dextrose (Glutose 15) 0 gm PO ONCE PRN; Protocol PRN Reason: Hypoglycemia Protocol Docusate Sodium (Colace) 100 mg PO BID [facility] Last Admin: 12/31/18 09:55 Dose: 100 mg Enoxaparin Sodium (Lovenox) 30 mg SC Q24H [facility] Last Admin: 12/30/18 13:14 Dose: 30 mg Famotidine (Pepcid) 20 mg PO DAILY [facility] Last Admin: 12/31/18 09:55 Dose: 20 mg Ferric Sodium Gluconate Complex (Ferrlecit) 125 mg IVPB DAILY [facility] Stop: 01/06/19 10:01 Last Admin: 12/31/18 09:56 Dose: 125 mg Glimepiride (Amaryl) 1 mg PO ACB [facility] Last Admin: 12/31/18 06:49 Dose: 1 mg Glucagon (Glucagen Diagnostic Kit) 0 mg IM STAT PRN; Protocol PRN Reason: Hypoglycemia Protocol Guaifenesin (Robitussin) 200 mg PO Q4H PRN PRN Reason: Cough and congestion Last Admin: 12/22/18 13:44 Dose: 200 mg Insulin Human Regular (Novolin R) 0 unit SC ACHS [facility]; Protocol Last Admin: 12/31/18 08:12 Dose: Not Given Metolazone (Zaroxolyn) 2.5 mg PO QOD6 [facility] Last Admin: 12/29/18 18:33 Dose: 2.5 mg Metoprolol Succinate (Toprol Xl) 100 mg PO DAILY [facility] Last Admin: 12/31/18 09:55 Dose: 100 mg Rosuvastatin Calcium (Crestor) 5 mg PO HS [facility] Last Admin: 12/30/18 21:48 Dose: 5 mg - Labs Labs: 12/30/18 07:12 12/30/18 07:12 PT 12.3 SECONDS (9.7-12.2) H 12/23/18 07:52 INR 1.1 12/23/18 07:52 APTT 28 SECONDS (21-34) 12/23/18 07:52 - Extremities Exam Additional comments: left hip: dressing changed. Incisionintact, dry, no erythema +DP/PT pulses sensation intact +ROM ankle/toes, calves soft NT neg homans Assessment and Plan (1) Closed displaced fracture of left femoral neck Assessment & Plan: POD#7 orthopedically stable cont PT/OT d/c to [facility] pending cont VTE proph with lovenox per Dr. Pham f/u 2 weeks in office call for appt d/w Dr. Pham, agrees with above Status: Acute (2) Acute blood loss anemia Status: Acute
[2018-12-31] MEDS: Enoxaparin 30 mg Syringe SC SCH (13:17)
[2018-12-31 14:11] LABS: BASO % 0.4 % (0.0-2.0); EOS # 0.2 K/uL (0.0-0.7); EOS % 2.7 % (0.0-4.0); HEMOGLOBIN 8.5 g/dL (12.0-18.0); LYMPH # 0.7 K/uL (1.0-4.3); LYMPH % 7.9 % (20.0-40.0); MEAN CELL VOLUME 93.5 fL (80.0-94.0); MEAN CORPUSCULAR HEMOGLOBIN 31.1 pg (27.0-31.0); MEAN CORPUSCULAR HGB CONC 33.3 g/dL (33.0-37.0); MEAN PLATELET VOLUME 8.8 fL (7.2-11.7); MONO % 11.6 % (0.0-10.0); NEUT # 6.9 K/uL (1.8-7.0); NEUT % 77.4 % (50.0-75.0); NRBC % 0.1 % (0.0-2.0); PLATELET COUNT 318 K/uL (130-400); RBC 2.74 Mil/uL (4.40-5.90); RED CELL DISTRIBUTION WIDTH 15.8 % (11.5-14.5); WHITE BLOOD COUNT 8.9 K/uL (4.8-10.8)
[2018-12-31 14:27] LABS: CALCIUM 8.5 mg/dl (8.6-10.4)
[2018-12-31 14:39] LABS: EOSINOPHIL 2 % (0-4); LYMPHOCYTE 4 % (20-40); TOTAL CELLS COUNTED 100
[2018-12-31 14:40] LABS: MONOCYTE 10 % (0-10); NEUTROPHIL 84 % (50-75); PLATELET ESTIMATE NORMAL (NORMAL)
--- NOTE | 2018-12-31 15:16 | CP.PCM.PN ---
Subjective - Date & Time of Evaluation Date of Evaluation: 12/31/18 Time of Evaluation: 12:00 - Subjective Subjective: pateint seen today, awake, alert, oriented denies any chest pain sob, c/o pain pt surgical site lanbs and vss reviewed - stab;e s/p left hip hemiarthroplasty # 7 hgb 8.5 and pt received procrit today D/wortho cleared ro discharge from orthopedics standpointn and f/i with Dr. Betty san ein 2 week s continue lovenox for DVT prophylaxis as per Dr. chávez D/w Dr. Cristobal covering for Dr. Oliver , cleared for discharge t [facility] today All other management as per Michael Eastman at [facility] Objective - Vital Signs/Intake and Output Vital Signs (last 24 hours): Temp Pulse Resp BP Pulse Ox 98.0 F 70 18 127/60 97 12/31/18 07:00 12/31/18 07:00 12/31/18 07:00 12/31/18 07:00 12/31/18 07:00 - Medications Medications: Current Medications Acetaminophen (Tylenol 325mg Tab) 650 mg PO Q6 PRN PRN Reason: MILD PAIN 1-3 Last Admin: 12/25/18 01:41 Dose: 650 mg Acetylcysteine (Acetylcysteine 20%) 4 ml INH RQ6 [facility] Last Admin: 12/31/18 09:22 Dose: 4 ml Amiodarone HCl (Cordarone) 200 mg PO DAILY [facility] Last Admin: 12/31/18 09:55 Dose: 200 mg Amlodipine Besylate (Norvasc) 10 mg PO DAILY [facility] Last Admin: 12/31/18 09:55 Dose: 10 mg Apixaban (Eliquis) 2.5 mg PO DAILY [facility] Arformoterol Tartrate (Brovana) 15 mcg IH RQ24 [facility] Last Admin: 12/31/18 09:23 Dose: 15 mcg Aspirin (Aspirin Chewable) 81 mg PO DAILY [facility] Last Admin: 12/31/18 09:55 Dose: 81 mg Budesonide (Pulmicort Respules) 0.5 mg INH RQ12 [facility] Last Admin: 12/31/18 09:23 Dose: 0.5 mg Clonidine HCl (Catapres) 0.1 mg PO BID [facility] Last Admin: 12/31/18 09:55 Dose: 0.1 mg Clopidogrel Bisulfate (Plavix) 75 mg PO DAILY [facility] Last Admin: 12/31/18 09:55 Dose: 75 mg Dextrose (Dextrose 50% Inj) 0 ml IV STAT PRN; Protocol PRN Reason: Hypoglycemia Protocol Last Admin: 12/26/18 17:05 Dose: 50 ml Dextrose (Glutose 15) 0 gm PO ONCE PRN; Protocol PRN Reason: Hypoglycemia Protocol Docusate Sodium (Colace) 100 mg PO BID [facility] Last Admin: 12/31/18 09:55 Dose: 100 mg Enoxaparin Sodium (Lovenox) 30 mg SC Q24H [facility] Last Admin: 12/31/18 13:17 Dose: 30 mg Famotidine (Pepcid) 20 mg PO DAILY [facility] Last Admin: 12/31/18 09:55 Dose: 20 mg Ferric Sodium Gluconate Complex (Ferrlecit) 125 mg IVPB DAILY [facility] Stop: 01/06/19 10:01 Last Admin: 12/31/18 09:56 Dose: 125 mg Glimepiride (Amaryl) 1 mg PO ACB [facility] Last Admin: 12/31/18 06:49 Dose: 1 mg Glucagon (Glucagen Diagnostic Kit) 0 mg IM STAT PRN; Protocol PRN Reason: Hypoglycemia Protocol Guaifenesin (Robitussin) 200 mg PO Q4H PRN PRN Reason: Cough and congestion Last Admin: 12/22/18 13:44 Dose: 200 mg Insulin Human Regular (Novolin R) 0 unit SC ACHS [facility]; Protocol Last Admin: 12/31/18 11:57 Dose: Not Given Metolazone (Zaroxolyn) 2.5 mg PO QOD6 [facility] Last Admin: 12/29/18 18:33 Dose: 2.5 mg Metoprolol Succinate (Toprol Xl) 100 mg PO DAILY [facility] Last Admin: 12/31/18 09:55 Dose: 100 mg Rosuvastatin Calcium (Crestor) 5 mg PO HS [facility] Last Admin: 12/30/18 21:48 Dose: 5 mg - Labs Labs: 12/31/18 13:58 12/31/18 13:58 PT 12.3 SECONDS (9.7-12.2) H 12/23/18 07:52 INR 1.1 12/23/18 07:52 APTT 28 SECONDS (21-34) 12/23/18 07:52 Assessment and Plan - Assessment and Plan (Free Text) Assessment: A/P the following instructions sent to justen crowley to follow Please f/u with Dr. Hernández office in 2 week - CALL AND MAKE APPOINTMENT T Please continue levenox for 35 days ( DVT prophylaxis for hip surgery , please do not discontinue without Dr. hernández order) Patient needs to resume his eliquis after the completion of levenox Please do cbc and bmp on Saturday and then as per Dr. Oliver All other orders as per Dr. Oliver at rehab
[2018-12-31 16:17] VITALS: BP 130/64; PULSE 62; RESP 20; TEMP 98.1; O2SAT 93
[2018-12-31] MEDS: metOLazone 2.5 MG TAB PO SCH (18:02)
--- NOTE | 2018-12-31 20:53 | CP.PCM.PN ---
Subjective - Date & Time of Evaluation Date of Evaluation: 12/31/18 Time of Evaluation: 18:00 - Subjective Subjective: Has mild surgical site pain. Objective - Vital Signs/Intake and Output Vital Signs (last 24 hours): Temp Pulse Resp BP Pulse Ox 98.1 F 62 20 130/64 93 L 12/31/18 16:00 12/31/18 16:00 12/31/18 16:00 12/31/18 16:00 12/31/18 16:00 - Medications Medications: Current Medications Acetaminophen (Tylenol 325mg Tab) 650 mg PO Q6 PRN PRN Reason: MILD PAIN 1-3 Last Admin: 12/25/18 01:41 Dose: 650 mg Acetylcysteine (Acetylcysteine 20%) 4 ml INH RQ6 [facility] Last Admin: 12/31/18 19:43 Dose: Not Given Amiodarone HCl (Cordarone) 200 mg PO DAILY [facility] Last Admin: 12/31/18 09:55 Dose: 200 mg Amlodipine Besylate (Norvasc) 10 mg PO DAILY [facility] Last Admin: 12/31/18 09:55 Dose: 10 mg Apixaban (Eliquis) 2.5 mg PO DAILY [facility] Arformoterol Tartrate (Brovana) 15 mcg IH RQ24 [facility] Last Admin: 12/31/18 09:23 Dose: 15 mcg Aspirin (Aspirin Chewable) 81 mg PO DAILY [facility] Last Admin: 12/31/18 09:55 Dose: 81 mg Budesonide (Pulmicort Respules) 0.5 mg INH RQ12 [facility] Last Admin: 12/31/18 19:43 Dose: 0.5 mg Clonidine HCl (Catapres) 0.1 mg PO BID [facility] Last Admin: 12/31/18 18:01 Dose: 0.1 mg Clopidogrel Bisulfate (Plavix) 75 mg PO DAILY [facility] Last Admin: 12/31/18 09:55 Dose: 75 mg Dextrose (Dextrose 50% Inj) 0 ml IV STAT PRN; Protocol PRN Reason: Hypoglycemia Protocol Last Admin: 12/26/18 17:05 Dose: 50 ml Dextrose (Glutose 15) 0 gm PO ONCE PRN; Protocol PRN Reason: Hypoglycemia Protocol Docusate Sodium (Colace) 100 mg PO BID [facility] Last Admin: 12/31/18 18:01 Dose: 100 mg Enoxaparin Sodium (Lovenox) 30 mg SC Q24H [facility] Last Admin: 12/31/18 13:17 Dose: 30 mg Famotidine (Pepcid) 20 mg PO DAILY [facility] Last Admin: 12/31/18 09:55 Dose: 20 mg Ferric Sodium Gluconate Complex (Ferrlecit) 125 mg IVPB DAILY [facility] Stop: 01/06/19 10:01 Last Admin: 12/31/18 09:56 Dose: 125 mg Glimepiride (Amaryl) 1 mg PO ACB [facility] Last Admin: 12/31/18 06:49 Dose: 1 mg Glucagon (Glucagen Diagnostic Kit) 0 mg IM STAT PRN; Protocol PRN Reason: Hypoglycemia Protocol Guaifenesin (Robitussin) 200 mg PO Q4H PRN PRN Reason: Cough and congestion Last Admin: 12/22/18 13:44 Dose: 200 mg Insulin Human Regular (Novolin R) 0 unit SC ACHS [facility]; Protocol Last Admin: 12/31/18 18:05 Dose: Not Given Metolazone (Zaroxolyn) 2.5 mg PO QOD6 [facility] Last Admin: 12/31/18 18:02 Dose: 2.5 mg Metoprolol Succinate (Toprol Xl) 100 mg PO DAILY [facility] Last Admin: 12/31/18 09:55 Dose: 100 mg Rosuvastatin Calcium (Crestor) 5 mg PO HS [facility] Last Admin: 12/30/18 21:48 Dose: 5 mg - Labs Labs: 12/31/18 13:58 12/31/18 13:58 PT 12.3 SECONDS (9.7-12.2) H 12/23/18 07:52 INR 1.1 12/23/18 07:52 APTT 28 SECONDS (21-34) 12/23/18 07:52 - Head Exam Head Exam: ATRAUMATIC - Eye Exam Eye Exam: Normal appearance - ENT Exam ENT Exam: Mucous Membranes Dry - Respiratory Exam Respiratory Exam: NORMAL BREATHING PATTERN - Cardiovascular Exam Cardiovascular Exam: +S1, +S2 - GI/Abdominal Exam GI & Abdominal Exam: Normal Bowel Sounds Assessment and Plan (1) Anemia Assessment & Plan: hypoproliferative erythroid response renal disease, surgical blood loss transfusion support PRN s/p Procrit today Status: Acute
--- NOTE | 2018-12-31 23:28 | CP.PCM.DIS ---
Provider - Provider Date of Admission: 12/19/18 22:44 Attending physician: Ciara Rodriguez MD Consults: 12/19/18 22:52 Orthopedic Consult Routine Comment: fall, left femur neck fx Consulting Provider: Hamlet Richardson Consulting Physician: Hamlet Richardson Reason for Consult: fall, left femur neck fx 12/19/18 23:25 Physician Consult Routine Comment: Consulting Provider: Iglesia Palacios Consulting Physician: Iglesia Palacios Reason for Consult: Cardiac Clearance 12/22/18 04:49 Hematology Oncology Consult Routine Comment: Consulting Provider: Chano Diehl Consulting Physician: Chano Diehl Reason for Consult: pre-op for hip fx wed, on eliquis up till Sat, ASA 12/22/18 07:01 Anesthesiology Consult Routine Comment: pre-op evaluation for multi PMH, hip karol 12/24/18 Consulting Provider: Cruz Baird Consulting Physician: Cruz Baird Reason for Consult: mulitple PMH, plan for L hip karol 12/24/18 12/23/18 10:07 Nursing Referral for Wound Care Routine Comment: Physician Instructions: Reason For Exam: samanta. buttocks redness and excoriation Time Spent in preparation of Discharge (in minutes): 20 Hospital Course - Lab Results Lab Results: Micro Results 12/26/18 13:03 Naris MRSA Culture - Final MRSA NOT DETECTED Most Recent Lab Values WBC 8.9 K/uL (4.8-10.8) 12/31/18 13:58 RBC 2.74 Mil/uL (4.40-5.90) L 12/31/18 13:58 Hgb 8.5 g/dL (12.0-18.0) L 12/31/18 13:58 Hct 25.6 % (35.0-51.0) L 12/31/18 13:58 MCV 93.5 fL (80.0-94.0) 12/31/18 13:58 MCH 31.1 pg (27.0-31.0) H 12/31/18 13:58 MCHC 33.3 g/dL (33.0-37.0) 12/31/18 13:58 RDW 15.8 % (11.5-14.5) H 12/31/18 13:58 Plt Count 318 K/uL (130-400) 12/31/18 13:58 MPV 8.8 fL (7.2-11.7) 12/31/18 13:58 Neut % (Auto) 77.4 % (50.0-75.0) H 12/31/18 13:58 Lymph % (Auto) 7.9 % (20.0-40.0) L 12/31/18 13:58 Cooper % (Auto) 11.6 % (0.0-10.0) H 12/31/18 13:58 Eos % (Auto) 2.7 % (0.0-4.0) 12/31/18 13:58 Baso % (Auto) 0.4 % (0.0-2.0) 12/31/18 13:58 Neut # (Auto) 6.9 K/uL (1.8-7.0) 12/31/18 13:58 Lymph # (Auto) 0.7 K/uL (1.0-4.3) L 12/31/18 13:58 Cooper # (Auto) 1.0 K/uL (0.0-0.8) H 12/31/18 13:58 Eos # (Auto) 0.2 K/uL (0.0-0.7) 12/31/18 13:58 Baso # (Auto) 0.0 K/uL (0.0-0.2) 12/31/18 13:58 Neutrophils % (Manual) 84 % (50-75) H 12/31/18 13:58 Band Neutrophils % 1 % (0-2) 12/30/18 07:12 Lymphocytes % (Manual) 4 % (20-40) L 12/31/18 13:58 Reactive Lymphs % TEST NOT PERFORMED 12/28/18 07:26 Monocytes % (Manual) 10 % (0-10) 12/31/18 13:58 Eosinophils % (Manual) 2 % (0-4) 12/31/18 13:58 Metamyelocytes % TEST NOT PERFORMED 12/20/18 11:15 Nucleated RBC % 1 % (0-0) H 12/28/18 07:26 Toxic Granulation Present 12/27/18 08:21 Platelet Estimate Normal (NORMAL) 12/31/18 13:58 Plt Clumps, EDTA Present 12/27/18 08:21 Large Platelets Present 12/27/18 08:21 Giant Platelets Present 12/27/18 08:21 RBC Morphology Normal 12/22/18 07:53 Polychromasia Slight 12/27/18 08:21 Hypochromasia (manual) Slight 12/30/18 07:12 Poikilocytosis (manual Slight 12/30/18 07:12 Anisocytosis (manual) Slight 12/30/18 07:12 Macrocytosis (manual) Slight 12/27/18 08:21 Target Cells Slight 12/30/18 07:12 Tear Drop Cells Slight 12/30/18 07:12 Ovalocytes Denture Packer 12/28/18 07:26 Retic Count 2.4 % (0.5-1.5) H 12/26/18 06:14 PT 12.3 SECONDS (9.7-12.2) H 12/23/18 07:52 INR 1.1 12/23/18 07:52 APTT 28 SECONDS (21-34) 12/23/18 07:52 Plt Function Assay 176 K/uL 12/23/18 07:48 Puncture Site Or 12/24/18 10:09 pCO2 39 mm/Hg (35-45) 12/24/18 10:09 pO2 213 mm/Hg (80-100) H 12/24/18 10:09 HCO3 21.6 mmol/L (21-28) 12/24/18 10:09 ABG pH 7.34 (7.35-7.45) L 12/24/18 10:09 ABG Total CO2 22.2 mmol/L (22-28) 12/24/18 10:09 ABG O2 Saturation 97.5 % (95-98) 12/24/18 10:09 ABG Base Excess -4.4 mmol/L (-2.0-3.0) L 12/24/18 10:09 Ruperto Test Na 12/24/18 10:09 ABG Potassium 3.6 mmol/L (3.6-5.2) 12/24/18 10:09 Sodium 137.0 mmol/l (132-148) 12/24/18 10:09 Chloride 107.0 mmol/L (98-107) 12/24/18 10:09 Glucose 94 mg/dl (75-110) 12/24/18 10:09 Lactate 1.0 mmol/L (0.7-2.1) 12/24/18 10:09 Sodium 132 mmol/L (132-148) 12/31/18 13:58 Potassium 4.1 mmol/L (3.6-5.2) 12/31/18 13:58 Chloride 102 mmol/L (98-107) 12/31/18 13:58 Carbon Dioxide 26 mmol/L (22-30) 12/31/18 13:58 Anion Gap 8 (10-20) L 12/31/18 13:58 BUN 35 mg/dL (9-20) H 12/31/18 13:58 Creatinine 2.2 mg/dL (0.8-1.5) H 12/31/18 13:58 Est GFR ( Amer) 34 12/31/18 13:58 Est GFR (Non-Af Amer) 28 12/31/18 13:58 POC Glucose (mg/dL) 106 mg/dL (65-110) 12/31/18 17:28 Random Glucose 130 mg/dL (75-110) H D 12/31/18 13:58 Calcium 8.5 mg/dl (8.6-10.4) L 12/31/18 13:58 Phosphorus 3.0 mg/dL (2.5-4.5) 12/29/18 06:54 Magnesium 1.9 mg/dL (1.6-2.3) 12/29/18 06:54 Ferritin 318.0 ng/mL 12/26/18 06:14 Total Bilirubin 0.4 mg/dL (0.2-1.3) 12/29/18 06:54 AST 45 U/L (17-59) 12/29/18 06:54 ALT 18 U/L (21-72) L D 12/29/18 06:54 Alkaline Phosphatase 104 U/L (38-126) 12/29/18 06:54 NT-Pro-B Natriuret Pep 15387 pg/mL (0-900) H 12/20/18 11:15 Total Protein 4.7 g/dL (6.3-8.3) L 12/29/18 06:54 Albumin 2.5 g/dL (3.5-5.0) L 12/29/18 06:54 Globulin 2.2 gm/dL (2.2-3.9) 12/29/18 06:54 Albumin/Globulin Ratio 1.2 (1.0-2.1) 12/29/18 06:54 Vitamin B12 338 pg/mL (239-931) 12/26/18 06:14 25-OH Vitamin D Total 52.5 NG/ML (30.0-100.0) 12/23/18 07:52 Folate 13.7 ng/mL 12/26/18 06:14 Arterial Blood Potassium 3.6 mmol/L (3.6-5.2) 12/24/18 10:09 Urine Color Yellow (YELLOW) 12/22/18 16:30 Urine Clarity Clear (Clear) 12/22/18 16:30 Urine pH 5.5 (5.0-8.0) 12/22/18 16:30 Ur Specific [place] 1.015 (1.003-1.030) 12/22/18 16:30 Urine Protein Negative mg/dL (NEGATIVE) 12/22/18 16:30 Urine Glucose (UA) Negative mg/dL (Normal) 12/22/18 16:30 Urine Ketones Negative mg/dL (NEGATIVE) 12/22/18 16:30 Urine Blood Negative (NEGATIVE) 12/22/18 16:30 Urine Nitrate Negative (NEGATIVE) 12/22/18 16:30 Urine Bilirubin Negative (NEGATIVE) 12/22/18 16:30 Urine Urobilinogen 0.2 mg/dL (0.2-1.0) 12/22/18 16:30 Ur Leukocyte Esterase Negative Nicolasa/uL (Negative) 12/22/18 16:30 Urine RBC (Auto) < 1 /hpf (0-3) 12/22/18 16:30 Urine Bacteria Rare (<OCC) 12/22/18 16:30 Blood Type O NEGATIVE 12/29/18 11:33 Antibody Screen Negative 12/29/18 11:33 Discharge Exam - Head Exam Head Exam: ATRAUMATIC Discharge Plan - Discharge Medications Prescriptions: Ferrous Sulfate [Ferosul] 325 mg PO BID #60 tablet - Follow Up Plan Condition: FAIR Disposition: REHAB FACILITY/REHAB UNIT Instructions: Heart Healthy Diet, Preventing Falls in the Older Adult, Heart Failure, Adult (DC), Hip Fracture (DC), Bipolar Hip Replacement (DC), Managing Pain After Surgery Additional Instructions: Please admit patient under Dr. Oliver service Please call Dr. Oliver upon [facility] Please f/u with Dr. Hernández office in 2 week - CALL AND MAKE APPOINTMENT T Please continue levenox for 35 days ( DVT prophylaxis for hip surgery , please do not discontinue without Dr. hernández order) Patient needs to resume his eliquis after the completion of levenox Please do cbc and bmp on Saturday and then as per Dr. Oliver All other orders as per Dr. Oliver at rehab Referrals: Hamlet Richardson MD [Staff Provider] - Marii Rodriguez MD [Staff Provider] -
--- NOTE | 2019-01-05 01:19 | OP ---
PROCEDURE DATE: 12/24/2018 PREOPERATIVE DIAGNOSIS: Left hip displaced femoral neck fracture. POSTOPERATIVE DIAGNOSIS: Left hip displaced femoral neck fracture. PROCEDURE: Left hip hemiarthroplasty. SURGEON: Hamlet Cochran MD FUEL CELL ASSEMBLER: Barry Pedraza PA-C JUSTIFICATION FOR FUEL CELL ASSEMBLER: Barry Pedraza is a certified physician assistant general manager whose skilled surgical services were absolute necessity for successful completion of the procedure. She provided skilled surgical assistance with positioning of the patient, positioning of extremity, management of the surgical junior, anterolateral surgical approach to the hip/modified hardinge approach, preparation of proximal femur and femoral neck osteotomy, acquisition of femoral neck and femoral head, preparation of proximal femur with sequential reaming and broaching, placement of trial implants and reduction of hip, placement of final implants and reduction of hip, wound closure and repair of abductor and ITB, final wound closure, transfer and positioning of the patient. Barry Pedraza was present for the entire case and was an absolute necessity for successful completion of the procedure. ANESTHESIA: General endotracheal anesthesia. SPECIMENS: Femoral head and femoral neck sent to Pathology. ESTIMATED BLOOD LOSS: 100 mL. DRAINS: None. COMPLICATIONS: None. IMPLANTS: Medacta hip hemiarthroplasty system consisting of size-2 cementless AMADO coated, Quadra-H stem standard, 28 mm plus 3.5 offset femoral head cobalt chromium, bipolar 48 mm outer diameter, 28 mm inner diameter bipolar head. DISPOSITION: The patient was extubated and transferred to PACU in stable condition and tolerated the procedure well. INDICATIONS FOR SURGERY: The patient is an 88-year-old male with a past medical history significant for hypertension, diabetes, atrial fibrillation (on Eliquis, Plavix, ASA), coronary artery disease with history of MO x5, status post CABG and multiple cardiac stents with internal cardiac defibrillator placed in 2001, presented to the ER at [facility], status post fall from standing on 12/19/2018 with left hip pain and inability to ambulate or weight bear on the left lower extremity since fall. The patient lives at home with his son. He had a mechanical fall at home on 12/19/2018. He recalls the fall. Denies syncope or any head trauma. He was taken to the ER at [facility] same day via EMS and after evaluation by ER staff and review of imaging, he was diagnosed with left hip displaced femoral neck fracture. He was admitted to the medical service under Dr. Sindy Rodriguez. Orthopedic consultation was placed and I evaluated the patient personally as an inpatient at [facility] on 12/20/2018. The patient ambulates without assist device at baseline, mostly stays at home, but does go for small walk less than a few blocks weekly. His son takes care of meals, shopping, and cleaning, but the patient is independently with toiletry and some ADLs. The patient reported he took all of his medications on the morning of admission on 12/19/2018 with the last dose of aspirin during 12/21/2018 and last dose of Eliquis and Plavix on 12/19/2018. REVIEW OF IMAGING IN THE EMERGENCY ROOM: X-rays of left hip and pelvis done at [facility] in the ER on 12/19/2018 showed a displaced subcapital femoral neck fracture. CAT scan of the left hip done at [facility] on 12/19/2018 showed displaced subcapital femoral neck fracture with no evidence of pathologic disease. All imaging reviewed by myself and the radiologist showed acute femoral neck fracture. As stated above, the patient is on Eliquis,. Plavix, and aspirin at baseline with the last dose being 12/19/2018. I reviewed the x-rays and injury/diagnosis with the patient at length bedside on 12/20/2018 as an inpatient. I explained to him the nature of his injury and the definitive surgical treatment plan of left hip hemiarthroplasty. He stated that he would like to maintain his independence and activity level and return to his home as soon as possible. He was indicated for left hip hemiarthroplasty. The risks, benefits, and alternatives to the procedure were discussed in length with the patient and with the risks including, but not limited to infection, neurovascular damage, periprosthetic fracture, iatrogenic injury including sciatic nerve injury, abductor lurch from inadequate abductor repair and healing, chronic hip pain, development of chronic pain and disability, development of blood clots including DVT and PE, cardiopulmonary complications in the preoperative, anesthesia reactions including . After answering all of his questions, the patient understood the risks and wished to proceed with surgery. I showed him surgical animation videos and multiple images of the hip hemiarthroplasty surgery and multiple videos and images of femoral neck fractures and appropriate treatment plan. After answering all of his questions, he states that they understood the nature of his injury/diagnosis and the procedure presented to him. I personally consulted mechanical technical service specialist who advised holding all blood thinner medications (Eliquis, Plavix, aspirin) and proceeding with surgery on 12/24/2018 on the elective OR schedule. This was allowed for adequate time for his platelet functions to return and proceeding with safe open orthopedic surgery. He was evaluated by jewel bearing maker, and his pacemaker/defibrillator was interrogated and found to be functioning normally. He was medically and cardiac optimized and scheduled for left hip hemiarthroplasty surgery as an inpatient on the elective OR schedule at [facility] on 12/24/2018. PROCEDURE IN DETAIL: The patient was identified in the preoperative holding area, and the left hip was marked for the surgery. Once again as described above, the risks, benefits, and alternatives to the procedure were discussed at length with the patient, and informed consent was obtained and confirmed. After brief discussion with the anesthesia staff, the patient was taken to the operating room and placed on the wall-padded operating room table with all bony prominences and superficial neurovascular structures well-padded. An initial time out was done with the surgeon, anesthesia staff, OR staff, and all are in agreement with the patient, procedure being done and extremity being operated on. General anesthesia was administered without difficulty or complication. An anterolateral/modified hardinge approach would be used as the surgical approach for this procedure requiring the patient to be in the lateral position with the left hip up. Once the patient was under generalized anesthesia, it was carefully rode into the lateral position and stabilized with the PEG holders with good paving placed and all superficial neurovascular structures well padded including the peroneal. Care was taken to ensure the adequate leg length can be felt and confirmed during implant, trailing and placement of final implants. The left hip was prepped and draped in a standard sterile fashion. Preoperative IV antibiotics had been administered. Final time-out was done with the surgeon, anesthesia staff, OR staff, all in agreement with the patient, procedure being done and extremity being operated on. A laterally based incision measuring approximately 7 cm was created, centered over the greater trochanter with a straight incision. Incision was made through skin down subcutaneous tissue down to the level of iliotibial fascia. Greater trochanter was palpated and sharp incision to iliotibial fascia was created directly above the greater trochanter allowing adequate access to the anterior structures. Iliotibial fascia was sharply incised, and the Charnley retractor was placed. The hip/left lower extremity was brought into external rotation placing the vastus lateralis and abductors on tension. The anterolateral surgical approach was continued with sharp incision through the junction of the anterior and posterior one third/two thirds of the vastus lateralis up to the vastus lateralis insertion to the gluteus medius and gluteus medius insertion in a large V-shaped anterior flap retractor anteriorly and tagged for future repair. Underlying anterior capsule was sharply incised in a T-shaped capsulotomy. Underlying femoral neck fracture was visualized and hematoma was evacuated. The bone of the femoral neck fracture itself appeared to be soft with either to result of impaction from attempting to walk on the fracture or acute on chronic development of the femoral neck fracture. The patient did deny any previous left hip or groin pain. The future femoral neck osteotomy and femoral head will be sent to Pathology to confirm normal bone and rule out pathological fracture despite negative CT and x-rays. The lesser trochanter was palpated and femoral neck osteotomy was made one fingerbreadth above the level of the lesser trochanter extending to the greater trochanter successfully with the use of the saw blade with the leg in a peripeduncular position to the ground. The remnant femoral neck was then resected and sent to Pathology for evaluation. With the use of the corkscrew, the remnant femoral head was successfully removed in its entirety and sent to the back table for sizing. Femoral head measured 48 mg as was pre-templated using the contralateral intact hip size on x-rays. The hip joint was copiously irrigated, and all bony fragments and hematoma were removed with copious irrigation of 1000 mL normal saline. With the left lower extremity placed in the external sterile bag of the anterolateral hip drape system, we then proceeded with proximal femoral preparation. Box osteotome was used to create the opening entry point to the proximal femoral shaft followed by proximal femoral shaft reamer and canal finder. Sequential broaching was carried out starting with a 0 broach advancing with care to size-1, finally to size-2 broach with good seating achieved and good stability. Trial was carried out with a 0 offset standard size-2 femoral stem with a 0 offset neck and 48-mm bipolar head. A 48-mm bipolar head sizer had also been trailed and had good suction fit within the acetabulum prior to proximal femoral preparation. The trial implants were carefully placed into the position with good stability and impaction achieved. The hip was then reduced with traction and internal rotation by me personally. Limb lengths were checked and the left lower extremity was found to be just a bit shorter than the right lower extremity, and repeat trial with a +3.5 femoral neck was carried out with repeat dislocation and reduction of the hip. With the +3.5 femoral neck in position, just perfect clinical leg length comparison was achieved with both legs the same length. The hip was tested for stability and range of motion and the deep full range of motion was obtained with good stability achieved and soft tissue tensioning. Trial implants were removed, and the wound and deep tissue and cut bony surfaces were copiously irrigated with 1000 mL of normal saline and removing all bony debris and hematoma. Final implants from [facility] were placed: Size-2 standard AMADO coated, press-fit Quadra-H femoral stem was impacted carefully into position with 10-degree anteversion dialed in and good stability achieved. Trial was carried out once again ensuring +3.5 femoral head and 48-mm bipolar head would provide good stability and leg length. Once this was confirmed, final +3.5 cobalt-chromium femoral head was opened and impacted into position at the femoral stem. A 48-mm bipolar head was then impacted on to the cobalt-chromium femoral head, and the hemiarthroplasty bipolar construct was then successfully reduced to the acetabulum with traction and internal rotation by me personally. Final leg length was clinically measured and found to be spot on compared to contralateral leg. Stability of the hip was tested and found to be stable with good soft tissue tension achieved. The wound was copiously irrigated with another 1000 mL of normal saline. IrriSept antibiotic irrigation was also placed and utilized. The hip capsule was reapproximated and repaired using #1 Vicryl suture. The gluteus medius and minimus as well as vastus lateralis were repaired with #2 and #5 FiberWire sutures with transosseous tunnels with transosseous equivalent repair that was found to be stable. The repair construct was tested and indeed was found to be stable for the gluteus medius as well as the vastus lateralis insertion. Dimt-hm-wbdk repair for the rest of the tendons was achieved with #2 FiberWire suture. Charnley retractor was removed and copious irrigation was used again for the wound. Iliotibial fascia was reapproximated side to side with a combination of #1 Vicryl suture and #2 FiberWire suture. Subcutaneous tissue was reapproximated with #1 Vicryl suture and 2-0 Vicryl suture followed by bin for skin. Sterile dressings were applied. The patient was carefully brought into the supine position. Leg lengths were evaluated again and found to be identical between both lower extremities. The patient was then extubated and transferred to the PACU in a stable condition and tolerated the procedure well. DISPOSITION: The patient will remain as an inpatient on the medical service. He will be started on DVT prophylaxis in the form of 40 mg Lovenox subcutaneous injection once daily and restarted on Plavix and Eliquis at the recommendation of hematology consult. We will monitor his progress as an inpatient and follow him. Once he is discharged from the hospital either to subacute rehab/rehab facility versus home with services, he will then follow up in my office in [facility] within one week. He will receive adequate pain control. The Garvey catheter will be removed the following day. We will monitor his medical progress as well. He will work with physical therapy with no hip restrictions, weightbearing as tolerated to the left lower extremity, out of bed as much as possible and re-educated on ambulation with assist devices. Hamlet Russo MD
== END 2018-12-31 22:20 | DRG 470 ==
LOC: C.ER 21:07 → C.6T 22:44 → C.9S 12-24 14:29 → C.9I 12-24 15:27 → C.6T 12-26 12:50
PROVIDERS: ADMIT Internal Medicine Nephrology; ATTEND Internal Medicine Nephrology
PROC: 30233N1 Transfusion of Nonautologous Red Blood Cells into Peripheral Vein, Percutaneous Approach (ICD-10-PCS; 2018-12-24)
PROC: 0SRS039 Replacement of Left Hip Joint, Femoral Surface with Ceramic Synthetic Substitute, Cemented, Open Approach (ICD-10-PCS; principal; 2018-12-24 08:15)
DX: S72.002A Fracture of unspecified part of neck of left femur, initial encounter for closed fracture (principal); D62 Acute posthemorrhagic anemia; I13.0 Hypertensive heart and chronic kidney disease with heart failure and stage 1 through stage 4 chronic kidney disease, or unspecified chronic kidney disease; I50.22 Chronic systolic (congestive) heart failure; W01.0XXA Fall on same level from slipping, tripping and stumbling without subsequent striking against object, initial encounter; E86.0 Dehydration; D63.1 Anemia in chronic kidney disease; D47.3 Essential (hemorrhagic) thrombocythemia; E11.22 Type 2 diabetes mellitus with diabetic chronic kidney disease; I25.10 Atherosclerotic heart disease of native coronary artery without angina pectoris; I44.7 Left bundle-branch block, unspecified; I48.91 Unspecified atrial fibrillation; J44.9 Chronic obstructive pulmonary disease, unspecified; N18.9 Chronic kidney disease, unspecified; N40.0 Benign prostatic hyperplasia without lower urinary tract symptoms; F10.21 Alcohol dependence, in remission; Y92.009 Unspecified place in unspecified non-institutional (private) residence as the place of occurrence of the external cause; I25.2 Old myocardial infarction; Z87.891 Personal history of nicotine dependence; Z79.01 Long term (current) use of anticoagulants; Z79.84 Long term (current) use of oral hypoglycemic drugs; Z79.02 Long term (current) use of antithrombotics/antiplatelets; Z79.82 Long term (current) use of aspirin; Z87.442 Personal history of urinary calculi; Z95.810 Presence of automatic (implantable) cardiac defibrillator; Z95.1 Presence of aortocoronary bypass graft; Z95.5 Presence of coronary angioplasty implant and graft; Z99.81 Dependence on supplemental oxygen; Z79.899 Other long term (current) drug therapy; Z82.49 Family history of ischemic heart disease and other diseases of the circulatory system; Z80.1 Family history of malignant neoplasm of trachea, bronchus and lung

== ENCOUNTER 2019-01-14 05:07 | Inpatient (IN) | payer MEDICARE, BC | END 2019-01-26 16:45 | LOC: C.5S 01-18 15:22 → C.3T 01-21 20:43 → C.ER 05:07 → C.3T 01-18 15:24 → C.9E 06:28 → C.5S 09:32 ==